=== PATIENT | female | born 1970 | race Caucasian/White ===

== ENCOUNTER → 2023-05-12 08:17 | Outpatient (POV) | payer MEDICAID, SELFPAY ==
[2023-05-12 08:50] VITALS: BP 154/96; PULSE 83; RESP 20; O2SAT 99; BMI 43.5
--- NOTE | 2023-05-12 08:51 | EXP.PAIN.OV ---
HPI Data of Consult Patient: known to practice within the last 3 years Consult date: 05/12/23 Requesting Physician: Gianna Briseno APRN Primary Care Provider: Carlota Warner APRN Consult Narrative Reason for consult: Low back pain, leg pain History of present illness: Ms. Mac is a 52 year old female who presents as a transfer from our [place] office location. We are currently treating the patient for degenerative disc disease of lumbar spine with lumbar radiculopathy symptoms, chronic pain, neuropathy. Today she rates her pain a 7 out of 10. Patient does state that she has had a fall since her last visit with our office in [place] however she denies any significant injury from it. Patient does state that she has recently gone to the ER due to increased pain that was unrelated to her fall. Patient does describe her pain as a constant severe, stabbing sensation with burning and tingling to her bilateral legs and feet. Patient states this has been going on for years and progressively worsened over time. She does state that the pain is debilitating and does interfere with activities of daily living such as cooking and cleaning or even simple ambulation. Patient does continue to use a wheelchair for help with ambulation. Patient was recently submitted for a psych eval for the possibility of a intrathecal pain pump. She does state that she completed this evaluation and is wanting to review the findings during today's visit as well. Patient denies have a significant health history with comorbidities of diabetes, kidney failure and end-stage COPD as well as heart issues. Patient is on Plavix daily that is prescribed by Carlota Warner office. Patient is currently managed with tramadol 50 mg 3 times a day, gabapentin 600 mg 3 times a day, diazepam 5 mg 3 times daily and ropinirole 3 mg at bedtime. Patient has tried heat and ice along with multiple topical solutions with no additional relief. Patient has had injections in the past and states they have been hit or miss on the amount of relief she does get. Patient cannot tolerate physical therapy due to her significant comorbidities and continuous O2 use. Her Maximo is [id number]. Its been reviewed and appropriate. CC: Gianna Briseno APRN [facility] Disclaimer: The information contained in this section may have been updated after the patient was seen, as this information can be updated by other users. Medical History (Updated 05/12/23 @ 10:03 by Gianna Briseno APRN) CAD (coronary artery disease) COPD (chronic obstructive pulmonary disease) Depression Diabetes GERD (gastroesophageal reflux disease) HLD (hyperlipidemia) HTN (hypertension) Surgical History (Updated 05/12/23 @ 08:54 by Fanny Kraus, [facility]) H/O breast surgery H/O section H/O colonoscopy H/O esophagogastroduodenoscopy Social History (Updated 05/12/23 @ 08:55 by Fanny Kraus, RN) Smoking Status: Current every day smoker alcohol intake: never current occupational status: unemployed Travel in the last 8 weeks: None Review of Systems Review of Systems Review of systems:: pertinent systems reviewed and negative unless documented below Review of systems (narrative): Review of Systems: General: No recent weight changes, no fever, no sleep disturbances Respiratory: No cough, no shortness of air, no recurring pulmonary infections Cardiovascular/peripheral vascular: No chest pain, no palpitations, no edema, no shortness of breath Gastrointestinal: No new onset incontinence, normal bowel movements reported Genitourinary: No new onset incontinence Musculoskeletal: Low back pain, bilateral leg pain Psychiatric: [Normal mood/affect] Neurological: [Denies weakness in extremities], [denies balance issues] Meds Home Medications and Allergies Home Medications Medication Instructions Recorded Confirmed Type aspirin 81 mg tablet,delayed 81 mg PO DAILY Blood thinner 05/12/23 05/12/23 History release
== END | disposition home or self-care (01) ==
PROVIDERS: PCP Nurse Practitioner Family; Visit Provider Nurse Practitioner Family
DX: M51.16 Intervertebral disc disorders with radiculopathy, lumbar region (principal); G89.4 Chronic pain syndrome
CPT/HCPCS: 99202; G0463

== ENCOUNTER → 2023-05-24 14:24 | Outpatient (POV) | payer MEDICAID, SELFPAY ==
[2023-05-24 14:49] VITALS: BP 179/76; PULSE 77; RESP 18; O2SAT 97; BMI 41.8
--- NOTE | 2023-05-24 15:02 | EXP.PAIN.SOA ---
[facility] Pain Management SOAP Note Subjective:: Patient is a pleasant 53-year-old female who presents today for follow-up. We are currently treating the patient for degenerative disc disease of lumbar spine with lumbar radiculopathy symptoms, chronic pain syndrome, neuropathy. Today she rates her pain a 8 out of 10. Patient states that she did fall last and has been having increased pain in her low back. Patient states that she did go to the ER and had imaging done with no acute findings. Patient does continue to have daily pain in her low back and legs and describes it as a constant severe, stabbing sensation with burning and tingling. Patient is still waiting for approval for her intrathecal pain pump trial. Patient is currently managed with Plavix daily, tramadol 50 mg 3 times a day, gabapentin 600 mg 3 times a day, diazepam 5 mg 3 times a day and ropinirole 3 mg at bedtime. Patient states that these medications do help however they do not provide significant relief. At her last visit she was prescribed methocarbamol 750 mg 3 times a day however she states she did not notice any improvement. She is currently on prednisone therapy patient states in the past she has had home health physical therapy and is interested in redoing this due to her increased weakness in her legs. Patient has tried compounding cream in the past however did not notice significant relief. She does currently use lidocaine patches. She does also state that she continues to have bladder incontinence and that she does see Dr. Farmer at [facility] for this. She states that she frequently holds her urine for lots due to increased pain and that by the time she gets to the restroom she does not have to go and then will have periods of incontinence. Her Maximo is [id number]. Its been reviewed and appropriate. Review of Systems: General: No recent weight changes, no fever, no sleep disturbances Respiratory: No cough, no shortness of air, no recurring pulmonary infections Cardiovascular/peripheral vascular: No chest pain, no palpitations, no edema, no shortness of breath Gastrointestinal: No new onset incontinence, normal bowel movements reported Genitourinary: Continued incontinence Musculoskeletal: Low back pain, leg pain Psychiatric: High anxiety and depression Neurological: [Denies weakness in extremities], [denies balance issues] Objective:: Physical Exam: General: Alert and oriented x3, no acute distress, pleasant and cooperative Lungs: Respirations even and unlabored, symmetrical chest expansion Eyes: PERRL Musculoskeletal: Flexion and extension of lumbar [spine] somewhat guarded secondary to pain, [antalgic gait noted] Neurological: Speech clear, no gross sensory deficit Assessment:: Degenerative disc disease of lumbar spine with lumbar radiculopathy symptoms, chronic pain syndrome, neuropathy Plan:: Patient continues to experience significant pain in her low back and legs with limited range of motion. We are currently waiting on insurance approval for her intrathecal pain pump trial. She did already have her psych eval and was deemed an appropriate candidate for the device. I will send her for referral to Yarelis Gallardo here at [facility] for her increased anxiety and depression related to her chronic pain symptoms. I will also order home health physical therapy. I have counseled the patient to discontinue the methocarbamol and I will send in a prescription of Skelaxin 800 mg at bedtime and provide a 1 month supply of this medication. I have recommended that she talk to her urologist regarding her continued incontinence and that she may benefit from bladder retraining exercises. We will contact the patient once we have insurance approval for her intrathecal pain pump trial. Patient has been instructed to contact the clinic with any concerns before the next appointment. Dr. Herrera has reviewed this note and agrees with this plan of care. This note was dictated using vo
== END | disposition home or self-care (01) ==
PROVIDERS: PCP Nurse Practitioner Family; Visit Provider Nurse Practitioner Family
DX: M51.16 Intervertebral disc disorders with radiculopathy, lumbar region (principal); G89.4 Chronic pain syndrome; G62.9 Polyneuropathy, unspecified
CPT/HCPCS: 99212; G0463

== ENCOUNTER → 2023-06-21 08:38 | Outpatient (POV) | payer MEDICAID, SELFPAY ==
--- NOTE | 2023-06-21 08:44 | EXP.PAIN.SOA ---
[facility] Pain Management SOAP Note Subjective:: Patient is a pleasant 53-year-old female who presents today for follow-up. We are currently treating the patient for degenerative disc disease of lumbar spine with lumbar radiculopathy symptoms, chronic pain syndrome, neuropathy. Today she she rates her pain a 7 out of 10. Patient denies any new trauma or injury. She denies any change location or type of pain she experiences. She states she continues to have significant, debilitating pain in her low back and legs. She describes it as a constant severe, stabbing sensation with burning and tingling. Patient is waiting for her intrathecal pain pump trial that has been scheduled for July 09. Patient is currently managed with tramadol 50 mg 3 times a day, gabapentin 600 mg 3 times a day, diazepam 5 mg 3 times a day and ropinirole 3 mg at bedtime. Patient states these medications help but they are not doing enough. At her last visit we did add Skelaxin 800 mg 3 times daily and discontinue her methocarbamol. Patient states that she has not noticed any additional improvements of this medication. She has tried cyclobenzaprine, baclofen, tizanidine in the past with no additional relief. Patient is on prednisone daily for her lungs. She was ordered compounding cream in the past however it was not covered by her insurance. SHe does currently use lidocaine patches however she states she has not gotten significant relief with this. Her Maximo is [id number]. Its been reviewed and appropriate. Review of Systems: General: No recent weight changes, no fever, no sleep disturbances Respiratory: No cough, no shortness of air, no recurring pulmonary infections Cardiovascular/peripheral vascular: No chest pain, no palpitations, no edema, no shortness of breath Gastrointestinal: No new onset incontinence, normal bowel movements reported Genitourinary: Continued incontinence Musculoskeletal: Low back pain, leg pain Psychiatric: High anxiety and depression Neurological: [Denies weakness in extremities], [denies balance issues] Objective:: Physical Exam: General: Alert and oriented x3, no acute distress, pleasant and cooperative Lungs: Respirations even and unlabored, symmetrical chest expansion Eyes: PERRL Musculoskeletal: Flexion and extension of lumbar [spine] somewhat guarded secondary to pain, [antalgic gait noted] Neurological: Speech clear, no gross sensory deficit Assessment:: Degenerative disc disease of lumbar spine with lumbar radiculopathy symptoms: Chronic pain syndrome, neuropathy Plan:: Patient continues to experience significant debilitating pain in her low back with radiating symptoms to her legs. I have discussed with the patient that she may benefit from injective therapy however she states she is unable to afford to travel back and forth from her home due to limited funds. I will order the patient's Flector patches and provide a 1 month supply of these medications and also send in a prescription of Orphengesic citrate bid and provide a 2-week supply of this medication. I did review over the patient's current medication and she has been discontinued on all other muscle relaxers as well as is not taking a potassium tablet any longer. I have counseled the patient that if we are able to move up her pain pump trial we will contact her. Patient has been instructed to contact the clinic with any concerns before the next appointment. Dr. Herrera has reviewed this note and agrees with this plan of care. This note was dictated using voice recognition software and make contain errors or omissions. [facility] Disclaimer: The information contained in this section may have been updated after the patient was seen, as this information can be updated by other users. Medical History (Updated 05/12/23 @ 10:03 by Gianna Briseno APRN) CAD (coronary artery disease) COPD (chronic obstructive pulmonary disease) Depression Diabetes GERD (gastroesophageal reflux disease) HLD (hyper
[2023-06-21 08:47] VITALS: BP 134/40; PULSE 76; RESP 18; O2SAT 90; BMI 37.5
== END | disposition home or self-care (01) ==
PROVIDERS: PCP Nurse Practitioner Family; Visit Provider Nurse Practitioner Family
DX: M51.16 Intervertebral disc disorders with radiculopathy, lumbar region (principal); G89.4 Chronic pain syndrome; G62.9 Polyneuropathy, unspecified
CPT/HCPCS: 99212; G0463

== ENCOUNTER 2023-07-09 09:01 | Day surgery (SDC) | payer MEDICAID, SELFPAY ==
[2023-07-09 09:45] VITALS: BP 141/81; PULSE 81; RESP 20; TEMP 36.8; O2SAT 97; BMI 40.7
[2023-07-09 09:58] VITALS: BP 139/94; PULSE 73; PULSE 76; RESP 18; O2SAT 95; O2SAT 97
--- NOTE | 2023-07-09 11:06 | EXP.OP.NOTE ---
Date of procedure: 07/09/23 Pre-op Diagnosis:: Degenerative disc disease of lumbar spine with lumbar radiculopathy symptoms Post-op Diagnosis:: Same Procedure performed:: Catheter placement for intrathecal pump trial Surgeon:: Dewayne Herrera MD
[2023-07-09 11:30] VITALS: BP 129/86; PULSE 74; RESP 20; O2SAT 95
--- NOTE | 2023-07-09 11:56 | PC.NURSE ---
1005-pt assisted back to chair. pt denies pain, lumbar dressing c/d/i. 144/80, 80, 97% on RA 1020-pt resting in chair. tolerating PO liquids. family at bedside. no c/o pain. lumbar dressing c/d/i. 140/80, 73, 96% on RA. pt reports itching, denies need for PRN medication 1035-pt resting in chair. no needs or concerns. 134/67, 79, 96% on RA. no c/o pain. dressing c/d/i. family at bedside 1048-MD at bedside 1050-pt resting in chair. 110/66, 73, 100%. no c/o pain, dressing c/d/i. family at bedside. no needs or concerns at this time 1100-pt ambulated to nurse's station accompanied by nursing staff. gait steady. rates pain 2 on scale of 0-10 while ambulating. 1120-pt resting in chair. no c/o pain. dressing c/d/i. 105/75, 72, 96% on RA. no needs or concerns at this time
--- NOTE | 2023-07-09 12:14 | P.PCN_ITS ---
Procedure Date: 07/09/23 Time: 12:14 Anesthesiologist:: Dewayne Herrera MD Complications:: None Pre-procedure Diagnosis:: Degenerative disc disease of lumbar spine with lumbar radiculopathy symptoms Post-procedure Diagnosis:: Same Indications for Procedure:: This patient is a pleasant 53-year-old white female who we are treating for low back pain with lumbar radicular symptoms. She has failed all previous conservative treatments including injections, oral medications, physical therapy and she is not a candidate for surgery. She has disabling low back pain with radiation into both legs. She has had a successful psychological evaluation. She presents for intrathecal pump trial today. Procedure Details:: Pain pump trial Informed consent was obtained and the risk and benefits of the procedure was explained to the patient. The patient was taken to the procedure room and placed prone on the procedure table. Patient was prepped and draped in sterile fashion. C-arm fluoroscopy was used to view the lumbar spine. The skin and mensah bcutaneous tissues were anesthetized using lidocaine. I placed a 18-gauge spinal needle into the L4-5 interspace and advanced until clear CSF was obtained. After this intrathecal catheter was inserted and advanced very easily to the L1 vertebral body. The needle was withdrawn. We were able to freely withdraw clear CSF through the catheter. We then injected intrathecal opioid single shot bolus of 25 mcg followed by saline and followed by the previous CSF that was withdrawn. The needle and catheter were then removed and a Band-Aid was placed. Patient tolerated the procedure well with no complications. We reevaluated the patient after 30 minutes to 1 hour. She was also reassessed by physical therapy. Patient had 90 to 100% relief in pain symptoms. She was much more functional. She was walking better and standing much longer. By all indications this did seem to be a successful intrathecal pump trial. Patient was discharged home neurologic intact with good relief of pain symptoms. Plan and Disposition:: We will follow-up with this patient in 1 week to assess efficacy of this trial. If successful we will plan on permanent placement with intrathecal morphine 1 mg/mL to start at 100 mcg/day. Catheter tip will be at the T8 vertebral body.
== END 2023-07-09 11:30 | disposition home or self-care (01) ==
PROVIDERS: PCP Nurse Practitioner Family; Visit Provider Anesthesiology
DX: M51.16 Intervertebral disc disorders with radiculopathy, lumbar region (principal)
CPT/HCPCS: 62323; 96365

== ENCOUNTER → 2023-08-27 07:43 | Outpatient (POV) | payer MEDICAID, SELFPAY ==
[2023-08-27 08:00] VITALS: BP 167/57; PULSE 77; RESP 20; BMI 40.4
--- NOTE | 2023-08-27 11:00 | A.OFFVIS_ITS ---
[facility] Pain Management SOAP Note Subjective:: This patient is a very pleasant 53-year-old female that returns our clinic today for follow-up visit after being intrathecal pain pump implantation. Patient had a very successful trial. She reports 4 to 6 hours of complete relief in terms of her overall low back pain as well as bilateral hip and leg radicular symptoms. Patient not understanding today why there was a denial. However, we are going to deal with the cards that have been handed to us. Today we will start the patient on hydrocodone 5 mg 1 p.o. twice daily. She will continue with tramadol 50 mg 1 p.o. 2-3 times daily for breakthrough pain. She also takes gabapentin 600 mg 1 p.o. 3 times daily. Both of these existing me dications come from her PCP. Patient presents to us today in a wheelchair. She has difficulty with ambulation secondary to intense low back pain she rates 8/10. Patient also having bilateral hip and leg radicular symptoms that she describes as constant, dull, aching, shooting pains at times. Patient unable to do light housework. Light yard work is out of the question secondary to increased pain. Patient has tried and failed conservative measures such as NSAIDs, physical therapy, home exercise program, injective therapy. I think it is very reasonable with the relief she received with the pump trial that we proceed with intrathecal pain pump implantation. Objective:: Patient is awake alert [place] x3. No acute distress. Flexion-extension lumbar spine very guarded secondary to pain. Deep tendon reflexes upper and lower extremities normal. Motor strength lower extremities attended secondary to pain. She presents to our clinic today in a wheelchair. Ambulating for any distance as not possible. Assessment:: Degenerative disc lumbar spine multilevels. Lumbar radiculopathy. Plan:: I discussed in detail with the patient regarding procedure from this point forward regarding obtaining authorization from insurance for intrathecal pain pump implantation. Patient discussed in detail with the office nurse as well. We will expedite this to the ability that we can. However, we are under the constraints of [facility] at this time. [facility] Disclaimer: The information contained in this section may have been updated after the scott davalos was seen, as this information can be updated by other users. Medical History CAD (coronary artery disease) COPD (chronic obstructive pulmonary disease) Depression Diabetes GERD (gastroesophageal reflux disease) HLD (hyperlipidemia) HTN (hypertension) Surgical History H/O breast surgery H/O section H/O colonoscopy H/O esophagogastroduodenoscopy Family History (Updated 07/09/23 @ 11:50 by Soco Morris RN) Other No significant family history Social History (Updated 07/09/23 @ 11:51 by Soco Morris RN) Smoking Status: Current every day smoker alcohol intake: never substance use type: denies use current occupational status: other Travel in the last 8 weeks: None
== END | disposition home or self-care (01) ==
PROVIDERS: PCP Nurse Practitioner Family; Visit Provider Nurse Anesthetist, Certified Registered
DX: M51.16 Intervertebral disc disorders with radiculopathy, lumbar region (principal)
CPT/HCPCS: 99212; G0463

== ENCOUNTER → 2023-08-27 08:46 | Outpatient (CLI) | payer MEDICAID, SELFPAY ==
[2023-08-27 09:51] LABS: Barbiturates Screen,Urine Negative ng/ml (<200)
[2023-08-27 09:52] LABS: Amphetamine/Metha Screen,Urine Negative ng/ml (<1000)
[2023-08-27 09:53] LABS: Benzodiazepines Screen,Urine Negative ng/ml (<200); Cannabinoid Screen,Urine Negative ng/ml (<50)
[2023-08-27 09:58] LABS: Methadone Screen,Urine Negative ng/ml (<300)
[2023-08-27 09:59] LABS: Cocaine Screen,Urine Negative ng/ml (<300)
[2023-08-27 10:00] LABS: Opiate Screen,Urine Negative ng/ml (<300); Phencyclidine Screen,Urine Negative ng/ml (<25)
[2023-09-01 15:33] LABS: Opiates Negative (Cutoff=100)
== END ==
PROVIDERS: PCP Nurse Practitioner Family; Visit Provider Nurse Practitioner Family
DX: Z79.891 Long term (current) use of opiate analgesic (principal)
CPT/HCPCS: 80305; 80361; 80365; G0480

== ENCOUNTER → 2023-09-24 08:21 | Outpatient (POV) | payer MEDICAID, SELFPAY ==
[2023-09-24 09:02] VITALS: BP 156/86; PULSE 71; RESP 18; O2SAT 94; BMI 40.8
--- NOTE | 2023-09-24 10:21 | EXP.PAIN.SOA ---
[facility] Pain Management SOAP Note Subjective:: Patient is a very pleasant 53-year-old female that comes our clinic today for follow-up visit for medication refill. Patient is waiting a 60-day. Prior to resubmitting for intrathecal pain pump implant. Patient had a very successful 4 to 6-hour trial. However, patient was denied implantation. We are currently managing her with oral medications prior to intrathecal pain pump implantation. Patient is taking hydrocodone 5 mg 1 p.o. twice daily. Also, tramadol 50 mg 1 p.o. 2-3 times daily. Also, from her PCP patient is taking gabapentin 600 mg 1 p.o. 3 times daily. Patient presents in a wheelchair today. Patient complains of low back pain she describes as constant, dull, aching. Patient also complains of bilateral hip and leg radicular symptoms. She rates her pain 8/10. Patient has difficulty ambulating long distance. She has difficulty performing light house duty. Patient's Maximo #[id number] has been reviewed and appropriate. Patient has tried and failed conservative measures such as NSAIDs, physical therapy, home exercise program, injective therapy. Objective:: Patient is awake alert [place] x3. In no acute distress. Flexion-extension cervical lumbar spine guarded secondary to pain. Deep tendon reflexes upper and lower extremities normal. Motor strength upper lower extremities normal. There is no gross sensory deficit. Gait is antalgic. Assessment:: Degenerative disc disease lumbar spine multilevels. Lumbar radiculopathy. Plan:: I had a strong discussion with the patient and her regarding her medications. Patient has multiple family members and/or friends living in their home. I discussed with them in detail the necessity of keeping her medications locked. Also, I strongly encouraged the patient and her to count her pills every 3 to 4 days for accuracy. Both verbalized understanding. I will increase the patient's hydrocodone to 5 mg 1 p.o. 3 times daily. Patient will return to see us in 30 days. [facility] Disclaimer: The information contained in this section may have been updated after the patient was seen, as this information can be updated by other users. Medical History CAD (coronary artery disease) COPD (chronic obstructive pulmonary disease) Depression Diabetes GERD (gastroesophageal reflux disease) HLD (hyperlipidemia) HTN (hypertension) Surgical History H/O breast surgery H/O section H/O colonoscopy H/O esophagogastroduodenoscopy Family History (Updated 07/09/23 @ 11:50 by Soco Morris RN) Other No significant family history Social History (Updated 08/27/23 @ 11:04 by Carlos Fulton CRNA) Smoking Status: Current every day smoker alcohol intake: never substance use type: denies use current occupational status: disabled Travel in the last 8 weeks: None
== END | disposition home or self-care (01) ==
PROVIDERS: PCP Nurse Practitioner Family; Visit Provider Nurse Anesthetist, Certified Registered
DX: M51.16 Intervertebral disc disorders with radiculopathy, lumbar region (principal)
CPT/HCPCS: 99212; G0463

== ENCOUNTER → 2023-10-20 07:59 | Outpatient (POV) | payer MEDICAID, SELFPAY ==
[2023-10-20 08:33] VITALS: BP 120/42; PULSE 72; RESP 19; O2SAT 93; BMI 37.5
--- NOTE | 2023-10-20 09:18 | EXP.PAIN.SOA ---
[facility] Pain Management SOAP Note Subjective:: Patient is a pleasant 53-year-old female who presents today for follow-up and medication refill. We are currently treating the patient for degenerative disc disease of lumbar spine with lumbar radiculopathy symptoms, chronic pain syndrome, neuropathy. Today she she rates her pain a 7 out of 10. Patient denies any new trauma or injury. She denies any change location or type of pain she experiences. She continues to have chronic low back pain that she states is constant and debilitating. She states that she has no quality of life due to the nonstop pain. It is a constant severe, stabbing sensation with burning and tingling into her legs. Patient did have a very successful intrathecal pump trial with 90 to 100% relief lasting 6 hours. Patient was submitted for the intrathecal pump placement however was denied and had to wait a 60-day period. Patient has officially passed this ange. She does state that she would like to try and resubmit for this procedure. Patient states this was the only thing that seemed to make significant improvement of her overall low back pain. Patient has been tried on multiple medications including tramadol, cyclobenzaprine and baclofen, Skelaxin, orphenadrine, robaxin with no additional relief. She is currently managed with tramadol 50 mg 3 times a day, gabapentin 600 mg 3 times a day, diazepam 5 mg 3 times a day, Delano 5 mg 3 times a day and ropinirole 3 mg at bedtime. patient states that this medication combination only takes the edge off and still she is not able to do any activity due to the worsening pain. Patient has tried and failed conservative therapy such as oral medications, heat and ice, multiple topicals including [id number] Biofreeze and lidocaine patches with no additional relief. Patient has been through physical therapy home exercise therapy and injection therapy with no change. Her Maximo has been reviewed and appropriate. Review of Systems: General: No recent weight changes, no fever, no sleep disturbances Respiratory: No cough, no shortness of air, no recurring pulmonary infections Cardiovascular/peripheral vascular: No chest pain, no palpitations, no edema, no shortness of breath Gastrointestinal: No new onset incontinence, normal bowel movements reported Genitourinary: Continued incontinence Musculoskeletal: Low back pain, leg pain Psychiatric: High anxiety and depression Neurological: [Denies weakness in extremities], [denies balance issues] Objective:: Physical Exam: General: Alert and oriented x3, no acute distress, pleasant and cooperative Lungs: Respirations even and unlabored, symmetrical chest expansion Eyes: PERRL Musculoskeletal: Flexion and extension of lumbar [spine] somewhat guarded secondary to pain, [antalgic gait noted] Neurological: Speech clear, no gross sensory deficit Assessment:: Degenerative disc disease of lumbar spine with lumbar radiculopathy symptoms, chronic pain syndrome, neuropathy Plan:: Patient continues to experience significant debilitating pain throughout her low back with limited range of motion. I have discussed with the patient that I do believe she still would benefit from the pain pump implant. Risk and benefits were reviewed over again and patient would like to proceed forward with this plan of care. We will send in refills of her Delano 5 mg 3 times a day, gabapentin 600 mg 3 times a day and add tizanidine 4 mg 3 times a day and provide a 1 month supply of these medications. We will resubmit to insurance for the intrathecal pain pump trial and contact the patient once we have approval. Patient did have 90 to 100% improvement lasting 6 hours or more. Patient has tried and failed conservative therapy such as oral medication, heat and ice, topicals, physical therapy, at home exercising and stretching for longer than 12 weeks and injection therapy. Patient will be submitted for intrathecal pump implant. Patient's primary ca
== END | disposition home or self-care (01) ==
PROVIDERS: PCP Nurse Practitioner Family; Visit Provider Nurse Practitioner Family
DX: M51.16 Intervertebral disc disorders with radiculopathy, lumbar region (principal); G89.4 Chronic pain syndrome; G62.9 Polyneuropathy, unspecified
CPT/HCPCS: 99212; G0463

== ENCOUNTER → 2023-11-18 08:27 | Outpatient (POV) | payer MEDICAID, SELFPAY ==
[2023-11-18 09:03] VITALS: BP 84/63; PULSE 92; RESP 22; O2SAT 100; BMI 40.4
--- NOTE | 2023-11-18 09:41 | A.OFFVIS_ITS ---
[facility] Pain Management SOAP Note Subjective:: Patient is a pleasant 53-year-old female who presents today for medication refill and follow-up. We are currently treating the patient for degenerative disc disease of lumbar spine with lumbar radiculopathy symptoms, chronic pain syndrome, neuropathy. Today she rates her pain a 9 out of 10. Patient denies any new falls however does state that she has been recently hospitalized for a COPD exacerbation. Patient states that the physicians she saw there did diagnose her with end-stage COPD and states that she he was put on high flow O2 continuously. Patient does state that the provider did also state he was not sure how much time she had left. Patient does state that she is scheduled to follow-up with her primary care today at 3 PM. Patient's vitals this morning were blood pressure 84/63. Patient has tried and failed conservative therapy such as oral medications, heat and ice, topicals, physical therapy, at home stretching exercise for longer than 6 weeks. Patient is currently managed with [place] 5 mg 3 times a day, gabapentin 600 mg 3 times a day, ropinirole 3 mg at bedtime and diazepam 5 mg 3 times a day. Patient denies any side effects from these medications. She states these medications only merely take the edge off. She does state that she was given in the ER Percocet as well as Ativan. Patient is asking whether or not we will change her current prescription to the Percocet or if we will continue the Ativan. Patient is currently scheduled for a pain pump implant next week and did have a psychological evaluation that deemed her an appropriate candidate. Patient would like to proceed forward with this plan of care. Her Maximo has been reviewed and is appropriate. Review of Systems: General: No recent weight changes, no fever, no sleep disturbances Respiratory: No cough, no shortness of air, no recurring pulmonary infections Cardiovascular/peripheral vascular: No chest pain, no palpitations, no edema, no shortness of breath Gastrointestinal: No new onset incontinence, normal bowel movements reported Genitourinary: No new onset incontinence Musculoskeletal: Low back pain Psychiatric: [Normal mood/affect] Neurological: [Denies weakness in extremities], [denies balance issues] Objective:: Physical Exam: General: Alert and oriented x3, no acute distress, pleasant and cooperative Lungs: Respirations even and unlabored, symmetrical chest expansion Eyes: PERRL Musculoskeletal: Flexion and extension of lumbar [spine] somewhat guarded secondary to pain, [antalgic gait noted] Neurological: Speech clear, no gross sensory deficit Assessment:: Degenerative disc disease of lumbar spine with lumbar radiculopathy symptoms, chronic pain syndrome, neuropathy, end-stage COPD Plan:: I have discussed with the patient due to the recent hospitalization and being diagnosed with end-stage COPD we will have to contact her primary care provider as well as 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 I have explained that if we are unable to get these that we will have to postpone her surgery. Patient acknowledges understanding. We will change her Fredonia to Percocet 5 mg 3 times a day and provide a 1 month supply of this medication. I have counseled the patient that we will not be taking over or prescribing the Ativan. Patient is tentatively still scheduled for her intrathecal pain pump implant for next Wednesday. I have counseled the patient that we will keep her posted if this does need to be postponed. Patient has been advised of risks of oversedation with the prescribed medication. Narcan has been offered to the patient in the event of oversedation. Patient has been advised that a family member should also be educated regarding administration of Narcan. Patient has been instructed to contact the clinic with any concerns before the next appointment. Dr. Herrera has reviewed this note and agrees with this plan of care. This note was dictated using voice recognition software and make contain errors or omissions. [facility] Disclaimer: The information contained in this section may have been updated after the patient was seen, as this information can be updated by other users. Medical History CAD (coronary artery disease) COPD (chronic obstructive pulmonary disease) Depression Diabetes GERD (gastroesophageal reflux disease) HLD (hyperlipidemia) HTN (hypertension) Surgical History H/O breast surgery H/O section H/O colonoscopy H/O esophagogastroduodenoscopy Family History (Updated 07/09/23 @ 11:50 by Soco Morris RN) Other No significant family history Social History (Updated 08/27/23 @ 11:04 by Carlos Fulton CRNA) Smoking Status: Current every day smoker alcohol intake: never substance use type: denies use current occupational status: disabled Travel in the last 8 weeks: None
== END | disposition home or self-care (01) ==
PROVIDERS: Visit Provider Nurse Practitioner Family
DX: M51.16 Intervertebral disc disorders with radiculopathy, lumbar region (principal); G89.4 Chronic pain syndrome; G62.9 Polyneuropathy, unspecified; J44.9 Chronic obstructive pulmonary disease, unspecified
CPT/HCPCS: 99212; G0463

== ENCOUNTER 2023-11-23 14:37 | Outpatient (CLI) | payer MEDICAID, SELFPAY ==
--- NOTE | 2023-11-23 14:45 | CT_ITS ---
FINAL REPORT TECHNIQUE: Axial images were obtained from the lung apex to the mid abdomen by computed tomography. Coronal and sagittal reformatted images were obtained. This study was performed with techniques to keep radiation doses as low as reasonably achievable, (ALARA). Individualized dose reduction techniques using automated exposure control or adjustment of mA and/or kV according to the patient's size were employed. CLINICAL HISTORY: Lung nodule, severe copd COMPARISON: None FINDINGS: There is no axillary adenopathy. A calcified left perihilar lymph node is noted. There is a lingular nodule, calcified, as well as atelectasis and scar in the lingula. There is a focal right upper lobe opacity which measures 13 mm, the overall appearance is most consistent with scar. Heart size is normal. There is no pericardial or pleural effusion. Limited images of the upper abdomen are unremarkable. There are multifocal patchy ground glass opacities, that are worrisome for an atypical or viral pneumonia. IMPRESSION: Focal right upper lobe opacity which measures 13 mm, the overall appearance most consistent with scar. Multifocal patchy ground glass opacities, worrisome for an atypical or viral pneumonia. Reviewed, Interpreted and Dictated by Harley Ambrocio III, MD Transcribed by Irais Ford Authenticated and [facility]
--- NOTE | 2023-11-23 14:45 | XR_ITS ---
FINAL REPORT CLINICAL HISTORY: SOB, lung nodule COMPARISON: None FINDINGS: Two views of the chest were obtained. The heart size and pulmonary vascularity are within normal limits. There is calcification in some left hilar lymph nodes. There is a linear opacity in the left lung base, that may represent atelectasis or scar. There is no pneumothorax. The bony thorax is intact. IMPRESSION: Linear opacity in the left lung base, likely atelectasis or scar. Reviewed, Interpreted and Dictated by Harley Ambrocio III, MD Transcribed by Irais Ford Authenticated and [facility]
[2023-11-23 15:35] LABS: ABG Base Excess 1.4 mmol/L (-2.4-2.3); ABG HCO3 25.7 mmhg (22.0-26.0); ABG Oxygen Saturation 94 % (90-100); ABG PH 7.44 mmol/L (7.35-7.45); ABG PO2 68.6 mmhg (80-100); ABG TCO2 26.9 mmhg (23-27)
[2023-11-23 15:36] LABS: Oxygen 2 LPM %; Source Left Brachial
== END 2023-11-23 23:59 ==
PROVIDERS: PCP Nurse Practitioner Family; Visit Provider Internal Medicine Pulmonary Disease
DX: R06.02 Shortness of breath (principal); R91.8 Other nonspecific abnormal finding of lung field; Z87.09 Personal history of other diseases of the respiratory system
CPT/HCPCS: 71046; 71250; 82803

== ENCOUNTER 2023-11-24 12:31 | Observation (INO) | payer MEDICAID, SELFPAY ==
[2023-11-24] VITALS (12 sets, daily range): BP systolic 92–148; BP diastolic 50–100; PULSE 69–94; RESP 15–24; TEMP 36.6–36.8; O2SAT 91–97; BMI 35.6
--- NOTE | 2023-11-24 13:50 | PC.NURSE ---
respiratory called for ABG order placed by
--- NOTE | 2023-11-24 14:17 | PC.NURSE ---
called lab regarding blood cultures
[2023-11-24 14:19] LABS: Basophils # 0.1 K/mm3 (0-0.2); Basophils % 0.6 % (0.1-2.0); Eosinophils # 0.2 K/mm3 (0.0-0.4); Eosinophils % 1.8 % (0.1-12.0); Hematocrit 38.4 % (37.0-47.0); Lymphocytes # 2.5 K/mm3 (0.7-4.5); Lymphocytes % 24.5 % (10-50); Mean Corpuscular Hemoglobin 30.7 pg (27.0-31.2); Mean Corpuscular Volume 90.5 fl (81-99); Mean Platelet Volume 8.3 fl (7.4-10.4); Monocytes # 0.7 K/mm3 (0.1-1.0); Monocytes % 6.9 % (1.7-9.3); Neutrophils # 6.7 K/mm3 (1.8-7.8); Neutrophils % 66.2 % (37.0-80.0); Platelet Count 235 K/mm3 (142-424); Red Blood Count 4.25 M/mm3 (4.20-5.40); Red Cell Distribution Width 13.4 % (11.5-17.5); White Blood Count 10.1 K/mm3 (4.8-10.8)
[2023-11-24 14:22] LABS: Chloride 101 mmol/L (98-107); Sodium 136 mmol/L (136-145)
--- NOTE | 2023-11-24 14:22 | HMH.EDGENADL ---
Discharge Plan Disposition Patient Disposition: Admitted Chief Complaint: Recheck/Abnormal Lab/Rx Prescriptions Prescriptions: No Action metoprolol succinate 25 mg tablet extended release 24 hr 25 mg PO DAILY Qty: 30 11RF cyclobenzaprine 10 mg tablet 10 mg PO Q8HP PRN (Reason: MOOD) Patient Comments: TAKE ONE (1) TABLET BY ORAL ROUTE EVERY 8 HOURS NEEDED furosemide 40 mg tablet 40 mg PO BID Patient Comments: TAKE ONE (1) TABLET (40 MG) BY ORAL ROUTE TWO (2) TIMES PER DAY clonidine HCl 0.1 mg tablet 0.1 mg PO TID Patient Comments: TAKE ONE (1) TABLET THREE (3) TIMES A DAY BY ORAL ROUTE. ipratropium-albuterol 0.5 mg-3 mg(2.5 mg base)/3 mL solution for nebulization 3 ml INHALATION QID Patient Comments: USE 1 VIAL IN NEBULIZER FOUR TIMES DAILY atorvastatin 10 mg tablet 10 mg PO DAILY Patient Comments: TAKE ONE (1) TABLET EVERY DAY BY ORAL ROUTE. lisinopril 20 mg tablet 20 mg PO DAILY Patient Comments: TAKE ONE (1) TABLET EVERY DAY BY ORAL ROUTE. clopidogrel 75 mg tablet 75 mg PO DAILY Patient Comments: TAKE ONE (1) TABLET EVERY DAY BY ORAL ROUTE DIRECTED. (DME) FreeStyle Lite Strips Strip MISCELLANEOUS Patient Comments: USE DIRECTED aspirin 81 mg tablet,delayed release (DR/EC) 81 mg PO DAILY Patient Comments: TAKE ONE (1) TABLET EVERY DAY BY ORAL ROUTE. tramadol 50 mg tablet 50 mg PO Q8HP PRN (Reason: Pain) Patient Comments: TAKE 1 TABLET BY MOUTH EVERY EIGHT (8) HOURS NEEDED potassium chloride [Klor-Con M20] 20 mEq tablet,ER particles/crystals 20 meq PO TID Patient Comments: TAKE ONE (1) TABLET THREE (3) TIMES A DAY BY ORAL ROUTE. trazodone 100 mg tablet 200 mg PO HS Patient Comments: TAKE TWO (2) TABLETS EVERY DAY BY ORAL ROUTE AT BEDTIME. insulin aspart U-100 [Novolog U-100 Insulin aspart] 100 unit/mL solution 20 unit SQ DIRECTED Patient Comments: INJECT 20 UNITS BY SUBCUTANEOUS ROUTE BEFORE MEALS. pantoprazole 40 mg tablet,delayed release (DR/EC) 40 mg PO DAILY Patient Comments: TAKE 1 TABLET BY MOUTH EVERY DAY sertraline 25 mg tablet 25 mg PO DAILY Patient Comments: TAKE ONE (1) TABLET EVERY DAY BY ORAL ROUTE. bisacodyl 5 mg tablet,delayed release (DR/EC) 5 mg PO DAILY Patient Comments: TAKE ONE (1) TABLET EVERY DAY BY ORAL ROUTE. polyethylene glycol 3350 17 gram/dose powder 17 g PO DAILY Patient Comments: TAKE 17 GRAMS BY ORAL ROUTE ONCE DAILY ketoconazole 2 % cream 1 applic TOPICAL DAILY Patient Comments: APPLY TO AFFECTED AREA TOPICALLY FOR 14 DAYS bupropion HCl 300 mg tablet extended release 24 hr 300 mg PO DAILY Patient Comments: TAKE ONE (1) TABLET EVERY DAY BY ORAL ROUTE. naloxone 4 mg/actuation spray,non-aerosol 2 spray INTRANASAL DIRECTED Patient Comments: USE ONE SPRAY IN NOSTRIL IF NEEDED. MAY REPEAT EVERY 2-3MIN UNTIL PATIENT RESPONSIVE. metaxalone 800 mg tablet 800 mg PO HS diclofenac epolamine [Flector] 1.3 % patch 12 hour 1 patch topical BID Qty: 30 0RF orphenadrine citrate 100 mg tablet extended release 100 mg PO BID Qty: 28 0RF tizanidine [Zanaflex] 4 mg tablet 4 mg PO TID Qty: 90 0RF gabapentin 600 mg tablet 600 mg PO TID Qty: 90 0RF hydrocodone-acetaminophen 5-325 mg tablet 1 tab PO TID Qty: 90 0RF oxycodone-acetaminophen [Percocet] 5-325 mg tablet 1 tab PO TID Qty: 90 0RF methocarbamol 750 mg tablet 750 mg PO TID Referrals Follow up/Referrals: Carlota Warner APRN [Primary Care Provider] - See instructions Clinical Impressions Clinical Impression: Pneumonia Discharge ED Provider: Jermaine White General Adult HPI General Chief complaint: Recheck/Abnormal Lab/Rx Stated complaint: Abnormal MRI Time Seen by Provider: 11/24/23 13:04 Mode of Arrival: Wheelchair Source of Information: Patient and Significant Other Limitations: No Limitations Description of Symptoms (Recalled from ER Triage Doc. by RN): pt was sent to ER by due to abnormal imagining done yesterday from his office. according to patient she is to be admitted. 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 Patient states that she had CT done yesterday and she was told to come to the emergency by assistant professor of psychology to be admitted. Does not know what the CT showed. Patient has not been more short of breath, but has been coughing up yellow sputum. No fevers or chills, nausea or vomiting, or any other concerns. Has not needed increased oxygen. Related Data Home Medications Medication Instructions Recorded Confirmed aspirin 81 mg tablet,delayed 81 mg PO DAILY Blood thinner 05/12/23 11/23/23 release atorvastatin 10 mg tablet 10 mg PO DAILY Cholesterol 05/12/23 11/23/23 bisacodyl 5 mg tablet,delayed 5 mg PO DAILY BOWELS 05/12/23 11/23/23 release blood sugar diagnostic (FreeStyle 05/12/23 11/23/23 Lite Strips) bupropion HCl 300 mg 24 hr tablet, 300 mg PO DAILY MOOD 05/12/23 11/23/23 extended release clonidine HCl 0.1 mg tablet 0.1 mg PO TID BLOOD PRESSURE 05/12/23 11/23/23 clopidogrel 75 mg tablet 75 mg PO DAILY Blood thinner 05/12/23 11/23/23 cyclobenzaprine 10 mg tablet 10 mg PO Q8HP PRN MOOD 05/12/23 11/23/23 furosemide 40 mg tablet 40 mg PO BID Fluid 05/12/23 11/23/23 insulin aspart U-100 100 unit/mL 20 unit SQ DIRECTED Diabetes 05/12/23 11/23/23 subcutaneous solution (Novolog U-100 Insulin aspart) ipratropium 0.5 mg-albuterol 3 mg 3 ml inhalation QID Breathing 05/12/23 11/23/23 (2.5 mg base)/3 mL nebulization problems soln ketoconazole 2 % topical cream 1 applic topical DAILY Skin 05/12/23 11/23/23 condition lisinopril 20 mg tablet 20 mg PO DAILY BLOOD PRESSURE 05/12/23 11/23/23 naloxone 4 mg/actuation nasal spray 2 spray intranasal DIRECTED 05/12/23 11/23/23 REQUIRED FOR CONTROL SUBSTANCE PRESCRIPTION pantoprazole 40 mg tablet,delayed 40 mg PO DAILY GERD 05/12/23 11/23/23 release polyethylene glycol 3350 17 17 g PO DAILY BOWELS 05/12/23 11/23/23 gram/dose oral powder potassium chloride 20 mEq 20 meq PO TID SUPPLIMENT 05/12/23 11/23/23 tablet,extended release(part/cryst) (Klor-Con M) sertraline 25 mg tablet 25 mg PO DAILY MOOD 05/12/23 11/23/23 tramadol 50 mg tablet 50 mg PO Q8HP PRN Pain 05/12/23 11/23/23 trazodone 100 mg tablet 200 mg PO HS SLEEP 05/12/23 11/23/23 methocarbamol 750 mg tablet 750 mg PO TID Pain 05/24/23 11/23/23 metaxalone 800 mg tablet 800 mg PO HS . 06/21/23 11/23/23 Previous Rx's Medication Instructions Recorded diclofenac epolamine 1.3 % 1 patch topical BID #30 ea 06/21/23 transdermal 12 hour patch (Flector) orphenadrine citrate 100 mg 100 mg PO BID #28 tabs 06/23/23 tablet,extended release gabapentin 600 mg tablet 600 mg PO TID Pain #90 tabs 10/20/23 hydrocodone 5 mg-acetaminophen 325 1 tab PO TID #90 tabs 10/20/23 mg tablet tizanidine 4 mg tablet (Zanaflex) 4 mg PO TID #90 tabs 10/20/23 oxycodone-acetaminophen 5 mg-325 1 tab PO TID #90 tabs 11/18/23 mg tablet (Percocet) metoprolol succinate 25 mg 25 mg PO DAILY #30 tabs 11/23/23 tablet,extended release 24 hr Allergies Allergy/AdvReac Type Severity Reaction Status Date / Time ketorolac [From Toradol] Allergy Verified 11/23/23 14:00 prochlorperazine Allergy Verified 11/23/23 14:00 [From Compazine] [facility] Disclaimer: The information contained in this section may have been updated after the patient was seen, as this information can be updated by other users. Medical History CAD (coronary artery disease) CHF (congestive heart failure) COPD (chronic obstructive pulmonary disease) Depression Diabetes Dyspnea on exertion GERD (gastroesophageal reflux disease) History of COPD HLD (hyperlipidemia) HTN (hypertension) Pre-op testing Stopped smoking with greater than 30 pack year history Surgical History H/O breast surgery H/O section H/O colonoscopy H/O esophagogastroduodenoscopy Family History Other No significant family history Social History Smoking Status: Never smoker smoking status stop date: 07/16/2023 alcohol intake: never substance use type: denies use current occupational status: disabled Travel in the last 8 weeks: None ROS Obtained: Yes All systems reviewed & no additional complaints except as documented Physical Exam General General appearance: alert and anxious Neck Neck exam: Present trachea midline Chest Chest inspection: Present normal inspection and symmetric chest wall rise Respiratory Respiratory exam: Present wheezes (Diffuse, bilateral), prolonged expiratory phase and other (Nasal cannula in place); Absent respiratory distress, stridor or accessory muscle use Cardiovascular Cardiovascular exam: Present regular rate and normal rhythm Extremities Exam Extremities exam: Absent edema Neurological Exam Neurological exam: Present alert, oriented X3 and CN II-XII intact Skin Skin exam: Present warm and dry; Absent cyanosis, diaphoresis or pallor Medical Decision Making Medical Records Medical records reviewed: Yes I reviewed the patient's medical records. Maximo Inquiry Pt receiving controlled substance: No Maximo was queried for this patient: No Vital Signs: 11/24/23 12:33 11/24/23 13:21 11/24/23 13:31 Temperature 98.3 F Temperature Source Oral Pulse Rate 87 87 Pulse Rate [Right Radial] 85 Respiratory Rate 20 Blood Pressure 101/71 L 148/100 H Blood Pressure [Right Arm] 101/71 L Blood Pressure Mean 78 112 Blood Pressure Mean [Right Arm] 81 02 Sat by Pulse Oximetry 96 96 96 Oxygen Delivery Method Nasal Cannula Room Air Room Air Oxygen Flow Rate (LPM) 4 11/24/23 14:01 11/24/23 14:26 11/24/23 14:45 Temperature Temperature Source Pulse Rate 82 78 73 Pulse Rate [Right Radial] Respiratory Rate 15 24 Blood Pressure 92/74 L 109/58 L 109/58 L Blood Pressure [Right Arm] Blood Pressure Mean 77 64 Blood Pressure Mean [Right Arm] 02 Sat by Pulse Oximetry 94 L 95 96 Oxygen Delivery Method Oxygen Flow Rate (LPM) 11/24/23 15:31 Temperature Temperature Source Pulse Rate 78 Pulse Rate [Right Radial] Respiratory Rate 22 Blood Pressure 117/62 Blood Pressure [Right Arm] Blood Pressure Mean 80 Blood Pressure Mean [Right Arm] 02 Sat by Pulse Oximetry 91 L Oxygen Delivery Method Oxygen Flow Rate (LPM) Lab Data Lab Results 11/24/23 14:05: WBC 10.1, RBC 4.25, Hgb 13.0, Hct 38.4, MCV 90.5, MCH 30.7, MCHC 34.0, RDW 13.4, Plt Count 235, MPV 8.3, Neut % (Auto) 66.2, Lymph % (Auto) 24.5, Edmunds % (Auto) 6.9, Eos % (Auto) 1.8, Baso % (Auto) 0.6, Neut # (Auto) 6.7, Lymph # (Auto) 2.5, Edmunds # (Auto) 0.7, Eos # (Auto) 0.2, Baso # (Auto) 0.1, Sodium 136, Potassium 4.2, Chloride 101, Carbon Dioxide 30, Anion Gap 9.2, BUN 13, Creatinine 0.70, Estimated Creat Clear 152, Estimated GFR 88, Est GFR ( Amer) 106, Glucose 115 H, Lactate 0.8, Calcium 8.5, Total Bilirubin 0.4, AST 21, ALT 17, Alkaline Phosphatase 118, Troponin I < 0.01, Total Protein 6.1 L, Albumin 3.5, Globulin 2.6, Albumin/Globulin Ratio 1.3 11/24/23 14:05 11/24/23 14:05 Orders (Tests/Meds): ED MEDICATIONS Discontinued Medications Generic Name Dose Route Start Last Admin Trade Name Freq PRN Reason Stop Dose Admin Albuterol/Ipratropium 6 ml 11/24/23 13:44 11/24/23 15:26 Ipratropium/Albuterol 3 Ml Neb IH 11/24/23 13:45 6 ml ONCE ONE Administration Ceftriaxone Sodium 2 gm/ 100 mls @ 200 mls/hr 11/24/23 13:44 11/24/23 15:02 Sodium Chloride IV 11/24/23 14:13 200 mls/hr ONCE ONE Administration Methylprednisolone Sodium Succinate 125 mg 11/24/23 13:44 11/24/23 15:02 Methylprednisolone Sod Succ 125mg Vial IV 11/24/23 13:45 125 mg ONCE ONE Administration Oxycodone/Acetaminophen 1 each 11/24/23 14:48 11/24/23 15:02 Oxycodone 5mg W/Apap 325mg Tablet PO 11/24/23 14:49 1 each ONCE ONE Administration ORDERS Category Date Time Status Pulmonology Consult [Consult to Pulmonology] [CONS] Cons 11/24/23 15:47 Active Routine Complete Blood Count Auto Diff AMLAB Lab 11/25/23 06:00 Ordered Complete Blood Count Auto Diff Stat Lab 11/24/23 14:05 Completed Comprehensive Metabolic Panel AMLAB Lab 11/25/23 06:00 Ordered Comprehensive Metabolic Panel Stat Lab 11/24/23 14:05 Completed Lactic Acid Stat Lab 11/24/23 14:05 Completed Magnesium AMLAB Lab 11/25/23 06:00 Ordered Rapid PCR Covid and Flu A/B Stat Lab 11/24/23 15:38 Ordered Troponin I Q3H Lab 11/24/23 17:00 Ordered Troponin I Q3H Lab 11/24/23 20:00 Ordered Troponin I Stat Lab 11/24/23 14:05 Completed Blood Culture Stat Micro 11/24/23 14:35 Received Medical Decision Narrative: 53-year-old female with 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 Patient states that she had CT done yesterday and she was told to come to the emergency by assistant professor of psychology to be admitted. Does not know what the CT showed. Patient has not been more short of breath, but has been coughing up yellow sputum. No fevers or chills, nausea or vomiting, or any other concerns. Has not needed increased oxygen. History was obtained via conversation with patient and , chart review. On arrival, patient hemodynamically stable, alert, oriented x4, appropriate, GCS 15, moving all extremities spontaneously, pupils equal and reactive to light. Full physical exam performed and significant for anxious woman in no acute distress. Wearing 5 L nasal cannula. Saturating appropriately. Prolonged expiratory phase with diffuse bilateral wheezes, no evidence of rales. Nontachycardic, normotensive.. Differential includes pneumonia, pneumothorax, bronchitis, PE, cancer, among others. Patient was given DuoNeb, Solu-Medrol for symptomatic management and correction of underlying abnormalities. ceftriaxone given after CT results reviewed Workup independently interpreted and significant for actionable CBC or chemistry. Labs unremarkable. See radiology read for full review of final results. Independent interpretation of EKG shows sinus rhythm [address] or T wave changes concerning for acute ischemia. IN, QRS, QT intervals within normal limits. On reevaluation, patient resting comfortably and on home oxygen. Pulmonology contacted regarding patient's case and interactive discussion was had. Pulmonology recommending admission, I agree with this assessment and appreciated conversation. Hospital medicine contacted and case was discussed at length, patient to be admitted. Because patient high risk for clinical decompensation, deemed appropriate for inpatient admission. Results were relayed to patient who voiced understanding and patient was agreeable to inpatient admission and management. Patient was admitted to the hospital for further definitive management. Critical Care Critical Care Time Critical Care Time: No
[2023-11-24 14:23] LABS: Potassium 4.2 mmoL/L (3.5-5.1)
[2023-11-24 14:25] LABS: Alanine Aminotransferase 17 U/L (12-78); Anion Gap 9.2 mEq/L (5-15); Aspartate Amino Transferase 21 U/L (14-36); Blood Urea Nitrogen 13 mg/dl (7-17); Carbon Dioxide 30 mmol/L (22.0-30.0); Creatinine Clearance Estimated 152 mL/min (50-200); Estimated Glomerular Filt Rate 88 ml/min (>60); GFR (African American) 106 ML/MIN (>60); Lactic Acid 0.8 mmol/L (0.7-2.1)
[2023-11-24 14:26] LABS: Albumin Level 3.5 g/dl (3.5-5.0); Albumin/Globulin Ratio 1.3 (1.1-1.8); Alkaline Phosphatase 118 U/L (38-126); Bilirubin,Total 0.4 mg/dl (0.2-1.3); Calcium 8.5 mg/dl (8.4-10.2); Globulin 2.6 g/dL (1.3-3.2); Glucose 115 mg/dl (74-100); Total Protein,Serum 6.1 g/dl (6.3-8.2)
[2023-11-24 14:41] LABS: Troponin I < 0.01 ng/ml (0.00-0.034)
[2023-11-24] MEDS: CEFTRIAXONE SODIUM 2 GM in 0.9 % SODIUM CHLORIDE 100 ML IV (15:02)
[2023-11-24] MEDS: METHYLPREDNISOLONE SOD SUCC 125MG VIAL 125 MG IV (15:02)
[2023-11-24] MEDS: OXYCODONE 5MG W/APAP 325MG TABLET 1 EACH PO ×2 (15:02→20:44)
[2023-11-24] MEDS: IPRATROPIUM/ALBUTEROL 3 ML NEB 6 ML IH (15:26)
--- NOTE | 2023-11-24 15:36 | PC.NURSE ---
Dr. White speaking with Dr. Vega
--- NOTE | 2023-11-24 16:08 | PC.NURSE ---
SIGN WRITER HAND NOTIFIED OF ADMISSION
[2023-11-24 16:11] LABS: Adenovirus,PCR Not Detected (NotDetected); Coronavirus 19, PCR Not Detected (NotDetected); Coronavirus 229E Not Detected (NotDetected); Coronavirus NL63 Not Detected (NotDetected); Coronavirus OC43 Not Detected (NotDetected); Coronovirus HKU1,PCR Not Detected (NotDetected); Human Metapneumovirus Not Detected (NotDetected); Influenza A, PCR Not Detected (NotDetected); Influenza AH1, 2009 Not Detected (NotDetected); Influenza AH1, PCR Not Detected (NotDetected); Influenza AH3,PCR Not Detected (NotDetected); Influenza B, PCR Not Detected (NotDetected); Parainfluenza 1, PCR Not Detected (NotDetected); Parainfluenza 2, PCR Not Detected (NotDetected); Parainfluenza 3, PCR Not Detected (NotDetected); Parainfluenza 4, PCR Not Detected (NotDetected); Respiratory Syncytial Virus Not Detected (NotDetected); Rhinovirus/Enterovirus Not Detected (NotDetected)
--- NOTE | 2023-11-24 16:35 | PC.NURSE ---
called report to jr moreira on 2nd floor and answered all questions
--- NOTE | 2023-11-24 17:00 | PC.NURSE ---
arrived by w/c from ED
[2023-11-24 17:54] LABS: Troponin I < 0.01 ng/ml (0.00-0.034)
--- NOTE | 2023-11-24 18:18 | P.HP_ITS ---
History of Present Illness *Admission Date: 11/24/23 *Reason for visit:: Dyspnea *History of present illness: 53-year-old female who presented to pulmonology clinic yesterday for preprocedural clearance. Had CT obtained that showed multifocal airspace disease. Previous diagnosis of COPD, reports having been on hospice for end- stage COPD. Wears 4 L oxygen daily. Uses CPAP at night. Was informed to present to the ER for further workup and management and possible admission. In the ER, patient is on 4 to 5 L nasal cannula. Sats are in the low 90s. Is afebrile. Labs obtained showing normal white cell count, normal kidney function. Case discussed with pulmonology, request admission for further evaluation and inpatient management. Medicine consulted for admission. On evaluation, patient has been more short of breath. Has an intermittently productive cough for yellow sputum. No fever or chills. No nausea or vomiting. Has thoracic pain due to her coughing. Is not getting the same benefit from her inhalers at home that she has had previously. [facility] Disclaimer: The information contained in this section may have been updated after the patient was seen, as this information can be updated by other users. Medical History CAD (coronary artery disease) CHF (congestive heart failure) COPD (chronic obstructive pulmonary disease) Depression Diabetes Dyspnea on exertion GERD (gastroesophageal reflux disease) History of COPD HLD (hyperlipidemia) HTN (hypertension) Pre-op testing Stopped smoking with greater than 30 pack year history Surgical History H/O breast surgery H/O section H/O colonoscopy H/O esophagogastroduodenoscopy Family History No significant family history Social History Smoking Status: Never smoker smoking status stop date: 07/16/2023 alcohol intake: never substance use type: denies use current occupational status: disabled Travel in the last 8 weeks: None Review of Systems Review of Systems Review of systems (narrative): 14 point review of systems performed, pertinent positives and negatives as per HPI Meds Home Medications and Allergies Home Medications Medication Instructions Recorded Confirmed Type aspirin 81 mg tablet,delayed 81 mg PO DAILY Blood thinner 05/12/23 11/23/23 History release atorvastatin 10 mg tablet 10 mg PO DAILY Cholesterol 05/12/23 11/23/23 History bisacodyl 5 mg tablet,delayed 5 mg PO DAILY BOWELS 05/12/23 11/23/23 History release blood sugar diagnostic (FreeStyle 05/12/23 11/23/23 History Lite Strips) bupropion HCl 300 mg 24 hr tablet, 300 mg PO DAILY MOOD 05/12/23 11/23/23 History extended release clonidine HCl 0.1 mg tablet 0.1 mg PO TID BLOOD PRESSURE 05/12/23 11/23/23 History clopidogrel 75 mg tablet 75 mg PO DAILY Blood thinner 05/12/23 11/23/23 History cyclobenzaprine 10 mg tablet 10 mg PO Q8HP PRN MOOD 05/12/23 11/23/23 History furosemide 40 mg tablet 40 mg PO BID Fluid 05/12/23 11/23/23 History insulin aspart U-100 100 unit/mL 20 unit SQ DIRECTED Diabetes 05/12/23 11/23/23 History subcutaneous solution (Novolog U-100 Insulin aspart) ipratropium 0.5 mg-albuterol 3 mg 3 ml inhalation QID Breathing 05/12/23 11/23/23 History (2.5 mg base)/3 mL nebulization problems soln ketoconazole 2 % topical cream 1 applic topical DAILY Skin 05/12/23 11/23/23 History condition lisinopril 20 mg tablet 20 mg PO DAILY BLOOD PRESSURE 05/12/23 11/23/23 History naloxone 4 mg/actuation nasal spray 2 spray intranasal DIRECTED 05/12/23 11/23/23 History REQUIRED FOR CONTROL SUBSTANCE PRESCRIPTION pantoprazole 40 mg tablet,delayed 40 mg PO DAILY GERD 05/12/23 11/23/23 History release polyethylene glycol 3350 17 17 g PO DAILY BOWELS 05/12/23 11/23/23 History gram/dose oral powder potassium chloride 20 mEq 20 meq PO TID SUPPLIMENT 05/12/23 11/23/23 History tablet,extended release(part/cryst) (Klor-Con M) sertraline 25 mg tablet 25 mg PO DAILY MOOD 05/12/23 11/23/23 History tramadol 50 mg tablet 50 mg PO Q8HP PRN Pain 05/12/23 11/23/23 History trazodone 100 mg tablet 200 mg PO HS SLEEP 05/12/23 11/23/23 History methocarbamol 750 mg tablet 750 mg PO TID Pain 05/24/23 11/23/23 History diclofenac epolamine 1.3 % 1 patch topical BID #30 ea 06/21/23 11/23/23 Rx transdermal 12 hour patch (Flector) metaxalone 800 mg tablet 800 mg PO HS . 06/21/23 11/23/23 History orphenadrine citrate 100 mg 100 mg PO BID #28 tabs 06/23/23 11/23/23 Rx tablet,extended release gabapentin 600 mg tablet 600 mg PO TID Pain #90 tabs 10/20/23 11/23/23 Rx hydrocodone 5 mg-acetaminophen 325 1 tab PO TID #90 tabs 10/20/23 11/23/23 Rx mg tablet tizanidine 4 mg tablet (Zanaflex) 4 mg PO TID #90 tabs 10/20/23 11/23/23 Rx oxycodone-acetaminophen 5 mg-325 1 tab PO TID #90 tabs 11/18/23 11/23/23 Rx mg tablet (Percocet) metoprolol succinate 25 mg 25 mg PO DAILY #30 tabs 11/23/23 11/23/23 Rx tablet,extended release 24 hr New Prescriptions to Start Prescriptions: Allergies Allergy/AdvReac Type Severity Reaction Status Date / Time ketorolac [From Toradol] Allergy Verified 11/23/23 14:00 prochlorperazine Allergy Verified 11/23/23 14:00 [From Compazine] Exam Data for Last 24 hours Vital signs and Labs for Last 24 Hours: Temp Pulse Resp BP Pulse Ox O2 Del Method O2 Flow Rate 98.3 F 82 18 132/50 L 97 Nasal Cannula 4 11/24/23 17:11 11/24/23 17:11 11/24/23 17:11 11/24/23 17:11 11/24/23 17:11 11/24/23 18:04 11/24/23 18:04 Laboratory Results - last 24 hr 11/24/23 14:05: WBC 10.1, RBC 4.25, Hgb 13.0, Hct 38.4, MCV 90.5, MCH 30.7, MCHC 34.0, RDW 13.4, Plt Count 235, MPV 8.3, Neut % (Auto) 66.2, Lymph % (Auto) 24.5, [place] % (Auto) 6.9, Eos % (Auto) 1.8, Baso % (Auto) 0.6, Neut # (Auto) 6.7, Lymph # (Auto) 2.5, [place] # (Auto) 0.7, Eos # (Auto) 0.2, Baso # (Auto) 0.1, Sodium 136 , Potassium 4.2, Chloride 101, Carbon Dioxide 30, Anion Gap 9.2, BUN 13, Creatinine 0.70, Estimated Creat Clear 152, Estimated GFR 88, Est GFR ( Amer) 106, Glucose 115 H, Lactate 0.8, Calcium 8.5, Total Bilirubin 0.4, AST 21, ALT 17, Alkaline Phosphatase 118, Troponin I < 0.01, Total Protein 6.1 L, Albumin 3.5, Globulin 2.6, Albumin/Globulin Ratio 1.3 11/24/23 16:00: Chlamy pneumoniae PCR TNP, Adenovirus (PCR) Not detected, B. pertussis DNA (PCR) TNP, Coronavirus OC43 (PCR) Not detected, Coronavirus HKU1 (PCR) Not detected, Coronavirus 229E (PCR) Not detected, SARS-CoV-2 (PCR) Not detected, Coronavirus NL63 (PCR) Not detected, Human Metapneumovir PCR Not detected, Influenza A (H1) PCR Not detected, Influ A (H1N1/09) PCR Not detected, Influenza A (H3) PCR Not detected, Influenza Type A (PCR) Not detected, Influenza Type B (PCR) Not detected, M. pneumoniae (PCR) TNP, Parainfluenza 1 (PCR) Not detected, Parainfluenza 2 (PCR) Not detected, Parainfluenza 3 (PCR) Not detected, Parainfluenza 4 (PCR) Not detected, RSV (PCR) Not detected, Entero/Rhino (PCR) Not detected 11/24/23 17:12: Troponin I < 0.01 I & O for Last 24 hours: Intake & Output 11/21/23 11/22/23 11/23/23 11/24/23 23:59 23:59 23:59 23:59 Intake Total 240 / 240 Balance 240 / 240 Weight 103.4 kg Constitutional Constitutional: mild distress, obese and chronically ill appearing *Routine HEENT Exam Head: Present normocephalic Eye: Present EOMI and PERRL ENT: Present mucous membranes moist *Routine Neck Exam Neck: Present supple; Absent lymphadenopathy *Routine Respiratory Exam Respiratory: Present accessory muscle use, prolonged expiratory phase, rhonchi, wheezes, crackles and distant breath sounds *Routine Cardiovascular Exam Cardiovascular: Present RRR *Routine Abdominal Exam Abdominal: Present soft and normoactive bowel sounds; Absent tenderness *Routine Rectal Exam Rectal:: deferred *Routine Genitalia Exam Genitalia:: deferred *Routine Extremities Exam Extremities: Absent cyanosis, clubbing or edema *Routine Skin Exam Skin: Present warm; Absent rash *Routine Neurological Exam Neurological: Present alert, oriented X3 and moving all extremities; Absent altered mental status Assessment and Plan *Assessment and plan (1) Pneumonia: Status: Acute Category: Medical Code(s): J18.9 - Pneumonia, unspecified organism (2) COPD (chronic obstructive pulmonary disease): Status: Acute Category: Medical Code(s): J44.9 - Chronic obstructive pulmonary disease, unspecified (3) CHF (congestive heart failure): Status: Acute Qualifiers: Heart failure type: unspecified Heart failure chronicity: chronic Qualified Code(s): I50.9 - Heart failure, unspecified Category: Medical Code(s): I50.9 - Heart failure, unspecified (4) Diabetes: Status: Acute Category: Medical Code(s): E11.9 - Type 2 diabetes mellitus without complications (5) HTN (hypertension): Status: Acute Category: Medical Code(s): I10 - Essential (primary) hypertension (6) HLD (hyperlipidemia): Status: Acute Category: Medical Code(s): E78.5 - Hyperlipidemia, unspecified Plan 53-year-old female sent to the ER by pulmonology for further workup of her respiratory distress. CAT scan obtained yesterday showing multifocal airspace disease concerning for multifocal pneumonia. Does not appear to have significant emphysematous changes to her lungs. Presentation to the ER, on 4 L nasal cannula oxygen. Discussed case with ER physician, request admission for further management and workup with pulmonology as well as initiation of IV antibiotics. Medicine agreed to admit for further management. Problems addressed as follows COPD versus multifocal pneumonia versus atypical lung disease Chronic hypoxemic respiratory failure -Unclear etiology of hypoxia. Patient reports previous diagnosis of COPD however her imaging is concerning for multifocal airspace disease with minimal emphysematous changes -Continue DuoNebs every 4 hours scheduled -Pulmonology consulted, appreciate their recommendations. Discussed case with pulmonology, recommend MRSA swab, sputum sample, n.p.o., holding anticoagulation. -Added studies for fungal etiology including histoplasmosis, concern for rheumatologic component, KAY, anti-CCP, ESR, CRP pending -Sputum sample pending -Full comprehensive respiratory panel negative - Received methylprednisolone 125 mg IV once in the ER. Holding on further steroids pending workup by pulmonology. - Continue ceftriaxone 1 g IV daily and azithromycin 500 mg IV daily. Suspected CHF Hypertension Hyperlipidemia -Seen by cardiology yesterday at [facility]. Reviewed notes, was seen for preprocedural clearance for pain management. -Patient's records from [facility] showed that she had a heart cath in 2018 with near normal coronary arteries, severe vasospasm in the proximal RCA and possible diffuse spasm in the LAD. She also had severe vasospasm in the right radial and right common femoral arteries. Initiated on Imdur and calcium channel blockers. Had an echocardiogram obtained 04/14/2022 was technically difficult but showed no obvious regional wall motion abnormalities. Ejection fraction preserved greater than 60%. Normal diastolic function. Had some mild MR and TR. No evidence of pulmonary hypertension at that time. -Repeat echocardiogram pending. -Holding aspirin and Plavix and proceed Yanes. -Continue Lipitor 10 mg daily, continue lisinopril 20 mg daily, continue metoprolol 25 mg daily. Sleep disorder: Continue trazodone 200 mg hs Mood disorder: Continue Zoloft 25mg daily, continue bupropion 300 mg daily Chronic pain: Continue oxycodone/acetaminophen 5/325 3 times a day as needed for pain, continue metaxalone 800 mg nightly; continue gabapentin 600 mg 3 times daily for pain GERD: Continue pantoprazole 40 mg daily Diabetes: Sliding scale insulin and fingersticks ACHS. Okay to use CGM if in place and has monitor DNR Diet diet, n.p.o. at midnight Holding anticoagulation in anticipation of procedure/bronch
[2023-11-24] MEDS: IPRATROPIUM/ALBUTEROL 3 ML NEB IH ×2 (20:07→22:47)
[2023-11-24] MEDS: AZITHROMYCIN 500 MG in 0.9 % SODIUM CHLORIDE 250 ML 250 MG IV (20:43)
[2023-11-24 20:44] LABS: Troponin I < 0.01 ng/ml (0.00-0.034)
[2023-11-24] MEDS: METAXALONE 800 MG PO (20:45)
[2023-11-24] MEDS: GABAPENTIN 600MG TABLET 600 MG PO (20:45)
[2023-11-24] MEDS: humaLOG 100 UNITS/ML 3ML VIAL (SSI) SQ (21:30)
[2023-11-25] VITALS (19 sets, daily range): BP systolic 104–195; BP diastolic 52–92; PULSE 50–86; RESP 16–24; TEMP 36.3–37.1; O2SAT 88–99; BMI 35.7
--- NOTE | 2023-11-25 | XR_ITS ---
FINAL REPORT CLINICAL HISTORY: CHEST IN OR FT 104.4 SECONDS 32.65 MGY FINDINGS: FLUOROSCOPY LESS THAN 1 HOUR HISTORY: Fluoroscopy guidance. FINDINGS: Fluoroscopic guidance was provided for bronchoscopy. Three spot films were obtained. A total of 104.4 seconds of fluoroscopy time were used. DAP: 32.65 mGy IMPRESSION: As above. Reviewed, Interpreted and Dictated by Harley Ambrocio III, MD Transcribed by Glenda Paige Authenticated and [facility]
[2023-11-25] MEDS: ACETAMINOPHEN 325MG TAB 650 MG PO ×3 (00:44→16:45)
[2023-11-25] MEDS: IPRATROPIUM/ALBUTEROL 3 ML NEB IH ×4 (02:01→14:31)
[2023-11-25 08:02] LABS: Alanine Aminotransferase 21 U/L (12-78); Albumin Level 3.4 g/dl (3.5-5.0); Albumin/Globulin Ratio 1.3 (1.1-1.8); Alkaline Phosphatase 107 U/L (38-126); Anion Gap 7.6 mEq/L (5-15); Aspartate Amino Transferase 25 U/L (14-36); Bilirubin,Total 0.3 mg/dl (0.2-1.3); Blood Urea Nitrogen 9 mg/dl (7-17); Calcium 8.7 mg/dl (8.4-10.2); Carbon Dioxide 28 mmol/L (22.0-30.0); Chloride 101 mmol/L (98-107); Creatinine Clearance Estimated 212 mL/min (50-200); Estimated Glomerular Filt Rate 129 ml/min (>60); GFR (African American) 156 ML/MIN (>60); Globulin 2.7 g/dL (1.3-3.2); Glucose 148 mg/dl (74-100); Potassium 4.6 mmoL/L (3.5-5.1); Sodium 132 mmol/L (136-145); Total Protein,Serum 6.1 g/dl (6.3-8.2)
[2023-11-25 08:04] LABS: Basophils % 0.2 % (0.1-2.0); Eosinophils % 0.2 % (0.1-12.0); Hematocrit 38.8 % (37.0-47.0); Hemoglobin 12.7 g/dL (12.2-16.2); Lymphocytes # 1.7 K/mm3 (0.7-4.5); Lymphocytes % 13.6 % (10-50); Mean Corpuscular HGB Conc 32.9 g/dL (31.8-35.4); Mean Corpuscular Hemoglobin 29.8 pg (27.0-31.2); Mean Corpuscular Volume 90.5 fl (81-99); Mean Platelet Volume 8.6 fl (7.4-10.4); Monocytes # 0.7 K/mm3 (0.1-1.0); Monocytes % 5.8 % (1.7-9.3); Neutrophils % 80.2 % (37.0-80.0); Platelet Count 258 K/mm3 (142-424); Red Blood Count 4.28 M/mm3 (4.20-5.40); Red Cell Distribution Width 13.4 % (11.5-17.5); White Blood Count 12.5 K/mm3 (4.8-10.8)
[2023-11-25 08:07] LABS: C-Reactive Protein 25.6 mg/L (0-4)
[2023-11-25 08:57] LABS: Erythrocyte Sedimentation Rate 22 mm/hr (0-30)
[2023-11-25] MEDS: FUROSEMIDE 40 MG TABLET PO (09:07)
[2023-11-25] MEDS: LISINOPRIL 20MG TABLET 20 MG PO (09:07)
[2023-11-25] MEDS: METOPROLOL SUCCINATE XL 25MG TABLET 25 MG PO (09:07)
[2023-11-25] MEDS: GABAPENTIN 600MG TABLET 600 MG PO ×2 (09:07→14:24)
[2023-11-25] MEDS: OXYCODONE 5MG W/APAP 325MG TABLET 1 EACH PO ×2 (09:07→14:24)
[2023-11-25] MEDS: SERTRALINE 50MG TABLET 25 MG PO (09:07)
[2023-11-25] MEDS: BISACODYL 5MG TABLET 5 MG PO (09:07)
[2023-11-25] MEDS: buPROPion HCl SR 150MG TAB 300 MG PO (09:07)
[2023-11-25] MEDS: POLYETHYLENE GLYCOL 3350 238GM POWDER 17 GM PO (09:08)
--- NOTE | 2023-11-25 09:30 | HMH.PHAINT1 ---
Pharmacy Intervention Comments: Home med list verified with patient at bedside and with external pharmacy list.
--- NOTE | 2023-11-25 09:31 | EXP.PULM.CON ---
History of Present Illness History of present illness: Mr. Mac is a 53-year-old female with reported history of end-stage COPD, multiple pulmonary nodules, sleep apnea uses ventilator therapy was admitted to the hospital complaint patient noted to have worsening respiratory distress along with abnormal CT that showed bilateral diffuse groundglass opacities. [facility] Disclaimer: The information contained in this section may have been updated after the patient was seen, as this information can be updated by other users. Medical History CAD (coronary artery disease) CHF (congestive heart failure) COPD (chronic obstructive pulmonary disease) COPD exacerbation Depression Diabetes Dyspnea on exertion GERD (gastroesophageal reflux disease) History of COPD HLD (hyperlipidemia) HTN (hypertension) Pre-op testing Stopped smoking with greater than 30 pack year history Surgical History H/O breast surgery H/O section H/O colonoscopy H/O esophagogastroduodenoscopy Family History No significant family history Social History Smoking Status: Never smoker smoking status stop date: 07/16/2023 alcohol intake: never substance use type: denies use current occupational status: disabled Travel in the last 8 weeks: None Review of Systems Constitutional Constitutional: Reports anorexia, Reports body ache(s) and Reports fatigue Eyes Eyes: Denies eye discharge, Denies dry eyes, Denies irritation and Denies itchy eyes ENT Ears, Nose, Mouth, and Throat: Denies epistaxis, Denies facial pain, Denies lip swelling and Denies throat swelling *Cardiovascular Cardiovascular: Reports dyspnea, Reports dyspnea on exertion and Reports orthopnea *Respiratory Respiratory: Denies change in phlegm color, Reports chest congestion, Reports cough, Reports dyspnea, Reports dyspnea on exertion, Denies excessive phlegm production and Reports wheezing *Gastrointestinal Gastrointestinal: Denies abdominal pain, Denies belching and Denies cramping *Musculoskeletal Musculoskeletal: Reports back pain, Reports myalgias and Reports other (No small joint swelling or Pain) Psychiatric Psychiatric: Denies homicidal ideation and Denies suicidal ideation Endocrine Endocrine: Reports fatigue and Denies heat intolerance Hematologic/Lymphatic Hematologic/Lymphatic: Denies easy bleeding and Denies lymphadenopathy Allergic/Immunologic Allergic/Immunologic: Denies itchy eyes, Denies lip swelling, Denies throat swelling and Reports wheezing Pulmonology Exam Inpatient Vital signs and Labs for Last 24 Hours: Temp Pulse Resp BP Pulse Ox O2 Del Method O2 Flow Rate 98.2 F 54 L 18 112/53 L 96 CPAP 4 11/25/23 08:00 11/25/23 08:00 11/25/23 08:00 11/25/23 08:00 11/25/23 08:00 11/25/23 08:00 11/25/23 06:25 Laboratory Results - last 24 hr 11/24/23 14:05: WBC 10.1, RBC 4.25, Hgb 13.0, Hct 38.4, MCV 90.5, MCH 30.7, MCHC 34.0, RDW 13.4, Plt Count 235, MPV 8.3, Neut % (Auto) 66.2, Lymph % (Auto) 24.5, [place] % (Auto) 6.9, Eos % (Auto) 1.8, Baso % (Auto) 0.6, Neut # (Auto) 6.7, Lymph # (Auto) 2.5, [place] # (Auto) 0.7, Eos # (Auto) 0.2, Baso # (Auto) 0.1, Sodium 136, Potassium 4.2, Chloride 101, Carbon Dioxide 30, Anion Gap 9.2, BUN 13, Creatinine 0.70, Estimated Creat Clear 152, Estimated GFR 88, Est GFR ( Amer) 106, Glucose 115 H, Lactate 0.8, Calcium 8.5, Total Bilirubin 0.4, AST 21, ALT 17, Alkaline Phosphatase 118, Troponin I < 0.01, Total Protein 6.1 L, Albumin 3.5, Globulin 2.6, Albumin/Globulin Ratio 1.3 11/24/23 16:00: Chlamy pneumoniae PCR TNP, Adenovirus (PCR) Not detected, B. pertussis DNA (PCR) TNP, Coronavirus OC43 (PCR) Not detected, Coronavirus HKU1 (PCR) Not detected, Coronavirus 229E (PCR) Not detected, SARS-CoV-2 (PCR) Not detected, Coronavirus NL63 (PCR) Not detected, Human Metapneumovir PCR Not detected, Influenza A (H1) PCR Not detected, Influ A (H1N1/09) PCR Not detected, Influenza A (H3) PCR Not detected, Influenza Type A (PCR) Not detected, Influenza Type B (PCR) Not detected, M. pneumoniae (PCR) TNP, Parainfluenza 1 (PCR) Not detected, Parainfluenza 2 (PCR) Not detected, Parainfluenza 3 (PCR) Not detected, Parainfluenza 4 (PCR) Not detected, RSV (PCR) Not detected, Entero/Rhino (PCR) Not detected 11/24/23 17:12: Troponin I < 0.01 11/24/23 20:10: Troponin I < 0.01 11/25/23 07:31: WBC 12.5 H, RBC 4.28, Hgb 12.7, Hct 38.8, MCV 90.5, MCH 29.8, MCHC 32.9, RDW 13.4, Plt Count 258, MPV 8.6, Neut % (Auto) 80.2 H, Lymph % (Auto) 13.6, [place] % (Auto) 5.8, Eos % (Auto) 0.2, Baso % (Auto) 0.2, Neut # (Auto) 10.0 H, Lymph # (Auto) 1.7, [place] # (Auto) 0.7, Eos # (Auto) 0.0, Baso # (Auto) 0.0, ESR 22, Sodium 132 L, Potassium 4.6, Chloride 101, Carbon Dioxide 28, Anion Gap 7.6, BUN 9 D, Creatinine 0.50 L D, Estimated Creat Clear 212, Estimated GFR 129, Est GFR ( Amer) 156 D, Glucose 148 H D, Calcium 8.7, Magnesium 2.0, Total Bilirubin 0.3, AST 25, ALT 21, Alkaline Phosphatase 107, C-Reactive Protein 25.6 H, Total Protein 6.1 L, Albumin 3.4 L, Globulin 2.7, Albumin/Globulin Ratio 1.3 I & O for Labs for Last 24 Hours: Intake & Output 11/22/23 11/23/23 11/24/23 11/25/23 23:59 23:59 23:59 23:59 Intake Total 240 / 850 610 / 610 Output Total 800 / 800 Balance 240 / 350 -190 / -190 Weight 227 lb 15.327 oz 228 lb Constitutional: Present moderate distress Head: Present normocephalic and atraumatic ENT: Present normal exam, normal oropharynx and mucous membranes moist Neck: Present normal inspection and full ROM Respiratory: Present respiratory distress, diminished air movement and able to speak in complete sentences; Absent prolonged expiratory phase or wheezes Cardiac: Present S1/S2, Tachycardia and radial pulses present GI: Present soft and distention; Absent tenderness or guarding Rectal (female): Present deferred (female): Present deferred Skin: Present intact; Absent cyanosis or jaundice Neuro: Present alert, awake and oriented x 3 Extremities: Present normal inspection; Absent clubbing or cyanosis Psychiatric: Present normal affect and cooperative Meds Home Medications and Allergies Home Medications Medication Instructions Recorded Confirmed Type aspirin 81 mg tablet,delayed 81 mg PO DAILY 05/12/23 11/25/23 History release atorvastatin 10 mg tablet 10 mg PO DAILY 05/12/23 11/25/23 History bisacodyl 5 mg tablet,delayed 5 mg PO DAILY 05/12/23 11/25/23 History release blood sugar diagnostic (FreeStyle 05/12/23 11/25/23 History Lite Strips) bupropion HCl 300 mg 24 hr tablet, 300 mg PO DAILY 05/12/23 11/25/23 History extended release clonidine HCl 0.1 mg tablet 0.1 mg PO TID 05/12/23 11/25/23 History clopidogrel 75 mg tablet 75 mg PO DAILY 05/12/23 11/25/23 History furosemide 40 mg tablet 40 mg PO BID 05/12/23 11/25/23 History insulin aspart U-100 100 unit/mL 20 unit SQ TIDWMEAL 05/12/23 11/25/23 History subcutaneous solution (Novolog U-100 Insulin aspart) ipratropium 0.5 mg-albuterol 3 mg 3 ml inhalation Q6H 05/12/23 11/25/23 History (2.5 mg base)/3 mL nebulization soln lisinopril 20 mg tablet 20 mg PO DAILY 05/12/23 11/25/23 History naloxone 4 mg/actuation nasal spray 1 spray intranasal DIRECTED 05/12/23 11/25/23 History Required for controlled substance pantoprazole 40 mg tablet,delayed 40 mg PO DAILY 05/12/23 11/25/23 History release polyethylene glycol 3350 17 17 g PO DAILY 05/12/23 11/25/23 History gram/dose oral powder potassium chloride 20 mEq 20 meq PO TID 05/12/23 11/25/23 History tablet,extended release(part/cryst) (Klor-Con M) tramadol 50 mg tablet 50 mg PO Q8H PRN Pain 05/12/23 11/25/23 History trazodone 100 mg tablet 200 mg PO HS 05/12/23 11/25/23 History methocarbamol 750 mg tablet 750 mg PO TID 05/24/23 11/25/23 History diclofenac epolamine 1.3 % 1 patch topical BID #30 ea 06/21/23 11/25/23 Rx transdermal 12 hour patch (Flector) metaxalone 800 mg tablet 800 mg PO HS 06/21/23 11/25/23 History gabapentin 600 mg tablet 600 mg PO TID Pain #90 tabs 10/20/23 11/25/23 Rx hydrocodone 5 mg-acetaminophen 325 1 tab PO TID #90 tabs 10/20/23 11/25/23 Rx mg tablet tizanidine 4 mg tablet (Zanaflex) 4 mg PO TID #90 tabs 10/20/23 11/25/23 Rx oxycodone-acetaminophen 5 mg-325 1 tab PO TID #90 tabs 11/18/23 11/25/23 Rx mg tablet (Percocet) metoprolol succinate 25 mg 25 mg PO DAILY #30 tabs 11/23/23 11/25/23 Rx tablet,extended release 24 hr guaifenesin 600 mg tablet, 600 mg PO Q12H 11/25/23 11/25/23 History extended release 12 hr linaclotide 72 mcg capsule 72 mcg PO DAILY 11/25/23 11/25/23 History (Linzess) lorazepam 0.5 mg tablet 1 mg PO BID 11/25/23 11/25/23 History prednisone 10 mg tablet 5 mg PO DAILY 11/25/23 11/25/23 History ropinirole 0.5 mg tablet 0.5 mg PO HS 11/25/23 11/25/23 History sertraline 100 mg tablet 100 mg PO DAILY 11/25/23 11/25/23 History sertraline 50 mg tablet 50 mg PO DAILY 11/25/23 11/25/23 History New Prescriptions to Start Prescriptions: Allergies Allergy/AdvReac Type Severity Reaction Status Date / Time ketorolac [From Toradol] Allergy Verified 11/23/23 14:00 prochlorperazine Allergy Verified 11/23/23 14:00 [From Compazine] Results Laboratory Findings 11/25/23 07:31 11/25/23 07:31 Abnormal lab findings: Abnormal Labs 11/24/23 11/25/23 14:05 07:31 WBC 12.5 H Neut % (Auto) 80.2 H Neut # (Auto) 10.0 H Sodium 132 L Creatinine 0.50 L D Glucose 115 H 148 H D C-Reactive Protein 25.6 H Total Protein 6.1 L 6.1 L Albumin 3.4 L Assessment and Plan *Assessment and plan (1) COPD exacerbation: Status: Acute Category: Medical Code(s): J44.1 - Chronic obstructive pulmonary disease with (acute) exacerbation (2) Pneumonia: Status: Acute Category: Medical Code(s): J18.9 - Pneumonia, unspecified organism Plan Mr. Mac is a 53-year-old female with reported history of end-stage COPD, multiple pulmonary nodules, sleep apnea uses ventilator therapy was admitted to the hospital complaint patient noted to have worsening respiratory distress along with abnormal CT that showed bilateral diffuse groundglass opacities. Most recent echo and left heart cath from 2021 did not show any obvious abnormalities with no evidence of pulmonary hypertension, normal coronaries with coronary spasm. Mild leukocytosis upon admission. Complaints of respiratory viral PCR panel negative. Sputum cultures and nasal MRSA PCR pending. Patient was initiated on ceftriaxone and azithromycin upon admission. Will follow with results. On initial examination no significant wheezing noted. Patient does not appear to be in any respiratory distress. On 2 L nasal oxygen supplementation. Continue to use BiPAP at night. Plan: -Continue DuoNebs every 6 hours on a scheduled basis -Proceed with bronchoscopy transbronchial biopsy - Right upper lobe anterior segment. -Abx - levofloxacin to complete a total of 5-day course -Continue oxygen supplementation to maintain O2 saturation goal of 90% unable -Continue NIV for her sleep apnea at night. # Thank you for involving pulmonary in this patient care. Will continue to follow.
--- NOTE | 2023-11-25 11:45 | PC.NURSE ---
pt taken downstairs for bronch
--- NOTE | 2023-11-25 12:35 | EXP.ANES.CKL ---
[facility] Disclaimer: The information contained in this section may have been updated after the patient was seen, as this information can be updated by other users. Medical History CAD (coronary artery disease) CHF (congestive heart failure) COPD (chronic obstructive pulmonary disease) COPD exacerbation Depression Diabetes Dyspnea on exertion GERD (gastroesophageal reflux disease) History of COPD HLD (hyperlipidemia) HTN (hypertension) Pre-op testing Stopped smoking with greater than 30 pack year history Surgical History H/O breast surgery H/O section H/O colonoscopy H/O esophagogastroduodenoscopy Family History No significant family history Social History Smoking Status: Never smoker smoking status stop date: 07/16/2023 alcohol intake: never substance use type: denies use current occupational status: disabled Travel in the last 8 weeks: None [facility] Anesthesia Checklist Patient Identification Patient Identification: Verbal (Name & ) Structural Data Admitted From: Inpatient Planned Operative Procedure/s: bronchoscopy Consent for Planned Operative Procedure(s) Verified: Yes NPO Status Verified Time NPO: 00:00 Airway Assessment Mallampati Score:: Class II C-Spine Mobility Assessed: Yes TMJ Mobility Assessed: Yes Dentition: Good Dentition Neurological Assessment Level of Consciousness: Awake, Alert and Appropriate Anesthesia Plan Anesthesia Risk discussed: Yes Anesthesia Plan: Verified ASA Class: III Anesthesia Type: General
--- NOTE | 2023-11-25 13:09 | EXP.ANES.I ---
[facility] Anesthesia Record Part I Anesthesia Record I Intake, IV Amount: 1,000 Hydration: Adequate Estimated blood loss (mL): 0 Urine output (mL): 0 Blood Pressure: 139/87 SaO2: 92 Pulse Rate: 60 Airway Patency: Patent Respiratory Rate: 16 Temperature: 97.7 F Patient is:: Awake and Stable Stable to PACU at:: 13:06
--- NOTE | 2023-11-25 13:13 | EXP.BRONCH.N ---
Procedure: Date: 11/25/23 Patient Date of :: 1970 Procedure Performed:: Bronchoscopy with airway examination, bronchoalveolar lavage and transbronchial lung biopsy Indications:: Atypical pneumonia, nonresolving pneumonia Performing Provider:: Hemant Massey MD Referring Provider:: Dr. Gallagher Sedation:: General anesthesia Procedure:: Bronchoscopy airway examination, bronchoalveolar lavage and transbronchial lung biopsy: A clean DIAGNOSTIC bronchoscopy was advanced through the ET tube and airways were examined up to subsegmental bronchi. Airways appeared grossly normal, no evidence of mucoid secretions, mucous plugging active bleeding/old blood clots noted. Bronchoalveolar lavage was performed in the RIGHT UPPER LOBE with instillation of 60 cc normal saline with return of 30 cc clear fluid back. BAL fluid was sent for cell count and differential along with bacterial fungal and AFB stain and cultures. Transbronchial biopsy was performed in the RIGHT UPPER LOBE with a total of 7 biopsies performed, 5 biopsy specimens were sent in formalin for cytopathologic examination. The other 2 biopsy samples, were sent one each in two separate normal saline specimen cups for bacterial fungal and AFB stain cultures. Special request was also made for the pathologist to evaluate for AFB and fungal organisms on the cytopathologic examination. Patient tolerated the procedure with no immediate acute complications. We will follow the patient in pulmonary clinic in 7 to 10 days. Findings:: Please see the procedure note Recommendations:: Postoperative bronchoscopy instructions. Follow in pulmonary clinic in 7 days postprocedure Follow consult note from today Complications:: No acute immediate complication Estimated blood obtained (mL): 2
--- NOTE | 2023-11-25 13:25 | XR_ITS ---
FINAL REPORT CLINICAL HISTORY: post-bronch COMPARISON: 11/23/2023 FINDINGS: A single portable view of the chest was obtained. The heart size and pulmonary vascularity are within normal limits. The mediastinum is within normal limits. Worsening basilar opacities may represent worsening bilateral pneumonia. There is no evidence of pneumothorax. The bony thorax is intact. IMPRESSION: No pneumothorax post bronchoscopy. Worsening bilateral pneumonia. Reviewed, Interpreted and Dictated by Harley Ambrocio III, MD Transcribed by Glenda Paige Authenticated and . [facility]
--- NOTE | 2023-11-25 13:51 | SW/DCPLANNER ---
This patient is currently established [facility]. I will continue to follow up w/ [facility] until patient is medically stable for discharge. Discharge date is unknown at this time.
--- NOTE | 2023-11-25 15:19 | EXP.ACUTE.PN ---
Subjective *Date: 11/25/23 *Time: 15:19 Interval history: On 4 L oxygen. Still having cough. No significant production. Wore CPAP overnight with good tolerance. No nausea or vomiting or chest pain. Does have muscle soreness from coughing. Medical Exam Vital signs and Labs for Last 24 Hours: Vital Signs Temp Pulse Pulse Resp BP BP Pulse Ox 11/25/23 15:00 11/25/23 14:35 98.7 F 70 16 117/58 L 94 L 11/25/23 14:05 98.8 F 74 16 121/72 94 L 11/25/23 13:50 98.8 F 85 16 120/92 H 94 L 11/25/23 14:31 80 11/25/23 14:31 79 11/25/23 13:36 70 21 195/86 H 95 11/25/23 13:26 70 20 181/58 H 99 11/25/23 13:16 74 24 166/84 H 94 L 11/25/23 13:06 97.3 F L 70 24 139/67 88 L 11/25/23 11:32 82 11/25/23 11:32 80 11/25/23 11:07 98.1 F 67 18 121/61 95 11/25/23 11:00 11/25/23 09:00 11/25/23 08:00 11/25/23 08:00 50 L 11/25/23 08:00 98.2 F 54 L 18 112/53 L 96 11/25/23 06:25 93 L 11/25/23 06:17 11/25/23 05:00 11/25/23 04:00 98.1 F 62 16 104/52 L 92 L 11/25/23 03:00 11/25/23 04:00 53 L 11/25/23 00:00 86 11/25/23 02:01 61 11/25/23 02:01 61 11/25/23 01:00 11/24/23 23:00 11/25/23 00:00 98 F 85 18 124/82 93 L 11/24/23 22:47 94 H 11/24/23 22:47 94 H 11/24/23 21:00 11/24/23 20:00 93 L 11/24/23 20:00 78 11/24/23 20:00 98 F 69 16 122/70 93 L 11/24/23 20:08 78 11/24/23 20:08 78 11/24/23 20:08 91 L 11/24/23 18:04 11/24/23 18:03 11/24/23 17:00 11/24/23 17:11 98.3 F 82 18 132/50 L 97 11/24/23 16:36 98.0 F 80 20 132/50 L 11/24/23 15:31 78 22 117/62 91 L 11/25/23 13:10 97.7 F 60 16 139/87 O2 Del Method O2 Flow Rate 11/25/23 15:00 Nasal Cannula 4 11/25/23 14:35 Nasal Cannula 4 11/25/23 14:05 Nasal Cannula 4 11/25/23 13:50 Nasal Cannula 4 11/25/23 14:31 11/25/23 14:31 11/25/23 13:36 Nasal Cannula 2 11/25/23 13:26 Nasal Cannula 2 11/25/23 13:16 Nasal Cannula 2 11/25/23 13:06 Simple Mask 8 11/25/23 11:32 11/25/23 11:32 11/25/23 11:07 Nasal Cannula 2 11/25/23 11:00 Nasal Cannula 4 11/25/23 09:00 Nasal Cannula 4 11/25/23 08:00 Nasal Cannula 4 11/25/23 08:00 11/25/23 08:00 CPAP 11/25/23 06:25 Nasal Cannula 4 11/25/23 06:17 CPAP 11/25/23 05:00 CPAP 11/25/23 04:00 Room Air 11/25/23 03:00 CPAP 11/25/23 04:00 11/25/23 00:00 11/25/23 02:01 11/25/23 02:01 11/25/23 01:00 Nasal Cannula 4 11/24/23 23:00 Nasal Cannula 4 11/25/23 00:00 Room Air 11/24/23 22:47 11/24/23 22:47 11/24/23 21:00 Nasal Cannula 4 11/24/23 20:00 Nasal Cannula 4 11/24/23 20:00 11/24/23 20:00 11/24/23 20:08 11/24/23 20:08 11/24/23 20:08 Nasal Cannula 4 11/24/23 18:04 Nasal Cannula 4 11/24/23 18:03 Nasal Cannula 4 11/24/23 17:00 Nasal Cannula 4 11/24/23 17:11 Nasal Cannula 4 11/24/23 16:36 Nasal Cannula 4 11/24/23 15:31 11/25/23 13:10 Intake and Output 11/24/23 11/25/23 11/25/23 23:59 07:59 15:59 Intake Total 240 / 850 610 / 1610 1000 / 1610 Output Total 800 / 800 0 / 800 Balance 240 / 350 -190 / 810 1000 / 810 Intake: Intake, Oral Amount 240 / 600 360 / 360 0 / 360 Intake, Total IV Amount 250 / 1250 1000 / 1250 Azithromycin 500 mg In 0.9 % 250 / 250 Sodium Chloride 250 ml @ 250 mls/hr IV Q24H [facility] Rx#:[id number] Output: Output, Urine Amount 800 / 800 0 / 800 Other: Number of Unmeasured Voids 1 1 Weight 103.4 kg 103.419 kg 103.4 kg Patient Weight 11/25/23 23:59 Weight 103.4 kg Laboratory Results - last 24 hr 11/24/23 16:00: Chlamy pneumoniae PCR TNP, Adenovirus (PCR) Not detected, B. pertussis DNA (PCR) TNP, Coronavirus OC43 (PCR) Not detected, Coronavirus HKU1 (PCR) Not detected, Coronavirus 229E (PCR) Not detected, SARS-CoV-2 (PCR) Not detected, Coronavirus NL63 (PCR) Not detected, Human Metapneumovir PCR Not detected, Influenza A (H1) PCR Not detected, Influ A (H1N1/09) PCR Not detected, Influenza A (H3) PCR Not detected, Influenza Type A (PCR) Not detected, Influenza Type B (PCR) Not detected, M. pneumoniae (PCR) TNP, Parainfluenza 1 (PCR) Not detected, Parainfluenza 2 (PCR) Not detected, Parainfluenza 3 (PCR) Not detected, Parainfluenza 4 (PCR) Not detected, RSV (PCR) Not detected, Entero/Rhino (PCR) Not detected 11/24/23 17:12: Troponin I < 0.01 11/24/23 20:10: Troponin I < 0.01 11/25/23 07:31: WBC 12.5 H, RBC 4.28, Hgb 12.7, Hct 38.8, MCV 90.5, MCH 29.8, MCHC 32.9, RDW 13.4, Plt Count 258, MPV 8.6, Neut % (Auto) 80.2 H, Lymph % (Auto) 13.6, Beckham % (Auto) 5.8, Eos % (Auto) 0.2, Baso % (Auto) 0.2, Neut # (Auto) 10.0 H, Lymph # (Auto) 1.7, Beckham # (Auto) 0.7, Eos # (Auto) 0.0, Baso # (Auto) 0.0, ESR 22, Sodium 132 L, Potassium 4.6, Chloride 101, Carbon Dioxide 28, Anion Gap 7.6, BUN 9 D, Creatinine 0.50 L D, Estimated Creat Clear 212, Estimated GFR 129, Est GFR ( Amer) 156 D, Glucose 148 H D, Calcium 8.7, Magnesium 2.0, Total Bilirubin 0.3, AST 25, ALT 21, Alkaline Phosphatase 107, C-Reactive Protein 25.6 H, Total Protein 6.1 L, Albumin 3.4 L, Globulin 2.7, Albumin/Globulin Ratio 1.3 I & O for Labs for Last 24 Hours: Intake & Output 11/22/23 11/23/23 11/24/23 11/25/23 23:59 23:59 23:59 23:59 Intake Total 240 / 850 1610 / 1610 Output Total 800 / 800 Balance 240 / 350 810 / 810 Weight 103.4 kg 103.4 kg Microbiology Reports for the Last 24 Hours: Microbiology 11/25/23 Unknown Bronchial Biopsy - Right Upper Lobe - Final Not Reportable 11/25/23 Unknown Bronchial Biopsy - Right Upper Lobe - Final Not Reportable 11/25/23 Unknown Bronchial Biopsy - Right Upper Lobe - Final Not Reportable 11/25/23 Unknown Bronchial Biopsy - Right Upper Lobe AFB Susceptibility Moxifloxacin - Final Not Reportable 11/25/23 Unknown Bronchial Biopsy - Right Upper Lobe - Final Not Reportable 11/25/23 Unknown Bronchial Biopsy - Right Upper Lobe - Final Not Reportable 11/25/23 Unknown Bronchial Biopsy - Right Upper Lobe - Final Not Reportable 11/25/23 Unknown Bronchial Biopsy - Right Upper Lobe Microbiology Comment - Final Not Reportable Constitutional: Present no acute distress, morbidly obese and chronically ill appearing Head: Present atraumatic and normocephalic Neck: Present normal inspection Respiratory: Present accessory muscle use, prolonged expiratory phase, rhonchi, wheezes and crackles Cardiac: Present Reg Rate and Rhythm GI: Present normal bowel sounds; Absent tenderness Extremities: Present normal inspection and full ROM Skin: Present intact; Absent erythema Neuro: Present Grossly Intact, alert, awake, oriented x 3 and moves all extremities Assessment and Plan *Assessment and plan (1) Pneumonia: Status: Acute Category: Medical Code(s): J18.9 - Pneumonia, unspecified organism (2) COPD (chronic obstructive pulmonary disease): Status: Acute Category: Medical Code(s): J44.9 - Chronic obstructive pulmonary disease, unspecified (3) CHF (congestive heart failure): Status: Acute Qualifiers: Heart failure type: unspecified Heart failure chronicity: chronic Qualified Code(s): I50.9 - Heart failure, unspecified Category: Medical Code(s): I50.9 - Heart failure, unspecified (4) Diabetes: Status: Acute Category: Medical Code(s): E11.9 - Type 2 diabetes mellitus without complications (5) HTN (hypertension): Status: Acute Category: Medical Code(s): I10 - Essential (primary) hypertension (6) HLD (hyperlipidemia): Status: Acute Category: Medical Code(s): E78.5 - Hyperlipidemia, unspecified Plan 53-year-old female sent to the ER by pulmonology for further workup of her respiratory distress. CAT scan obtained yesterday showing multifocal airspace disease concerning for multifocal pneumonia. Does not appear to have significant emphysematous changes to her lungs. Presentation to the ER, on 4 L nasal cannula oxygen. Discussed case with ER physician, request admission for further management and workup with pulmonology as well as initiation of IV antibiotics. Medicine agreed to admit for further management. History of patient management. Discussed case with pulmonology, planning for bronchoscopy today. Problems addressed as follows COPD versus multifocal pneumonia versus atypical lung disease Chronic hypoxemic respiratory failure -Unclear etiology of hypoxia. Patient reports previous diagnosis of COPD however her imaging is concerning for multifocal airspace disease with minimal emphysematous changes -Continue DuoNebs every 6 hours scheduled - Pulmonology consulted, proceed with bronchoscopy transbronchial biopsy - Right upper lobe anterior segment. -Will continue antibiotics with levofloxacin, discontinue ceftriaxone. Plan to complete 5 days total. -Continue oxygen supplementation to maintain O2 saturation goal of 90% unable to wean beyond 4 L. -Continue NIV for her sleep apnea at night. -Added studies for fungal etiology including histoplasmosis, concern for rheumatologic component, KAY, anti-CCP pending. CRP elevated at 25. ESR normal at 22. -Sputum sample pending -White cell count 12.5, kidney function normal BUN 9, creatinine 0.5. Electrolytes within normal range. Repeat CBC, CMP, magnesium ordered for the morning. Suspected CHF Hypertension Hyperlipidemia -Seen by cardiology 11/23 at [facility]. Reviewed notes, was seen for preprocedural clearance for pain management. -Patient's records from [facility] showed that she had a heart cath in 2018 with near normal coronary arteries, severe vasospasm in the proximal RCA and possible diffuse spasm in the LAD. She also had severe vasospasm in the right radial and right common femoral arteries. Initiated on Imdur and calcium channel blockers. Had an echocardiogram obtained 04/14/2022 was technically difficult but showed no obvious regional wall motion abnormalities. Ejection fraction preserved greater than 60%. Normal diastolic function. Had some mild MR and TR. No evidence of pulmonary hypertension at that time. -Repeat echocardiogram obtained, EF appears normal on preliminary. -Holding aspirin and Plavix -Continue Lipitor 10 mg daily, continue lisinopril 20 mg daily, continue metoprolol 25 mg daily. Sleep disorder: Continue trazodone 200 mg hs Mood disorder: Continue Zoloft 25mg daily, continue bupropion 300 mg daily Chronic pain: Continue oxycodone/acetaminophen 5/325 3 times a day as needed for pain, continue metaxalone 800 mg nightly; continue gabapentin 600 mg 3 times daily for pain GERD: Continue pantoprazole 40 mg daily Diabetes: Sliding scale insulin and fingersticks ACHS. Okay to use CGM if in place and has monitor DNR Diabetic diet Holding anticoagulation due to procedure/bronch
--- NOTE | 2023-11-25 15:56 | EXP.DC.SUM ---
General Admission date:: 11/24/23 Discharge date: 11/25/23 HPI HPI HPI: 53-year-old female who presented to pulmonology clinic yesterday for preprocedural clearance. Had CT obtained that showed multifocal airspace disease. Previous diagnosis of COPD, reports having been on hospice for end-stage COPD. Wears 4 L oxygen daily. Uses CPAP at night. Was informed to present to the ER for further workup and management and possible admission. In the ER, patient is on 4 to 5 L nasal cannula. Sats are in the low 90s. Is afebrile. Labs obtained showing normal white cell count, normal kidney function. Case discussed with pulmonology, request admission for further evaluation and inpatient management. Medicine consulted for admission. On evaluation, patient has been more short of breath. Has an intermittently productive cough for yellow sputum. No fever or chills. No nausea or vomiting. Has thoracic pain due to her coughing. Is not getting the same benefit from her inhalers at home that she has had previously. Hospital Course Hospital Course Hospital Course: 53-year-old female sent to the ER by pulmonology for further workup of her respiratory distress. CAT scan obtained yesterday showing multifocal airspace disease concerning for multifocal pneumonia. Does not appear to have significant emphysematous changes to her lungs. Presentation to the ER, on 4 L nasal cannula oxygen. Discussed case with ER physician, request admission for further management and workup with pulmonology as well as initiation of IV antibiotics. Medicine agreed to admit for further management. Pulmonology consulted, taken for bronchoscopy on 11/25. Relatively normal findings. Stable for discharge home to complete antibiotics. Follow-up with pulmonology as an outpatient. Problems addressed as follows COPD versus multifocal pneumonia versus atypical lung disease Chronic hypoxemic respiratory failure -Unclear etiology of hypoxia. Patient reports previous diagnosis of COPD however her imaging is concerning for multifocal airspace disease with minimal emphysematous changes. Initiated on DuoNebs every 6 hours. Maintain stable saturations on 4 L nasal cannula oxygen. Pulmonology was consulted, transbronchial biopsy performed during bronchoscopy on 11/25. Initiated on antibiotics during admission. Continue levofloxacin, complete 5 days total. Plan to continue noninvasive ventilation at night for sleep apnea. Added studies for fungal etiology including histoplasmosis, concern for rheumatologic component, KAY, anti-CCP pending. CRP elevated at 25. ESR normal at 22. Sputum sample pending Suspected CHF Hypertension Hyperlipidemia -Seen by cardiology 11/23 at [facility]. Reviewed notes, was seen for preprocedural clearance for pain management. -Patient's records from [facility] showed that she had a heart cath in 2018 with near normal coronary arteries, severe vasospasm in the proximal RCA and possible diffuse spasm in the LAD. She also had severe vasospasm in the right radial and right common femoral arteries. Initiated on Imdur and calcium channel blockers. Had an echocardiogram obtained 04/14/2022 was technically difficult but showed no obvious regional wall motion abnormalities. Ejection fraction preserved greater than 60%. Normal diastolic function. Had some mild MR and TR. No evidence of pulmonary hypertension at that time. -Repeat echocardiogram obtained, EF appears normal on preliminary. Resume home regimen at discharge. Continue Lipitor 10 mg daily, continue lisinopril 20 mg daily, continue metoprolol 25 mg daily. Sleep disorder: Continue trazodone 200 mg hs Mood disorder: Continue Zoloft 25mg daily, continue bupropion 300 mg daily Chronic pain: Continue oxycodone/acetaminophen 5/325 3 times a day as needed for pain, continue metaxalone 800 mg nightly; continue gabapentin 600 mg 3 times daily for pain GERD: Continue pantoprazole 40 mg daily Stable for discharge home. Follow-up with cardiology as an outpatient. Spent 30 minutes in discharge counseling, documentation, chart review, and direct care with patient. Exam Data for Last 24 hours Vital signs and Labs for Last 24 Hours: Temp Pulse Resp BP Pulse Ox O2 Del Method O2 Flow Rate 98.7 F 82 16 114/75 95 Room Air 4 11/25/23 15:05 11/25/23 15:05 11/25/23 15:05 11/25/23 15:05 11/25/23 15:05 11/25/23 15:05 11/25/23 15:00 Laboratory Results - last 24 hr 11/24/23 16:00: Chlamy pneumoniae PCR TNP, Adenovirus (PCR) Not detected, B. pertussis DNA (PCR) TNP, Coronavirus OC43 (PCR) Not detected, Coronavirus HKU1 (PCR) Not detected, Coronavirus 229E (PCR) Not detected, SARS-CoV-2 (PCR) Not detected, Coronavirus NL63 (PCR) Not detected, Human Metapneumovir PCR Not detected, Influenza A (H1) PCR Not detected, Influ A (H1N1/09) PCR Not detected, Influenza A (H3) PCR Not detected, Influenza Type A (PCR) Not detected, Influenza Type B (PCR) Not detected, M. pneumoniae (PCR) TNP, Parainfluenza 1 (PCR) Not detected, Parainfluenza 2 (PCR) Not detected, Parainfluenza 3 (PCR) Not detected, Parainfluenza 4 (PCR) Not detected, RSV (PCR) Not detected, Entero/Rhino (PCR) Not detected 11/24/23 17:12: Troponin I < 0.01 11/24/23 20:10: Troponin I < 0.01 11/25/23 07:31: WBC 12.5 H, RBC 4.28, Hgb 12.7, Hct 38.8, MCV 90.5, MCH 29.8, MCHC 32.9, RDW 13.4, Plt Count 258, MPV 8.6, Neut % (Auto) 80.2 H, Lymph % (Auto) 13.6, Archer % (Auto) 5.8, Eos % (Auto) 0.2, Baso % (Auto) 0.2, Neut # (Auto) 10.0 H, Lymph # (Auto) 1.7, Archer # (Auto) 0.7, Eos # (Auto) 0.0, Baso # (Auto) 0.0, ESR 22, Sodium 132 L, Potassium 4.6, Chloride 101, Carbon Dioxide 28, Anion Gap 7.6, BUN 9 D, Creatinine 0.50 L D, Estimated Creat Clear 212, Estimated GFR 129, Est GFR ( Amer) 156 D, Glucose 148 H D, Calcium 8.7, Magnesium 2.0, Total Bilirubin 0.3, AST 25, ALT 21, Alkaline Phosphatase 107, C-Reactive Protein 25.6 H, Total Protein 6.1 L, Albumin 3.4 L, Globulin 2.7, Albumin/Globulin Ratio 1.3 I & O for Last 24 hours: Intake & Output 11/22/23 11/23/23 11/24/23 11/25/23 23:59 23:59 23:59 23:59 Intake Total 240 / 850 1610 / 1610 Output Total 800 / 800 Balance 240 / 350 810 / 810 Weight 103.4 kg 103.4 kg Microbiology Reports for the Last 24 Hours: Microbiology 11/25/23 Unknown Bronchial Biopsy - Right Upper Lobe - Final Not Reportable 11/25/23 Unknown Bronchial Biopsy - Right Upper Lobe - Final Not Reportable 11/25/23 Unknown Bronchial Biopsy - Right Upper Lobe - Final Not Reportable 11/25/23 Unknown Bronchial Biopsy - Right Upper Lobe AFB Susceptibility Moxifloxacin - Final Not Reportable 11/25/23 Unknown Bronchial Biopsy - Right Upper Lobe - Final Not Reportable 11/25/23 Unknown Bronchial Biopsy - Right Upper Lobe - Final Not Reportable 11/25/23 Unknown Bronchial Biopsy - Right Upper Lobe - Final Not Reportable 11/25/23 Unknown Bronchial Biopsy - Right Upper Lobe Microbiology Comment - Final Not Reportable Constitutional Constitutional: no acute distress, obese and chronically ill appearing *Routine HEENT Exam Head: Present normocephalic Eye: Present EOMI and PERRL ENT: Present mucous membranes moist *Routine Neck Exam Neck: Present supple; Absent lymphadenopathy *Routine Respiratory Exam Respiratory: Present rhonchi, wheezes, crackles and normal respiratory effort *Routine Cardiovascular Exam Cardiovascular: Present RRR *Routine Abdominal Exam Abdominal: Present soft and normoactive bowel sounds; Absent tenderness *Routine Extremities Exam Extremities: Absent cyanosis, clubbing or edema *Routine Skin Exam Skin: Present warm; Absent rash *Routine Neurological Exam Neurological: Present alert, oriented X3 and moving all extremities; Absent altered mental status Results Data Completed and Pending Labs on day of discharge: Labs from last 24 hours 11/25/23 11/24/23 11/24/23 07:31 20:10 17:12 WBC 12.5 H RBC 4.28 Hgb 12.7 Hct 38.8 MCV 90.5 MCH 29.8 MCHC 32.9 RDW 13.4 Plt Count 258 MPV 8.6 Neut % (Auto) 80.2 H Lymph % (Auto) 13.6 Archer % (Auto) 5.8 Eos % (Auto) 0.2 Baso % (Auto) 0.2 Neut # (Auto) 10.0 H Lymph # (Auto) 1.7 Archer # (Auto) 0.7 Eos # (Auto) 0.0 Baso # (Auto) 0.0 ESR 22 Sodium 132 L Potassium 4.6 Chloride 101 Carbon Dioxide 28 Anion Gap 7.6 BUN 9 D Creatinine 0.50 L D Estimated Creat Clear 212 Estimated GFR 129 Est GFR ( Amer) 156 D Glucose 148 H D Calcium 8.7 Magnesium 2.0 Total Bilirubin 0.3 AST 25 ALT 21 Alkaline Phosphatase 107 Troponin I < 0.01 < 0.01 C-Reactive Protein 25.6 H Total Protein 6.1 L Albumin 3.4 L Globulin 2.7 Albumin/Globulin Ratio 1.3 Chlamy pneumoniae PCR Adenovirus (PCR) B. pertussis DNA (PCR) Coronavirus OC43 (PCR) Coronavirus HKU1 (PCR) Coronavirus 229E (PCR) SARS-CoV-2 (PCR) Coronavirus NL63 (PCR) Human Metapneumovir PCR Influenza A (H1) PCR Influ A (H1N1) PCR Influenza A (H3) PCR Influenza Type A (PCR) Influenza Type B (PCR) M. pneumoniae (PCR) Parainfluenza 1 (PCR) Parainfluenza 2 (PCR) Parainfluenza 3 (PCR) Parainfluenza 4 (PCR) RSV (PCR) Entero/Rhino (PCR) 11/24/23 16:00 WBC RBC Hgb Hct MCV MCH MCHC RDW Plt Count MPV Neut % (Auto) Lymph % (Auto) Archer % (Auto) Eos % (Auto) Baso % (Auto) Neut # (Auto) Lymph # (Auto) Archer # (Auto) Eos # (Auto) Baso # (Auto) ESR Sodium Potassium Chloride Carbon Dioxide Anion Gap BUN Creatinine Estimated Creat Clear Estimated GFR Est GFR ( Amer) Glucose Calcium Magnesium Total Bilirubin AST ALT Alkaline Phosphatase Troponin I C-Reactive Protein Total Protein Albumin Globulin Albumin/Globulin Ratio Chlamy pneumoniae PCR TNP Adenovirus (PCR) Not detected B. pertussis DNA (PCR) TNP Coronavirus OC43 (PCR) Not detected Coronavirus HKU1 (PCR) Not detected Coronavirus 229E (PCR) Not detected SARS-CoV-2 (PCR) Not detected Coronavirus NL63 (PCR) Not detected Human Metapneumovir PCR Not detected Influenza A (H1) PCR Not detected Influ A (H1N1) PCR Not detected Influenza A (H3) PCR Not detected Influenza Type A (PCR) Not detected Influenza Type B (PCR) Not detected M. pneumoniae (PCR) TNP Parainfluenza 1 (PCR) Not detected Parainfluenza 2 (PCR) Not detected Parainfluenza 3 (PCR) Not detected Parainfluenza 4 (PCR) Not detected RSV (PCR) Not detected Entero/Rhino (PCR) Not detected DS: Diagnosis Discharge Diagnosis (1) Pneumonia: Status: Acute Code(s): J18.9 - Pneumonia, unspecified organism (2) COPD (chronic obstructive pulmonary disease): Status: Acute Code(s): J44.9 - Chronic obstructive pulmonary disease, unspecified (3) CHF (congestive heart failure): Status: Acute Code(s): I50.9 - Heart failure, unspecified Qualifiers: Heart failure chronicity: chronic Heart failure type: unspecified Qualified Code(s): I50.9 - Heart failure, unspecified (4) Diabetes: Status: Acute Code(s): E11.9 - Type 2 diabetes mellitus without complications (5) HTN (hypertension): Status: Acute Code(s): I10 - Essential (primary) hypertension (6) HLD (hyperlipidemia): Status: Acute Code(s): E78.5 - Hyperlipidemia, unspecified Meds Home Medications and Allergies Home Medications Medication Instructions Recorded Confirmed Type aspirin 81 mg tablet,delayed 81 mg PO DAILY 05/12/23 11/25/23 History release atorvastatin 10 mg tablet 10 mg PO DAILY 05/12/23 11/25/23 History bisacodyl 5 mg tablet,delayed 5 mg PO DAILY 05/12/23 11/25/23 History release blood sugar diagnostic (FreeStyle 05/12/23 11/25/23 History Lite Strips) bupropion HCl 300 mg 24 hr tablet, 300 mg PO DAILY 05/12/23 11/25/23 History extended release clonidine HCl 0.1 mg tablet 0.1 mg PO TID 05/12/23 11/25/23 History clopidogrel 75 mg tablet 75 mg PO DAILY 05/12/23 11/25/23 History furosemide 40 mg tablet 40 mg PO BID 05/12/23 11/25/23 History insulin aspart U-100 100 unit/mL 20 unit SQ TIDWMEAL 05/12/23 11/25/23 History subcutaneous solution (Novolog U-100 Insulin aspart) ipratropium 0.5 mg-albuterol 3 mg 3 ml inhalation Q6H 05/12/23 11/25/23 History (2.5 mg base)/3 mL nebulization soln lisinopril 20 mg tablet 20 mg PO DAILY 05/12/23 11/25/23 History naloxone 4 mg/actuation nasal spray 1 spray intranasal DIRECTED 05/12/23 11/25/23 History Required for controlled substance pantoprazole 40 mg tablet,delayed 40 mg PO DAILY 05/12/23 11/25/23 History release polyethylene glycol 3350 17 17 g PO DAILY 05/12/23 11/25/23 History gram/dose oral powder potassium chloride 20 mEq 20 meq PO TID 05/12/23 11/25/23 History tablet,extended release(part/cryst) (Klor-Con M) tramadol 50 mg tablet 50 mg PO Q8H PRN Pain 05/12/23 11/25/23 History trazodone 100 mg tablet 200 mg PO HS 05/12/23 11/25/23 History methocarbamol 750 mg tablet 750 mg PO TID 05/24/23 11/25/23 History diclofenac epolamine 1.3 % 1 patch topical BID #30 ea 06/21/23 11/25/23 Rx transdermal 12 hour patch (Flector) metaxalone 800 mg tablet 800 mg PO HS 06/21/23 11/25/23 History gabapentin 600 mg tablet 600 mg PO TID Pain #90 tabs 10/20/23 11/25/23 Rx hydrocodone 5 mg-acetaminophen 325 1 tab PO TID #90 tabs 10/20/23 11/25/23 Rx mg tablet tizanidine 4 mg tablet (Zanaflex) 4 mg PO TID #90 tabs 10/20/23 11/25/23 Rx oxycodone-acetaminophen 5 mg-325 1 tab PO TID #90 tabs 11/18/23 11/25/23 Rx mg tablet (Percocet) metoprolol succinate 25 mg 25 mg PO DAILY #30 tabs 11/23/23 11/25/23 Rx tablet,extended release 24 hr guaifenesin 600 mg tablet, 600 mg PO Q12H 11/25/23 11/25/23 History extended release 12 hr levofloxacin 750 mg tablet 750 mg PO 1100 6 days #6 tabs 11/25/23 Rx linaclotide 72 mcg capsule 72 mcg PO DAILY 11/25/23 11/25/23 History (Linzess) lorazepam 0.5 mg tablet 1 mg PO BID 11/25/23 11/25/23 History prednisone 10 mg tablet 5 mg PO DAILY 11/25/23 11/25/23 History ropinirole 0.5 mg tablet 0.5 mg PO HS 11/25/23 11/25/23 History sertraline 100 mg tablet 100 mg PO DAILY 11/25/23 11/25/23 History sertraline 50 mg tablet 50 mg PO DAILY 11/25/23 11/25/23 History New Prescriptions to Start Prescriptions: levofloxacin Janes Gallagher Allergies Allergy/AdvReac Type Severity Reaction Status Date / Time ketorolac [From Toradol] Allergy Verified 11/23/23 14:00 prochlorperazine Allergy Verified 11/23/23 14:00 [From Compazine] Discharge Plan Disposition Patient Disposition: Home, Self-Care Condition: Fair Follow up Plan Follow up with: Carlota Warner APRN [Primary Care Provider] - 12/03/23 10:00 am Hemant Massey MD [Physician] - 12/07/23 10:00 am Prescriptions/Medication Reconciliation: New levofloxacin 750 mg Tablet 750 mg PO 1100 6 Days Qty: 6 0RF Continued metoprolol succinate 25 mg tablet extended release 24 hr 25 mg PO DAILY Qty: 30 11RF furosemide 40 mg tablet 40 mg PO BID clonidine HCl 0.1 mg tablet 0.1 mg PO TID ipratropium-albuterol 0.5 mg-3 mg(2.5 mg base)/3 mL solution for nebulization 3 ml INHALATION Q6H atorvastatin 10 mg tablet 10 mg PO DAILY lisinopril 20 mg tablet 20 mg PO DAILY clopidogrel 75 mg tablet 75 mg PO DAILY (DME) FreeStyle Lite Strips Strip MISCELLANEOUS Patient Comments: USE DIRECTED aspirin 81 mg tablet,delayed release (DR/EC) 81 mg PO DAILY tramadol 50 mg tablet 50 mg PO Q8H PRN (Reason: Pain) potassium chloride [Klor-Con M20] 20 mEq tablet,ER particles/crystals 20 meq PO TID trazodone 100 mg tablet 200 mg PO HS insulin aspart U-100 [Novolog U-100 Insulin aspart] 100 unit/mL solution 20 unit SQ TIDWMEAL pantoprazole 40 mg tablet,delayed release (DR/EC) 40 mg PO DAILY bisacodyl 5 mg tablet,delayed release (DR/EC) 5 mg PO DAILY polyethylene glycol 3350 17 gram/dose powder 17 g PO DAILY bupropion HCl 300 mg tablet extended release 24 hr 300 mg PO DAILY naloxone 4 mg/actuation spray,non-aerosol 1 spray INTRANASAL DIRECTED Rx Instructions: Use one spray in nostril if needed. May repeat every 2-3 minutes until patient is responsive. metaxalone 800 mg tablet 800 mg PO HS diclofenac epolamine [Flector] 1.3 % patch 12 hour 1 patch topical BID Qty: 30 0RF tizanidine [Zanaflex] 4 mg tablet 4 mg PO TID Qty: 90 0RF gabapentin 600 mg tablet 600 mg PO TID Qty: 90 0RF hydrocodone-acetaminophen 5-325 mg tablet 1 tab PO TID Qty: 90 0RF oxycodone-acetaminophen [Percocet] 5-325 mg tablet 1 tab PO TID Qty: 90 0RF lorazepam 0.5 mg tablet 1 mg PO BID prednisone 10 mg tablet 5 mg PO DAILY sertraline 100 mg tablet 100 mg PO DAILY Patient Comments: TAKE 1 TABLET BY MOUTH EVERY DAY sertraline 50 mg tablet 50 mg PO DAILY Patient Comments: TAKE 1 TABLET BY MOUTH EVERY DAY guaifenesin 600 mg tablet extended release 12hr 600 mg PO Q12H ropinirole 0.5 mg tablet 0.5 mg PO HS Rx Instructions: Take 1-3 hours before bedtime. Linzess 72 mcg capsule 72 mcg PO DAILY methocarbamol 750 mg tablet 750 mg PO TID Problem Reconciliation Problems Reviewed?: Yes Patient Discharge Instructions ACTIVITY: Continue current activity DIET: continue same diet Patient Instructions: Respiratory Failure Providers Primary Care Provider: Carlota Warner Admit Provider: Janes Gallagher Attending Provider: Janes Gallagher
--- NOTE | 2023-11-25 16:25 | PC.NURSE ---
notified clinic pharm of pts dc
[2023-11-25] MEDS: levoFLOXacin 750 MG TABLET PO (16:37)
--- NOTE | 2023-11-25 18:30 | CA_ITS ---
APPROVED REPORT EXAM: Comprehensive 2D, Doppler, and color-flow Echocardiogram Certified Pharmacy Technician: YESENIA Valadez, RVS Ht: 5 ft 2 in Wt: 228lbs BSA: 2.02 BP: 117/62 mmHg Indications: End stage COPD, CAD, CHF, Pneumonia, HTN, DM, Ex-smoker, Edema, Wheel chair dependent 2D Dimensions IVSd 0.93 cm F: 0.6-1.0 LVEF (Visual) 66.60 % PWd 0.96 cm F: 0.6 - 1.0 LA Volume 67.90 mL LVDd 5.41 cm F: 3.9 - 5.3 LA Volume Index 33.61 mL/m2 (M/F) 16-34 LVDs 3.40 cm F: 2.2 - 3.5 Left Atrium 3.37 cm F: 2.7 - 3.8 M-Mode Dimensions RVDd 1.83 cm (0.9-2.6) LA Diam 5.11 cm (1.9-4.0) LVDd 5.60 cm (3.5-5.7) LVDs 3.70 cm (3.5-5.7) IVSd 1.18 cm (0.6-1.1) PWd 1.14 cm (0.6-1.1) EF (Teich) 66.60% EPSs 0.91 cm FS 37.40% EDV (Teich) 173.90 mL TAPSE 1.75 (<1.7) ESV (Teich) 58.10 mL LV Diastology E Decel Time 257 (160-240 msec) E/A Ratio 1.30 MED A' 6.20 cm/s LAT A' 8.10 cm/s Aortic Valve NESTOR Index 1.41 cm2/m2 AoV Peak Rasheed. 138.0 (50-130 cm/s) AO Peak GR. 7.60 mmHg AO Mean GR. 3.80 (<5 mmHg) AO VTI 29.3 (18-25 cm) NESTOR (VTI) 3.05 (2.5-4.5 cm2) Mitral Valve MV A Velocity 58.0 (40-130 cm/s) E/A Ratio 1.30 Tricuspid Valve TR P. Velocity 236.00 cm/s RAP Estimate 10.00 mmHg RVSP 32.20 mmHg Left Ventricle The left ventricle is normal size. The left ventricular systolic function is normal. The left ventricular ejection fraction is within the normal range. There is normal left ventricular wall thickness. There is normal LV segmental wall motion. The left ventricular diastolic function is normal. LVEF is 55%. Right Ventricle Right ventricle is mildly dilated. The right ventricular systolic function is normal. Atria The left atrium size is normal. The right atrium size is normal. There is no Doppler evidence of interatrial shunt. Aortic Valve The aortic valve is normal in structure. There is no aortic valvular stenosis. No aortic regurgitation is present. Mitral Valve The mitral valve is normal in structure. No evidence of mitral valve stenosis. There is no mitral valve regurgitation noted. Tricuspid Valve The tricuspid valve leaflets are thin and pliable. Trace tricuspid regurgitation. There is insufficient TR jet to estimate RVSP. Pulmonic Valve The pulmonary valve is normal in structure. Trace pulmonic regurgitation. Great Vessels The aortic root is normal in size. The ascending aorta is normal in size. IVC is normal in size and collapses >50% with inspiration. Pericardium There is no pericardial effusion. Other Information Study Quality: Fair Conclusion Normal biventricular systolic function. Mild RV dilation. No significant valvular stenosis or regurgitation. Electronically signed by : Christie Blanca MD 11/27/2023 15:57:32
[2023-11-26 11:14] LABS: Anti-Centromere B Antibodies <0.2 AI (0.0-0.9); Anti-DNA (DS) Ab Qn <1 IU/mL (0-9); Anti-Jo-1 <0.2 AI (0.0-0.9); Anti-Smith Antibody <0.2 AI (0.0-0.9); Antichromatin Antibodies <0.2 AI (0.0-0.9); Antiscleroderma-70 Antibodies <0.2 AI (0.0-0.9); RNP Antibodies <0.2 AI (0.0-0.9); Sjogren's Anti-SS-A <0.2 AI (0.0-0.9); Sjogren's Anti-SS-B <0.2 AI (0.0-0.9)
--- NOTE | 2023-11-27 11:44 | P.PNANES_ITS ---
[facility] Anesthesia Record Part II Anesthesia Record Part II Discharge Time: 13:36 Destination: Surgical Day Care (OP Surgery) PACU nurse assessment reviewed?: Yes Patient Condition:: Good Anesthesia Complications:: None Swallowing reflex intact?: Yes Airway Patency: Patent Cyanosis?: No Blood Pressure: 195/86 SaO2: 95 Respiratory Rate: 21 Pulse Rate: 70 Temperature: 97.3 F Mental Status: Alert & Oriented Pain level:: 0 Nausea and/or vomitting:: None Intake, IV Amount: 0 Hydration: Adequate
[2023-11-27 11:45] VITALS: BP 195/86; PULSE 70; RESP 21; TEMP 36.3; O2SAT 95
[2023-11-28 14:16] LABS: Histoplasma Antibody Quant Negative (Neg:<1:1)
--- NOTE | 2023-11-29 10:59 | CARE MANAGER ---
Spoke with patient this morning regarding recent discharge. Patient stated that she is feeling better, was able to get her antibiotics and is currently taking them. She was aware of scheduled f/u appts. No concerns voiced at time of call.
--- NOTE | 2023-12-01 04:31 | PC.NURSE ---
final blood cx result negative for growth. patient discharged with levaquin 750mg x 6 days. will advise dayshift charge nurse to call and check on patient.
[2023-12-05 16:28] LABS: Histoplasma Gal'mannan Ag Ur Negative (<0.5 ng/mL)
== END 2023-11-25 16:55 | disposition home or self-care (01) ==
LOC: ER 16:00 → 2ND 16:58
PROVIDERS: Internal Medicine Pulmonary Disease; Admitting Provider Internal Medicine Adolescent Medicine; Emergency Provider Emergency Medicine; PCP Nurse Practitioner Family; Visit Provider Internal Medicine Adolescent Medicine
PROC: (CPT 31624; principal; 2023-11-25 12:00)
DX: J18.9 Pneumonia, unspecified organism (principal); J44.9 Chronic obstructive pulmonary disease, unspecified; Z99.81 Dependence on supplemental oxygen; J96.11 Chronic respiratory failure with hypoxia; I11.0 Hypertensive heart disease with heart failure; I50.9 Heart failure, unspecified; Z79.4 Long term (current) use of insulin; E11.9 Type 2 diabetes mellitus without complications; Z79.899 Other long term (current) drug therapy
CPT/HCPCS: 31624; 31628; 36415; 71045; 76000; 80053; 83605; 83735; 84484; 85025; 85651; 86140; 86225; 86235; 86698; 87040; 87070; 87081; 87102; 87116; 87186; 87205; 87206; 87385; 87632; 87635; 88112; 88305; 88312; 89051; 93306; 94640; 94760; 99285; G0378; J0456; J0696; J2710

== ENCOUNTER → 2023-12-09 09:43 | Outpatient (POV) | payer MEDICAID, SELFPAY ==
--- NOTE | 2023-12-09 10:18 | EXP.PAIN.SOA ---
[facility] Pain Management SOAP Note Subjective:: Patient is a pleasant 53-year-old female who presents today for medication refill and follow-up. We are currently treating the patient for degenerative disc disease of lumbar spine with lumbar radiculopathy symptoms, chronic pain syndrome, neuropathy. Today she rates her pain a 7 out of 10. Patient does state that she is feeling much better from our last visit where she was experiencing a COPD exacerbation. Patient states that she has had pain improvement however she still deals with her chronic pain symptoms on a daily basis. Patient is still on oxygen continuously and does state that she has been back to cardiac and pulmonology and did get cleared for her intrathecal pain pump implant. Patient states today she still would like to proceed forward with this option that she did have significant relief with the trial. Patient is currently managed with Percocet 5 mg 3 times a day, gabapentin 600 mg 3 times a day and ropinirole 3 mg at bedtime. Patient denies any side effects from these medications. Patient is requesting if we can increase her Percocet medication any until we get her scheduled for her surgical procedure. Patient is prescribed lorazepam from an outside provider. Her Maximo has been reviewed and is appropriate. Review of Systems: General: No recent weight changes, no fever, no sleep disturbances Respiratory: No cough, no shortness of air, no recurring pulmonary infections Cardiovascular/peripheral vascular: No chest pain, no palpitations, no edema, no shortness of breath Gastrointestinal: No new onset incontinence, normal bowel movements reported Genitourinary: No new onset incontinence Musculoskeletal: Low back pain Psychiatric: [Normal mood/affect] Neurological: [Denies weakness in extremities], [denies balance issues] Objective:: Physical Exam: General: Alert and oriented x3, no acute distress, pleasant and cooperative Lungs: Respirations even and unlabored, symmetrical chest expansion Eyes: PERRL Musculoskeletal: Flexion and extension of lumbar [spine] somewhat guarded secondary to pain, [antalgic gait noted] Neurological: Speech clear, no gross sensory deficit Assessment:: Degenerative disc disease of lumbar spine with lumbar radiculopathy symptoms, chronic pain syndrome, neuropathy Plan:: Will refill the patient's gabapentin 600 mg 3 times a day, ropinirole 3 mg daily and Percocet 5 mg 3 times a day. At this time we will keep her at the current dosage. Patient is on the schedule for surgery next Wednesday for her intrathecal pain pump implant. Risk and benefits were discussed again with the patient and she would like to proceed forward with the surgical intervention. We will follow-up with the patient in clinic following this surgery. Risks and benefits of the medication have been explained in detail to the patient. The patient does understand the risk of dependence on the medication when given over a prolonged period. Patient has been advised of risks of oversedation with the prescribed medication. Narcan has been offered to the paitent in the event of oversedation. Patient has been advised that a family member should also be educated regarding administration of Narcan. The patient has been advised to consult with his/her primary care provider and pharmacist regarding drug-drug interaction of medications currently prescribed. Patient has been prescribed a controlled substance after being counseled on the medication, medication safety, and possible side effects. Opioid contract was reviewed and signed by the patient, and that they have agreed to all of the terms set forth by our compliance program. Patient has been instructed to contact the clinic with any concerns before the next appointment. Dr. Herrera has reviewed this note and agrees with this plan of care. This note was dictated using voice recognition software and make contain errors or omissions. [facility] Disclaimer: The information contained in this section may have been updated after the patient was seen, as this information can be updated by other users. Medical History CAD (coronary artery disease) CHF (congestive heart failure) COPD (chronic obstructive pulmonary disease) COPD exacerbation Depression Diabetes Dyspnea on exertion GERD (gastroesophageal reflux disease) History of COPD HLD (hyperlipidemia) HTN (hypertension) Pre-op testing Stopped smoking with greater than 30 pack year history Surgical History H/O breast surgery TO REMOVE BENIGN TUMORS H/O section H/O colonoscopy H/O esophagogastroduodenoscopy Family History (Updated 12/07/23 @ 10:08 by Katelyn Gomez) Other COPD (chronic obstructive pulmonary disease) Cancer Diabetes Heart attack Hypertension Lung cancer Stroke Social History Smoking Status: Never smoker smoking status stop date: 07/16/2023 alcohol intake: never substance use type: denies use current occupational status: disabled Travel in the last 8 weeks: None
[2023-12-09 12:13] VITALS: BP 120/96; PULSE 72; RESP 18; O2SAT 96; BMI 40.8
== END | disposition home or self-care (01) ==
PROVIDERS: PCP Nurse Practitioner Family; Visit Provider Nurse Practitioner Family
DX: M51.16 Intervertebral disc disorders with radiculopathy, lumbar region (principal); G89.4 Chronic pain syndrome; G62.9 Polyneuropathy, unspecified
CPT/HCPCS: 99212; G0463

== ENCOUNTER 2023-12-21 11:44 | Outpatient (CLI) | payer MEDICAID, SELFPAY ==
[2023-12-21 12:18] LABS: Basophils # 0.1 K/mm3 (0-0.2); Basophils % 0.9 % (0.1-2.0); Eosinophils # 0.1 K/mm3 (0.0-0.4); Eosinophils % 1.8 % (0.1-12.0); Hematocrit 40.8 % (37.0-47.0); Hemoglobin 13.4 g/dL (12.2-16.2); Lymphocytes # 2.2 K/mm3 (0.7-4.5); Lymphocytes % 36.9 % (10-50); Mean Corpuscular Hemoglobin 29.9 pg (27.0-31.2); Mean Corpuscular Volume 90.6 fl (81-99); Mean Platelet Volume 8.7 fl (7.4-10.4); Monocytes # 0.3 K/mm3 (0.1-1.0); Monocytes % 5.7 % (1.7-9.3); Neutrophils # 3.3 K/mm3 (1.8-7.8); Neutrophils % 54.7 % (37.0-80.0); Platelet Count 225 K/mm3 (142-424); Red Cell Distribution Width 13.7 % (11.5-17.5)
[2023-12-21 13:01] LABS: Chloride 109 mmol/L (98-107); Potassium 4.5 mmoL/L (3.5-5.1); Sodium 138 mmol/L (136-145)
[2023-12-21 13:04] LABS: Blood Urea Nitrogen 14 mg/dl (7-17); Estimated Glomerular Filt Rate 88 ml/min (>60); GFR (African American) 106 ML/MIN (>60)
[2023-12-21 13:05] LABS: Anion Gap 9.5 mEq/L (5-15); Calcium 8.7 mg/dl (8.4-10.2); Carbon Dioxide 24 mmol/L (22.0-30.0); Glucose 134 mg/dl (74-100)
[2023-12-21 13:25] VITALS: PULSE 52; PULSE 53
[2023-12-21] MEDS: ALBUTEROL 0.083% 2.5 MG/3 ML NEB IH (13:25)
--- NOTE | 2023-12-21 13:25 | PC.NURSE ---
PT UNABLE TO DO DLCO, ATTEMPTED MULTIPLE TIMES.
--- NOTE | 2023-12-21 14:20 | CT_ITS ---
FINAL REPORT TECHNIQUE: Axial CT images were performed from the lung apices through the upper abdomen. Coronal and sagittal reformats were submitted. This study was performed with techniques to keep radiation doses as low as reasonably achievable (ALARA). Individualized dose reduction techniques using automated exposure control or adjustment of mA and/or kV according to the patient's size were employed. CLINICAL HISTORY: lung nodule COMPARISON: 12/03/2023 FINDINGS: There is no axillary adenopathy. There is no hilar or mediastinal mass or adenopathy. Heart size is normal. There is no pericardial or pleural effusion. Limited images of the upper abdomen are unremarkable. The patient has undergone a prior cholecystectomy. There is been partial improvement in the bilateral ground glass appearing opacities since the prior CT of December 03, consistent with improving atypical or viral pneumonia. The focal right upper lobe opacity seen on the prior CT has resolved. There is mild but worsening atelectasis in the lung bases. IMPRESSION: Improving atypical or viral pneumonia since the prior CT. Focal right upper lobe opacity seen on prior CT has resolved. Mild but worsening atelectasis in the lung bases. Reviewed, Interpreted and Dictated by Harley Ambrocio III, MD Transcribed by Irais Ford Authenticated and [facility]
[2023-12-21 16:04] LABS: Amphetamine/Metha Screen,Urine Negative ng/ml (<1000); Benzodiazepines Screen,Urine Negative ng/ml (<200)
[2023-12-21 16:05] LABS: Barbiturates Screen,Urine Negative ng/ml (<200)
[2023-12-21 16:06] LABS: Cannabinoid Screen,Urine Negative ng/ml (<50); Cocaine Screen,Urine Negative ng/ml (<300)
[2023-12-21 16:07] LABS: Methadone Screen,Urine Negative ng/ml (<300)
[2023-12-21 16:08] LABS: Opiate Screen,Urine Negative ng/ml (<300); Phencyclidine Screen,Urine Negative ng/ml (<25)
== END 2023-12-21 23:59 ==
LOC: RT 11:44
PROVIDERS: Anesthesiology; PCP Nurse Practitioner Family; Visit Provider Internal Medicine Pulmonary Disease
DX: R06.09 Other forms of dyspnea (principal); R91.8 Other nonspecific abnormal finding of lung field
CPT/HCPCS: 36415; 71250; 80048; 80307; 85025; 94060; 94618; 94640; 94726; 94729

== ENCOUNTER 2023-12-24 06:40 | Day surgery (SDC) | payer MEDICAID, SELFPAY ==
[2023-12-22 08:43] VITALS: BMI 37.9
[2023-12-24] VITALS (7 sets, daily range): BP systolic 103–125; BP diastolic 40–71; PULSE 55–74; RESP 16–28; TEMP 35.9–37.1; O2SAT 92–99
[2023-12-24 07:30] LABS: POC Glucose,Bedside 119 (70-110)
[2023-12-24] MEDS: LACTATED RINGERS 1000ML 1,000 ML 25 ML IV (07:38)
[2023-12-24] MEDS: VANCOMYCIN HCL 2,000 MG in 0.9 % SODIUM CHLORIDE 250 ML 125 MG IV (08:13)
[2023-12-24] MEDS: SODIUM CHLORIDE 0.9% 20ML VIAL 60 ML IV (10:07)
[2023-12-24] MEDS: GENTAMICIN 80 MG/2 ML VIAL (10:07)
[2023-12-24] MEDS: LIDOCAINE 1% W/EPI 1:100,000 20ML VIAL 40 ML (10:07)
--- NOTE | 2023-12-24 11:20 | EXP.ANES.I ---
[facility] Anesthesia Record Part I Anesthesia Record I Intake, IV Amount: 500 Hydration: Adequate Estimated blood loss (mL): 50 Urine output (mL): 0 Blood Products used (#): none Blood Pressure: 110/50 SaO2: 98 Pulse Rate: 70 Airway Patency: Patent Respiratory Rate: 28 Temperature: 96.6 F Patient is:: Awake (Talking), Mask O2 (10L/min) and Stable Stable to PACU at:: 11:06
[2023-12-24] MEDS: IPRATROPIUM/ALBUTEROL 3 ML NEB IH (11:24)
--- NOTE | 2023-12-24 12:59 | EXP.OP.NOTE ---
Date of procedure: 12/24/23 Pre-op Diagnosis:: Degenerative disc disease of lumbar spine with lumbar radiculopathy symptoms Post-op Diagnosis:: Same Procedure performed:: Permanent placement intrathecal pain pump with tunneled intrathecal catheter and primary generator placement Surgeon:: Dewayne Herrera MD MED AIDE:: Other Anesthesia: MAC Estimated blood loss (mL): 5 Clinical Note:: This patient is a pleasant 53-year-old white female who we are been treating for low back pain with lumbar radicular symptoms. She did have a intrathecal pump trial that was successful several months ago. Since then she has had several health issues. She has failed all previous conservative treatments including injections, physical therapy, oral medications and she is not a surgical candidate. She is on oxygen. She has significant cardiac and pulmonary issues. 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 She presents for permanent placement of her intrathecal pain pump today. Will use intrathecal bupivacaine 25 mg per ml and started at 2.5 mg/day. Operative findings:: None Operative note:: Informed consent was obtained risk and benefits of the procedure were explained to the patient. The patient was taken the operating room placed prone on the procedure table. She was prepped and draped in sterile fashion. C-arm fluoroscopy was used to view the left flank. Fci between the 12th rib and iliac crest we anesthetize the skin and subcutaneous tissues. We made an incision and dissected out the pump pocket. C-arm fluoroscopy was then used to be lumbar spine. The skin and subcutaneous tissues adjacent to the L4-5 interspace were anesthetized using lidocaine. A 17-gauge spinal needle was inserted and advanced into the L4-5 interspace. After obtaining clear CSF intrathecal catheter was inserted and advanced very easily to the T8 vertebral body. Catheter was in good position it was midline and posterior. The stylette of the catheter and the needle withdrawn. The catheter was secured to the fascia with anchoring device and 2-0 Prolene. I tunneled the catheter from the back to the pump pocket and attached catheter to the pump. We filled the pump with 20 mL of intrathecal bupivacaine 25 mg/mL. I attached catheter to the pump. We are able to freely withdraw clear CSF through the sideport. Both incisions were irrigated with antibiotic solution. The pump was then placed in the pocket with an antibiotic pouch and both incisions were closed with 2-0 Vicryl followed by 4-0 nylon and subcutaneous aria. The pump was interrogated and started 2.5 mg/day of intrathecal bupivacaine. Patient tolerated the procedure well with no complications. Patient was discharged home neurologic intact with good relief of pain symptoms. Plan and disposition: Will follow-up with this patient in 1 week for wound check and reprogramming. Will follow-up in 2 weeks for suture removal. Condition: stable Disposition: PACU Complications:: none
== END 2023-12-24 11:50 | disposition home or self-care (01) ==
PROVIDERS: PCP Nurse Practitioner Family; Visit Provider Anesthesiology
PROC: (CPT 62350; principal; 2023-12-24 08:30)
DX: M51.16 Intervertebral disc disorders with radiculopathy, lumbar region (principal); Z45.1 Encounter for adjustment and management of infusion pump; E11.9 Type 2 diabetes mellitus without complications
CPT/HCPCS: 62350; 62362; 82962; 83036; 94640; 96374; C1755; C1772; J2704; J3370

== ENCOUNTER → 2023-12-31 08:50 | Outpatient (POV) | payer MEDICAID, SELFPAY ==
[2023-12-31 11:48] VITALS: BP 153/86; PULSE 57; RESP 20; O2SAT 93; BMI 44.4
--- NOTE | 2023-12-31 12:21 | EXP.PAIN.PRO ---
Procedure Date: 12/31/23 Time: 11:22 Anesthesiologist:: Gianna Briseno APRN Complications:: None Pre-procedure Diagnosis:: Degenerative disc disease of lumbar spine with lumbar radiculopathy symptoms, chronic pain syndrome Post-procedure Diagnosis:: Same Indications for Procedure:: Patient is a pleasant 53-year-old female who presents today for follow-up of her intrathecal pain pump placement on 12/24/2023. We are currently treating the patient for degenerative disc disease of lumbar spine with lumbar radiculopathy symptoms, chronic pain syndrome, neuropathy. Today she rates her pain a 10 out of 10. Patient denies any new injury or trauma since having this procedure done. She just states that she is experiencing worsening pain in and around her low back and she has not noticed significant relief with her current pump medications. Patient is currently managed with bupivacaine 25 mg/mL with a daily dose of 2.499 mg/day. Patient denies any side effects from this medication. Patient is also managed with gabapentin 600 mg 3 times a day and ropinirole 3 mg at bedtime. Patient was previously prescribed Percocet 5 mg 3 times a day she would like if we could do something additionally for pain however she is requesting something more along the lines of tramadol. Patient is also requesting something for nausea. Her Maximo has been reviewed and is appropriate. Physical Exam: General: Alert and oriented x3, no acute distress, pleasant and cooperative Lungs: Respirations even and unlabored, symmetrical chest expansion Eyes: PERRL Musculoskeletal: Flexion and extension of lumbar [spine] somewhat guarded secondary to pain, [antalgic gait noted] Neurological: Speech clear, no gross sensory deficit Skin: Incision site clean, dry, well-approximated with mild erythema and moderate seroma around the left lateral incision site, sutures intact Procedure Details:: Informed consent was obtained and the risk and benefits of the procedure were explained to the patient. Patient was taken to the procedure room where noninvasive monitoring was placed including noninvasive blood pressure cuff and pulse oximeter. Patient's pump was interrogated and was reprogrammed to bupivacaine 2.746 mg/day. The patient tolerated the procedure well with no complications. Plan and Disposition:: Patient tolerated her intrathecal increase with no complications and was discharged neurologically intact. I have discussed with the patient to continue her postop restrictions including no submerging in water until her incisions are fully healed, minimal bending, twisting or lifting and to continue to use her abdominal binder to help minimize additional seroma increase. I have counseled the patient that in future if this becomes bothersome we may need to drain it. Patient will return to clinic in 2 weeks for reevaluation of symptoms and plan of care. I have discussed at this visit we will plan on taking out the sutures if indicated and applying Steri-Strips. I will refill the patient's gabapentin 600 mg 3 times daily, ropinirole 3 mg at bedtime and send in prescriptions of Zofran 4 mg every 8 hours as needed with 30 tablets and send in tramadol 50 mg twice daily for 1 month. Patient did state that she disposed of all of her Percocet medication after her surgery and is no longer taking this medication. I have counseled the patient to discontinue all other pain medications while taking the tramadol. Patient has been instructed to contact the clinic with any concerns before the next appointment. Dr. Herrera has reviewed this note and agrees with this plan of care. This note was dictated using voice recognition software and make contain errors or omissions. -- It Is medically necessary for this patient to continue to have their intrathecal pump refilled at regular intervals. This patient had an intrathecal pain pump implanted after meeting criteria of chronic intractable pain for greater than 3 months and failing conservative treatments. Patient has committed and been compliant to the treatment plan and all planned follow up care. Since implantation of the intrathecal pain pump, the patient has had decreased pain and been more functional. Oral medications have been reduced including intake of oral opioids. Patient continues to do well with intrathecal therapy with decrease in pain symptoms and increase in functional status. Stopping intrathecal medications can lead to life threatening withdrawal, seizures, cardiac arrest, severe pain, and possible . Pumps that are not refilled at regular intervals can be damages and cause and need for replacement. We continually titrate dose and concentration to optimize pain relief and function. We are limited in concentration for certain drugs to safely deliver medications through the pump and stay within the recommendations from the Polyanalges[employer] Consensus Committee Guidelines. Depending on dose and concentration these pumps may need to be refilled sooner than 3 months as we titrate.
== END | disposition home or self-care (01) ==
PROVIDERS: PCP Nurse Practitioner Family; Visit Provider Nurse Practitioner Family
DX: M51.16 Intervertebral disc disorders with radiculopathy, lumbar region (principal); G89.4 Chronic pain syndrome; Z97.8 Presence of other specified devices; Z45.1 Encounter for adjustment and management of infusion pump
CPT/HCPCS: 62368

== ENCOUNTER → 2024-01-05 09:43 | Outpatient (POV) | payer MEDICAID, SELFPAY ==
--- NOTE | 2024-01-05 10:37 | EXP.PAIN.PRO ---
Procedure Date: 01/05/24 Time: 10:37 Anesthesiologist:: Gianna Briseno APRN Complications:: None Pre-procedure Diagnosis:: Degenerative disc disease of lumbar spine with lumbar radiculopathy symptoms, chronic pain syndrome Post-procedure Diagnosis:: Same Indications for Procedure:: Patient is a pleasant 53-year-old female who presents today for intrathecal adjustment and reprogram. We are currently treating the patient for degenerative disc disease of lumbar spine with radiculopathy symptoms, chronic pain syndrome, neuropathy. Today she rates her pain an 8 out of 10. Patient denies any new trauma or injury. We did just see her last week and she did have a seroma that she states that she did end up going to [facility] and has had approximately 240 mL of fluid drained off of it. Patient states that they did send it lab test. Patient does state that she still feels like she is not getting as significant relief as she did with her trial. Patient is currently managed with gabapentin 600 mg 3 times a day, ropinirole 3 mg at bedtime and tramadol 50 mg twice a day. Patient states that this is helping however she is requesting medicine for breakthrough pain. Her Maximo has been reviewed and is appropriate. Physical Exam: General: Alert and oriented x3, no acute distress, pleasant and cooperative Lungs: Respirations even and unlabored, symmetrical chest expansion Eyes: PERRL Musculoskeletal: Flexion and extension of lumbar [spine] somewhat guarded secondary to pain, [antalgic gait noted] Neurological: Speech clear, no gross sensory deficit Skin: Incision sites are clean, dry with mild erythema noted at the left lateral incision medially seroma is still present Procedure Details:: Informed consent was obtained and the risk and benefits of the procedure were explained to the patient. Patient was taken to the procedure room where noninvasive monitoring was placed including noninvasive blood pressure cuff and pulse oximeter. Patient's pump was interrogated and was reprogrammed to bupivacaine 3.0 to 1 mg/day. The patient tolerated the procedure well with no complications. Plan and Disposition:: I have counseled the patient that I will plan on seeing her back next week and we will most likely drain off some of her seroma at this visit. I have counseled the patient that I will speak with Dr. Herrera regarding any additional medications for her breakthrough pain. Patient tolerated her intrathecal increase with no complications and was discharged neurologically intact. Patient will return to clinic in 1 week for reevaluation of symptoms and plan of care. Patient has been instructed to contact the clinic with any concerns before the next appointment. Dr. Herrera has reviewed this note and agrees with this plan of care. This note was dictated using voice recognition software and make contain errors or omissions. -- It Is medically necessary for this patient to continue to have their intrathecal pump refilled at regular intervals. This patient had an intrathecal pain pump implanted after meeting criteria of chronic intractable pain for greater than 3 months and failing conservative treatments. Patient has committed and been compliant to the treatment plan and all planned follow up care. Since implantation of the intrathecal pain pump, the patient has had decreased pain and been more functional. Oral medications have been reduced including intake of oral opioids. Patient continues to do well with intrathecal therapy with decrease in pain symptoms and increase in functional status. Stopping intrathecal medications can lead to life threatening withdrawal, seizures, cardiac arrest, severe pain, and possible . Pumps that are not refilled at regular intervals can be damages and cause and need for replacement. We continually titrate dose and concentration to optimize pain relief and function. We are limited in concentration for certain drugs to safely deliver medications through the pump and stay within the recommendations from the Polyanalgesic Consensus Committee Guidelines. Depending on dose and concentration these pumps may need to be refilled sooner than 3 months as we titrate.
[2024-01-05 10:53] VITALS: BP 126/45; PULSE 69; RESP 18; O2SAT 96; BMI 44.9
== END ==
LOC: SC.PAIN 09:43
PROVIDERS: PCP Nurse Practitioner Family; Visit Provider Nurse Practitioner Family
DX: M51.16 Intervertebral disc disorders with radiculopathy, lumbar region (principal); G89.29 Other chronic pain; Z97.8 Presence of other specified devices; Z45.1 Encounter for adjustment and management of infusion pump
CPT/HCPCS: 62368; 99212; G0463

== ENCOUNTER → 2024-01-07 13:21 | Outpatient (POV) | payer MEDICAID, SELFPAY ==
[2024-01-07 14:08] VITALS: BP 144/64; PULSE 69; RESP 20; O2SAT 94; BMI 44.9
--- NOTE | 2024-01-07 16:11 | EXP.PAIN.PRO ---
Procedure Date: 01/07/24 Time: 14:30 Anesthesiologist:: Gianna Briseno APRN Complications:: None Pre-procedure Diagnosis:: Degenerative disc disease of lumbar spine with lumbar radiculopathy symptoms, chronic pain syndrome Post-procedure Diagnosis:: Same Indications for Procedure:: Patient is a pleasant 53-year-old female who presents today for intrathecal adjustment and reprogram. We are currently treating the patient for degenerative disc disease of lumbar spine with lumbar radiculopathy symptoms, chronic pain syndrome. Today she rates her pain a 10 out of 10. Patient denies any new trauma or injury. She states she continues to have her seroma still present on her incision in and around her intrathecal pump. Patient is currently managed with gabapentin 600 mg 3 times a day, ropinirole 3 mg at bedtime and was given recently tramadol 50 mg twice a day however it was not helping so we changed it to Percocet 5 mg twice a day however she states she was unable to knot picker cloth this prescription due to having a recent previous prescription and being still within less than 30 days. Patient does have significant health history including COPD and is on oxygen. Her Maximo has been reviewed and is appropriate. Physical Exam: General: Alert and oriented x3, no acute distress, pleasant and cooperative Lungs: Respirations even and unlabored, symmetrical chest expansion Eyes: PERRL Musculoskeletal: Flexion and extension of lumbar [spine] somewhat guarded secondary to pain, [antalgic gait noted] Neurological: Speech clear, no gross sensory deficit Skin: Incisions are clean, dry, well-approximated with mild erythema noted at lateral incision and still moderate seroma still present Procedure Details:: Informed consent was obtained and the risk and benefits of the procedure were explained to the patient. Patient was taken to the procedure room where noninvasive monitoring was placed including noninvasive blood pressure cuff and pulse oximeter. Patient's pump was interrogated and was reprogrammed to morphine 3.3 to 3 mg/day. The patient tolerated the procedure well with no complications. Plan and Disposition:: Patient tolerated her intrathecal increase with no complications. I have discussed with the patient due to her continuing to have worsening pain that I do believe she would benefit more by adding morphine to her intrathecal pump medication. Risk and benefits were discussed with the patient and she would like to proceed forward with this plan of care. Patient's respiratory issues do seem to be doing well with no worsening symptoms. We will change her pump medications to morphine as the primary with 1 mg/mL and a starting dose at 100 mcg/mL and continue to have the bupivacaine 5 mg/mL as well. Patient acknowledges understanding of this. I have also discussed with patient that we will not continue oral pain medications with this pump change. Patient agrees to this. Patient will return to clinic in 2 weeks for reevaluation of symptoms and plan of care. We will see the patient back in the clinic at the next intrathecal refill. Patient has been instructed to contact the clinic with any concerns before the next appointment. Dr. Herrera has reviewed this note and agrees with this plan of care. This note was dictated using voice recognition software and make contain errors or omissions. -- It Is medically necessary for this patient to continue to have their intrathecal pump refilled at regular intervals. This patient had an intrathecal pain pump implanted after meeting criteria of chronic intractable pain for greater than 3 months and failing conservative treatments. Patient has committed and been compliant to the treatment plan and all planned follow up care. Since implantation of the intrathecal pain pump, the patient has had decreased pain and been more functional. Oral medications have been reduced including intake of oral opioids. Patient continues to do well with intrathecal therapy with decrease in pain symptoms and increase in functional status. Stopping intrathecal medications can lead to life threatening withdrawal, seizures, cardiac arrest, severe pain, and possible . Pumps that are not refilled at regular intervals can be damages and cause and need for replacement. We continually titrate dose and concentration to optimize pain relief and function. We are limited in concentration for certain drugs to safely deliver medications through the pump and stay within the recommendations from the Polyanalgesic Consensus Committee Guidelines. Depending on dose and concentration these pumps may need to be refilled sooner than 3 months as we titrate.
== END | disposition home or self-care (01) ==
PROVIDERS: PCP Nurse Practitioner Family; Visit Provider Nurse Practitioner Family
DX: M51.16 Intervertebral disc disorders with radiculopathy, lumbar region (principal); G89.4 Chronic pain syndrome; Z97.8 Presence of other specified devices; Z45.1 Encounter for adjustment and management of infusion pump
CPT/HCPCS: 62368

== ENCOUNTER 2024-01-12 12:53 | Outpatient (POV) | payer MEDICAID, SELFPAY ==
--- NOTE | 2024-01-12 13:33 | EXP.PAIN.SOA ---
[facility] Pain Management SOAP Note Subjective:: Patient is a pleasant 53-year-old female who presents today for suture removal and follow-up. We are currently treating the patient for degenerative disc disease of lumbar spine with lumbar radiculopathy symptoms, chronic pain syndrome. Today she rates her pain a 9 out of 10. Patient denies any new trauma or injury. Patient is a pleasant. Comes right groin pain she does state that she has been experience a little bit more left hip pain that does go down into her right leg. Patient denies any falls that started this. She does describe it as an aching, throbbing sensation that does go down into her her lower extremity to her foot. Patient is currently managed with bupivacaine 25 mg/mL with a daily dose of 3.3 to 3 mg/day. Patient denies any side effects from this medication however she states that it does not seem to really be helping. Patient is scheduled for her intrathecal refill on the this coming Wednesday to where we are adding opioid pain medication in. Patient does state that she did recently get a phone call from [facility] regarding the fluid that was removed off her seroma and states that they were recommending antibiotic. Patient is currently managed with gabapentin 600 mg 3 times a day, ropinirole 3 mg at bedtime and was given a prescription for Percocet 5 mg twice a day earlier this month. Her Maximo has been reviewed and is appropriate. Review of Systems: General: No recent weight changes, no fever, no sleep disturbances Respiratory: No cough, no shortness of air, no recurring pulmonary infections Cardiovascular/peripheral vascular: No chest pain, no palpitations, no edema, no shortness of breath Gastrointestinal: No new onset incontinence, normal bowel movements reported Genitourinary: No new onset incontinence Musculoskeletal: Low back pain, left hip pain Psychiatric: [Normal mood/affect] Neurological: [Denies weakness in extremities], [denies balance issues] Objective:: Physical Exam: General: Alert and oriented x3, no acute distress, pleasant and cooperative Lungs: Respirations even and unlabored, symmetrical chest expansion Eyes: PERRL Musculoskeletal: Flexion and extension of lumbar [spine] somewhat guarded secondary to pain, [antalgic gait noted] Neurological: Speech clear, no gross sensory deficit Skin: Incision sites are clean, dry, well-approximated with sutures intact, mild erythema noted at medial border of the lateral incision moderate seroma still present Assessment:: Degenerative disc disease of lumbar spine with lumbar radiculopathy symptoms, chronic pain syndrome Plan:: Patient did have all of her sutures removed during today's visit and Steri-Strips applied. I have counseled the patient to continue her postop restrictions of continue to wear her abdominal binder, no submerging in water until her incisions are fully healed and minimal bending, twisting or lifting. I have discussed with patient regarding her intrathecal refill on Wednesday with the addition of the pain medication added. I will send in a prescription of the dicloxacillin 500 mg every 6 hours for 10 days. Patient had possible severe interactions with Bactrim due to her current medications. Patient will return to clinic next Wednesday for her intrathecal refill and reprogram. We will see the patient back in the clinic at the next intrathecal refill. Patient has been instructed to contact the clinic with any concerns before the next appointment. Dr. Herrera has reviewed this note and agrees with this plan of care. This note was dictated using voice recognition software and make contain errors or omissions. -- It Is medically necessary for this patient to continue to have their intrathecal pump refilled at regular intervals. This patient had an intrathecal pain pump implanted after meeting criteria of chronic intractable pain for greater than 3 months and failing conservative treatments. Patient has committed and been compliant to the treatment plan and all planned follow up care. Since implantation of the intrathecal pain pump, the patient has had decreased pain and been more functional. Oral medications have been reduced including intake of oral opioids. Patient continues to do well with intrathecal therapy with decrease in pain symptoms and increase in functional status. Stopping intrathecal medications can lead to life threatening withdrawal, seizures, cardiac arrest, severe pain, and possible . Pumps that are not refilled at regular intervals can be damages and cause and need for replacement. We continually titrate dose and concentration to optimize pain relief and function. We are limited in concentration for certain drugs to safely deliver medications through the pump and stay within the recommendations from the Polyanalgesic Consensus Committee Guidelines. Depending on dose and concentration these pumps may need to be refilled sooner than 3 months as we titrate. [facility] Disclaimer: The information contained in this section may have been updated after the patient was seen, as this information can be updated by other users. Medical History CAD (coronary artery disease) CHF (congestive heart failure) COPD (chronic obstructive pulmonary disease) COPD exacerbation COPD mixed type Depression Diabetes Dyspnea on exertion GERD (gastroesophageal reflux disease) History of asthma History of COPD HLD (hyperlipidemia) HTN (hypertension) Pre-op testing Stopped smoking with greater than 30 pack year history Surgical History H/O breast surgery TO REMOVE BENIGN TUMORS H/O section H/O colonoscopy H/O esophagogastroduodenoscopy History of lung biopsy Family History Other COPD (chronic obstructive pulmonary disease) Cancer Diabetes Heart attack Hypertension Lung cancer Stroke Social History Smoking Status: Former smoker smoking status stop date: 07/16/2023 alcohol intake: never substance use type: denies use current occupational status: other Travel in the last 8 weeks: None
[2024-01-12 15:59] VITALS: BP 107/45; PULSE 64; RESP 20; O2SAT 96; BMI 45.2
== END 2024-01-12 23:59 | disposition home or self-care (01) ==
PROVIDERS: PCP Nurse Practitioner Family; Visit Provider Nurse Practitioner Family
DX: M51.16 Intervertebral disc disorders with radiculopathy, lumbar region (principal); G89.4 Chronic pain syndrome; Z48.02 Encounter for removal of sutures; Z97.8 Presence of other specified devices
CPT/HCPCS: 62368; 99212; 99213; G0463

== ENCOUNTER 2024-01-18 08:37 | Day surgery (SDC) | payer MEDICAID, SELFPAY ==
[2024-01-18 10:21] VITALS: BP 139/63; PULSE 59; RESP 18; TEMP 36.6; O2SAT 99; BMI 44.3
[2024-01-18 10:45] VITALS: BP 131/78; PULSE 56; RESP 18; O2SAT 99
--- NOTE | 2024-01-18 11:31 | EXP.PAIN.PRO ---
Procedure Date: 01/18/24 Time: 10:40 Anesthesiologist:: Carlos Fulton CRNA Complications:: None Pre-procedure Diagnosis:: Degenerative disc lumbar spine multilevels. Lumbar radiculopathy. Lumbar postlaminectomy syndrome. Post-procedure Diagnosis:: Same. Indications for Procedure:: Patient is a very pleasant 53-year-old female comes our clinic today for intrathecal pain pump interrogation and refill. Also, exchanging medication. Patient currently being managed with bupivacaine 25 mg/mL at a rate of 3.3 to 3 mg/day. Patient having continued low back pain she describes as constant, dull, aching. She rates her pain 8/10. Essentially, receiving minimal to no relief from the intrathecal pain pump management since pump was implanted several months ago. Will change her medication to morphine sulfate 1 mg/mL combined with bupivacaine at 5 mg/mL. Her morphine rate will be 0.1 mg/day. Her bupivacaine rate will be 0.5 mg/day. Procedure Details:: Details of the procedure explained the patient. The patient taken procedure and placed in sitting position. The area with pumps cleansed using chlorhexidine's cleansing solution. The pump was interrogated. The pump was accessed with ease using a 22-gauge inch and half needle. 15.5 mL solution was withdrawn discarded appropriate. The pump was then filled with 20 cc of solution containing bupivacaine 5 mg/mL and morphine sulfate 1 mg/mL. Patient tolerated procedure without difficulty. General complications. Morphine sulfate rate will be 0.1 mg/day. The bupivacaine rate will be 0.5 mg/day. Plan and Disposition:: Patient was discharged on incident.
[2024-01-18 14:12] VITALS: BP 165/75; PULSE 55; RESP 20; O2SAT 93
[2024-01-18 14:13] VITALS: BP 165/75; PULSE 55; RESP 18
== END 2024-01-18 10:45 | disposition home or self-care (01) ==
PROVIDERS: PCP Nurse Practitioner Family; Visit Provider Nurse Anesthetist, Certified Registered
DX: M51.16 Intervertebral disc disorders with radiculopathy, lumbar region (principal); M96.1 Postlaminectomy syndrome, not elsewhere classified; Z97.8 Presence of other specified devices; Z45.1 Encounter for adjustment and management of infusion pump
CPT/HCPCS: 95991

== ENCOUNTER 2024-01-26 14:01 | Inpatient (IN) | payer MEDICAID, SELFPAY ==
[2024-01-26] VITALS (18 sets, daily range): BP systolic 87–130; BP diastolic 35–79; PULSE 67–109; RESP 14–34; TEMP 36.3–37.1; O2SAT 90–96; BMI 44.6; BMI 44.4
--- NOTE | 2024-01-26 14:04 | ECG_ITS ---
APPROVED REPORT Exam: Resting ECG HR:90 bpm ECG Measurements Heart Rate 90 AXES CA 146 P 38 QRSd 100 QRS -50 QT 358 T 43 QTc 405 Conclusion SINUS RHYTHM LEFT ANTERIOR FASCICULAR BLOCK Electronically signed by : MIMI QUINTANA, 01/26/2024 15:54:06
--- NOTE | 2024-01-26 14:09 | PC.NURSE ---
RESPIRATORY NOTIFIED OF BI-PAP ORDER
--- NOTE | 2024-01-26 14:11 | XR_ITS ---
FINAL REPORT CLINICAL HISTORY: SHORTNESS OF BREATH COMPARISON: 11/25/2023 FINDINGS: SINGLE-VIEW CHEST The heart size is normal. The mediastinum is normal. There are mild linear opacities at the lung bases, favor atelectasis. There is no pneumothorax. IMPRESSION: Favor atelectasis at the bases. Reviewed, Interpreted and Dictated by Harley Ambrocio III, MD Transcribed by Nicole Castillo Authenticated and [facility]
[2024-01-26] MEDS: METHYLPREDNISOLONE SOD SUCC 125MG VIAL 125 MG IV (14:18)
[2024-01-26 14:19] LABS: VBG Base Excess -4.8 mmol/L (-2.4-2.3); VBG Oxygen Saturation 90.6 % (50-70); VBG PCO2 39.6 mmol/L (35-51); VBG PH 7.34 mmol/L (7.31-7.41); VBG PO2 61.6 mmol/L (28-40); VBG Total CO2 22.2 mmol/L (23-27)
[2024-01-26 14:21] LABS: Lactate Venous 3.8 mmol/L (0.4-2.0)
[2024-01-26 14:22] LABS: Basophils # 0.1 K/mm3 (0-0.2); Basophils % 0.2 % (0.1-2.0); Eosinophils # 0.2 K/mm3 (0.0-0.4); Eosinophils % 0.8 % (0.1-12.0); Hematocrit 45.3 % (37.0-47.0); Lymphocytes # 1.3 K/mm3 (0.7-4.5); Lymphocytes % 6.4 % (10-50); Mean Corpuscular HGB Conc 33.2 g/dL (31.8-35.4); Mean Corpuscular Hemoglobin 30.2 pg (27.0-31.2); Mean Corpuscular Volume 91.2 fl (81-99); Monocytes # 1.1 K/mm3 (0.1-1.0); Monocytes % 5.4 % (1.7-9.3); Neutrophils # 17.6 K/mm3 (1.8-7.8); Neutrophils % 87.2 % (37.0-80.0); Platelet Count 278 K/mm3 (142-424); Red Blood Count 4.96 M/mm3 (4.20-5.40); Red Cell Distribution Width 13.7 % (11.5-17.5); White Blood Count 20.2 K/mm3 (4.8-10.8)
[2024-01-26] MEDS: IPRATROPIUM/ALBUTEROL 3 ML NEB 9 ML IH (14:23)
[2024-01-26 14:25] LABS: Chloride 103 mmol/L (98-107); Sodium 137 mmol/L (136-145)
[2024-01-26 14:26] LABS: Potassium 4.4 mmoL/L (3.5-5.1)
[2024-01-26 14:28] LABS: Alanine Aminotransferase 42 U/L (12-78); Alkaline Phosphatase 117 U/L (38-126); Anion Gap 14.4 mEq/L (5-15); Aspartate Amino Transferase 36 U/L (14-36); Bilirubin,Total 0.4 mg/dl (0.2-1.3); Blood Urea Nitrogen 22 mg/dl (7-17); Carbon Dioxide 24 mmol/L (22.0-30.0); Creatinine Clearance Estimated 79 mL/min (50-200); Estimated Glomerular Filt Rate 75 ml/min (>60); GFR (African American) 91 ML/MIN (>60)
[2024-01-26 14:29] LABS: Albumin Level 4.6 g/dl (3.5-5.0); Albumin/Globulin Ratio 1.5 (1.1-1.8); Calcium 9.9 mg/dl (8.4-10.2); Glucose 175 mg/dl (74-100); Total Protein,Serum 7.6 g/dl (6.3-8.2)
--- NOTE | 2024-01-26 14:36 | P.CONPHA_ITS ---
Pharmacy Consult Date: 01/26/24 Time: 14:36 Referring provider: DR. QUINTANA Reason for Consult:: VANCOMYCIN DOSING Allergies Allergy/AdvReac Type Severity Reaction Status Date / Time ketorolac [From Toradol] Allergy Verified 12/27/23 09:34 prochlorperazine Allergy Verified 12/27/23 09:34 [From Compazine] Home Medications Medication Instructions Recorded Confirmed Type aspirin 81 mg tablet,delayed 81 mg PO DAILY 05/12/23 01/18/24 History release atorvastatin 10 mg tablet 10 mg PO DAILY 05/12/23 01/18/24 History bisacodyl 5 mg tablet,delayed 5 mg PO DAILY 05/12/23 01/18/24 History release blood sugar diagnostic (FreeStyle 05/12/23 01/18/24 History Lite Strips) bupropion HCl 300 mg 24 hr tablet, 300 mg PO DAILY 05/12/23 01/18/24 History extended release clonidine HCl 0.1 mg tablet 0.1 mg PO TID 05/12/23 01/18/24 History clopidogrel 75 mg tablet 75 mg PO DAILY 05/12/23 01/18/24 History furosemide 40 mg tablet 40 mg PO BID 05/12/23 01/18/24 History insulin aspart U-100 100 unit/mL 20 unit SQ TIDWMEAL 05/12/23 01/18/24 History subcutaneous solution (Novolog U-100 Insulin aspart) ipratropium 0.5 mg-albuterol 3 mg 3 ml inhalation Q6H 05/12/23 01/18/24 History (2.5 mg base)/3 mL nebulization soln lisinopril 20 mg tablet 20 mg PO DAILY 05/12/23 01/18/24 History naloxone 4 mg/actuation nasal spray 1 spray intranasal DIRECTED 05/12/23 01/18/24 History Required for controlled substance pantoprazole 40 mg tablet,delayed 40 mg PO DAILY 05/12/23 01/18/24 History release polyethylene glycol 3350 17 17 g PO DAILY 05/12/23 01/18/24 History gram/dose oral powder potassium chloride 20 mEq 20 meq PO TID 05/12/23 01/18/24 History tablet,extended release(part/cryst) (Klor-Con M) trazodone 100 mg tablet 200 mg PO HS 05/12/23 01/18/24 History methocarbamol 750 mg tablet 750 mg PO TID 05/24/23 01/18/24 History diclofenac epolamine 1.3 % 1 patch topical BID #30 ea 06/21/23 01/18/24 Rx transdermal 12 hour patch (Flector) tizanidine 4 mg tablet (Zanaflex) 4 mg PO TID #90 tabs 10/20/23 01/18/24 Rx metoprolol succinate 25 mg 25 mg PO DAILY #30 tabs 11/23/23 01/18/24 Rx tablet,extended release 24 hr guaifenesin 600 mg tablet, 600 mg PO Q12H 11/25/23 01/18/24 History extended release 12 hr linaclotide 72 mcg capsule 72 mcg PO DAILY 11/25/23 01/18/24 History (Linzess) lorazepam 0.5 mg tablet 1 mg PO BID 11/25/23 01/18/24 History prednisone 10 mg tablet 5 mg PO DAILY 11/25/23 01/18/24 History sertraline 100 mg tablet 100 mg PO DAILY 11/25/23 01/18/24 History sertraline 50 mg tablet 50 mg PO DAILY 11/25/23 01/18/24 History albuterol sulfate 90 mcg/actuation 2 puff inhalation QID PRN 12/21/23 01/18/24 Rx aerosol inhaler (ProAir HFA) shortness of breath or wheezing 90 days #8.5 grams budesonide 160 mcg-glycopyr 9 2 inh inhalation BID 90 days #10.7 12/21/23 01/18/24 Rx mcg-formot 4.8 mcg/actuation HFA grams inhaler (Breztri Aerosphere) ipratropium 0.5 mg-albuterol 3 mg 3 ml inhalation QID PRN shortness 12/21/23 01/18/24 Rx (2.5 mg base)/3 mL nebulization of breath or wheezing 90 days #270 soln mL gabapentin 600 mg tablet 600 mg PO TID #90 tabs 12/31/23 01/18/24 Rx ondansetron 4 mg disintegrating 4 mg PO Q8H PRN nausea and 12/31/23 01/18/24 Rx tablet vomiting #30 tabs ropinirole 0.5 mg tablet 0.5 mg PO HS #30 tabs 12/31/23 01/18/24 Rx tramadol 50 mg tablet 50 mg PO BID PRN pain #60 tabs 12/31/23 01/18/24 Rx oxycodone-acetaminophen 5 mg-325 1 tab PO BID #60 tabs 01/05/24 01/18/24 Rx mg tablet (Percocet) dicloxacillin 500 mg capsule 500 mg PO Q6H #40 caps 01/12/24 01/18/24 Rx New Prescriptions to Start Prescriptions: Height: 1.7 m Weight: 128.82 kg Laboratory Results:: Laboratory Results - last 24 hr 01/26/24 14:11: VBG pH 7.34, VBG pCO2 39.6, VBG pO2 61.6 H, VBG HCO3 21.0 L, VBG Total CO2 22.2 L, VBG O2 Saturation 90.6 H, VBG Base Excess -4.8 L, VBG Lactic Acid 3.8 H 01/26/24 14:12: Sodium 137, Potassium 4.4, Chloride 103, Carbon Dioxide 24, An ion Gap 14.4, BUN 22 H, Creatinine 0.80, Estimated Creat Clear 79, Estimated GFR 75, Est GFR ( Amer) 91, Glucose 175 H, Calcium 9.9, Total Bilirubin 0.4, AST 36, ALT 42, Alkaline Phosphatase 117, Total Protein 7.6, Albumin 4.6, Globulin 3.0, Albumin/Globulin Ratio 1.5 Medical History: Medical History (Updated 12/27/23 @ 09:50 by Adwoa Juares RN) History of asthma COPD mixed type COPD exacerbation Pre-op testing CHF (congestive heart failure) History of COPD Stopped smoking with greater than 30 pack year history Dyspnea on exertion Diabetes GERD (gastroesophageal reflux disease) CAD (coronary artery disease) HLD (hyperlipidemia) HTN (hypertension) COPD (chronic obstructive pulmonary disease) Depression Assessment and Plan Assessment and plan all Dx Assessment and Plan for all problems:: Pharmacokinetic dosing service Objective: Patient: Floor: Age: 53 yo Serum creatinine: 0.80 mg/dL Height: 67.0 Inches Weight (kg): 128.8 Assessment: IBW (kg): 61.60 Dosing wt(kg): 128.8 Estimated Creatinine clearance (ml/min): 79.1 CRCL method: Cockcroft and Gault using ibw(default). Drug selected: Vancomycin Loading dose (mg): Vd (liters): 103.0 (factor used: 0.8 L/kg) Kian (hr-1): 0.070 Half life (hrs): 9.90 CLvanco=?? 7.210 L/hr Recommended dose: 2000 mg Interval: 12 hrs Infusion time (hrs): 2.0 Predicted peak (mcg/mL): 31.9 Predicted trough (mcg/mL): 15.84 Total body weight is being used for vancomycin dosing. Recommendations: Give Vancomycin 2000 mg q 12 hrs with an expected Cpeak of 31.9 mcg/ml and an expected Ctrough of 15.84 mcg/ml AUC 0-24 /ARACELI Data: ARACELI 0.5 mcg/mL:?? AUC/ARACELI:? 1109.6 ARACELI 1.0 mcg/mL:?? AUC/ARACELI:? 554.8 --------- ARACELI 1.5 mcg/mL:?? AUC/ARACELI:? 369.9 ARACELI 2.0 mcg/mL:?? AUC/ARACELI:? 277.4 Thank you for the consult, will continue to follow. -ELAYNE JENKINSD
[2024-01-26 14:43] LABS: Troponin I < 0.01 ng/ml (0.00-0.034)
[2024-01-26 14:49] LABS: MANUAL DIFFERENTIAL MANUAL DIFFERENTIAL (MANUAL DIFF)
--- NOTE | 2024-01-26 14:59 | PC.NURSE ---
spoke with [facility] regarding pt having an appt tomorrow.
[2024-01-26 15:00] LABS: NT Pro Brain Natriuretic Pep. 661 pg/mL (0-125)
[2024-01-26] MEDS: VANCOMYCIN CONSULT REQUEST 1 EACH NOTAPPLIC (15:08)
--- NOTE | 2024-01-26 15:10 | PC.NURSE ---
CALLED AND SPOKE WITH LAB THAT BLOOD CULTURES NEED COLLECTED
[2024-01-26 15:25] LABS: Lymphocytes % 8 % (10-50); Monocytes % 2 % (2-9); Neutrophils % 90 % (42-76); Platelet Estimate Normal; RBC Morphology Normal; Total Cells Counted 100
--- NOTE | 2024-01-26 15:30 | [facility].EDCP ---
Discharge Plan Disposition Patient Disposition: Admitted Chief Complaint: Shortness of Breath/Dyspnea Prescriptions Prescriptions: No Action metoprolol succinate 25 mg tablet extended release 24 hr 25 mg PO DAILY Qty: 30 11RF Sandritai Aerosphere 160-9-4.8 mcg/actuation HFA aerosol inhaler 2 inh inhalation BID 90 Days Qty: 10.7 3RF albuterol sulfate [ProAir HFA] 90 mcg/actuation HFA aerosol inhaler 2 puff inhalation QID PRN (Reason: shortness of breath or wheezing) 90 Days Qty: 8.5 3RF ipratropium-albuterol 0.5 mg-3 mg(2.5 mg base)/3 mL solution for nebulization 3 ml inhalation QID PRN (Reason: shortness of breath or wheezing) 90 Days Qty: 270 3RF furosemide 40 mg tablet 40 mg PO BID clonidine HCl 0.1 mg tablet 0.1 mg PO TID ipratropium-albuterol 0.5 mg-3 mg(2.5 mg base)/3 mL solution for nebulization 3 ml INHALATION Q6H atorvastatin 10 mg tablet 10 mg PO DAILY lisinopril 20 mg tablet 20 mg PO DAILY clopidogrel 75 mg tablet 75 mg PO DAILY (DME) FreeStyle Lite Strips Strip MISCELLANEOUS Patient Comments: USE DIRECTED aspirin 81 mg tablet,delayed release (DR/EC) 81 mg PO DAILY potassium chloride [Klor-Con M20] 20 mEq tablet,ER particles/crystals 20 meq PO TID trazodone 100 mg tablet 200 mg PO HS insulin aspart U-100 [Novolog U-100 Insulin aspart] 100 unit/mL solution 20 unit SQ TIDWMEAL pantoprazole 40 mg tablet,delayed release (DR/EC) 40 mg PO DAILY bisacodyl 5 mg tablet,delayed release (DR/EC) 5 mg PO DAILY polyethylene glycol 3350 17 gram/dose powder 17 g PO DAILY bupropion HCl 300 mg tablet extended release 24 hr 300 mg PO DAILY naloxone 4 mg/actuation spray,non-aerosol 1 spray INTRANASAL DIRECTED Rx Instructions: Use one spray in nostril if needed. May repeat every 2-3 minutes until patient is responsive. diclofenac epolamine [Flector] 1.3 % patch 12 hour 1 patch topical BID Qty: 30 0RF tizanidine [Zanaflex] 4 mg tablet 4 mg PO TID Qty: 90 0RF lorazepam 0.5 mg tablet 1 mg PO BID prednisone 10 mg tablet 5 mg PO DAILY sertraline 100 mg tablet 100 mg PO DAILY Patient Comments: TAKE 1 TABLET BY MOUTH EVERY DAY sertraline 50 mg tablet 50 mg PO DAILY Patient Comments: TAKE 1 TABLET BY MOUTH EVERY DAY guaifenesin 600 mg tablet extended release 12hr 600 mg PO Q12H Linzess 72 mcg capsule 72 mcg PO DAILY dicloxacillin 500 mg capsule 500 mg PO Q6H Qty: 40 0RF methocarbamol 750 mg tablet 750 mg PO TID ondansetron 4 mg tablet,disintegrating 4 mg PO Q8H PRN (Reason: nausea and vomiting) Qty: 30 0RF tramadol 50 mg tablet 50 mg PO BID PRN (Reason: pain) Qty: 60 0RF gabapentin 600 mg tablet 600 mg PO TID Qty: 90 0RF ropinirole 0.5 mg tablet 0.5 mg PO HS Qty: 30 0RF Rx Instructions: administer 1-3 hours before bedtime oxycodone-acetaminophen [Percocet] 5-325 mg tablet 1 tab PO BID Qty: 60 0RF Referrals Follow up/Referrals: Carlota Warner APRN [Primary Care Provider] - See instructions Clinical Impressions Clinical Impression: Acute exacerbation of chronic obstructive airways disease, Sepsis, Acute on chronic respiratory failure with hypoxemia Discharge ED Provider: Jermaine White HPI General Chief Complaint: Shortness of Breath/Dyspnea Stated Complaint: Chest Pain Time Seen by Provider: 01/26/24 14:06 Mode of Arrival: Family Vehicle Source of Information: Patient, Spouse and Medical Record Limitations: No Limitations Description of Symptoms (Recalled from ER Triage Doc. by RN): Pt c/o and SOA, dyspnea, wheezing, and chest pain to under left breast. She was recently admitted to [facility] for Sepsis , although she left AMA today from there d/t my heart and lung doctors are here and I wanted to be here . States she had a PICC in place to [facility] that was removed prior to her leaving. She states I don't know what I was spetic from, they never said . She also reports they scanned me and said I also need a stent in my heart . History of Present Illness HPI narrative: This is a 53-year-old female history of IPF, CHF, COPD, hypertension, hyperlipidemia, diabetes, chronic respiratory failure on BiPAP presenting with shortness of breath. Patient was admitted to [facility] yesterday and was being treated for sepsis. She left AGAINST MEDICAL ADVICE today in order to come to [facility]. Patient has been having fevers, productive cough, nausea and vomiting. She states that she is unsure what she was being treated for other than sepsis, they did not give her a source. Currently feeling short of breath without chest pain or diaphoresis. Related Data Home Medications Medication Instructions Recorded Confirmed aspirin 81 mg tablet,delayed 81 mg PO DAILY 05/12/23 01/18/24 release atorvastatin 10 mg tablet 10 mg PO DAILY 05/12/23 01/18/24 bisacodyl 5 mg tablet,delayed 5 mg PO DAILY 05/12/23 01/18/24 release blood sugar diagnostic (FreeStyle 05/12/23 01/18/24 Lite Strips) bupropion HCl 300 mg 24 hr tablet, 300 mg PO DAILY 05/12/23 01/18/24 extended release clonidine HCl 0.1 mg tablet 0.1 mg PO TID 05/12/23 01/18/24 clopidogrel 75 mg tablet 75 mg PO DAILY 05/12/23 01/18/24 furosemide 40 mg tablet 40 mg PO BID 05/12/23 01/18/24 insulin aspart U-100 100 unit/mL 20 unit SQ TIDWMEAL 05/12/23 01/18/24 subcutaneous solution (Novolog U-100 Insulin aspart) ipratropium 0.5 mg-albuterol 3 mg 3 ml inhalation Q6H 05/12/23 01/18/24 (2.5 mg base)/3 mL nebulization soln lisinopril 20 mg tablet 20 mg PO DAILY 05/12/23 01/18/24 naloxone 4 mg/actuation nasal spray 1 spray intranasal DIRECTED 05/12/23 01/18/24 Required for controlled substance pantoprazole 40 mg tablet,delayed 40 mg PO DAILY 05/12/23 01/18/24 release polyethylene glycol 3350 17 17 g PO DAILY 05/12/23 01/18/24 gram/dose oral powder potassium chloride 20 mEq 20 meq PO TID 05/12/23 01/18/24 tablet,extended release(part/cryst) (Klor-Con M) trazodone 100 mg tablet 200 mg PO HS 05/12/23 01/18/24 methocarbamol 750 mg tablet 750 mg PO TID 05/24/23 01/18/24 guaifenesin 600 mg tablet, 600 mg PO Q12H 11/25/23 01/18/24 extended release 12 hr linaclotide 72 mcg capsule 72 mcg PO DAILY 11/25/23 01/18/24 (Linzess) lorazepam 0.5 mg tablet 1 mg PO BID 11/25/23 01/18/24 prednisone 10 mg tablet 5 mg PO DAILY 11/25/23 01/18/24 sertraline 100 mg tablet 100 mg PO DAILY 11/25/23 01/18/24 sertraline 50 mg tablet 50 mg PO DAILY 11/25/23 01/18/24 Previous Rx's Medication Instructions Recorded diclofenac epolamine 1.3 % 1 patch topical BID #30 ea 06/21/23 transdermal 12 hour patch (Flector) tizanidine 4 mg tablet (Zanaflex) 4 mg PO TID #90 tabs 10/20/23 metoprolol succinate 25 mg 25 mg PO DAILY #30 tabs 11/23/23 tablet,extended release 24 hr albuterol sulfate 90 mcg/actuation 2 puff inhalation QID PRN 12/21/23 aerosol inhaler (ProAir HFA) shortness of breath or wheezing 90 days #8.5 grams budesonide 160 mcg-glycopyr 9 2 inh inhalation BID 90 days #10.7 12/21/23 mcg-formot 4.8 mcg/actuation HFA grams inhaler (Breztri Aerosphere) ipratropium 0.5 mg-albuterol 3 mg 3 ml inhalation QID PRN shortness 12/21/23 (2.5 mg base)/3 mL nebulization of breath or wheezing 90 days #270 soln mL gabapentin 600 mg tablet 600 mg PO TID #90 tabs 12/31/23 ondansetron 4 mg disintegrating 4 mg PO Q8H PRN nausea and 12/31/23 tablet vomiting #30 tabs ropinirole 0.5 mg tablet 0.5 mg PO HS #30 tabs 12/31/23 tramadol 50 mg tablet 50 mg PO BID PRN pain #60 tabs 12/31/23 oxycodone-acetaminophen 5 mg-325 1 tab PO BID #60 tabs 01/05/24 mg tablet (Percocet) dicloxacillin 500 mg capsule 500 mg PO Q6H #40 caps 01/12/24 Allergies Allergy/AdvReac Type Severity Reaction Status Date / Time ketorolac [From Toradol] Allergy Verified 12/27/23 09:34 prochlorperazine Allergy Verified 12/27/23 09:34 [From Compazine] [facility] Disclaimer: The information contained in this section may have been updated after the patient was seen, as this information can be updated by other users. Medical History CAD (coronary artery disease) CHF (congestive heart failure) COPD (chronic obstructive pulmonary disease) COPD exacerbation COPD mixed type Depression Diabetes Dyspnea on exertion GERD (gastroesophageal reflux disease) History of asthma History of COPD HLD (hyperlipidemia) HTN (hypertension) Pre-op testing Stopped smoking with greater than 30 pack year history Surgical History H/O breast surgery TO REMOVE BENIGN TUMORS H/O section H/O colonoscopy H/O esophagogastroduodenoscopy History of lung biopsy Family History Other COPD (chronic obstructive pulmonary disease) Cancer Diabetes Heart attack Hypertension Lung cancer Stroke Social History Smoking Status: Unknown if ever smoked smoking status stop date: 07/16/2023 alcohol intake: never substance use type: denies use current occupational status: other Travel in the last 8 weeks: None ROS Obtained: Yes All systems reviewed & no additional complaints except as documented Physical Exam General General appearance: alert, in distress, obese and other (Chronically ill) Neck Neck exam: Present trachea midline Chest Chest inspection: Present normal inspection and symmetric chest wall rise Respiratory Respiratory exam: Present normal lung sounds bilaterally and other (BiPAP in place); Absent respiratory distress, wheezes, stridor, accessory muscle use or prolonged expiratory phase Cardiovascular Cardiovascular exam: Present regular rate and normal rhythm Extremities Exam Extremities exam: Absent edema Neurological Exam Neurological exam: Present alert, oriented X3 and CN II-XII intact Skin Skin exam: Present warm and dry; Absent cyanosis, diaphoresis or pallor HEART Score HEART Score HEART Score assessment performed?: Yes HEART Score: 3 Critical Care Critical Care Time Critical Care Time: Yes (resp) Attestation: On 01/26/24, the high probability of a clinically significant, sudden or life threatening deterioration of the following system(s) required my full and direct attention, intervention and personal management. The time I documented below is in addition to time spent performing reported procedures but includes the following listed in this critical care notation. Total Time Total Critical Care Time: 50 Medical Decision Making Medical Records Medical records reviewed: Yes I reviewed the patient's medical records. Maximo Inquiry Pt receiving controlled substance: No Maximo was queried for this patient: No Vital Signs Vital Signs: 01/26/24 14:02 01/26/24 14:22 01/26/24 14:26 Temperature 98.8 F Temperature Source Axillary Pulse Rate 71 87 Pulse Rate [Right] 109 H Respiratory Rate 34 H 23 Blood Pressure 115/59 L Blood Pressure [Right Arm] 104/68 L Blood Pressure Mean 79 Blood Pressure Mean [Right Arm] 80 Blood Pressure Source [Right Arm] Automatic Cuff 02 Sat by Pulse Oximetry 93 L 94 L Oxygen Delivery Method [facility] Oxygen Flow Rate (LPM) 4 01/26/24 14:31 01/26/24 14:49 01/26/24 15:00 Temperature Temperature Source Pulse Rate 83 93 H 87 Pulse Rate [Right] Respiratory Rate 22 23 Blood Pressure 104/48 L 107/49 L Blood Pressure [Right Arm] Blood Pressure Mean 83 68 Blood Pressure Mean [Right Arm] Blood Pressure Source [Right Arm] 02 Sat by Pulse Oximetry 96 Oxygen Delivery Method Oxygen Flow Rate (LPM) 01/26/24 15:30 Temperature Temperature Source Pulse Rate 83 Pulse Rate [Right] Respiratory Rate 23 Blood Pressure 98/79 L Blood Pressure [Right Arm] Blood Pressure Mean 83 Blood Pressure Mean [Right Arm] Blood Pressure Source [Right Arm] 02 Sat by Pulse Oximetry 93 L Oxygen Delivery Method Oxygen Flow Rate (LPM) Lab Data Labs: Lab Results 01/26/24 14:11: VBG pH 7.34, VBG pCO2 39.6, VBG pO2 61.6 H, VBG HCO3 21.0 L, VBG Total CO2 22.2 L, VBG O2 Saturation 90.6 H, VBG Base Excess -4.8 L, VBG Lactic Acid 3.8 H 01/26/24 14:12: WBC 20.2 H*, RBC 4.96, Hgb 15.0, Hct 45.3, MCV 91.2, MCH 30.2, MCHC 33.2, RDW 13.7, Plt Count 278, MPV 9.0, Neut % (Auto) 87.2 H, Lymph % (Auto) 6.4 L, [place] % (Auto) 5.4, Eos % (Auto) 0.8, Baso % (Auto) 0.2, Neut # (Auto) 17.6 H, Lymph # (Auto) 1.3, [place] # (Auto) 1.1 H, Eos # (Auto) 0.2, Baso # (Auto) 0.1, Total Counted 100, Neutrophils % (Manual) 90 H, Lymphocytes % (Manual) 8 L, Monocytes % (Manual) 2, Platelet Estimate Normal, RBC Morphology Normal, Sodium 137, Potassium 4.4, Chloride 103, Carbon Dioxide 24, Anion Gap 14.4, BUN 22 H, Creatinine 0.80, Estimated Creat Clear 79, Estimated GFR 75, Est GFR ( Amer) 91, Glucose 175 H, Calcium 9.9, Total Bilirubin 0.4, AST 36, ALT 42, Alkaline Phosphatase 117, Troponin I < 0.01, NT-Pro-B Natriuret Pep 661 H, Total Protein 7.6, Albumin 4.6, Globulin 3.0, Albumin/Globulin Ratio 1.5 01/26/24 14:12 01/26/24 14:12 Response Orders (Tests/Meds): ED MEDICATIONS Generic Name Dose Route Start Last Admin Trade Name Freq PRN Reason Stop Dose Admin Vancomycin HCl 2,000 mg/ 250 mls @ 125 mls/hr 01/26/24 15:00 Sodium Chloride IV 02/05/24 14:59 Q12H CATHIE Sodium Chloride 10 ml 01/26/24 14:11 Sodium Chloride 0.9% 10ml Flush Syringe IV 02/25/24 14:10 NEEDED PRN Maintain IV Site Discontinued Medications Generic Name Dose Route Start Last Admin Trade Name Freq PRN Reason Stop Dose Admin Albuterol/Ipratropium 9 ml 01/26/24 14:08 01/26/24 14:23 Ipratropium/Albuterol 3 Ml Neb IH 01/26/24 14:09 9 ml ONCE ONE Administration Ampicillin Sodium/Sulbactam 100 mls @ 200 mls/hr 01/26/24 14:27 Sodium 3 gm/ Sodium Chloride IV 01/26/24 14:28 ONCE ONE Methylprednisolone Sodium Succinate 125 mg 01/26/24 14:08 01/26/24 14:18 Methylprednisolone Sod Succ 125mg Vial IV 01/26/24 14:09 125 mg ONCE ONE Administration Miscellaneous 1 each 01/26/24 14:30 01/26/24 15:08 Vancomycin Consult Request NOTAPPLIC 02/25/24 14:29 1 each CONSULT PHARMACY CATHIE Administration ORDERS Category Date Time Status XR chest portable Stat Exams 01/26/24 14:11 Taken Brain Natriuretic Peptide Stat Lab 01/26/24 14:12 Completed Complete Blood Count Auto Diff Stat Lab 01/26/24 14:12 Completed Comprehensive Metabolic Panel Stat Lab 01/26/24 14:12 Completed Lactate Venous Q4H Lab 01/26/24 18:30 Ordered Lactate Venous Q4H Lab 01/26/24 22:30 Ordered Troponin I Q3H Lab 01/26/24 17:15 Ordered Troponin I Q3H Lab 01/26/24 20:15 Ordered Troponin I Stat Lab 01/26/24 14:12 Completed Blood Culture Stat Micro 01/26/24 14:27 Ordered Venous Blood Gas Stat RT 01/26/24 14:11 Completed MDM Narrative Medical Decision Narrative: This is a 53-year-old female history of IPF, CHF, COPD, hypertension, hyperlipidemia, diabetes, chronic respiratory failure on BiPAP presenting with shortness of breath. Patient was admitted to [facility] yesterday and was being treated for sepsis. She left AGAINST MEDICAL ADVICE today in order to come to [facility]. Patient has been having fevers, productive cough, nausea and vomiting. She states that she is unsure what she was being treated for other than sepsis, they did not give her a source. Currently feeling short of breath without chest pain or diaphoresis. History was obtained via conversation with patient. On arrival, patient hemodynamically stable, alert, oriented x4, appropriate, GCS 15, moving all extremities spontaneously, pupils equal and reactive to light. Full physical exam performed and significant for patient appears to be in mild respiratory distress. Bilateral, diffuse end expiratory wheezing. BiPAP is in place. Patient saturating appropriately on BiPAP. Nontachycardic. Afebrile and mildly hypertensive Differential includes pneumonia, pneumothorax, progression of disease, PE, ACS, [place], CHF, COPD exacerbation, among others. Patient was given 3 DuoNebs, 125/Medrol, empiric vancomycin and Unasyn for symptomatic management and correction of underlying abnormalities. Workup independently interpreted and significant for leukocytosis 20. Patient has lactate of 3.5. Not acidotic VBG. Chest x-ray without acute cardiopulmonary airspace disease. See radiology read for full review of final results. Independent interpretation of EKG shows sinus rhythm 90 beats a minute no ST or T wave changes concerning for acute ischemia. ND, QRS, QT intervals within normal limits. Leftward axis. Patient placed on continuous cardiac monitoring and continuous pulse ox with initial blood pressure 100/80, heart rate 83, saturation 95 on BiPAP. On reevaluation, patient resting more comfortably after medication management. Hospital medicine was contacted and case was discussed at length, see their note for H&P and recommendations Given patient presentation, workup, history, this most likely represents acute hypoxemic respiratory failure in the setting of chronic hypoxemic respiratory failure, likely underlying infection./Sepsis. Because patient high risk for clinical decompensation, deemed appropriate for inpatient admission. Results were relayed to patient who voiced understanding and patient was agreeable to inpatient admission and management. Patient was admitted to the hospital for further definitive management.
--- NOTE | 2024-01-26 15:54 | PC.NURSE ---
Lab & staff have attempted to obtain 2x set of blood cultures and only 1 has been able to be obtained. billposting supervisor notified and MD that only 1 set was completed thus far. Will not delay ABX further and are ok with only 1 set of blood cultures.
[2024-01-26] MEDS: AMPICILLIN/SULBACTAM 3 GM in 0.9 % SODIUM CHLORIDE 100 ML IV (15:57)
[2024-01-26] MEDS: VANCOMYCIN HCL 2,000 MG in 0.9 % SODIUM CHLORIDE 250 ML 125 MG IV (16:22)
--- NOTE | 2024-01-26 16:39 | PC.NURSE ---
HEAVY EQUIPMENT OPERATOR APPRENTICE NOTIFIED OF ADMISSION
[2024-01-26 17:22] LABS: Troponin I < 0.01 ng/ml (0.00-0.034)
--- NOTE | 2024-01-26 17:28 | ECG_ITS ---
APPROVED REPORT Exam: Resting ECG HR:87 bpm ECG Measurements Heart Rate 87 AXES VA 147 P 57 QRSd 97 QRS -53 QT 357 T 61 QTc 402 Conclusion SINUS RHYTHM WITH OCCASIONAL SUPRAVENTRICULAR PREMATURE COMPLEXES LEFT ANTERIOR FASCICULAR BLOCK [QRS AXIS <= -45, QR IN I, RS IN II] Electronically signed by : SABINE SPENCER, 01/27/2024 05:43:13
--- NOTE | 2024-01-26 18:07 | PC.NURSE ---
REPORT CALLED TO RYLAND OSEI
--- NOTE | 2024-01-26 18:38 | PC.NURSE ---
arrived to floor by w/c from ED
[2024-01-26 19:12] LABS: Lactate Venous 4.5 mmol/L (0.4-2.0)
--- NOTE | 2024-01-26 19:14 | EXP.HP ---
History of Present Illness *Admission Date: 01/26/24 *Reason for visit:: Short of breath *History of present illness: 53-year-old female with COPD, CHF, IPF, hypertension, diabetes, morbid obesity and chronic respiratory failure on 4 L at home and BiPAP at night. She presented to the ER after leaving her previous hospital ([facility]) [place] where she was admitted for sepsis and COPD exacerbation. 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 On arrival to the ER, was found to be tachycardic, tachypneic, necessitating at least 4 L or more of oxygen. Complaining of some chest discomfort/pressure. Feeling short of breath and very wheezy on exam. Workup initiated showing leukocytosis, tachycardic time, tachypnea. Chest imaging obtained that showed improvement from last visit with no focal consolidation. Medicine was consulted for admission due to respiratory distress and sepsis criteria. On arrival to the floor, patient was evaluated and wearing her trilogy as she states she is very short of breath without it on. Still complaining of chest pain, troponin negative x 2. No nausea or vomiting. Alert and oriented x 4. Chronically ill-appearing. [facility] Disclaimer: The information contained in this section may have been updated after the patient was seen, as this information can be updated by other users. Medical History History of asthma COPD mixed type COPD exacerbation Pre-op testing CHF (congestive heart failure) History of COPD Stopped smoking with greater than 30 pack year history Dyspnea on exertion Diabetes GERD (gastroesophageal reflux disease) CAD (coronary artery disease) HLD (hyperlipidemia) HTN (hypertension) COPD (chronic obstructive pulmonary disease) Depression Surgical History History of lung biopsy H/O esophagogastroduodenoscopy H/O colonoscopy H/O breast surgery H/O section Family History Other COPD (chronic obstructive pulmonary disease) Cancer Diabetes Heart attack Hypertension Lung cancer Stroke Social History Smoking Status: Unknown if ever smoked smoking status stop date: 07/16/2023 alcohol intake: never substance use type: denies use current occupational status: disabled and other Travel in the last 8 weeks: None Meds Home Medications and Allergies Home Medications Medication Instructions Recorded Confirmed Type aspirin 81 mg tablet,delayed 81 mg PO DAILY 05/12/23 01/26/24 History release atorvastatin 10 mg tablet 10 mg PO DAILY 05/12/23 01/26/24 History bisacodyl 5 mg tablet,delayed 5 mg PO DAILY 05/12/23 01/26/24 History release blood sugar diagnostic (FreeStyle 05/12/23 01/26/24 History Lite Strips) bupropion HCl 300 mg 24 hr tablet, 300 mg PO DAILY 05/12/23 01/26/24 History extended release clonidine HCl 0.1 mg tablet 0.1 mg PO TID 05/12/23 01/26/24 History clopidogrel 75 mg tablet 75 mg PO DAILY 05/12/23 01/26/24 History furosemide 40 mg tablet 40 mg PO BID 05/12/23 01/26/24 History insulin aspart U-100 100 unit/mL 80 unit SQ DAILY 05/12/23 01/26/24 History subcutaneous solution (Novolog U-100 Insulin aspart) ipratropium 0.5 mg-albuterol 3 mg 3 ml inhalation Q6H 05/12/23 01/26/24 History (2.5 mg base)/3 mL nebulization soln lisinopril 20 mg tablet 20 mg PO DAILY 05/12/23 01/26/24 History naloxone 4 mg/actuation nasal spray 1 spray intranasal DIRECTED 05/12/23 01/26/24 History Required for controlled substance pantoprazole 40 mg tablet,delayed 40 mg PO DAILY 05/12/23 01/26/24 History release polyethylene glycol 3350 17 17 g PO DAILY 05/12/23 01/26/24 History gram/dose oral powder potassium chloride 20 mEq 20 meq PO TID 05/12/23 01/26/24 History tablet,extended release(part/cryst) (Klor-Con M) trazodone 100 mg tablet 200 mg PO HS 05/12/23 01/26/24 History diclofenac epolamine 1.3 % 1 patch topical BID #30 ea 06/21/23 01/26/24 Rx transdermal 12 hour patch (Flector) metoprolol succinate 25 mg 25 mg PO DAILY #30 tabs 11/23/23 01/26/24 Rx tablet,extended release 24 hr guaifenesin 600 mg tablet, 600 mg PO Q12H PRN Congestion 11/25/23 01/26/24 History extended release 12 hr linaclotide 72 mcg capsule 72 mcg PO DAILY 11/25/23 01/26/24 History (Linzess) lorazepam 0.5 mg tablet 1 mg PO BID 11/25/23 01/26/24 History prednisone 10 mg tablet 5 mg PO DAILY 11/25/23 01/26/24 History sertraline 100 mg tablet 100 mg PO DAILY 11/25/23 01/26/24 History albuterol sulfate 90 mcg/actuation 2 puff inhalation QID PRN 12/21/23 01/26/24 Rx aerosol inhaler (ProAir HFA) shortness of breath or wheezing 90 days #8.5 grams budesonide 160 mcg-glycopyr 9 2 inh inhalation BID 90 days #10.7 12/21/23 01/26/24 Rx mcg-formot 4.8 mcg/actuation HFA grams inhaler (Breztri Aerosphere) ipratropium 0.5 mg-albuterol 3 mg 3 ml inhalation QID PRN shortness 12/21/23 01/26/24 Rx (2.5 mg base)/3 mL nebulization of breath or wheezing 90 days #270 soln mL gabapentin 600 mg tablet 600 mg PO TID #90 tabs 12/31/23 01/26/24 Rx ondansetron 4 mg disintegrating 4 mg PO Q8H PRN nausea and 12/31/23 01/26/24 Rx tablet vomiting #30 tabs ropinirole 0.5 mg tablet 0.5 mg PO HS #30 tabs 12/31/23 01/26/24 Rx oxycodone-acetaminophen 5 mg-325 1 tab PO BID #60 tabs 01/05/24 01/26/24 Rx mg tablet (Percocet) insulin aspart U-100 100 unit/mL 45 unit SQ HS 01/26/24 01/26/24 History (3 mL) subcutaneous pen sertraline 50 mg tablet 50 mg PO HS 01/26/24 01/26/24 History New Prescriptions to Start Prescriptions: Allergies Allergy/AdvReac Type Severity Reaction Status Date / Time ketorolac [From Toradol] Allergy Verified 12/27/23 09:34 prochlorperazine Allergy Verified 12/27/23 09:34 [From Compazine] Exam Data for Last 24 hours Vital signs and Labs for Last 24 Hours: Temp Pulse Resp BP Pulse Ox O2 Del Method O2 Flow Rate 97.9 F 80 20 101/54 L 95 Trilogy 4 01/26/24 18:25 01/26/24 18:25 01/26/24 18:25 01/26/24 18:25 01/26/24 18:00 01/26/24 19:00 01/26/24 14:02 Laboratory Results - last 24 hr 01/26/24 14:11: VBG pH 7.34, VBG pCO2 39.6, VBG pO2 61.6 H, VBG HCO3 21.0 L, VBG Total CO2 22.2 L, VBG O2 Saturation 90.6 H, VBG Base Excess -4.8 L, VBG Lactic Acid 3.8 H 01/26/24 14:12: WBC 20.2 H*, RBC 4.96, Hgb 15.0, Hct 45.3, MCV 91.2, MCH 30.2, MCHC 33.2, RDW 13.7, Plt Count 278, MPV 9.0, Neut % (Auto) 87.2 H, Lymph % (Auto) 6.4 L, [place] % (Auto) 5.4, Eos % (Auto) 0.8, Baso % (Auto) 0.2, Neut # (Auto) 17.6 H, Lymph # (Auto) 1.3, [place] # (Auto) 1.1 H, Eos # (Auto) 0.2, Baso # (Auto) 0.1, Total Counted 100, Neutrophils % (Manual) 90 H, Lymphocytes % (Manual) 8 L, Monocytes % (Manual) 2, Platelet Estimate Normal, RBC Morphology Normal, Sodium 137, Potassium 4.4, Chloride 103, Carbon Dioxide 24, Anion Gap 14.4, BUN 22 H, Creatinine 0.80, Estimated Creat Clear 79, Estimated GFR 75, Est GFR ( Amer) 91, Glucose 175 H, Calcium 9.9, Total Bilirubin 0.4, AST 36, ALT 42, Alkaline Phosphatase 117, Troponin I < 0.01, NT-Pro-B Natriuret Pep 661 H, Total Protein 7.6, Albumin 4.6, Globulin 3.0, Albumin/Globulin Ratio 1.5 01/26/24 16:36: Troponin I < 0.01 01/26/24 18:30: VBG Lactic Acid 4.5 H I & O for Last 24 hours: Intake & Output 01/23/24 01/24/24 01/25/24 01/26/24 23:59 23:59 23:59 23:59 Weight 128.82 kg Constitutional Constitutional: mild distress, morbidly obese, chronically ill appearing and cooperative *Routine HEENT Exam Head: Present normocephalic Eye: Present EOMI and PERRL ENT: Present mucous membranes moist *Routine Neck Exam Neck: Present supple; Absent lymphadenopathy *Routine Respiratory Exam Respiratory: Present accessory muscle use, prolonged expiratory phase, rhonchi, wheezes and distant breath sounds; Absent crackles *Routine Cardiovascular Exam Cardiovascular: Present RRR *Routine Abdominal Exam Abdominal: Present soft and normoactive bowel sounds; Absent tenderness *Routine Rectal Exam Rectal:: deferred *Routine Genitalia Exam Genitalia:: deferred *Routine Extremities Exam Extremities: Absent cyanosis, clubbing or edema *Routine Skin Exam Skin: Present warm; Absent rash *Routine Neurological Exam Neurological: Present alert, oriented X3 and moving all extremities; Absent altered mental status Assessment and Plan *Assessment and plan (1) Acute on chronic respiratory failure with hypoxemia: Status: Acute Category: Medical Code(s): J96.21 - Acute and chronic respiratory failure with hypoxia (2) Acute exacerbation of chronic obstructive airways disease: Status: Acute Category: Medical Code(s): J44.1 - Chronic obstructive pulmonary disease with (acute) exacerbation (3) Sepsis: Status: Acute Category: Medical Code(s): A41.9 - Sepsis, unspecified organism (4) Chronic GERD: Status: Acute Category: Medical Code(s): K21.9 - Gastro-esophageal reflux disease without esophagitis (5) Atypical chest pain: Status: Acute Category: Medical Code(s): R07.89 - Other chest pain (6) Chronic pain disorder: Status: Acute Category: Medical Code(s): G89.4 - Chronic pain syndrome (7) COPD mixed type: Status: Acute Category: Medical Code(s): J44.9 - Chronic obstructive pulmonary disease, unspecified (8) CHF (congestive heart failure): Status: Acute Qualifiers: Heart failure type: unspecified Heart failure chronicity: chronic Qualified Code(s): I50.9 - Heart failure, unspecified Category: Medical Code(s): I50.9 - Heart failure, unspecified (9) HTN (hypertension): Status: Acute Qualifiers: Hypertension type: unspecified Qualified Code(s): I10 - Essential (primary) hypertension Category: Medical Code(s): I10 - Essential (primary) hypertension (10) HLD (hyperlipidemia): Status: Acute Qualifiers: Hyperlipidemia type: unspecified Qualified Code(s): E78.5 - Hyperlipidemia, unspecified Category: Medical Code(s): E78.5 - Hyperlipidemia, unspecified (11) Diabetes: Status: Acute Category: Medical Code(s): E11.9 - Type 2 diabetes mellitus without complications Plan 53-year-old female with multiple comorbidities who presented to the ER after leaving previous medical facility AMA with respiratory distress. Workup in the ER concerning for COPD versus CHF exacerbation. Meeting sepsis criteria with tachypnea, tachycardia, leukocytosis and possible respiratory infection. Discussed case with ER, request admission for antibiotics and further consultation with pulmonology and treatment for infection. Medicine agreed to admit for further management. Patient on 4 L oxygen with saturations in the low 90s. On her home Trelegy by the time of my evaluation. States she is very uncomfortable and continuing to have difficulty breathing. Having atypical chest pain as well, and troponins within normal range. Necessitating further inpatient management. Problems addressed as follows: Sepsis COPD exacerbation Chronic hypoxemic respiratory failure -Tachycardic, tachypneic, leukocytosis, presumed respiratory infection -Continue antibiotics, continue vancomycin but will transition to Levaquin for ease of dosing and given multiple healthcare exposures. -Continue DuoNebs every 4 hours scheduled, budesonide twice daily -Pulmonology consulted, appreciate their recommendations. - white cell count elevated at 20.2, comprehensive respiratory panel positive for rhino/enterovirus. This would explain patient's respiratory symptoms and decline over 2 to 3 days. -Chest imaging personally reviewed, no focal consolidation but does have increased pulmonary vascularity and cephalization. -Continue prednisone 40 mg daily - Received methylprednisolone 125 mg IV once in the ER. - Trelegy device while asleep. Supplemental O2 as needed for goal sats >90%, currently on 4L -Kidney function electrolytes normal. Glucose elevated 175 on admission. Repeat BMP, CBC ordered for the morning. Exacerbation of heart failure with preserved ejection fraction Hypertension Hyperlipidemia -Cardiology consulted, appreciate their recommendations. -Echo from November with elevated RVSP, EF preserved -BNP elevated in the 600s. Chest imaging concerning for vascularization. Will diurese with 40 mg IV Lasix x 1 on admission. Will continue 40 mg IV twice daily -Holding aspirin and Plavix -Continue Lipitor 10 mg daily, continue lisinopril 20 mg daily, continue metoprolol 25 mg daily. Sleep disorder: Continue trazodone 200 mg hs Mood disorder: Continue Zoloft 25mg daily, continue bupropion 300 mg daily Chronic pain: Continue oxycodone/acetaminophen 5/325 4 times a day as needed for pain, continue metaxalone 800 mg nightly; continue gabapentin 600 mg 3 times daily for pain; pain management consulted to evaluate pain pump GERD: Continue pantoprazole 40 mg daily Diabetes: Sliding scale insulin and fingersticks ACHS. Okay to use CGM if in place and has monitor DNR Diabetic diet Heparin 5000units TID subcu
[2024-01-26] MEDS: FUROSEMIDE 40MG/4ML VIAL 40 MG IV (20:27)
[2024-01-26] MEDS: HEPARIN SODIUM 5,000 UNIT/ML VIAL 5000 UNIT SQ (20:28)
[2024-01-26] MEDS: GABAPENTIN 600MG TABLET 600 MG PO (20:28)
[2024-01-26] MEDS: DOCUSATE SODIUM 100 MG CAPSULE PO (20:28)
[2024-01-26] MEDS: OXYCODONE 5MG W/APAP 325MG TABLET 1 EACH PO (20:33)
[2024-01-26] MEDS: humaLOG 100 UNITS/ML 3ML VIAL (SSI) SQ (20:42)
[2024-01-26 21:08] LABS: POC Glucose,Bedside 207 (70-110)
--- NOTE | 2024-01-26 22:10 | PC.NURSE ---
4g furosemide was scanned and pulled into syringe. pt iV infiltrated at that time. pt required multiple sticks to get iv access. During this time, Syring with furosemide was thrown in trash. Another 40mg dose was pulled from omni and given at 2157.
[2024-01-26 22:28] LABS: Adenovirus,PCR Not Detected (NotDetected); Coronavirus 19, PCR Not Detected (NotDetected); Coronavirus 229E Not Detected (NotDetected); Coronavirus NL63 Not Detected (NotDetected); Coronavirus OC43 Not Detected (NotDetected); Coronovirus HKU1,PCR Not Detected (NotDetected); Human Metapneumovirus Not Detected (NotDetected); Influenza A, PCR Not Detected (NotDetected); Influenza AH1, 2009 Not Detected (NotDetected); Influenza AH1, PCR Not Detected (NotDetected); Influenza AH3,PCR Not Detected (NotDetected); Influenza B, PCR Not Detected (NotDetected); Parainfluenza 1, PCR Not Detected (NotDetected); Parainfluenza 2, PCR Not Detected (NotDetected); Parainfluenza 3, PCR Not Detected (NotDetected); Parainfluenza 4, PCR Not Detected (NotDetected); Respiratory Syncytial Virus Not Detected (NotDetected)
[2024-01-26] MEDS: ACETAMINOPHEN 325MG TAB 650 MG PO (22:31)
[2024-01-26 22:54] LABS: Lactate Venous 4.5 mmol/L (0.4-2.0)
[2024-01-26] MEDS: IPRATROPIUM/ALBUTEROL 3 ML NEB IH (22:58)
[2024-01-26 23:11] LABS: Reflex Lactic Add Lactic Reflex
[2024-01-26 23:45] LABS: Rhinovirus/Enterovirus Detected (NotDetected)
[2024-01-27] VITALS (20 sets, daily range): BP systolic 90–155; BP diastolic 39–79; PULSE 65–118; RESP 15–24; TEMP 36.3–36.9; O2SAT 87–99; BMI 43.4
[2024-01-27] MEDS: LEVOFLOXACIN/D5W 750 MG/150 ML 750 MG/150 ML PIGGYBACK 100 MG IV ×2 (02:06→21:05)
[2024-01-27] MEDS: IPRATROPIUM/ALBUTEROL 3 ML NEB IH ×6 (03:26→22:40)
[2024-01-27] MEDS: HEPARIN SODIUM 5,000 UNIT/ML VIAL 5000 UNIT SQ ×3 (05:56→17:52)
[2024-01-27] MEDS: VANCOMYCIN HCL 2,000 MG in 0.9 % SODIUM CHLORIDE 250 ML 125 MG IV ×2 (06:04→17:25)
[2024-01-27] MEDS: BUDESONIDE 0.5MG/2ML NEB 0.5 MG IH ×2 (06:11→18:22)
[2024-01-27] MEDS: OXYCODONE 5MG W/APAP 325MG TABLET 1 EACH PO ×2 (06:18→12:25)
[2024-01-27 06:25] LABS: POC Glucose,Bedside 108 (70-110)
[2024-01-27 06:54] LABS: Basophils % 0.2 % (0.1-2.0); Hematocrit 37.4 % (37.0-47.0); Lymphocytes # 2.1 K/mm3 (0.7-4.5); Lymphocytes % 13.9 % (10-50); Mean Corpuscular Hemoglobin 30.4 pg (27.0-31.2); Mean Corpuscular Volume 92.1 fl (81-99); Mean Platelet Volume 9.3 fl (7.4-10.4); Monocytes # 1.1 K/mm3 (0.1-1.0); Monocytes % 7.1 % (1.7-9.3); Neutrophils % 78.7 % (37.0-80.0); Platelet Count 221 K/mm3 (142-424); Red Blood Count 4.07 M/mm3 (4.20-5.40); Red Cell Distribution Width 14.1 % (11.5-17.5); White Blood Count 15.3 K/mm3 (4.8-10.8)
[2024-01-27 07:10] LABS: MANUAL DIFFERENTIAL MANUAL DIFFERENTIAL (MANUAL DIFF)
[2024-01-27 07:13] LABS: Anion Gap 10.2 mEq/L (5-15); Blood Urea Nitrogen 35 mg/dl (7-17); Calcium 9.2 mg/dl (8.4-10.2); Carbon Dioxide 28 mmol/L (22.0-30.0); Chloride 105 mmol/L (98-107); Creatinine Clearance Estimated 68 mL/min (50-200); Estimated Glomerular Filt Rate 65 ml/min (>60); GFR (African American) 79 ML/MIN (>60); Glucose 101 mg/dl (74-100); Potassium 4.2 mmoL/L (3.5-5.1); Sodium 139 mmol/L (136-145)
[2024-01-27 07:15] LABS: Hemoglobin 12.3 g/dL (12.2-16.2)
[2024-01-27] MEDS: ACETAMINOPHEN 325MG TAB 650 MG PO ×3 (08:27→23:03)
[2024-01-27] MEDS: BISACODYL 5MG TABLET 5 MG PO (08:28)
[2024-01-27] MEDS: DOCUSATE SODIUM 100 MG CAPSULE PO (08:28)
[2024-01-27] MEDS: LORazepam 1MG TABLET 1 MG PO ×2 (08:28→21:02)
[2024-01-27] MEDS: LISINOPRIL 20MG TABLET 20 MG PO (08:28)
[2024-01-27] MEDS: POLYETHYLENE GLYCOL 3350 17 GM PACKET PO (08:28)
[2024-01-27] MEDS: GABAPENTIN 600MG TABLET 600 MG PO ×3 (08:28→21:02)
[2024-01-27] MEDS: PANTOPRAZOLE 40MG TABLET 40 MG PO (08:29)
[2024-01-27] MEDS: FUROSEMIDE 40MG/4ML VIAL 40 MG IV (08:29)
[2024-01-27] MEDS: METOPROLOL SUCCINATE XL 25MG TABLET 25 MG PO (08:29)
[2024-01-27] MEDS: buPROPion HCl SR 150MG TAB 150 MG PO ×2 (08:30→21:01)
[2024-01-27] MEDS: predniSONE 20MG TAB 40 MG PO (08:30)
[2024-01-27] MEDS: SERTRALINE 100MG TABLET 100 MG PO (08:30)
[2024-01-27] MEDS: ATORVASTATIN 10MG TABLET 10 MG PO (08:30)
--- NOTE | 2024-01-27 08:46 | CA_ITS ---
APPROVED REPORT EXAM: Comprehensive 2D, Doppler, and color-flow Echocardiogram Runner Worker: Guerline Julian, RT(R) Ht: 216 ft 7 in Wt: 284lbs BSA: 33.29 BP: 101/54 mmHg Indications: COPD, CP, ex smoker, obesity, SOB, HTN, hyperlipidemia, CHF, sepsis, GERD, echo 11/24/23 preserved EF, O2 dependent. 2D Dimensions Left Atrium 4.09 cm F: 2.7 - 3.8 LVOT 1.94 cm (M/F) 1.5-2.5 M-Mode Dimensions RVDd 2.85 cm (0.9-2.6) LVDd 5.74 cm (3.5-5.7) Ao Diam 2.73 cm (2.0-3.7) LVDs 4.21 cm (3.5-5.7) IVSd 1.15 cm (0.6-1.1) PWd 0.81 cm (0.6-1.1) EF (Teich) 51.40% FS 26.70% EDV (Teich) 162.60 mL ESV (Teich) 79.00 mL LV Diastology E Decel Time 197 (160-240 msec) E/A Ratio 1.3 MED E' 10.1 (>= 7 cm/sec) E'/MED E' Ratio 10.21 (<= 14) LAT E' 12.0 (>= 10 cm/sec) E/LAT E' Ratio 8.59 (<= 14) Mitral Valve MV E Max Rasheed. 103.0 (40-130 cm/s) MV A Velocity 79.0 (40-130 cm/s) E/A Ratio 1.31 MV Decel. Time 197 (160-240 ms) Left Ventricle The left ventricle is normal size. The left ventricular systolic function is normal. The left ventricular ejection fraction is within the normal range. There is normal left ventricular wall thickness. There is normal LV segmental wall motion. The left ventricular diastolic function is normal. LVEF is 55%. Right Ventricle The right ventricle is mildly dilated. The right ventricular systolic function is normal. Atria The left atrium size is normal. The right atrium size is normal. There is no Doppler evidence of interatrial shunt. Lipomatous hypertrophy of the interatrial septum is noted. Aortic Valve The aortic valve opens well. There is no aortic valvular stenosis. No aortic regurgitation is present. Mitral Valve The mitral valve is normal in structure. No evidence of mitral valve stenosis. Trace mitral valve regurgitation noted. Tricuspid Valve The tricuspid valve leaflets are very well-visualized, but grossly appear thin and pliable. Trace tricuspid regurgitation. There is insufficient TR jet to estimate RVSP. Pulmonic Valve Valve leaflets are not very well-visualized, but grossly appeared normal in structure. Trace pulmonic regurgitation. Great Vessels The aortic root is normal in size. The ascending aorta is not well-visualized. The IVC is not well-visualized. Pericardium There is no pericardial effusion. Other Information Study Quality: Technically Difficult Conclusion Technically difficult study due to poor acoustic windows. Normal biventricular systolic function. Mild RV dilation. Lipomatous hypertrophy of the interatrial septum. No significant valvular stenosis or regurgitation. Electronically signed by : Christie Blanca MD 01/29/2024 22:31:02
--- NOTE | 2024-01-27 08:53 | HMH.PHAINT1 ---
Pharmacy Intervention Comments: Verified home medications using external fill history from pharmacy and spoke with patient at bedside. Of note, she was prescribed prednisone a day ago but still has not picked it up, has not taken any.
--- NOTE | 2024-01-27 08:55 | PC.NURSE ---
pt turned down to 2L NC noted at 98% tolerating well. states baseline at home is 4-5L NC. she's been running 100% on that.
[2024-01-27 09:35] LABS: Lymphocytes % 13 % (10-50); Monocytes % 4 % (2-9); Neutrophils % 82 % (42-76); Total Cells Counted 100
[2024-01-27 09:40] LABS: Platelet Estimate Normal; RBC Morphology Normal
--- NOTE | 2024-01-27 09:46 | PC.NURSE ---
EUSEBIA WITH [facility] CALLED TO CHECK ON THE PT. 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 THEIR PHONE NUMBER IS AND THE INTACT REPORT NUMBER IS . STATES THEY WILL NEED TO KNOW WITHIN 48 HOURS OF PT RETURNING HOME. WILL PASS ALONG TO CASE MANAGEMENT.
--- NOTE | 2024-01-27 09:49 | P.CONS_ITS ---
History of Present Illness History of present illness: Ms. Jacobsen is a 53-year-old female greater than 30 PPD, last moved her September 2023, COPD on Breztri inhaler, unremarkable supplementation only with exertion presented to the hospital with worsening respiratory distress subjective fevers worsening productive cough nausea and vomiting. [facility] Disclaimer: The information contained in this section may have been updated after the patient was seen, as this information can be updated by other users. Medical History (Updated 01/27/24 @ 12:58 by Hemant Massey MD) Viral pneumonia History of asthma COPD mixed type COPD exacerbation Pre-op testing CHF (congestive heart failure) History of COPD Stopped smoking with greater than 30 pack year history Dyspnea on exertion Diabetes GERD (gastroesophageal reflux disease) CAD (coronary artery disease) HLD (hyperlipidemia) HTN (hypertension) COPD (chronic obstructive pulmonary disease) Depression Surgical History History of lung biopsy H/O esophagogastroduodenoscopy H/O colonoscopy H/O breast surgery H/O section Family History Other COPD (chronic obstructive pulmonary disease) Cancer Diabetes Heart attack Hypertension Lung cancer Stroke Social History Smoking Status: Unknown if ever smoked smoking status stop date: 07/16/2023 alcohol intake: never substance use type: denies use current occupational status: disabled and other Travel in the last 8 weeks: None Review of Systems Constitutional Constitutional: Reports anorexia, Reports body ache(s) and Reports fatigue Eyes Eyes: Denies eye discharge, Denies dry eyes, Denies irritation and Denies itchy eyes ENT Ears, Nose, Mouth, and Throat: Denies epistaxis, Denies facial pain, Denies lip swelling and Denies throat swelling *Cardiovascular Cardiovascular: Reports dyspnea and Reports dyspnea on exertion *Respiratory Respiratory: Reports chest congestion, Reports cough, Reports dyspnea, Reports dyspnea on exertion, Reports excessive phlegm production and Reports wheezing *Gastrointestinal Gastrointestinal: Denies abdominal pain, Denies belching and Denies cramping *Musculoskeletal Musculoskeletal: Reports back pain, Reports myalgias and Reports other (No small joint swelling or Pain) Psychiatric Psychiatric: Denies homicidal ideation and Denies suicidal ideation Endocrine Endocrine: Reports fatigue and Denies heat intolerance Hematologic/Lymphatic Hematologic/Lymphatic: Denies easy bleeding and Denies lymphadenopathy Allergic/Immunologic Allergic/Immunologic: Denies itchy eyes, Denies lip swelling, Denies throat swelling and Reports wheezing Pulmonology Exam Inpatient Vital signs and Labs for Last 24 Hours: Temp Pulse Resp BP Pulse Ox O2 Del Method O2 Flow Rate 97.6 F 67 15 127/44 L 94 L Nasal Cannula 2 01/27/24 07:51 01/27/24 09:47 01/27/24 06:00 01/27/24 06:00 01/27/24 09:47 01/27/24 09:47 01/27/24 09:47 Laboratory Results - last 24 hr 01/26/24 14:11: VBG pH 7.34, VBG pCO2 39.6, VBG pO2 61.6 H, VBG HCO3 21.0 L, VBG Total CO2 22.2 L, VBG O2 Saturation 90.6 H, VBG Base Excess -4.8 L, VBG Lactic Acid 3.8 H 01/26/24 14:12: WBC 20.2 H*, RBC 4.96, Hgb 15.0, Hct 45.3, MCV 91.2, MCH 30.2, MCHC 33.2, RDW 13.7, Plt Count 278, MPV 9.0, Neut % (Auto) 87.2 H, Lymph % (Auto) 6.4 L, [place] % (Auto) 5.4, Eos % (Auto) 0.8, Baso % (Auto) 0.2, Neut # (Auto) 17.6 H, Lymph # (Auto) 1.3, [place] # (Auto) 1.1 H, Eos # (Auto) 0.2, Baso # (Auto) 0.1, Total Counted 100, Neutrophils % (Manual) 90 H, Lymphocytes % (Manual) 8 L, Monocytes % (Manual) 2, Platelet Estimate Normal, RBC Morphology Normal, Sodium 137, Potassium 4.4, Chloride 103, Carbon Dioxide 24, Anion Gap 14.4, BUN 22 H, Creatinine 0.80, Estimated Creat Clear 79, Estimated GFR 75, Est GFR ( Amer) 91, Glucose 175 H, Calcium 9.9, Total Bilirubin 0.4, AST 36, ALT 42, Alkaline Phosphatase 117, Troponin I < 0.01, NT-Pro-B Natriuret Pep 661 H, Total Protein 7.6, Albumin 4.6, Globulin 3.0, Albumin/Globulin Ratio 1.5 01/26/24 16:36: Troponin I < 0.01 01/26/24 18:30: VBG Lactic Acid 4.5 H 01/26/24 20:38: POC Glucose 207 H 01/26/24 20:49: Chlamy pneumoniae PCR TNP, Adenovirus (PCR) Not detected, B. pertussis DNA (PCR) TNP, Coronavirus OC43 (PCR) Not detected, Coronavirus HKU1 (PCR) Not detected, Coronavirus 229E (PCR) Not detected, SARS-CoV-2 (PCR) Not detected, Coronavirus NL63 (PCR) Not detected, Human Metapneumovir PCR Not detected, Influenza A (H1) PCR Not detected, Influ A (H1N1/09) PCR Not detected, Influenza A (H3) PCR Not detected, Influenza Type A (PCR) Not detected, Influenza Type B (PCR) Not detected, M. pneumoniae (PCR) TNP, Parainfluenza 1 (PCR) Not detected, Parainfluenza 2 (PCR) Not detected, Parainfluenza 3 (PCR) Not detected, Parainfluenza 4 (PCR) Not detected, RSV (PCR) Not detected, E ntero/Rhino (PCR) Detected A 01/26/24 22:30: VBG Lactic Acid 4.5 H 01/27/24 05:54: WBC 15.3 H, RBC 4.07 L, Hgb 12.3 D, Hct 37.4, MCV 92.1, MCH 30.4, MCHC 33.0, RDW 14.1, Plt Count 221, MPV 9.3, Neut % (Auto) 78.7, Lymph % (Auto) 13.9, [place] % (Auto) 7.1, Eos % (Auto) 0.0 L, Baso % (Auto) 0.2, Neut # (Auto) 12.0 H, Lymph # (Auto) 2.1, [place] # (Auto) 1.1 H, Eos # (Auto) 0.0, Baso # (Auto) 0.0, Total Counted 100, Neutrophils % (Manual) 82 H, Band Neutrophils % 1.0, Lymphocytes % (Manual) 13, Monocytes % (Manual) 4, Platelet Estimate Normal, RBC Morphology Normal, Sodium 139, Potassium 4.2, Chloride 105, Carbon Dioxide 28, Anion Gap 10.2, BUN 35 H D, Creatinine 0.90, Estimated Creat Clear 68, Estimated GFR 65, Est GFR ( Amer) 79, Glucose 101 H D, Calcium 9.2 01/27/24 06:09: POC Glucose 108 I & O for Labs for Last 24 Hours: Intake & Output 01/24/24 01/25/24 01/26/24 01/27/24 23:59 23:59 23:59 23:59 Intake Total 0 / 0 Output Total 900 / 900 Balance -900 / -900 Weight 284 lb 276 lb 12.8 oz Constitutional: Present moderate distress Head: Present normocephalic and atraumatic ENT: Present normal exam, normal oropharynx and mucous membranes moist Neck: Present normal inspection and full ROM Respiratory: Present prolonged expiratory phase, respiratory distress, wheezes and able to speak in complete sentences Cardiac: Present S1/S2, Tachycardia and radial pulses present GI: Present soft and distention; Absent tenderness or guarding Rectal (female): Present deferred (female): Present deferred Skin: Present intact; Absent cyanosis or jaundice Neuro: Present alert, awake and oriented x 3 Extremities: Present normal inspection; Absent clubbing or cyanosis Psychiatric: Present normal affect and cooperative Meds Home Medications and Allergies Home Medications Medication Instructions Recorded Confirmed Type aspirin 81 mg tablet,delayed 81 mg PO DAILY 05/12/23 01/26/24 History release atorvastatin 10 mg tablet 10 mg PO DAILY 05/12/23 01/26/24 History bisacodyl 5 mg tablet,delayed 5 mg PO DAILY 05/12/23 01/26/24 History release blood sugar diagnostic (FreeStyle 05/12/23 01/26/24 History Lite Strips) bupropion HCl 300 mg 24 hr tablet, 300 mg PO DAILY 05/12/23 01/26/24 History extended release clonidine HCl 0.1 mg tablet 0.1 mg PO TID 05/12/23 01/26/24 History clopidogrel 75 mg tablet 75 mg PO DAILY 05/12/23 01/26/24 History furosemide 40 mg tablet 40 mg PO BID 05/12/23 01/26/24 History insulin aspart U-100 100 unit/mL See Protocol SQ DAILY 05/12/23 01/27/24 History subcutaneous solution (Novolog U-100 Insulin aspart) lisinopril 20 mg tablet 20 mg PO DAILY 05/12/23 01/26/24 History naloxone 4 mg/actuation nasal spray 1 spray intranasal DIRECTED 05/12/23 01/26/24 History Required for controlled substance pantoprazole 40 mg tablet,delayed 40 mg PO DAILY 05/12/23 01/26/24 History release polyethylene glycol 3350 17 17 g PO DAILY 05/12/23 01/26/24 History gram/dose oral powder potassium chloride 20 mEq 20 meq PO TID 05/12/23 01/26/24 History tablet,extended release(part/cryst) (Klor-Con M) trazodone 100 mg tablet 200 mg PO HS 05/12/23 01/26/24 History diclofenac epolamine 1.3 % 1 patch topical BID #30 ea 06/21/23 01/26/24 Rx transdermal 12 hour patch (Flector) metoprolol succinate 25 mg 25 mg PO DAILY #30 tabs 11/23/23 01/26/24 Rx tablet,extended release 24 hr guaifenesin 600 mg tablet, 600 mg PO Q12H PRN Congestion 11/25/23 01/26/24 History extended release 12 hr linaclotide 72 mcg capsule 72 mcg PO DAILY 11/25/23 01/26/24 History (Linzess) lorazepam 0.5 mg tablet 1 mg PO BID 11/25/23 01/26/24 History sertraline 100 mg tablet 100 mg PO DAILY 11/25/23 01/26/24 History albuterol sulfate 90 mcg/actuation 2 puff inhalation QID PRN 12/21/23 01/26/24 Rx aerosol inhaler (ProAir HFA) shortness of breath or wheezing 90 days #8.5 grams gabapentin 600 mg tablet 600 mg PO TID #90 tabs 12/31/23 01/26/24 Rx ondansetron 4 mg disintegrating 4 mg PO Q8H PRN nausea and 12/31/23 01/26/24 Rx tablet vomiting #30 tabs ropinirole 0.5 mg tablet 0.5 mg PO HS #30 tabs 12/31/23 01/26/24 Rx oxycodone-acetaminophen 5 mg-325 1 tab PO BID #60 tabs 01/05/24 01/26/24 Rx mg tablet (Percocet) sertraline 50 mg tablet 50 mg PO HS 01/26/24 01/26/24 History acetaminophen 500 mg tablet 1,000 mg PO Q4HP PRN Pain 01/27/24 01/27/24 History albuterol sulfate 2.5 mg/3 mL 2.5 mg continuous nebulization Q4H 01/27/24 01/27/24 History (0.083 %) solution for nebulization ascorbic acid (vitamin C) 500 mg 500 mg PO BID 01/27/24 01/27/24 History tablet (Vitamin C) azithromycin 250 mg tablet 250 mg PO DIRECTED 01/27/24 01/27/24 History diphenhydramine 25 1 tab PO HS 01/27/24 01/27/24 History mg-acetaminophen 500 mg tablet (Acetaminophen PM) insulin glargine 100 unit/mL (3 45 unit SQ HS 01/27/24 01/27/24 History mL) subcutaneous pen (Lantus Solostar U-100 Insulin) insulin glargine 100 unit/mL (3 80 unit SQ AM 01/27/24 01/27/24 History mL) subcutaneous pen (Lantus Solostar U-100 Insulin) New Prescriptions to Start Prescriptions: Allergies Allergy/AdvReac Type Severity Reaction Status Date / Time ketorolac [From Toradol] Allergy Verified 12/27/23 09:34 prochlorperazine Allergy Verified 12/27/23 09:34 [From Compazine] Results Laboratory Findings 01/27/24 05:54 01/27/24 05:54 Abnormal lab findings: Abnormal Labs 01/26/24 01/26/24 01/26/24 14:11 14:12 18:30 WBC 20.2 H* RBC Neut % (Auto) 87.2 H Lymph % (Auto) 6.4 L Eos % (Auto) Neut # (Auto) 17.6 H [place] # (Auto) 1.1 H Neutrophils % (Manual) 90 H Lymphocytes % (Manual) 8 L VBG pO2 61.6 H VBG HCO3 21.0 L VBG Total CO2 22.2 L VBG O2 Saturation 90.6 H VBG Base Excess -4.8 L VBG Lactic Acid 3.8 H 4.5 H BUN 22 H Glucose 175 H POC Glucose NT-Pro-B Natriuret Pep 661 H Entero/Rhino (PCR) 01/26/24 01/26/24 01/26/24 20:38 20:49 22:30 WBC RBC Neut % (Auto) Lymph % (Auto) Eos % (Auto) Neut # (Auto) [place] # (Auto) Neutrophils % (Manual) Lymphocytes % (Manual) VBG pO2 VBG HCO3 VBG Total CO2 VBG O2 Saturation VBG Base Excess VBG Lactic Acid 4.5 H BUN Glucose POC Glucose 207 H NT-Pro-B Natriuret Pep Entero/Rhino (PCR) Detected A 01/27/24 05:54 WBC 15.3 H RBC 4.07 L Neut % (Auto) Lymph % (Auto) Eos % (Auto) 0.0 L Neut # (Auto) 12.0 H [place] # (Auto) 1.1 H Neutrophils % (Manual) 82 H Lymphocytes % (Manual) VBG pO2 VBG HCO3 VBG Total CO2 VBG O2 Saturation VBG Base Excess VBG Lactic Acid BUN 35 H D Glucose 101 H D POC Glucose NT-Pro-B Natriuret Pep Entero/Rhino (PCR) Assessment and Plan *Assessment and plan (1) COPD exacerbation: Status: Acute Category: Medical Code(s): J44.1 - Chronic obstructive pulmonary disease with (acute) exacerbation (2) Viral pneumonia: Status: Acute Category: Medical Code(s): J12.9 - Viral pneumonia, unspecified Plan Ms. Jacobsen is a 53-year-old female greater than 30 PPD, last moved her September 2023, COPD on Breztri inhaler, unremarkable supplementation only with exertion presented to the hospital with worsening respiratory distress subjective fevers worsening productive cough nausea and vomiting. Patient presented on BiPAP. On admission was initiated on treatment for COPD exacerbation along with empiric vancomycin and Unasyn. Significant neutrophilic leukocytosis upon admission, improving. VBG upon admission did not show any evidence of hypercarbic/hypoxic respiratory failure. However patient presented on BiPAP. Chest x-ray upon presentation to the ER no dense consolidation/airspace disease noted. Complains of respiratory viral PCR panel positive for entero- /rhinovirus. Patient on admission was initiated on vancomycin and levofloxacin, nebs every 4 hours scheduled along with prednisone 40 mg daily. On examination patient in moderate respiratory distress. On 3 L nasal cannula saturating 94%. Significant wheezing noted on auscultation. Plan: Continue levofloxacin from pulmonary standpoint to complete a total of 5-day course for community-acquired pneumonia. DuoNebs every 4 hours scheduled along with Pulmicort every 12 scheduled Continue prednisone 40 mg daily x 5 days Continue trilogy noninvasive ventilator therapy at night for sleep apnea. Continue oxygen supplementation to maintain O2 saturation goal of 90 to 95% during the daytime. Recommend evaluate for other possible source of patient's x-rays given chest x- ray did not show any acute airspace disease. # Thank you for involving pulmonary in this patient care. Will continue to follow.
--- NOTE | 2024-01-27 09:52 | EXP.CARD.CON ---
History of Present Illness History of Present Illness Consult date: 01/27/24 Requesting physician: Srini King Consult reason: chest pain and shortness of breath Chief complaint: Shortness of breath and chest pain History of present illness: This is a 53-year-old white female with past medical history of idiopathic pulmonary fibrosis, heart failure with preserved ejection fraction, COPD, hypertension, hyperlipidemia, diabetes mellitus, chronic respiratory failure on BiPAP in the evening and home oxygen 4 liters presented to emergency department yesterday with complaints of worsening shortness of breath, wheezing, fever, productive cough, vomiting and left-sided chest pain after leaving [facility] for which she was being treated for sepsis and COPD exacerbation. 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 Upon arrival to emergency department her EKG showed sinus rhythm at a rate of 90 without acute ischemic changes noted. Labs were as follow: WBC 20, hemoglobin 15, sodium 137, potassium 4.4, creatinine 0.8, serial troponins were negative and proBNP was 661. Patient was positive for rhinovirus virus. Chest x-ray favored atelectasis in the lung bases. Patient did undergo an echocardiogram in November of this year which showed normal biventricular function with mild RV dilation. Patient was evaluated in cardiology clinic in December of this year in which she was complaining of left-sided chest pain and a CCTA was ordered for further evaluation which has not been performed. Patient had a left heart catheterization in 2017 which was showed normal coronaries with concern for spasming of coronaries. Patient underwent a CTA of chest on January 24 at [facility] which was negative for acute pulmonary embolism, see full report in chart. Patient was admitted for COPD exacerbation and sepsis and was started on vancomycin and Unasyn. Patient was given Lasix 40 mg IV x 1 in the emergency department and is receiving Lasix 40 mg IV twice daily. Patient was also given methylprednisone 125 mg IV in the emergency department and now is on prednisone 40 mg daily. Patient is also receiving IV antibiotics and neb treatments every 4 hours per pulmonology. This morning patient is complaining of shortness of breath, denies chest pain. Cardiology was asked to evaluate and manage exacerbation of chronic heart failure with preserved ejection fraction. Patient has diuresed over 2 L since admission [facility] Disclaimer: The information contained in this section may have been updated after the patient was seen, as this information can be updated by other users. Medical History (Updated 01/27/24 @ 12:58 by Hemant Massey MD) Viral pneumonia History of asthma COPD mixed type COPD exacerbation Pre-op testing CHF (congestive heart failure) History of COPD Stopped smoking with greater than 30 pack year history Dyspnea on exertion Diabetes GERD (gastroesophageal reflux disease) CAD (coronary artery disease) HLD (hyperlipidemia) HTN (hypertension) COPD (chronic obstructive pulmonary disease) Depression Surgical History History of lung biopsy H/O esophagogastroduodenoscopy H/O colonoscopy H/O breast surgery H/O section Family History Other COPD (chronic obstructive pulmonary disease) Cancer Diabetes Heart attack Hypertension Lung cancer Stroke Social History Smoking Status: Unknown if ever smoked smoking status stop date: 07/16/2023 alcohol intake: never substance use type: denies use current occupational status: disabled and other Travel in the last 8 weeks: None Review of Systems Review of Systems Review of systems:: pertinent systems reviewed and negative unless documented below *Cardiovascular Cardiovascular: Reports chest pain and Reports dyspnea *Respiratory Respiratory: Reports cough, Reports dyspnea, Reports excessive phlegm production and Reports wheezing *Gastrointestinal Gastrointestinal: Reports vomiting Allergic/Immunologic Allergic/Immunologic: Reports wheezing Exam Data for Last 24 hours Vital signs and Labs for Last 24 Hours: Temp Pulse Resp BP Pulse Ox O2 Del Method O2 Flow Rate 97.6 F 67 15 127/44 L 94 L Nasal Cannula 2 01/27/24 07:51 01/27/24 09:47 01/27/24 06:00 01/27/24 06:00 01/27/24 09:47 01/27/24 09:47 01/27/24 09:47 Laboratory Results - last 24 hr 01/26/24 14:11: VBG pH 7.34, VBG pCO2 39.6, VBG pO2 61.6 H, VBG HCO3 21.0 L, VBG Total CO2 22.2 L, VBG O2 Saturation 90.6 H, VBG Base Excess -4.8 L, VBG Lactic Acid 3.8 H 01/26/24 14:12: WBC 20.2 H*, RBC 4.96, Hgb 15.0, Hct 45.3, MCV 91.2, MCH 30.2, MCHC 33.2, RDW 13.7, Plt Count 278, MPV 9.0, Neut % (Auto) 87.2 H, Lymph % (Auto) 6.4 L, Bell % (Auto) 5.4, Eos % (Auto) 0.8, Baso % (Auto) 0.2, Neut # (Auto) 17.6 H, Lymph # (Auto) 1.3, Bell # (Auto) 1.1 H, Eos # (Auto) 0.2, Baso # (Auto) 0.1, Total Counted 100, Neutrophils % (Manual) 90 H, Lymphocytes % (Manual) 8 L, Monocytes % (Manual) 2, Platelet Estimate Normal, RBC Morphology Normal, Sodium 137, Potassium 4.4, Chloride 103, Carbon Dioxide 24, Anion Gap 14.4, BUN 22 H, Creatinine 0.80, Estimated Creat Clear 79, Estimated GFR 75, Est GFR ( Amer) 91, Glucose 175 H, Calcium 9.9, Total Bilirubin 0.4, AST 36, ALT 42, Alkaline Phosphatase 117, Troponin I < 0.01, NT-Pro-B Natriuret Pep 661 H, Total Protein 7.6, Albumin 4.6, Globulin 3.0, Albumin/Globulin Ratio 1.5 01/26/24 16:36: Troponin I < 0.01 01/26/24 18:30: VBG Lactic Acid 4.5 H 01/26/24 20:38: POC Glucose 207 H 01/26/24 20:49: Chlamy pneumoniae PCR TNP, Adenovirus (PCR) Not detected, B. pertussis DNA (PCR) TNP, Coronavirus OC43 (PCR) Not detected, Coronavirus HKU1 (PCR) Not detected, Coronavirus 229E (PCR) Not detected, SARS-CoV-2 (PCR) Not detected, Coronavirus NL63 (PCR) Not detected, Human Metapneumovir PCR Not detected, Influenza A (H1) PCR Not detected, Influ A (H1N1/09) PCR Not detected, Influenza A (H3) PCR Not detected, Influenza Type A (PCR) Not detected, Influenza Type B (PCR) Not detected, M. pneumoniae (PCR) TNP, Parainfluenza 1 (PCR) Not detected, Parainfluenza 2 (PCR) Not detected, Parainfluenza 3 (PCR) Not detected, Parainfluenza 4 (PCR) Not detected, RSV (PCR) Not detected, Entero/Rhino (PCR) Detected A 01/26/24 22:30: VBG Lactic Acid 4.5 H 01/27/24 05:54: WBC 15.3 H, RBC 4.07 L, Hgb 12.3 D, Hct 37.4, MCV 92.1, MCH 30.4, MCHC 33.0, RDW 14.1, Plt Count 221, MPV 9.3, Neut % (Auto) 78.7, Lymph % (Auto) 13.9, Bell % (Auto) 7.1, Eos % (Auto) 0.0 L, Baso % (Auto) 0.2, Neut # (Auto) 12.0 H, Lymph # (Auto) 2.1, Bell # (Auto) 1.1 H, Eos # (Auto) 0.0, Baso # (Auto) 0.0, Total Counted 100, Neutrophils % (Manual) 82 H, Band Neutrophils % 1.0, Lymphocytes % (Manual) 13, Monocytes % (Manual) 4, Platelet Estimate Normal, RBC Morphology Normal, Sodium 139, Potassium 4.2, Chloride 105, Carbon Dioxide 28, Anion Gap 10.2, BUN 35 H D, Creatinine 0.90, Estimated Creat Clear 68, Estimated GFR 65, Est GFR ( Amer) 79, Glucose 101 H D, Calcium 9.2 01/27/24 06:09: POC Glucose 108 I & O for Last 24 hours: Intake & Output 01/24/24 01/25/24 01/26/24 01/27/24 23:59 23:59 23:59 23:59 Intake Total 0 / 0 Output Total 900 / 900 Balance -900 / -900 Weight 284 lb 276 lb 12.8 oz Constitutional Constitutional: no acute distress and chronically ill appearing *Routine Respiratory Exam Respiratory: Present wheezes and symmetric chest movement *Routine Cardiovascular Exam Cardiovascular: Present RRR, Normal S1 and Normal S2 *Routine Abdominal Exam Abdominal: Present soft and normoactive bowel sounds; Absent tenderness *Routine Extremities Exam Extremities: Present full ROM and normal capillary refill; Absent edema *Routine Skin Exam Skin: Present intact, dry and warm Detailed Neck Exam: Thyroids Thyroid: Absent bruit Meds Home Medications and Allergies Home Medications Medication Instructions Recorded Confirmed Type aspirin 81 mg tablet,delayed 81 mg PO DAILY 05/12/23 01/26/24 History release atorvastatin 10 mg tablet 10 mg PO DAILY 05/12/23 01/26/24 History bisacodyl 5 mg tablet,delayed 5 mg PO DAILY 05/12/23 01/26/24 History release blood sugar diagnostic (FreeStyle 05/12/23 01/26/24 History Lite Strips) bupropion HCl 300 mg 24 hr tablet, 300 mg PO DAILY 05/12/23 01/26/24 History extended release clonidine HCl 0.1 mg tablet 0.1 mg PO TID 05/12/23 01/26/24 History clopidogrel 75 mg tablet 75 mg PO DAILY 05/12/23 01/26/24 History furosemide 40 mg tablet 40 mg PO BID 05/12/23 01/26/24 History insulin aspart U-100 100 unit/mL See Protocol SQ DAILY 05/12/23 01/27/24 History subcutaneous solution (Novolog U-100 Insulin aspart) lisinopril 20 mg tablet 20 mg PO DAILY 05/12/23 01/26/24 History naloxone 4 mg/actuation nasal spray 1 spray intranasal DIRECTED 05/12/23 01/26/24 History Required for controlled substance pantoprazole 40 mg tablet,delayed 40 mg PO DAILY 05/12/23 01/26/24 History release polyethylene glycol 3350 17 17 g PO DAILY 05/12/23 01/26/24 History gram/dose oral powder potassium chloride 20 mEq 20 meq PO TID 05/12/23 01/26/24 History tablet,extended release(part/cryst) (Klor-Con M) trazodone 100 mg tablet 200 mg PO HS 05/12/23 01/26/24 History diclofenac epolamine 1.3 % 1 patch topical BID #30 ea 06/21/23 01/26/24 Rx transdermal 12 hour patch (Flector) metoprolol succinate 25 mg 25 mg PO DAILY #30 tabs 11/23/23 01/26/24 Rx tablet,extended release 24 hr guaifenesin 600 mg tablet, 600 mg PO Q12H PRN Congestion 11/25/23 01/26/24 History extended release 12 hr linaclotide 72 mcg capsule 72 mcg PO DAILY 11/25/23 01/26/24 History (Linzess) lorazepam 0.5 mg tablet 1 mg PO BID 11/25/23 01/26/24 History sertraline 100 mg tablet 100 mg PO DAILY 11/25/23 01/26/24 History albuterol sulfate 90 mcg/actuation 2 puff inhalation QID PRN 12/21/23 01/26/24 Rx aerosol inhaler (ProAir HFA) shortness of breath or wheezing 90 days #8.5 grams gabapentin 600 mg tablet 600 mg PO TID #90 tabs 12/31/23 01/26/24 Rx ondansetron 4 mg disintegrating 4 mg PO Q8H PRN nausea and 12/31/23 01/26/24 Rx tablet vomiting #30 tabs ropinirole 0.5 mg tablet 0.5 mg PO HS #30 tabs 12/31/23 01/26/24 Rx oxycodone-acetaminophen 5 mg-325 1 tab PO BID #60 tabs 01/05/24 01/26/24 Rx mg tablet (Percocet) sertraline 50 mg tablet 50 mg PO HS 01/26/24 01/26/24 History acetaminophen 500 mg tablet 1,000 mg PO Q4HP PRN Pain 01/27/24 01/27/24 History albuterol sulfate 2.5 mg/3 mL 2.5 mg continuous nebulization Q4H 01/27/24 01/27/24 History (0.083 %) solution for nebulization ascorbic acid (vitamin C) 500 mg 500 mg PO BID 01/27/24 01/27/24 History tablet (Vitamin C) azithromycin 250 mg tablet 250 mg PO DIRECTED 01/27/24 01/27/24 History diphenhydramine 25 1 tab PO HS 01/27/24 01/27/24 History mg-acetaminophen 500 mg tablet (Acetaminophen PM) insulin glargine 100 unit/mL (3 45 unit SQ HS 01/27/24 01/27/24 History mL) subcutaneous pen (Lantus Solostar U-100 Insulin) insulin glargine 100 unit/mL (3 80 unit SQ AM 01/27/24 01/27/24 History mL) subcutaneous pen (Lantus Solostar U-100 Insulin) New Prescriptions to Start Prescriptions: Allergies Allergy/AdvReac Type Severity Reaction Status Date / Time ketorolac [From Toradol] Allergy Verified 12/27/23 09:34 prochlorperazine Allergy Verified 12/27/23 09:34 [From Compazine] Assessment and Plan *Assessment and plan (1) Acute on chronic respiratory failure with hypoxemia: Status: Acute Category: Medical Code(s): J96.21 - Acute and chronic respiratory failure with hypoxia (2) Sepsis: Status: Acute Category: Medical Code(s): A41.9 - Sepsis, unspecified organism (3) Acute exacerbation of chronic obstructive airways disease: Status: Acute Category: Medical Code(s): J44.1 - Chronic obstructive pulmonary disease with (acute) exacerbation (4) Heart failure with preserved ejection fraction: Status: Acute Category: Medical Code(s): I50.30 - Unspecified diastolic (congestive) heart failure (5) HTN (hypertension): Status: Acute Qualifiers: Hypertension type: unspecified Qualified Code(s): I10 - Essential (primary) hypertension Category: Medical Code(s): I10 - Essential (primary) hypertension (6) HLD (hyperlipidemia): Status: Acute Qualifiers: Hyperlipidemia type: unspecified Qualified Code(s): E78.5 - Hyperlipidemia, unspecified Category: Medical Code(s): E78.5 - Hyperlipidemia, unspecified Plan Chronic respiratory failure Acute COPD exacerbation Sepsis Rhinovirus -Will defer management of sepsis/antibiotics/acute COPD exacerbation treatment to primary service and pulmonology. Diabetes mellitus -Defer to primary service Chronic HFpEF NYHA II-III -Echocardiogram November 2023 shows normal biventricular function with mild RV dilation. -Repeat echo shows no change -Patient is receiving Lasix 40 mg IV twice daily and has diuresed over 2 L. Will transition to Lasix 40 mg p.o. twice daily. -Start Jardiance 10 mg p.o. daily -Monitor I's and O's Atypical chest pain History of's coronary vasospasm History of normal coronaries -Serial troponins negative -EKG negative for acute ischemic changes -Patient was recently scheduled for CCTA to further evaluate chest pain and patient did not show -History of normal coronaries in 2018 with vasospasm to RCA and LAD -Recommend starting patient on Imdur 60 mg p.o. daily -Further ischemic evaluation outpatient Hypertension -Blood pressure is elevated with systolic in the 150s. Continue to diurese with Lasix 40 mg p.o. twice daily -Continue lisinopril 20 mg daily -Start Imdur 60 mg p.o. daily Hyperlipidemia -LDL goal less than 55. NO LDL on file. Continue Lipitor 10 CV summary 01/27/2024: Patient stable at this time, repeat echocardiogram shows no change from previous. Serial troponins are negative. Recommend continue home dose of Lasix 40 mg p.o. twice daily and add Jardiance 10 mg p.o. daily for symptoms of heart failure with preserved ejection fraction. Cardiology will sign off. Please have patient follow-up in cardiology clinic in 1 week for reevaluation post discharge home. Patient will need outpatient ischemic evaluation to further evaluate coronaries. Please continue below listed medications and contact service as needed. Aspirin 81 mg daily Lasix 40 mg p.o. twice daily Lisinopril 20 mg daily Imdur 60 mg daily
--- NOTE | 2024-01-27 10:07 | SW/DCPLANNER ---
Addendum entered by Taina Horowitz 01/31/24 14:52: Isabel w/ [facility] stated that services resumed today for this patient. Original Note: This patient is currently established w/ [facility]. I will fax patient information and resume services once patient is medically stable for discharge.
[2024-01-27] MEDS: EMPAGLIFLOZIN 10MG TABLET 10 MG PO (11:27)
[2024-01-27] MEDS: FUROSEMIDE 40 MG TABLET PO ×2 (11:27→16:31)
[2024-01-27] MEDS: ISOSORBIDE MONO 60MG TAB.ER.24H 60 MG PO (11:27)
[2024-01-27 11:30] LABS: POC Glucose,Bedside 142 (70-110)
--- NOTE | 2024-01-27 15:14 | EXP.PAIN.PRO ---
Procedure Date: 01/27/24 Time: 13:21 Anesthesiologist:: Gianna Briseno APRN Complications:: None Pre-procedure Diagnosis:: Degenerative disc disease of lumbar spine with lumbar radiculopathy symptoms, chronic pain disorder Post-procedure Diagnosis:: Same Indications for Procedure:: Patient is a pleasant 53-year-old female who presents today for follow-up and consultation from the floor. She rates her pain today a 10 out of 10. Patient denies any new falls or injuries. She states that she was having a COPD exacerbation and more severe pain so she did go to the ER for evaluation at [facility]. Patient states that she was being treated there however she ended up going AMA in order to come to our hospital to be treated where Dr. Herrera's office is. Patient states that she is still having severe pain and does not feel like her pump is working as well. Patient did just recently have morphine added to her bupivacaine pump. Patient has been given oral opioid medications in addition to her pain pump here at the hospital. Patient is currently managed with morphine 1 mg/mL with a daily dose of 0.0999 mg/day and bupivacaine 5 mg/mL with a daily dose of 0.4997 mg/day. She denies any side effects from this medication her Maximo has been reviewed. Physical Exam: General: Alert and oriented x3, no acute distress, pleasant and cooperative Lungs: Respirations even and unlabored, symmetrical chest expansion Eyes: PERRL Musculoskeletal: Flexion and extension of lumbar [spine] somewhat guarded secondary to pain, [antalgic gait noted] Neurological: Speech clear, no gross sensory deficit Procedure Details:: Informed consent was obtained and the risk and benefits of the procedure were explained to the patient. Patient was taken to the procedure room where noninvasive monitoring was placed including noninvasive blood pressure cuff and pulse oximeter. Patient's pump was interrogated and was reprogrammed to morphine 0.12 mg/day and bupivacaine 0.6001 mg/day. The patient tolerated the procedure well with no complications. Plan and Disposition:: I have discussed at length with the patient regarding her intrathecal pump medication and prescription oral pain medications. Patient has been counseled at previous visits that we will see her more frequently to make additional adjustments and increases to get her better pain coverage. I have counseled the patient that we cannot do both oral opioids and opioids in her pump due to increased risk of side effects/overdose. Patient does have end-stage COPD and I have counseled her that this may aggravate her overall symptoms. Patient acknowledges understanding. I have also reviewed over her pain agreement with the patient to explain that if she continues to be noncompliant and get oral opioids in combination with her pump medication that we will not be able to increase her intrathecal dosage but then we will have to switch out to just bupivacaine as well as there is a chance that she can be discharged from our office for noncompliance. Patient acknowledges understanding and agrees with the current plan of care. We will follow-up with the hospitalist to go over our discussion and plan of care. We will continue to monitor her notes as there is no discharge plan currently for her due to her COPD exacerbation. We will be planning on seeing her back in our office after she is discharged from the floor for reevaluation of symptoms and plan of care. Patient did tolerate her intrathecal increase with no complications. Patient has been instructed to contact the clinic with any concerns before the next appointment. Dr. Herrera has reviewed this note and agrees with this plan of care. This note was dictated using voice recognition software and make contain errors or omissions. -- It Is medically necessary for this patient to continue to have their intrathecal pump refilled at regular intervals. This patient had an intrathecal pain pump implanted after meeting criteria of chronic intractable pain for greater than 3 months and failing conservative treatments. Patient has committed and been compliant to the treatment plan and all planned follow up care. Since implantation of the intrathecal pain pump, the patient has had decreased pain and been more functional. Oral medications have been reduced including intake of oral opioids. Patient continues to do well with intrathecal therapy with decrease in pain symptoms and increase in functional status. Stopping intrathecal medications can lead to life threatening withdrawal, seizures, cardiac arrest, severe pain, and possible . Pumps that are not refilled at regular intervals can be damages and cause and need for replacement. We continually titrate dose and concentration to optimize pain relief and function. We are limited in concentration for certain drugs to safely deliver medications through the pump and stay within the recommendations from the Polyanalges[employer] Consensus Committee Guidelines. Depending on dose and concentration these pumps may need to be refilled sooner than 3 months as we titrate.
--- NOTE | 2024-01-27 15:46 | EXP.PN ---
Subjective *Date: 01/27/24 *Time: 15:46 Interval history: patient was seen and evaluated at the bedside. No reported acute events overnight, denies chest pain, shortness of breath, nausea, vomiting, abdominal pain. Exam Data for Last 24 hours Vital signs and Labs for Last 24 Hours: Temp Pulse Resp BP Pulse Ox O2 Del Method O2 Flow Rate 98.1 F 80 15 90/39 L 87 L Nasal Cannula 3 01/27/24 12:36 01/27/24 14:12 01/27/24 12:36 01/27/24 12:36 01/27/24 14:12 01/27/24 15:05 01/27/24 15:05 Laboratory Results - last 24 hr 01/26/24 16:36: Troponin I < 0.01 01/26/24 18:30: VBG Lactic Acid 4.5 H 01/26/24 20:38: POC Glucose 207 H 01/26/24 20:49: Chlamy pneumoniae PCR TNP, Adenovirus (PCR) Not detected, B. pertussis DNA (PCR) TNP, Coronavirus OC43 (PCR) Not detected, Coronavirus HKU1 (PCR) Not detected, Coronavirus 229E (PCR) Not detected, SARS-CoV-2 (PCR) Not detected, Coronavirus NL63 (PCR) Not detected, Human Metapneumovir PCR Not detected, Influenza A (H1) PCR Not detected, Influ A (H1N1/09) PCR Not detected, Influenza A (H3) PCR Not detected, Influenza Type A (PCR) Not detected, Influenza Type B (PCR) Not detected, M. pneumoniae (PCR) TNP, Parainfluenza 1 (PCR) Not detected, Parainfluenza 2 (PCR) Not detected, Parainfluenza 3 (PCR) Not detected, Parainfluenza 4 (PCR) Not detected, RSV (PCR) Not detected, Entero/Rhino (PCR) Detected A 01/26/24 22:30: VBG Lactic Acid 4.5 H 01/27/24 05:54: WBC 15.3 H, RBC 4.07 L, Hgb 12.3 D, Hct 37.4, MCV 92.1, MCH 30.4, MCHC 33.0, RDW 14.1, Plt Count 221, MPV 9.3, Neut % (Auto) 78.7, Lymph % (Auto) 13.9, Douglas % (Auto) 7.1, Eos % (Auto) 0.0 L, Baso % (Auto) 0.2, Neut # (Auto) 12.0 H, Lymph # (Auto) 2.1, Douglas # (Auto) 1.1 H, Eos # (Auto) 0.0, Baso # (Auto) 0.0, Total Counted 100, Neutrophils % (Manual) 82 H, Band Neutrophils % 1.0, Lymphocytes % (Manual) 13, Monocytes % (Manual) 4, Platelet Estimate Normal, RBC Morphology Normal, Sodium 139, Potassium 4.2, Chloride 105, Carbon Dioxide 28, Anion Gap 10.2, BUN 35 H D, Creatinine 0.90, Estimated Creat Clear 68, Estimated GFR 65, Est GFR ( Amer) 79, Glucose 101 H D, Calcium 9.2 01/27/24 06:09: POC Glucose 108 01/27/24 11:21: POC Glucose 142 H I & O for Last 24 hours: Intake & Output 01/24/24 01/25/24 01/26/24 01/27/24 23:59 23:59 23:59 23:59 Intake Total 480 / 480 Output Total 3600 / 3600 Balance -3120 / -3120 Weight 128.82 kg 125.554 kg Constitutional Constitutional: no acute distress *Routine HEENT Exam Head: Present normocephalic Eye: Present EOMI and PERRL ENT: Present mucous membranes moist *Routine Neck Exam Neck: Present supple; Absent lymphadenopathy *Routine Respiratory Exam Respiratory: Present CTA bilaterally *Routine Cardiovascular Exam Cardiovascular: Present RRR *Routine Abdominal Exam Abdominal: Present soft and normoactive bowel sounds; Absent tenderness *Routine Extremities Exam Extremities: Absent cyanosis, clubbing or edema *Routine Skin Exam Skin: Present warm; Absent rash *Routine Neurological Exam Neurological: Present alert and oriented X3 Assessment and Plan *Assessment and plan (1) Acute on chronic respiratory failure with hypoxemia: Status: Acute Category: Medical Code(s): J96.21 - Acute and chronic respiratory failure with hypoxia (2) Acute exacerbation of chronic obstructive airways disease: Status: Acute Category: Medical Code(s): J44.1 - Chronic obstructive pulmonary disease with (acute) exacerbation (3) Sepsis: Status: Acute Category: Medical Code(s): A41.9 - Sepsis, unspecified organism (4) Chronic GERD: Status: Acute Category: Medical Code(s): K21.9 - Gastro-esophageal reflux disease without esophagitis (5) Atypical chest pain: Status: Acute Category: Medical Code(s): R07.89 - Other chest pain (6) Chronic pain disorder: Status: Acute Category: Medical Code(s): G89.4 - Chronic pain syndrome (7) COPD mixed type: Status: Acute Category: Medical Code(s): J44.9 - Chronic obstructive pulmonary disease, unspecified (8) CHF (congestive heart failure): Status: Acute Qualifiers: Heart failure type: unspecified Heart failure chronicity: chronic Qualified Code(s): I50.9 - Heart failure, unspecified Category: Medical Code(s): I50.9 - Heart failure, unspecified (9) HTN (hypertension): Status: Acute Qualifiers: Hypertension type: unspecified Qualified Code(s): I10 - Essential (primary) hypertension Category: Medical Code(s): I10 - Essential (primary) hypertension (10) HLD (hyperlipidemia): Status: Acute Qualifiers: Hyperlipidemia type: unspecified Qualified Code(s): E78.5 - Hyperlipidemia, unspecified Category: Medical Code(s): E78.5 - Hyperlipidemia, unspecified (11) Diabetes: Status: Acute Category: Medical Code(s): E11.9 - Type 2 diabetes mellitus without complications Plan 53-year-old female with multiple comorbidities who presented to the ER after leaving previous medical facility AM with respiratory distress. Workup in the ER concerning for COPD versus CHF exacerbation. Meeting sepsis criteria with tachypnea, tachycardia, leukocytosis and possible respiratory infection. Sepsis COPD exacerbation Chronic hypoxemic respiratory failure -Tachycardic, tachypneic, leukocytosis, presumed respiratory infection -Continue antibiotics, continue vancomycin but will transition to Levaquin for ease of dosing and given multiple healthcare exposures. continue prednisone, breathing treatments, pulmonary consulted Exacerbation of heart failure with preserved ejection fraction Hypertension Hyperlipidemia -Cardiology consulted -Echo from November with elevated RVSP, EF preserved -BNP elevated in the 600s. Chest imaging concerning for vascularization. - Will continue 40 mg IV twice daily -Holding aspirin and Plavix -Continue Lipitor 10 mg daily, continue lisinopril 20 mg daily, continue metoprolol 25 mg daily. Sleep disorder: Continue trazodone 200 mg hs Mood disorder: Continue Zoloft 25mg daily, continue bupropion 300 mg daily Chronic pain: Continue oxycodone/acetaminophen 5/325 4 times a day as needed for pain, continue metaxalone 800 mg nightly; continue gabapentin 600 mg 3 times daily for pain; pain management consulted to evaluate pain pump GERD: Continue pantoprazole 40 mg daily Diabetes: Sliding scale insulin and fingersticks ACHS. Okay to use CGM if in place and has monitor DNR Diabetic diet Heparin 5000units TID subcu
[2024-01-27] MEDS: humaLOG 100 UNITS/ML 3ML VIAL (SSI) SQ ×2 (16:37→22:45)
[2024-01-27 16:40] LABS: POC Glucose,Bedside 349 (70-110)
--- NOTE | 2024-01-27 18:56 | PC.NURSE ---
A&OX4. PT HAS TOLERATED 2L NC WELL THROUGHOUT SHIFT. RESPIRATIONS REGULAR AND UNLABORED. WHEEZES NOTED THROUGHOUT. PT HAS A DRY, HACKY COUGH. PT AWARE OF NEED FOR SPUTUM BUT HASN'T BEEN ABLE TO PRODUCE ONE YET. HAS REMAINED AT BEDSIDE. ACTIVE BOWEL SOUNDS HEARD IN ALL 4 QUADRANTS. SOFT AND NONTENDER ABDOMEN. MEEKS CATH IN PLACE WITH CLEAR YELLOW URINE DRAINING FREELY. NO KINKS NOTED. HAND CRISIS INTERVENTION COUNSELOR EQUAL. NONPITTING EDEMA NOTED TO BLE. PT HAS BEEN UP IN THE CHAIR MOST OF THE AFTERNOON. PT TOOK A SHOWER TODAY AND TOLERATED WELL. NO QUESTIONS OR CONCERNS VOICED THUS FAR. VANC CURRENTLY INFUSING. PT TOLERATING WELL THUS FAR. PAIN PUMP IN PLACE. SABINE WITH DR SANDY'S OFFICE CAME TO SEE THE PT TODAY. PAIN PUMP DOSAGE WAS INCREASED AND SHE STATED PT IS TO RECEIVE NO OTHER NARCOTICS PO. DR PAT AWARE. BED IN LOWEST POSITION. CALL LIGHT WITHIN REACH. VSS. +1 PULSES NOTED THROUGHOUT.
[2024-01-27] MEDS: SERTRALINE 50MG TABLET 50 MG PO (21:02)
[2024-01-27] MEDS: TRAZODONE 50MG TABLET 200 MG PO (21:02)
[2024-01-27] MEDS: ROPINIROLE 1MG TABLET 0.5 MG PO (21:03)
--- NOTE | 2024-01-27 22:05 | PC.NURSE ---
Pt request heating pad, Dr. Gallagher notified and order for heating pad and lidocaine patch obtained, not able to find working heating pad.
[2024-01-27] MEDS: LIDOCAINE 5% TRANSDERMAL PATCH 1 EACH TP (22:59)
[2024-01-28] VITALS (11 sets, daily range): BP systolic 91–118; BP diastolic 44–61; PULSE 67–82; RESP 17–20; TEMP 36.4–37.1; O2SAT 92–97; BMI 43.4
--- NOTE | 2024-01-28 01:05 | P.DS_ITS ---
General Admission date:: 01/26/24 Discharge date: 01/28/24 HPI HPI HPI: 53-year-old female with COPD, CHF, IPF, hypertension, diabetes, morbid obesity and chronic respiratory failure on 4 L at home and BiPAP at night. She presented to the ER after leaving her previous hospital ([facility]) AM where she was admitted for sepsis and COPD exacerbation. 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 On arrival to the ER, was found to be tachycardic, tachypneic, necessitating at least 4 L or more of oxygen. Complaining of some chest discomfort/pressure. Feeling short of breath and very wheezy on exam. Workup initiated showing leukocytosis, tachycardic time, tachypnea. Chest imaging obtained that showed improvement from last visit with no focal consolidation. Medicine was consulted for admission due to respiratory distress and sepsis criteria. On arrival to the floor, patient was evaluated and wearing her trilogy as she states she is very short of breath without it on. Still complaining of chest pain, troponin negative x 2. No nausea or vomiting. Alert and oriented x 4. Chronically ill-appearing. Hospital Course Hospital Course Hospital Course: 53-year-old female with multiple comorbidities who presented to the ER after leaving previous medical facility [facility] with respiratory distress. Workup in the ER concerning for COPD versus CHF exacerbation. Meeting sepsis criteria with tachypnea, tachycardia, leukocytosis and possible respiratory infection. Sepsis COPD exacerbation Chronic hypoxemic respiratory failure -Tachycardic, tachypneic, leukocytosis, presumed respiratory infection -Continue antibiotics, continue vancomycin but will transition to Levaquin for ease of dosing and given multiple healthcare exposures. continue prednisone, breathing treatments, pulmonary consulted -Will complete 5 days of Levaquin and prednisone. Exacerbation of heart failure with preserved ejection fraction Hypertension Hyperlipidemia -Cardiology consulted, Echo from November with elevated RVSP, EF preserved. BNP elevated in the 600s. Chest imaging concerning for vascularization. Responded IV Lasix 40 mg twice daily. Transitioned to Lasix 40 mg twice daily. Started on Jardiance 10 mg daily. Cardiology also recommended initiating Imdur 60 mg daily for atypical chest pain. Patient diuresed well and some improvement in oxygen requirement. Continue home aspirin and Lipitor. Continue lisinopril. Discontinue Plavix and metoprolol daily. Sleep disorder: Continue trazodone 200 mg hs Mood disorder: Continue Zoloft 25mg daily, continue bupropion 300 mg daily Chronic pain: Continue oxycodone/acetaminophen 5/325 per home regimen. Continue metaxalone 800 mg nightly; continue gabapentin 600 mg 3 times daily for pain; pain management consulted to evaluate pain pump will follow with them as an outpatient, GERD: Continue pantoprazole 40 mg daily Diabetes: Sliding scale insulin and fingersticks ACHS. Okay to use CGM if in place and has monitor Urinary retention: Patient had urinary retention during admission. Waddell catheter placed to decompress bladder. Is incontinent at home. Will leave Waddell at discharge. Started on tamsulosin for concern for overflow incontinence and retention. Referred to urology for further evaluation as an outpatient. Total time spent on discharge 32 minutes in counseling, documentation, chart review, and direct care with patient. Exam Data for Last 24 hours Vital signs and Labs for Last 24 Hours: Temp Pulse Resp BP Pulse Ox O2 Del Method O2 Flow Rate 98.4 F 118 H 20 117/53 L 97 Nasal Cannula 3 01/27/24 20:00 01/27/24 22:40 01/27/24 20:00 01/27/24 20:00 01/27/24 20:00 01/27/24 20:00 01/27/24 20:00 Laboratory Results - last 24 hr 01/27/24 05:54: WBC 15.3 H, RBC 4.07 L, Hgb 12.3 D, Hct 37.4, MCV 92.1, MCH 30.4, MCHC 33.0, RDW 14.1, Plt Count 221, MPV 9.3, Neut % (Auto) 78.7, Lymph % (Auto) 13.9, [place] % (Auto) 7.1, Eos % (Auto) 0.0 L, Baso % (Auto) 0.2, Neut # (Auto) 12.0 H, Lymph # (Auto) 2.1, [place] # (Auto) 1.1 H, Eos # (Auto) 0.0, Baso # (Auto) 0.0, Total Counted 100, Neutrophils % (Manual) 82 H, Band Neutrophils % 1.0, Lymphocytes % (Manual) 13, Monocytes % (Manual) 4, Platelet Estimate Normal, RBC Morphology Normal, Sodium 139, Potassium 4.2, Chloride 105, Carbon Dioxide 28, Anion Gap 10.2, BUN 35 H D, Creatinine 0.90, Estimated Creat Clear 68, Estimated GFR 65, Est GFR ( Amer) 79, Glucose 101 H D, Calcium 9.2 01/27/24 06:09: POC Glucose 108 01/27/24 11:21: POC Glucose 142 H 01/27/24 16:32: POC Glucose 349 H* I & O for Last 24 hours: Intake & Output 01/25/24 01/26/24 01/27/24 01/28/24 23:59 23:59 23:59 23:59 Intake Total 559 / 559 Output Total 3600 / 3600 Balance -3041 / -3041 Weight 128.82 kg 125.554 kg Constitutional Constitutional: no acute distress, obese and chronically ill appearing *Routine HEENT Exam Head: Present normocephalic Eye: Present EOMI and PERRL ENT: Present mucous membranes moist *Routine Neck Exam Neck: Present supple; Absent lymphadenopathy *Routine Respiratory Exam Respiratory: Present normal respiratory effort; Absent rhonchi, wheezes or crackles *Routine Cardiovascular Exam Cardiovascular: Present RRR *Routine Abdominal Exam Abdominal: Present soft and normoactive bowel sounds; Absent tenderness *Routine Rectal Exam Patient deferred: visual exam *Routine Exam Patient deferred: external exam Comments: Indwelling Waddell in place *Routine Extremities Exam Extremities: Absent cyanosis, clubbing or edema *Routine Skin Exam Skin: Present warm; Absent rash *Routine Neurological Exam Neurological: Present alert, oriented X3 and moving all extremities; Absent altered mental status Results Data Completed and Pending Labs on day of discharge: Labs from last 24 hours 01/27/24 01/27/24 01/27/24 16:32 11:21 06:09 WBC RBC Hgb Hct MCV MCH MCHC RDW Plt Count MPV Neut % (Auto) Lymph % (Auto) [place] % (Auto) Eos % (Auto) Baso % (Auto) Neut # (Auto) Lymph # (Auto) [place] # (Auto) Eos # (Auto) Baso # (Auto) Total Counted Neutrophils % (Manual) Band Neutrophils % Lymphocytes % (Manual) Monocytes % (Manual) Platelet Estimate RBC Morphology Sodium Potassium Chloride Carbon Dioxide Anion Gap BUN Creatinine Estimated Creat Clear Estimated GFR Est GFR ( Amer) Glucose POC Glucose 349 H* 142 H 108 Calcium 01/27/24 05:54 WBC 15.3 H RBC 4.07 L Hgb 12.3 D Hct 37.4 MCV 92.1 MCH 30.4 MCHC 33.0 RDW 14.1 Plt Count 221 MPV 9.3 Neut % (Auto) 78.7 Lymph % (Auto) 13.9 [place] % (Auto) 7.1 Eos % (Auto) 0.0 L Baso % (Auto) 0.2 Neut # (Auto) 12.0 H Lymph # (Auto) 2.1 [place] # (Auto) 1.1 H Eos # (Auto) 0.0 Baso # (Auto) 0.0 Total Counted 100 Neutrophils % (Manual) 82 H Band Neutrophils % 1.0 Lymphocytes % (Manual) 13 Monocytes % (Manual) 4 Platelet Estimate Normal RBC Morphology Normal Sodium 139 Potassium 4.2 Chloride 105 Carbon Dioxide 28 Anion Gap 10.2 BUN 35 H D Creatinine 0.90 Estimated Creat Clear 68 Estimated GFR 65 Est GFR ( Amer) 79 Glucose 101 H D POC Glucose Calcium 9.2 DS: Diagnosis Discharge Diagnosis (1) Acute on chronic respiratory failure with hypoxemia: Status: Acute Code(s): J96.21 - Acute and chronic respiratory failure with hypoxia (2) Acute exacerbation of chronic obstructive airways disease: Status: Acute Code(s): J44.1 - Chronic obstructive pulmonary disease with (acute) exacerbation (3) Sepsis: Status: Acute Code(s): A41.9 - Sepsis, unspecified organism (4) Chronic GERD: Status: Acute Code(s): K21.9 - Gastro-esophageal reflux disease without esophagitis (5) Atypical chest pain: Status: Acute Code(s): R07.89 - Other chest pain (6) Chronic pain disorder: Status: Acute Code(s): G89.4 - Chronic pain syndrome (7) COPD mixed type: Status: Acute Code(s): J44.9 - Chronic obstructive pulmonary disease, unspecified (8) CHF (congestive heart failure): Status: Acute Code(s): I50.9 - Heart failure, unspecified Qualifiers: Heart failure chronicity: chronic Heart failure type: unspecified Qualified Code(s): I50.9 - Heart failure, unspecified (9) HTN (hypertension): Status: Acute Code(s): I10 - Essential (primary) hypertension Qualifiers: Hypertension type: unspecified Qualified Code(s): I10 - Essential (primary) hypertension (10) HLD (hyperlipidemia): Status: Acute Code(s): E78.5 - Hyperlipidemia, unspecified Qualifiers: Hyperlipidemia type: unspecified Qualified Code(s): E78.5 - Hyperlipidemia, unspecified (11) Diabetes: Status: Acute Code(s): E11.9 - Type 2 diabetes mellitus without complications Meds Home Medications and Allergies Home Medications Medication Instructions Recorded Confirmed Type aspirin 81 mg tablet,delayed 81 mg PO DAILY 05/12/23 01/26/24 History release atorvastatin 10 mg tablet 10 mg PO DAILY 05/12/23 01/26/24 History bisacodyl 5 mg tablet,delayed 5 mg PO DAILY 05/12/23 01/26/24 History release blood sugar diagnostic (FreeStyle 05/12/23 01/26/24 History Lite Strips) bupropion HCl 300 mg 24 hr tablet, 300 mg PO DAILY 05/12/23 01/26/24 History extended release insulin aspart U-100 100 unit/mL See Protocol SQ DAILY 05/12/23 01/27/24 History subcutaneous solution (Novolog U-100 Insulin aspart) lisinopril 20 mg tablet 20 mg PO DAILY 05/12/23 01/26/24 History naloxone 4 mg/actuation nasal spray 1 spray intranasal DIRECTED 05/12/23 01/26/24 History Required for controlled substance pantoprazole 40 mg tablet,delayed 40 mg PO DAILY 05/12/23 01/26/24 History release polyethylene glycol 3350 17 17 g PO DAILY 05/12/23 01/26/24 History gram/dose oral powder potassium chloride 20 mEq 20 meq PO TID 05/12/23 01/26/24 History tablet,extended release(part/cryst) (Klor-Con M) trazodone 100 mg tablet 200 mg PO HS 05/12/23 01/26/24 History diclofenac epolamine 1.3 % 1 patch topical BID #30 ea 06/21/23 01/26/24 Rx transdermal 12 hour patch (Flector) metoprolol succinate 25 mg 25 mg PO DAILY #30 tabs 11/23/23 01/26/24 Rx tablet,extended release 24 hr guaifenesin 600 mg tablet, 600 mg PO Q12H PRN Congestion 11/25/23 01/26/24 History extended release 12 hr linaclotide 72 mcg capsule 72 mcg PO DAILY 11/25/23 01/26/24 History (Linzess) lorazepam 0.5 mg tablet 1 mg PO BID 11/25/23 01/26/24 History sertraline 100 mg tablet 100 mg PO DAILY 11/25/23 01/26/24 History albuterol sulfate 90 mcg/actuation 2 puff inhalation QID PRN 12/21/23 01/26/24 Rx aerosol inhaler (ProAir HFA) shortness of breath or wheezing 90 days #8.5 grams gabapentin 600 mg tablet 600 mg PO TID #90 tabs 12/31/23 01/26/24 Rx ondansetron 4 mg disintegrating 4 mg PO Q8H PRN nausea and 12/31/23 01/26/24 Rx tablet vomiting #30 tabs ropinirole 0.5 mg tablet 0.5 mg PO HS #30 tabs 12/31/23 01/26/24 Rx oxycodone-acetaminophen 5 mg-325 1 tab PO BID #60 tabs 01/05/24 01/26/24 Rx mg tablet (Percocet) sertraline 50 mg tablet 50 mg PO HS 01/26/24 01/26/24 History acetaminophen 500 mg tablet 1,000 mg PO Q4HP PRN Pain 01/27/24 01/27/24 History albuterol sulfate 2.5 mg/3 mL 2.5 mg continuous nebulization Q4H 01/27/24 01/27/24 History (0.083 %) solution for nebulization ascorbic acid (vitamin C) 500 mg 500 mg PO BID 01/27/24 01/27/24 History tablet (Vitamin C) azithromycin 250 mg tablet 250 mg PO DIRECTED 01/27/24 01/27/24 History diphenhydramine 25 1 tab PO HS 01/27/24 01/27/24 History mg-acetaminophen 500 mg tablet (Acetaminophen PM) insulin glargine 100 unit/mL (3 45 unit SQ HS 01/27/24 01/27/24 History mL) subcutaneous pen (Lantus Solostar U-100 Insulin) empagliflozin 10 mg tablet 10 mg PO DAILY 30 days #30 tabs 01/28/24 Rx (Jardiance) furosemide 40 mg tablet 40 mg PO BID 30 days #60 tabs 01/28/24 Rx isosorbide mononitrate 60 mg 60 mg PO DAILY 30 days #30 tabs 01/28/24 Rx tablet,extended release 24 hr levofloxacin 750 mg tablet 750 mg PO DAILY 3 days #3 tabs 01/28/24 Rx prednisone 20 mg tablet 40 mg (2 x 20 mg) PO DAILY 3 days 01/28/24 Rx #6 tabs tamsulosin 0.4 mg capsule 0.4 mg PO HS 30 days #30 caps 01/28/24 Rx New Prescriptions to Start Prescriptions: empagliflozin [Jardiance] Elliott,Janes furosemide Elliott,Janes levofloxacin Elliott,Janes prednisone Elliott,Janes tamsulosin Elliott,Janes Allergies Allergy/AdvReac Type Severity Reaction Status Date / Time ketorolac [From Toradol] Allergy Verified 12/27/23 09:34 prochlorperazine Allergy Verified 12/27/23 09:34 [From Compazine] Discharge Plan Disposition Patient Disposition: Home, Self-Care Condition: Fair Discharge Order Discharge Orders: Discharge Order (Routine); Ordered 01/28/24 Ordered By: Janes Gallagher Follow up Plan Follow up with: Dewayne Herrera MD [Staff Physician] - Enter time for follow up Karl Negron MD [Staff Physician] - Enter time for follow up (Urinary retention, discharged with Waddell. Follow-up as soon as possible) Hemant Massey MD [Physician] - Enter time for follow up Hakeem Blanca MD [Staff Physician] - Enter time for follow up Prescriptions/Medication Reconciliation: New Jardiance 10 mg Tablet 10 mg PO DAILY 30 Days Qty: 30 0RF isosorbide mononitrate 60 mg Tablet Extended Release 24 Hr 60 mg PO DAILY 30 Days Qty: 30 0RF tamsulosin 0.4 mg Capsule 0.4 mg PO HS 30 Days Qty: 30 0RF prednisone 20 mg Tablet 40 mg PO DAILY 3 Days Qty: 6 0RF levofloxacin 750 mg tablet 750 mg PO DAILY 3 Days Qty: 3 0RF Continued metoprolol succinate 25 mg tablet extended release 24 hr 25 mg PO DAILY Qty: 30 11RF albuterol sulfate [ProAir HFA] 90 mcg/actuation HFA aerosol inhaler 2 puff inhalation QID PRN (Reason: shortness of breath or wheezing) 90 Days Qty: 8.5 3RF atorvastatin 10 mg tablet 10 mg PO DAILY lisinopril 20 mg tablet 20 mg PO DAILY (DME) FreeStyle Lite Strips Strip MISCELLANEOUS Patient Comments: USE DIRECTED aspirin 81 mg tablet,delayed release (DR/EC) 81 mg PO DAILY potassium chloride [Klor-Con M20] 20 mEq tablet,ER particles/crystals 20 meq PO TID trazodone 100 mg tablet 200 mg PO HS insulin aspart U-100 [Novolog U-100 Insulin aspart] 100 unit/mL solution See Protocol SQ DAILY Protocol: Insulin Corrective Med-Dose Regimen Condition: Fingerstick Blood Glucose Dose/Route: Insulin Units Condition: 151-200 mg/dl Dose/Route: 2 units/SQ Condition: 201-250 mg/dl Dose/Route: 5 units/SQ Condition: 251-300 mg/dl Dose/Route: 8 units/SQ Condition: 301-350 mg/dl Dose/Route: 10 units/SQ Condition: 351-400 mg/dl Dose/Route: 12 units/SQ Condition: 401-450 mg/dl Dose/Route: 15 units/SQ Condition: > 450 mg/dl Dose/Route: CALL MD Protocol Text: Medium Intensity Sliding Scale Insulin Rx Instructions: Sliding scale with meals only pantoprazole 40 mg tablet,delayed release (DR/EC) 40 mg PO DAILY bisacodyl 5 mg tablet,delayed release (DR/EC) 5 mg PO DAILY polyethylene glycol 3350 17 gram/dose powder 17 g PO DAILY bupropion HCl 300 mg tablet extended release 24 hr 300 mg PO DAILY naloxone 4 mg/actuation spray,non-aerosol 1 spray INTRANASAL DIRECTED Rx Instructions: Use one spray in nostril if needed. May repeat every 2-3 minutes until patient is responsive. diclofenac epolamine [Flector] 1.3 % patch 12 hour 1 patch topical BID Qty: 30 0RF lorazepam 0.5 mg tablet 1 mg PO BID sertraline 100 mg tablet 100 mg PO DAILY Patient Comments: TAKE 1 TABLET BY MOUTH EVERY DAY guaifenesin 600 mg tablet extended release 12hr 600 mg PO Q12H PRN (Reason: Congestion) Linzess 72 mcg capsule 72 mcg PO DAILY ondansetron 4 mg tablet,disintegrating 4 mg PO Q8H PRN (Reason: nausea and vomiting) Qty: 30 0RF gabapentin 600 mg tablet 600 mg PO TID Qty: 90 0RF ropinirole 0.5 mg tablet 0.5 mg PO HS Qty: 30 0RF Rx Instructions: administer 1-3 hours before bedtime oxycodone-acetaminophen [Percocet] 5-325 mg tablet 1 tab PO BID Qty: 60 0RF sertraline 50 mg Tablet 50 mg PO HS albuterol sulfate 2.5 mg /3 mL (0.083 %) solution for nebulization 2.5 mg continuous nebulization Q4H Patient Comments: INHALE THREE (3) ML EVERY FOUR (4) HOURS BY NEBULIZATION ROUTE DIRECTED. azithromycin 250 mg tablet 250 mg PO DIRECTED Patient Comments: TAKE ONE TABLET ONCE ON [id number] Rx Instructions: Take 1 tablet by mouth once on Wednesday, Wednesday, and Wednesday insulin glargine [Lantus Solostar U-100 Insulin] 100 unit/mL (3 mL) insulin pen 45 unit SQ HS Patient Comments: INJECT 80 UNITS EVERY DAY BY SUBCUTANEOUS ROUTE AT BEDTIME. acetaminophen 500 mg Tablet 1,000 mg PO Q4HP PRN (Reason: Pain) ascorbic acid (vitamin C) [Vitamin C] 500 mg Tablet 500 mg PO BID diphenhydramine-acetaminophen [Acetaminophen PM] 25-500 mg Tablet 1 tab PO HS furosemide 40 mg tablet 40 mg PO BID 30 Days Qty: 60 0RF Discontinued clonidine HCl 0.1 mg tablet 0.1 mg PO TID clopidogrel 75 mg tablet 75 mg PO DAILY insulin glargine [Lantus Solostar U-100 Insulin] 100 unit/mL (3 mL) insulin pen 80 unit SQ AM Patient Comments: INJECT 80 UNITS EVERY DAY BY SUBCUTANEOUS ROUTE AT BEDTIME. Problem Reconciliation Problems Reviewed?: Yes Patient Discharge Instructions ACTIVITY: Continue current activity DIET: continue same diet Patient Instructions: Chronic Obstructive Pulmonary Disease (Alternative Therapy), Chronic Obstructive Pulmonary Disease, DI for Chronic Obstructive Pulmonary Disease, Be a Partner in Your COPD Care, Physical Activity for People with COPD Providers Primary Care Provider: Carlota Warner Admit Provider: Srini King Attending Provider: Srini King
--- NOTE | 2024-01-28 01:23 | PC.NURSE ---
PT IS WEARING 4L OF O2. PT WEARS THIS AT HOME.
[2024-01-28] MEDS: HEPARIN SODIUM 5,000 UNIT/ML VIAL 5000 UNIT SQ ×3 (02:10→18:38)
[2024-01-28 02:20] LABS: POC Glucose,Bedside 237 (70-110)
--- NOTE | 2024-01-28 04:25 | PC.NURSE ---
Pt is alert and oriented x4, and currently tolerating 4L of O2 and sating at 95%. Pt c/o pain and has been treated per MAR. Pt continues to have intermittent coughing and lungs remain diminished bilateral. Pt lyons catheter remains in place and is flowing freely with no issues noted. Pt has requested multiple ice packs and continues to c/o of lower back pain. staff has offered repositioning and comfort measures. Pt has rested intermittently with c-pap on and is tolerating it well. Pt has also tolerated antibiotic therapy well this shift. Pt denies needs at this time.
[2024-01-28] MEDS: ACETAMINOPHEN 325MG TAB 650 MG PO ×4 (04:46→22:55)
[2024-01-28] MEDS: humaLOG 100 UNITS/ML 3ML VIAL (SSI) SQ ×4 (05:24→23:26)
[2024-01-28 05:43] LABS: POC Glucose,Bedside 185 (70-110)
[2024-01-28] MEDS: IPRATROPIUM/ALBUTEROL 3 ML NEB IH ×5 (05:58→22:08)
[2024-01-28] MEDS: BUDESONIDE 0.5MG/2ML NEB 0.5 MG IH ×2 (05:58→18:29)
[2024-01-28 06:05] LABS: Basophils # 0.1 K/mm3 (0-0.2); Basophils % 0.9 % (0.1-2.0); Eosinophils # 0.1 K/mm3 (0.0-0.4); Eosinophils % 0.8 % (0.1-12.0); Hematocrit 37.2 % (37.0-47.0); Lymphocytes # 2.4 K/mm3 (0.7-4.5); Lymphocytes % 26.4 % (10-50); Mean Corpuscular HGB Conc 32.2 g/dL (31.8-35.4); Mean Corpuscular Hemoglobin 29.6 pg (27.0-31.2); Mean Corpuscular Volume 91.9 fl (81-99); Monocytes # 0.8 K/mm3 (0.1-1.0); Monocytes % 8.6 % (1.7-9.3); Neutrophils # 5.9 K/mm3 (1.8-7.8); Neutrophils % 63.3 % (37.0-80.0); Platelet Count 214 K/mm3 (142-424); Red Blood Count 4.04 M/mm3 (4.20-5.40); White Blood Count 9.2 K/mm3 (4.8-10.8)
[2024-01-28 06:13] LABS: Anion Gap 8.6 mEq/L (5-15); Blood Urea Nitrogen 32 mg/dl (7-17); Calcium 8.6 mg/dl (8.4-10.2); Carbon Dioxide 28 mmol/L (22.0-30.0); Chloride 105 mmol/L (98-107); Creatinine Clearance Estimated 61 mL/min (50-200); Estimated Glomerular Filt Rate 58 ml/min (>60); GFR (African American) 70 ML/MIN (>60); Glucose 127 mg/dl (74-100); Potassium 3.6 mmoL/L (3.5-5.1); Sodium 138 mmol/L (136-145)
[2024-01-28 06:22] LABS: Vancomycin,Trough 17.9 ug/mL (5.0-10.0)
--- NOTE | 2024-01-28 06:42 | PC.NURSE ---
Pt vancomycin trough resulted at 17.9, consulted Sonja Olivares at [facility], sonja advised to continue with ordered dose as scheduled.
[2024-01-28] MEDS: VANCOMYCIN HCL 2,000 MG in 0.9 % SODIUM CHLORIDE 250 ML 125 MG IV (07:07)
[2024-01-28] MEDS: buPROPion HCl SR 150MG TAB 150 MG PO (08:07)
[2024-01-28] MEDS: DOCUSATE SODIUM 100 MG CAPSULE PO (08:07)
[2024-01-28] MEDS: GABAPENTIN 600MG TABLET 600 MG PO ×3 (08:07→22:55)
[2024-01-28] MEDS: predniSONE 20MG TAB 40 MG PO (08:07)
[2024-01-28] MEDS: ISOSORBIDE MONO 60MG TAB.ER.24H 60 MG PO (08:08)
[2024-01-28] MEDS: FUROSEMIDE 40 MG TABLET PO ×2 (08:08→16:03)
[2024-01-28] MEDS: ATORVASTATIN 10MG TABLET 10 MG PO (08:08)
[2024-01-28] MEDS: POLYETHYLENE GLYCOL 3350 17 GM PACKET PO (08:08)
[2024-01-28] MEDS: BISACODYL 5MG TABLET 5 MG PO (08:09)
[2024-01-28] MEDS: EMPAGLIFLOZIN 10MG TABLET 10 MG PO (08:09)
[2024-01-28] MEDS: SERTRALINE 100MG TABLET 100 MG PO (08:09)
[2024-01-28] MEDS: PANTOPRAZOLE 40MG TABLET 40 MG PO (08:09)
[2024-01-28] MEDS: LORazepam 1MG TABLET 1 MG PO ×2 (08:10→22:54)
--- NOTE | 2024-01-28 09:36 | P.PN_ITS ---
Subjective *Date: 01/28/24 *Time: 12:41 Interval history: No acute respiratory events overnight. Patient denies any new respiratory complaints. Continued to have cough. Pulmonology Exam Inpatient Vital signs and Labs for Last 24 Hours: Temp Pulse Resp BP Pulse Ox O2 Del Method O2 Flow Rate 98.7 F 71 18 100/50 L 92 L Nasal Cannula 4 01/28/24 04:00 01/28/24 06:03 01/28/24 04:00 01/28/24 08:05 01/28/24 08:00 01/28/24 09:00 01/28/24 09:00 Laboratory Results - last 24 hr 01/27/24 05:54: Total Counted 100, Neutrophils % (Manual) 82 H, Band Neutrophils % 1.0, Lymphocytes % (Manual) 13, Monocytes % (Manual) 4, Platelet Estimate Normal, RBC Morphology Normal 01/27/24 11:21: POC Glucose 142 H 01/27/24 16:32: POC Glucose 349 H* 01/27/24 22:02: POC Glucose 237 H 01/28/24 05:21: POC Glucose 185 H 01/28/24 05:46: WBC 9.2 D, RBC 4.04 L, Hgb 12.0 L, Hct 37.2, MCV 91.9, MCH 29.6, MCHC 32.2, RDW 14.0, Plt Count 214, MPV 9.0, Neut % (Auto) 63.3, Lymph % (Auto) 26.4, [place] % (Auto) 8.6, Eos % (Auto) 0.8, Baso % (Auto) 0.9, Neut # (Auto) 5.9, Lymph # (Auto) 2.4, [place] # (Auto) 0.8, Eos # (Auto) 0.1, Baso # (Auto) 0.1, Sodium 138, Potassium 3.6, Chloride 105, Carbon Dioxide 28, Anion Gap 8.6, BUN 32 H, Creatinine 1.00, Estimated Creat Clear 61, Estimated GFR 58 L , Est GFR ( Amer) 70, Glucose 127 H D, Calcium 8.6, Vancomycin Trough 17.9 H I & O for Labs for Last 24 Hours: Intake & Output 01/25/24 01/26/24 01/27/24 01/28/24 23:59 23:59 23:59 23:59 Intake Total 559 / 1069 870 / 870 Output Total 3600 / 3600 750 / 750 Balance -3041 / -2531 120 / 120 Weight 284 lb 276 lb 12.8 oz 276 lb 12.469 oz Constitutional: Present moderate distress Head: Present normocephalic and atraumatic ENT: Present normal exam, normal oropharynx and mucous membranes moist Neck: Present normal inspection and full ROM Respiratory: Present prolonged expiratory phase, respiratory distress, wheezes and able to speak in complete sentences Cardiac: Present S1/S2, Tachycardia and radial pulses present GI: Present soft and distention; Absent tenderness or guarding Rectal (female): Present deferred (female): Present deferred Skin: Present intact; Absent cyanosis or jaundice Neuro: Present alert, awake and oriented x 3 Extremities: Present normal inspection; Absent clubbing or cyanosis Psychiatric: Present normal affect and cooperative Assessment and Plan *Assessment and plan (1) COPD exacerbation: Status: Acute Category: Medical Code(s): J44.1 - Chronic obstructive pulmonary disease with (acute) exacerbation (2) Viral pneumonia: Status: Acute Category: Medical Code(s): J12.9 - Viral pneumonia, unspecified Plan Ms. Jacobsen is a 53-year-old female greater than 30 PPD, last moved her September 2023, COPD on Breztri inhaler, unremarkable supplementation only with exertion presented to the hospital with worsening respiratory distress subjective fevers worsening productive cough nausea and vomiting. Patient presented on BiPAP. On admission was initiated on treatment for COPD exacerbation along with empiric vancomycin and Unasyn. Significant neutrophilic leukocytosis upon admission, improving. VBG upon admission did not show any evidence of hypercarbic/hypoxic respiratory failure. However patient presented on BiPAP. Chest x-ray upon presentation to the ER no dense consolidation/airspace disease noted. Complains of respiratory viral PCR panel positive for entero- /rhinovirus. Patient on admission was initiated on vancomycin and levofloxacin, nebs every 4 hours scheduled along with prednisone 40 mg daily. On initial examination patient in moderate respiratory distress. On 3 L nasal cannula saturating 94%. Significant wheezing noted on auscultation. Interval Update: No acute respiratory vents overnight. Improving leukocytosis. Stable/worsening consequence. Patient on 4 L this morning saturating 84%. Increased to 5 L. Closely monitor before discharging the patient. Continue to have significant wheezing on auscultation. Plan: On my examination patient saturating 84% on 4 L, increased to 5 L. Recommend continuous pulse oximetry monitoring to document stable oxygen saturations at 90-95 and current oxygen requirements prior to discharge. Continue levofloxacin from pulmonary standpoint to complete a total of 5-day course for community-acquired pneumonia. DuoNebs every 4 hours scheduled along with Pulmicort every 12 scheduled Continue prednisone 40 mg daily x 5 days Continue trilogy noninvasive ventilator therapy at night for sleep apnea. Recommend evaluate for other possible source of patient's x-rays given chest x- ray did not show any acute airspace disease. # Thank you for involving pulmonary in this patient care. Will continue to follow. If patient were to be discharged over the weekend will follow the patient in 2 weeks post discharge
--- NOTE | 2024-01-28 10:15 | EXP.PAIN.SOA ---
[facility] Pain Management SOAP Note Subjective:: Patient is a pleasant 53-year-old female who we are following up with overall in the [facility] floor. Patient did have a 20% increase of her intrathecal pump done yesterday and she states that she did notice significant improvement for about an hour. Patient does still state that her pain is upwards of 9 out of 10 today. Patient does state that they are planning on discharging her later today. Patient is managed with gabapentin, ropinirole and previously Skelaxin from our office. Patient states that she did not really seem to notice overall improvement with the Skelaxin. Her Maximo has been reviewed and is appropriate. Review of Systems: General: No recent weight changes, no fever, no sleep disturbances Respiratory: No cough, no shortness of air, no recurring pulmonary infections Cardiovascular/peripheral vascular: No chest pain, no palpitations, no edema, no shortness of breath Gastrointestinal: No new onset incontinence, normal bowel movements reported Genitourinary: No new onset incontinence Musculoskeletal: Low back pain Psychiatric: [Normal mood/affect] Neurological: [Denies weakness in extremities], [denies balance issues] Objective:: Physical Exam: General: Alert and oriented x3, no acute distress, pleasant and cooperative Lungs: Respirations even and unlabored, symmetrical chest expansion Eyes: PERRL Musculoskeletal: Flexion and extension of lumbar [spine] somewhat guarded secondary to pain, [antalgic gait noted] Neurological: Speech clear, no gross sensory deficit Assessment:: Degenerative disc disease of lumbar spine with lumbar radiculopathy symptoms, chronic pain syndrome, end-stage COPD Plan:: Patient continues to experience significant pain in her low back. I have counseled the patient that we cannot increase her pump today due to just doing a 20% increase yesterday and it has been less than 24 hours. I have discussed with the patient that it would be beneficial for her to return to our office for follow-up for additional increase of her pump in the next week or 2. Patient states that she is unable to get back to [place] due to transportation costs. I have counseled the patient that we will submit her for the at home refill program to help improve her overall symptoms and plan of care. We will submit everything to [facility] today and also allow for them to make up to 20% pump increases as needed. I have counseled the patient regarding this and explained that we do have to make sure she tolerates her increases without any side effects therefore we cannot make them any closer than 1 to 2 weeks between adjustments. Patient acknowledges understanding regarding this. Patient was also still counseled regarding oral pain medications and her opioid pump medication and that she cannot do both due to higher risk of side effects. Patient agrees. We will plan on seeing the patient back in 2 weeks if we are unable to get the [facility] home refill program started sooner than that for additional pump adjustment and reprogram. We will see the patient back in the clinic at the next intrathecal refill. Patient has been instructed to contact the clinic with any concerns before the next appointment. Dr. Herrera has reviewed this note and agrees with this plan of care. This note was dictated using voice recognition software and make contain errors or omissions. -- It Is medically necessary for this patient to continue to have their intrathecal pump refilled at regular intervals. This patient had an intrathecal pain pump implanted after meeting criteria of chronic intractable pain for greater than 3 months and failing conservative treatments. Patient has committed and been compliant to the treatment plan and all planned follow up care. Since implantation of the intrathecal pain pump, the patient has had decreased pain and been more functional. Oral medications have been reduced including intake of oral opioids. Patient continues to do well with intrathecal therapy with decrease in pain symptoms and increase in functional status. Stopping intrathecal medications can lead to life threatening withdrawal, seizures, cardiac arrest, severe pain, and possible . Pumps that are not refilled at regular intervals can be damages and cause and need for replacement. We continually titrate dose and concentration to optimize pain relief and function. We are limited in concentration for certain drugs to safely deliver medications through the pump and stay within the recommendations from the Polyanalgesic Consensus Committee Guidelines. Depending on dose and concentration these pumps may need to be refilled sooner than 3 months as we titrate. [facility] Disclaimer: The information contained in this section may have been updated after the patient was seen, as this information can be updated by other users. Medical History (Updated 01/27/24 @ 12:58 by Hemant Massey MD) Viral pneumonia History of asthma COPD mixed type COPD exacerbation Pre-op testing CHF (congestive heart failure) History of COPD Stopped smoking with greater than 30 pack year history Dyspnea on exertion Diabetes GERD (gastroesophageal reflux disease) CAD (coronary artery disease) HLD (hyperlipidemia) HTN (hypertension) COPD (chronic obstructive pulmonary disease) Depression Surgical History History of lung biopsy H/O esophagogastroduodenoscopy H/O colonoscopy H/O breast surgery H/O section Family History Other COPD (chronic obstructive pulmonary disease) Cancer Diabetes Heart attack Hypertension Lung cancer Stroke Social History Smoking Status: Unknown if ever smoked smoking status stop date: 07/16/2023 alcohol intake: never substance use type: denies use current occupational status: disabled and other Travel in the last 8 weeks: None
[2024-01-28 10:59] LABS: Vancomycin,Peak 43.2 ug/ml (11-39)
--- NOTE | 2024-01-28 11:07 | PC.NURSE ---
Spoke to Antoni[facility] in [facility] at this time to check on how much longer it would be before meds would be ready for DC. They are currently working on filling meds at this time.
[2024-01-28 11:09] LABS: POC Glucose,Bedside 158 (70-110)
[2024-01-28 15:41] LABS: POC Glucose,Bedside 270 (70-110)
--- NOTE | 2024-01-28 17:04 | EXP.PN ---
Subjective *Date: 01/28/24 *Time: 17:04 Interval history: patient was seen and evaluated at the bedside. satting 88% on 4L, denies chest pain, shortness of breath, nausea, vomiting, abdominal pain. Exam Data for Last 24 hours Vital signs and Labs for Last 24 Hours: Temp Pulse Resp BP Pulse Ox O2 Del Method O2 Flow Rate 98.0 F 77 20 116/61 94 L Nasal Cannula 5 01/28/24 16:00 01/28/24 16:00 01/28/24 16:00 01/28/24 16:00 01/28/24 16:00 01/28/24 16:00 01/28/24 16:00 Laboratory Results - last 24 hr 01/27/24 22:02: POC Glucose 237 H 01/28/24 05:21: POC Glucose 185 H 01/28/24 05:46: WBC 9.2 D, RBC 4.04 L, Hgb 12.0 L, Hct 37.2, MCV 91.9, MCH 29.6, MCHC 32.2, RDW 14.0, Plt Count 214, MPV 9.0, Neut % (Auto) 63.3, Lymph % (Auto) 26.4, Harding % (Auto) 8.6, Eos % (Auto) 0.8, Baso % (Auto) 0.9, Neut # (Auto) 5.9, Lymph # (Auto) 2.4, Harding # (Auto) 0.8, Eos # (Auto) 0.1, Baso # (Auto) 0.1, Sodium 138, Potassium 3.6, Chloride 105, Carbon Dioxide 28, Anion Gap 8.6, BUN 32 H, Creatinine 1.00, Estimated Creat Clear 61, Estimated GFR 58 L, Est GFR ( Amer) 70, Glucose 127 H D, Calcium 8.6, Vancomycin Trough 17.9 H 01/28/24 09:42: Vancomycin Peak 43.2 H* 01/28/24 10:50: POC Glucose 158 H 01/28/24 15:33: POC Glucose 270 H I & O for Last 24 hours: Intake & Output 01/25/24 01/26/24 01/27/24 01/28/24 23:59 23:59 23:59 23:59 Intake Total 559 / 1069 1350 / 1350 Output Total 3600 / 3600 2850 / 2850 Balance -3041 / -2531 -1500 / -1500 Weight 128.82 kg 125.554 kg 125.545 kg Constitutional Constitutional: no acute distress *Routine HEENT Exam Head: Present normocephalic Eye: Present EOMI and PERRL ENT: Present mucous membranes moist *Routine Neck Exam Neck: Present supple; Absent lymphadenopathy *Routine Respiratory Exam Respiratory: Present distant breath sounds *Routine Cardiovascular Exam Cardiovascular: Present RRR *Routine Abdominal Exam Abdominal: Present soft and normoactive bowel sounds; Absent tenderness *Routine Extremities Exam Extremities: Absent cyanosis, clubbing or edema *Routine Skin Exam Skin: Present warm; Absent rash *Routine Neurological Exam Neurological: Present alert and oriented X3 Assessment and Plan *Assessment and plan (1) Acute on chronic respiratory failure with hypoxemia: Status: Acute Category: Medical Code(s): J96.21 - Acute and chronic respiratory failure with hypoxia (2) Acute exacerbation of chronic obstructive airways disease: Status: Acute Category: Medical Code(s): J44.1 - Chronic obstructive pulmonary disease with (acute) exacerbation (3) Sepsis: Status: Acute Category: Medical Code(s): A41.9 - Sepsis, unspecified organism (4) Chronic GERD: Status: Acute Category: Medical Code(s): K21.9 - Gastro-esophageal reflux disease without esophagitis (5) Atypical chest pain: Status: Acute Category: Medical Code(s): R07.89 - Other chest pain (6) Chronic pain disorder: Status: Acute Category: Medical Code(s): G89.4 - Chronic pain syndrome (7) COPD mixed type: Status: Acute Category: Medical Code(s): J44.9 - Chronic obstructive pulmonary disease, unspecified (8) CHF (congestive heart failure): Status: Acute Qualifiers: Heart failure type: unspecified Heart failure chronicity: chronic Qualified Code(s): I50.9 - Heart failure, unspecified Category: Medical Code(s): I50.9 - Heart failure, unspecified (9) HTN (hypertension): Status: Acute Qualifiers: Hypertension type: unspecified Qualified Code(s): I10 - Essential (primary) hypertension Category: Medical Code(s): I10 - Essential (primary) hypertension (10) HLD (hyperlipidemia): Status: Acute Qualifiers: Hyperlipidemia type: unspecified Qualified Code(s): E78.5 - Hyperlipidemia, unspecified Category: Medical Code(s): E78.5 - Hyperlipidemia, unspecified (11) Diabetes: Status: Acute Category: Medical Code(s): E11.9 - Type 2 diabetes mellitus without complications Plan 53-year-old female with multiple comorbidities who presented to the ER after leaving previous medical facility AMA with respiratory distress. Workup in the ER concerning for COPD versus CHF exacerbation. Meeting sepsis criteria with tachypnea, tachycardia, leukocytosis and possible respiratory infection. Sepsis COPD exacerbation Chronic hypoxemic respiratory failure -Tachycardic, tachypneic, leukocytosis, presumed respiratory infection -Continue antibiotics, continue vancomycin but will transition to Levaquin - continue prednisone, breathing treatments - wean o2 as tolerated Exacerbation of heart failure with preserved ejection fraction Hypertension Hyperlipidemia -Cardiology consulted -Echo from November with elevated RVSP, EF preserved - strict Is and O2, will order 40 IV lasix once, continue PO lasix -check CXR Sleep disorder: Continue trazodone 200 mg hs Mood disorder: Continue Zoloft 25mg daily, continue bupropion 300 mg daily Chronic pain: Continue oxycodone/acetaminophen 5/325 4 times a day as needed for pain, continue metaxalone 800 mg nightly; continue gabapentin 600 mg 3 times daily for pain; pain management consulted to evaluate pain pump GERD: Continue pantoprazole 40 mg daily Diabetes: Sliding scale insulin DNR Diabetic diet Heparin 5000units TID subcu
--- NOTE | 2024-01-28 17:08 | XR_ITS ---
PROCEDURE INFORMATION: Exam: XR Chest Exam date and time: 01/28/2024 5:42 PM Age: 53 years old Clinical indication: Shortness of breath; Additional info: SOB TECHNIQUE: Imaging protocol: Radiologic exam of the chest. Views: 1 view. COMPARISON: CR XR CHEST PORTABLE 01/26/2024 2:14 PM FINDINGS: Lungs: Unremarkable. No consolidation. Pleural spaces: Unremarkable. No pleural effusion. No pneumothorax. Heart/Mediastinum: Unremarkable. No cardiomegaly. Bones/joints: Unremarkable. IMPRESSION: No acute findings.
[2024-01-28] MEDS: FUROSEMIDE 40MG/4ML VIAL 40 MG IV (18:38)
[2024-01-28] MEDS: VANCOMYCIN HCL 2,000 MG in 0.9 % SODIUM CHLORIDE 500 ML 250 MG IV (19:18)
[2024-01-28 21:45] LABS: POC Glucose,Bedside 215 (70-110)
[2024-01-28] MEDS: TRAZODONE 50MG TABLET 200 MG PO (22:54)
[2024-01-28] MEDS: TAMSULOSIN 0.4MG CAPSULE 0.400000000000000022 MG PO (22:54)
[2024-01-28] MEDS: ROPINIROLE 1MG TABLET 0.5 MG PO (22:55)
[2024-01-28] MEDS: SERTRALINE 50MG TABLET 50 MG PO (22:55)
[2024-01-28] MEDS: LEVOFLOXACIN/D5W 750 MG/150 ML 750 MG/150 ML PIGGYBACK 100 MG IV (22:57)
[2024-01-28] MEDS: ONDANSETRON 4MG/2ML VIAL 4 MG IV (23:26)
[2024-01-28] MEDS: LIDOCAINE 5% TRANSDERMAL PATCH 1 EACH TP (23:27)
[2024-01-29] VITALS: BP 107/64; PULSE 78; RESP 16; TEMP 36.6; O2SAT 97
[2024-01-29] MEDS: IPRATROPIUM/ALBUTEROL 3 ML NEB IH ×3 (02:22→09:49)
[2024-01-29] MEDS: ACETAMINOPHEN 325MG TAB 650 MG PO (03:13)
[2024-01-29] MEDS: HEPARIN SODIUM 5,000 UNIT/ML VIAL 5000 UNIT SQ (03:13)
[2024-01-29 04:00] VITALS: BP 106/59; PULSE 70; PULSE 72; RESP 16; TEMP 36.7; O2SAT 96; BMI 43.4
[2024-01-29 06:33] VITALS: PULSE 74; PULSE 79; O2SAT 94
[2024-01-29] MEDS: BUDESONIDE 0.5MG/2ML NEB 0.5 MG IH (06:33)
[2024-01-29 07:09] LABS: POC Glucose,Bedside 118 (70-110)
[2024-01-29 08:00] VITALS: BP 106/50; PULSE 80; PULSE 88; RESP 16; TEMP 36.6; O2SAT 92
[2024-01-29 08:01] LABS: Basophils # 0.1 K/mm3 (0-0.2); Eosinophils # 0.1 K/mm3 (0.0-0.4); Eosinophils % 1.5 % (0.1-12.0); Hematocrit 40.6 % (37.0-47.0); Hemoglobin 12.8 g/dL (12.2-16.2); Lymphocytes # 2.7 K/mm3 (0.7-4.5); Lymphocytes % 35.6 % (10-50); Mean Corpuscular HGB Conc 31.5 g/dL (31.8-35.4); Mean Corpuscular Hemoglobin 29.4 pg (27.0-31.2); Mean Corpuscular Volume 93.2 fl (81-99); Mean Platelet Volume 8.8 fl (7.4-10.4); Monocytes # 0.7 K/mm3 (0.1-1.0); Monocytes % 8.9 % (1.7-9.3); Neutrophils # 4.1 K/mm3 (1.8-7.8); Platelet Count 223 K/mm3 (142-424); Red Blood Count 4.35 M/mm3 (4.20-5.40); White Blood Count 7.6 K/mm3 (4.8-10.8)
[2024-01-29 08:12] LABS: Anion Gap 9.7 mEq/L (5-15); Blood Urea Nitrogen 21 mg/dl (7-17); Carbon Dioxide 32 mmol/L (22.0-30.0); Chloride 100 mmol/L (98-107); Creatinine Clearance Estimated 68 mL/min (50-200); Estimated Glomerular Filt Rate 65 ml/min (>60); GFR (African American) 79 ML/MIN (>60); Glucose 119 mg/dl (74-100); Potassium 3.7 mmoL/L (3.5-5.1); Sodium 138 mmol/L (136-145)
[2024-01-29 09:10] VITALS: O2SAT 94
[2024-01-29 09:49] VITALS: PULSE 78; O2SAT 82
--- NOTE | 2024-01-29 10:18 | EXP.DC.SUM ---
General Admission date:: 01/26/24 Discharge date: 01/29/24 HPI HPI HPI: 53-year-old female with multiple comorbidities who presented to the ER after leaving previous medical facility AMA with respiratory distress. Workup in the ER concerning for COPD versus CHF exacerbation. Meeting sepsis criteria with tachypnea, tachycardia, leukocytosis and possible respiratory infection. Discussed case with ER, request admission for antibiotics and further consultation with pulmonology and treatment for infection. Medicine agreed to admit for further management. Patient on 4 L oxygen with saturations in the low 90s. On her home [place] by the time of my evaluation. States she is very uncomfortable and continuing to have difficulty breathing. Having atypical chest pain as well, and troponins within normal range. Necessitating further inpatient management. Hospital Course Hospital Course Hospital Course: Patient was seen and evaluated at the bedside on the day of discharge. Patient wishes to be discharged. All patient questions were answered and patient was given time to ask questions. Patient was discharged in stable condition. Patient understands that she can return to ER in case of any sudden changes in health. Total time spent on DC - 38 mins 53-year-old female with multiple comorbidities who presented to the ER after leaving previous medical facility AMA with respiratory distress. Workup in the ER concerning for COPD versus CHF exacerbation. Meeting sepsis criteria with tachypnea, tachycardia, leukocytosis and possible respiratory infection. Sepsis - resolved COPD exacerbation - improved Chronic hypoxemic respiratory failure - at baseline 4L NC, patient is at 4L NC here, satting 92% on 4L at rest which is her baseline , DC on home 4L NC DC on oral Abx Exacerbation of heart failure with preserved ejection fraction - improved Hypertension Hyperlipidemia -Cardiology consulted - no plans for cardiac cath, f/u as OP Sleep disorder: Continue trazodone 200 mg hs Mood disorder: Continue Zoloft 25mg daily, continue bupropion 300 mg daily Chronic pain: Continue oxycodone/acetaminophen 5/325 4 times a day as needed for pain, continue metaxalone 800 mg nightly; continue gabapentin 600 mg 3 times daily for pain; pain management consulted to evaluate pain pump GERD: Continue pantoprazole 40 mg daily Diabetes: Sliding scale insulin Exam Data for Last 24 hours Vital signs and Labs for Last 24 Hours: Temp Pulse Resp BP Pulse Ox O2 Del Method O2 Flow Rate 97.8 F 78 16 106/50 L 82 L Room Air 4 01/29/24 08:00 01/29/24 09:49 01/29/24 08:00 01/29/24 08:00 01/29/24 09:49 01/29/24 09:49 01/29/24 08:00 Laboratory Results - last 24 hr 01/28/24 09:42: Vancomycin Peak 43.2 H* 01/28/24 10:50: POC Glucose 158 H 01/28/24 15:33: POC Glucose 270 H 01/28/24 21:21: POC Glucose 215 H 01/29/24 06:54: POC Glucose 118 H 01/29/24 07:23: WBC 7.6, RBC 4.35, Hgb 12.8, Hct 40.6, MCV 93.2, MCH 29.4, MCHC 31.5 L, RDW 14.0, Plt Count 223, MPV 8.8, Neut % (Auto) 53.0, Lymph % (Auto) 35.6, [place] % (Auto) 8.9, Eos % (Auto) 1.5, Baso % (Auto) 1.0, Neut # (Auto) 4.1, Lymph # (Auto) 2.7, [place] # (Auto) 0.7, Eos # (Auto) 0.1, Baso # (Auto) 0.1, Sodium 138, Potassium 3.7, Chloride 100, Carbon Dioxide 32 H, Anion Gap 9.7, BUN 21 H D, Creatinine 0.90, Estimated Creat Clear 68, Estimated GFR 65, Est GFR ( Amer) 79, Glucose 119 H, Calcium 9.0 I & O for Last 24 hours: Intake & Output 01/26/24 01/27/24 01/28/24 01/29/24 23:59 23:59 23:59 23:59 Intake Total 559 / 1069 1830 / 2370 540 / 540 Output Total 3600 / 3600 5050 / 6450 1400 / 1400 Balance -3041 / -2531 -3220 / -4080 -860 / -860 Weight 128.82 kg 125.554 kg 125.545 kg 125.56 kg Constitutional Constitutional: no acute distress Comments: sleeping comfortably on CPAP, per patient is not mobile and is wheelchair bound *Routine HEENT Exam Head: Present normocephalic Eye: Present EOMI and PERRL ENT: Present mucous membranes moist *Routine Neck Exam Neck: Present supple; Absent lymphadenopathy *Routine Respiratory Exam Respiratory: Present CTA bilaterally *Routine Cardiovascular Exam Cardiovascular: Present RRR *Routine Abdominal Exam Abdominal: Present soft and normoactive bowel sounds; Absent tenderness *Routine Extremities Exam Extremities: Absent cyanosis, clubbing or edema *Routine Skin Exam Skin: Present warm; Absent rash *Routine Neurological Exam Neurological: Present alert and oriented X3 Results Data Completed and Pending Labs on day of discharge: Labs from last 24 hours 01/29/24 01/29/24 01/28/24 07:23 06:54 21:21 WBC 7.6 RBC 4.35 Hgb 12.8 Hct 40.6 MCV 93.2 MCH 29.4 MCHC 31.5 L RDW 14.0 Plt Count 223 MPV 8.8 Neut % (Auto) 53.0 Lymph % (Auto) 35.6 [place] % (Auto) 8.9 Eos % (Auto) 1.5 Baso % (Auto) 1.0 Neut # (Auto) 4.1 Lymph # (Auto) 2.7 [place] # (Auto) 0.7 Eos # (Auto) 0.1 Baso # (Auto) 0.1 Sodium 138 Potassium 3.7 Chloride 100 Carbon Dioxide 32 H Anion Gap 9.7 BUN 21 H D Creatinine 0.90 Estimated Creat Clear 68 Estimated GFR 65 Est GFR ( Amer) 79 Glucose 119 H POC Glucose 118 H 215 H Calcium 9.0 Vancomycin Peak 01/28/24 01/28/24 01/28/24 15:33 10:50 09:42 WBC RBC Hgb Hct MCV MCH MCHC RDW Plt Count MPV Neut % (Auto) Lymph % (Auto) [place] % (Auto) Eos % (Auto) Baso % (Auto) Neut # (Auto) Lymph # (Auto) [place] # (Auto) Eos # (Auto) Baso # (Auto) Sodium Potassium Chloride Carbon Dioxide Anion Gap BUN Creatinine Estimated Creat Clear Estimated GFR Est GFR ( Amer) Glucose POC Glucose 270 H 158 H Calcium Vancomycin Peak 43.2 H* DS: Diagnosis Discharge Diagnosis (1) Acute on chronic respiratory failure with hypoxemia: Status: Acute Code(s): J96.21 - Acute and chronic respiratory failure with hypoxia (2) Acute exacerbation of chronic obstructive airways disease: Status: Acute Code(s): J44.1 - Chronic obstructive pulmonary disease with (acute) exacerbation (3) Sepsis: Status: Acute Code(s): A41.9 - Sepsis, unspecified organism (4) Chronic GERD: Status: Acute Code(s): K21.9 - Gastro-esophageal reflux disease without esophagitis (5) Atypical chest pain: Status: Acute Code(s): R07.89 - Other chest pain (6) Chronic pain disorder: Status: Acute Code(s): G89.4 - Chronic pain syndrome (7) COPD mixed type: Status: Acute Code(s): J44.9 - Chronic obstructive pulmonary disease, unspecified (8) CHF (congestive heart failure): Status: Acute Code(s): I50.9 - Heart failure, unspecified Qualifiers: Heart failure chronicity: chronic Heart failure type: unspecified Qualified Code(s): I50.9 - Heart failure, unspecified (9) HTN (hypertension): Status: Acute Code(s): I10 - Essential (primary) hypertension Qualifiers: Hypertension type: unspecified Qualified Code(s): I10 - Essential (primary) hypertension (10) HLD (hyperlipidemia): Status: Acute Code(s): E78.5 - Hyperlipidemia, unspecified Qualifiers: Hyperlipidemia type: unspecified Qualified Code(s): E78.5 - Hyperlipidemia, unspecified (11) Diabetes: Status: Acute Code(s): E11.9 - Type 2 diabetes mellitus without complications Meds Home Medications and Allergies Home Medications Medication Instructions Recorded Confirmed Type aspirin 81 mg tablet,delayed 81 mg PO DAILY 05/12/23 01/26/24 History release atorvastatin 10 mg tablet 10 mg PO DAILY 05/12/23 01/26/24 History bisacodyl 5 mg tablet,delayed 5 mg PO DAILY 05/12/23 01/26/24 History release blood sugar diagnostic (FreeStyle 05/12/23 01/26/24 History Lite Strips) bupropion HCl 300 mg 24 hr tablet, 300 mg PO DAILY 05/12/23 01/26/24 History extended release insulin aspart U-100 100 unit/mL See Protocol SQ DAILY 05/12/23 01/27/24 History subcutaneous solution (Novolog U-100 Insulin aspart) lisinopril 20 mg tablet 20 mg PO DAILY 05/12/23 01/26/24 History naloxone 4 mg/actuation nasal spray 1 spray intranasal DIRECTED 05/12/23 01/26/24 History Required for controlled substance pantoprazole 40 mg tablet,delayed 40 mg PO DAILY 05/12/23 01/26/24 History release polyethylene glycol 3350 17 17 g PO DAILY 05/12/23 01/26/24 History gram/dose oral powder potassium chloride 20 mEq 20 meq PO TID 05/12/23 01/26/24 History tablet,extended release(part/cryst) (Klor-Con M) trazodone 100 mg tablet 200 mg PO HS 05/12/23 01/26/24 History diclofenac epolamine 1.3 % 1 patch topical BID #30 ea 06/21/23 01/26/24 Rx transdermal 12 hour patch (Flector) metoprolol succinate 25 mg 25 mg PO DAILY #30 tabs 11/23/23 01/26/24 Rx tablet,extended release 24 hr guaifenesin 600 mg tablet, 600 mg PO Q12H PRN Congestion 11/25/23 01/26/24 History extended release 12 hr linaclotide 72 mcg capsule 72 mcg PO DAILY 11/25/23 01/26/24 History (Linzess) lorazepam 0.5 mg tablet 1 mg PO BID 11/25/23 01/26/24 History sertraline 100 mg tablet 100 mg PO DAILY 11/25/23 01/26/24 History albuterol sulfate 90 mcg/actuation 2 puff inhalation QID PRN 12/21/23 01/26/24 Rx aerosol inhaler (ProAir HFA) shortness of breath or wheezing 90 days #8.5 grams gabapentin 600 mg tablet 600 mg PO TID #90 tabs 12/31/23 01/26/24 Rx ondansetron 4 mg disintegrating 4 mg PO Q8H PRN nausea and 12/31/23 01/26/24 Rx tablet vomiting #30 tabs ropinirole 0.5 mg tablet 0.5 mg PO HS #30 tabs 12/31/23 01/26/24 Rx oxycodone-acetaminophen 5 mg-325 1 tab PO BID #60 tabs 01/05/24 01/26/24 Rx mg tablet (Percocet) sertraline 50 mg tablet 50 mg PO HS 01/26/24 01/26/24 History acetaminophen 500 mg tablet 1,000 mg PO Q4HP PRN Pain 01/27/24 01/27/24 History albuterol sulfate 2.5 mg/3 mL 2.5 mg continuous nebulization Q4H 01/27/24 01/27/24 History (0.083 %) solution for nebulization ascorbic acid (vitamin C) 500 mg 500 mg PO BID 01/27/24 01/27/24 History tablet (Vitamin C) azithromycin 250 mg tablet 250 mg PO DIRECTED 01/27/24 01/27/24 History diphenhydramine 25 1 tab PO HS 01/27/24 01/27/24 History mg-acetaminophen 500 mg tablet (Acetaminophen PM) insulin glargine 100 unit/mL (3 45 unit SQ HS 01/27/24 01/27/24 History mL) subcutaneous pen (Lantus Solostar U-100 Insulin) empagliflozin 10 mg tablet 10 mg PO DAILY 30 days #30 tabs 01/28/24 Rx (Jardiance) furosemide 40 mg tablet 40 mg PO BID 30 days #60 tabs 01/28/24 Rx isosorbide mononitrate 60 mg 60 mg PO DAILY #30 tabs 01/28/24 Rx tablet,extended release 24 hr levofloxacin 750 mg tablet 750 mg PO DAILY 3 days #3 tabs 01/28/24 Rx prednisone 20 mg tablet 40 mg (2 x 20 mg) PO DAILY 3 days 01/28/24 Rx #6 tabs tamsulosin 0.4 mg capsule 0.4 mg PO HS 30 days #30 caps 01/28/24 Rx New Prescriptions to Start Prescriptions: empagliflozin [Jardiance] Janes Gallagher furosemide Janes Gallagher isosorbide mononitrate Janes Gallagher levofloxacin Janes Gallagher prednisone Janes Gallagher tamsulosin Janes Gallagher Allergies Allergy/AdvReac Type Severity Reaction Status Date / Time ketorolac [From Toradol] Allergy Verified 12/27/23 09:34 prochlorperazine Allergy Verified 12/27/23 09:34 [From Compazine] Discharge Plan Disposition Patient Disposition: Home, Self-Care Condition: Fair Discharge Order Discharge Orders: Discharge Order (Routine); Ordered 01/29/24 Ordered By: Srini King Follow up Plan Follow up with: Dewayne Herrera MD [Staff Physician] - 02/14/24 9:45 am Karl Negron MD [Staff Physician] - 02/07/24 9:00 am (Urinary retention, discharged with [facility]. Follow-up as soon as possible) Hemant Massey MD [Physician] - 02/03/24 1:15 pm Hakeem Blanca MD [Staff Physician] - 02/08/24 1:15 pm Prescriptions/Medication Reconciliation: New Jardiance 10 mg Tablet 10 mg PO DAILY 30 Days Qty: 30 0RF tamsulosin 0.4 mg Capsule 0.4 mg PO HS 30 Days Qty: 30 0RF prednisone 20 mg Tablet 40 mg PO DAILY 3 Days Qty: 6 0RF levofloxacin 750 mg tablet 750 mg PO DAILY 3 Days Qty: 3 0RF isosorbide mononitrate 60 mg tablet extended release 24 hr 60 mg PO DAILY Qty: 30 0RF Continued metoprolol succinate 25 mg tablet extended release 24 hr 25 mg PO DAILY Qty: 30 11RF albuterol sulfate [ProAir HFA] 90 mcg/actuation HFA aerosol inhaler 2 puff inhalation QID PRN (Reason: shortness of breath or wheezing) 90 Days Qty: 8.5 3RF atorvastatin 10 mg tablet 10 mg PO DAILY lisinopril 20 mg tablet 20 mg PO DAILY (DME) FreeStyle Lite Strips Strip MISCELLANEOUS Patient Comments: USE DIRECTED aspirin 81 mg tablet,delayed release (DR/EC) 81 mg PO DAILY potassium chloride [Klor-Con M20] 20 mEq tablet,ER particles/crystals 20 meq PO TID trazodone 100 mg tablet 200 mg PO HS insulin aspart U-100 [Novolog U-100 Insulin aspart] 100 unit/mL solution See Protocol SQ DAILY Protocol: Insulin Corrective Med-Dose Regimen Condition: Fingerstick Blood Glucose Dose/Route: Insulin Units Condition: 151-200 mg/dl Dose/Route: 2 units/SQ Condition: 201-250 mg/dl Dose/Route: 5 units/SQ Condition: 251-300 mg/dl Dose/Route: 8 units/SQ Condition: 301-350 mg/dl Dose/Route: 10 units/SQ Condition: 351-400 mg/dl Dose/Route: 12 units/SQ Condition: 401-450 mg/dl Dose/Route: 15 units/SQ Condition: > 450 mg/dl Dose/Route: CALL MD Protocol Text: Medium Intensity Sliding Scale Insulin Rx Instructions: Sliding scale with meals only pantoprazole 40 mg tablet,delayed release (DR/EC) 40 mg PO DAILY bisacodyl 5 mg tablet,delayed release (DR/EC) 5 mg PO DAILY polyethylene glycol 3350 17 gram/dose powder 17 g PO DAILY bupropion HCl 300 mg tablet extended release 24 hr 300 mg PO DAILY naloxone 4 mg/actuation spray,non-aerosol 1 spray INTRANASAL DIRECTED Rx Instructions: Use one spray in nostril if needed. May repeat every 2-3 minutes until patient is responsive. diclofenac epolamine [Flector] 1.3 % patch 12 hour 1 patch topical BID Qty: 30 0RF lorazepam 0.5 mg tablet 1 mg PO BID sertraline 100 mg tablet 100 mg PO DAILY Patient Comments: TAKE 1 TABLET BY MOUTH EVERY DAY guaifenesin 600 mg tablet extended release 12hr 600 mg PO Q12H PRN (Reason: Congestion) Linzess 72 mcg capsule 72 mcg PO DAILY ondansetron 4 mg tablet,disintegrating 4 mg PO Q8H PRN (Reason: nausea and vomiting) Qty: 30 0RF gabapentin 600 mg tablet 600 mg PO TID Qty: 90 0RF ropinirole 0.5 mg tablet 0.5 mg PO HS Qty: 30 0RF Rx Instructions: administer 1-3 hours before bedtime oxycodone-acetaminophen [Percocet] 5-325 mg tablet 1 tab PO BID Qty: 60 0RF sertraline 50 mg Tablet 50 mg PO HS albuterol sulfate 2.5 mg /3 mL (0.083 %) solution for nebulization 2.5 mg continuous nebulization Q4H Patient Comments: INHALE THREE (3) ML EVERY FOUR (4) HOURS BY NEBULIZATION ROUTE DIRECTED. azithromycin 250 mg tablet 250 mg PO DIRECTED Patient Comments: TAKE ONE TABLET ONCE ON HBC-PEV-APUZCG Rx Instructions: Take 1 tablet by mouth once on Wednesday, Wednesday, and Wednesday insulin glargine [Lantus Solostar U-100 Insulin] 100 unit/mL (3 mL) insulin pen 45 unit SQ HS Patient Comments: INJECT 80 UNITS EVERY DAY BY SUBCUTANEOUS ROUTE AT BEDTIME. acetaminophen 500 mg Tablet 1,000 mg PO Q4HP PRN (Reason: Pain) ascorbic acid (vitamin C) [Vitamin C] 500 mg Tablet 500 mg PO BID diphenhydramine-acetaminophen [Acetaminophen PM] 25-500 mg Tablet 1 tab PO HS furosemide 40 mg tablet 40 mg PO BID 30 Days Qty: 60 0RF Discontinued clonidine HCl 0.1 mg tablet 0.1 mg PO TID clopidogrel 75 mg tablet 75 mg PO DAILY insulin glargine [Lantus Solostar U-100 Insulin] 100 unit/mL (3 mL) insulin pen 80 unit SQ AM Patient Comments: INJECT 80 UNITS EVERY DAY BY SUBCUTANEOUS ROUTE AT BEDTIME. Problem Reconciliation Problems Reviewed?: Yes Patient Discharge Instructions ACTIVITY: Continue current activity DIET: continue same diet Patient Instructions: Chronic Obstructive Pulmonary Disease (Alternative Therapy), Chronic Obstructive Pulmonary Disease, DI for Chronic Obstructive Pulmonary Disease, Be a Partner in Your COPD Care, Physical Activity for People with COPD Providers Primary Care Provider: Carlota Warner Provider: Srini King Attending Provider: Srini King
[2024-01-29] MEDS: VANCOMYCIN HCL 2,000 MG in 0.9 % SODIUM CHLORIDE 250 ML 250 MG IV (10:30)
[2024-01-29] MEDS: ATORVASTATIN 10MG TABLET 10 MG PO (10:32)
[2024-01-29] MEDS: DOCUSATE SODIUM 100 MG CAPSULE PO (10:33)
[2024-01-29] MEDS: buPROPion HCl SR 150MG TAB 150 MG PO (10:33)
[2024-01-29] MEDS: EMPAGLIFLOZIN 10MG TABLET 10 MG PO (10:33)
[2024-01-29] MEDS: GABAPENTIN 600MG TABLET 600 MG PO (10:33)
[2024-01-29] MEDS: FUROSEMIDE 40 MG TABLET PO (10:33)
[2024-01-29] MEDS: BISACODYL 5MG TABLET 5 MG PO (10:33)
[2024-01-29] MEDS: ISOSORBIDE MONO 60MG TAB.ER.24H 60 MG PO (10:34)
[2024-01-29] MEDS: PANTOPRAZOLE 40MG TABLET 40 MG PO (10:34)
[2024-01-29] MEDS: predniSONE 20MG TAB 40 MG PO (10:34)
[2024-01-29] MEDS: SERTRALINE 100MG TABLET 100 MG PO (10:34)
--- NOTE | 2024-01-29 11:02 | PC.NURSE ---
i stood pt up to the side of the bed, saturation @ 85% on 4lnc. unable to tolerate ambulation @ this time
--- NOTE | 2024-01-29 11:37 | PC.NURSE ---
spoke with MD regarding pt ly[facility]. he wants to leave it in upon discahrge and have pt follow up with pcp or urology
--- NOTE | 2024-01-29 12:03 | PC.NURSE ---
all discharge education completed with pt. [place]addell intact. Spouse @ bedside. iv discontinued. pt has portable oxygen tanks.
--- NOTE | 2024-01-31 16:18 | CARE MANAGER ---
Called and spoke with patient regarding recent discharge. Patient states that she is struggling with keeping her O2 up, was seen by HH this morning and told to use her trilogy breathing machine. She was able to start her new medication, and voiced no other complaints at time of call.
== END 2024-01-29 12:11 | disposition home or self-care (01) | DRG 291 ==
LOC: ER 17:52 → 2ND 17:55
PROVIDERS: Internal Medicine Adolescent Medicine; Admitting Provider Internal Medicine; Emergency Provider Emergency Medicine; PCP Nurse Practitioner Family; Visit Provider Internal Medicine
DX: I11.0 Hypertensive heart disease with heart failure (principal); A41.9 Sepsis, unspecified organism; I50.33 Acute on chronic diastolic (congestive) heart failure; J12.9 Viral pneumonia, unspecified; J44.1 Chronic obstructive pulmonary disease with (acute) exacerbation; J44.0 Chronic obstructive pulmonary disease with (acute) lower respiratory infection; K21.9 Gastro-esophageal reflux disease without esophagitis; G89.4 Chronic pain syndrome; E78.5 Hyperlipidemia, unspecified; E11.9 Type 2 diabetes mellitus without complications; Z97.8 Presence of other specified devices; Z79.4 Long term (current) use of insulin; J84.10 Pulmonary fibrosis, unspecified; G47.9 Sleep disorder, unspecified; G89.29 Other chronic pain; Z66 Do not resuscitate; B97.89 Other viral agents as the cause of diseases classified elsewhere; R07.89 Other chest pain
CPT/HCPCS: 62367; 36415; 62368; 71045; 80048; 80053; 80202; 82803; 82962; 83605; 83880; 84484; 85007; 85025; 87040; 87070; 87205; 87632; 87635; 93005; 93306; 94640; 94761; 99291; J1956; J2405; J3370

== ENCOUNTER 2024-02-03 14:11 | Emergency (ER) | payer MEDICAID, SELFPAY ==
[2024-02-03] VITALS (12 sets, daily range): BP systolic 89–195; BP diastolic 33–124; PULSE 64–78; RESP 15–20; TEMP 36.7–36.9; O2SAT 91–97; BMI 43.8
--- NOTE | 2024-02-03 14:13 | ECG_ITS ---
APPROVED REPORT Exam: Resting ECG HR:71 bpm ECG Measurements Heart Rate 71 AXES ND 156 P 55 QRSd 97 QRS -43 QT 356 T 52 QTc 379 Conclusion SINUS RHYTHM LEFT AXIS DEVIATION [QRS AXIS < -30] PATTERN CONSISTENT WITH PULMONARY DISEASE Electronically signed by : SABINE SPENCER, 02/03/2024 21:51:47
--- NOTE | 2024-02-03 14:21 | ED_ITS ---
Discharge Plan Disposition Patient Disposition: Admitted Chief Complaint: Chest Pain Prescriptions Prescriptions: No Action metoprolol succinate 25 mg tablet extended release 24 hr 25 mg PO DAILY Qty: 30 11RF albuterol sulfate [ProAir HFA] 90 mcg/actuation HFA aerosol inhaler 2 puff inhalation QID PRN (Reason: shortness of breath or wheezing) 90 Days Qty: 8.5 3RF Breztri Aerosphere 160-9-4.8 mcg/actuation HFA aerosol inhaler 2 inh inhalation BID 90 Days Qty: 10.7 3RF atorvastatin 10 mg tablet 10 mg PO DAILY lisinopril 20 mg tablet 20 mg PO DAILY (DME) FreeStyle Lite Strips Strip MISCELLANEOUS Patient Comments: USE DIRECTED aspirin 81 mg tablet,delayed release (DR/EC) 81 mg PO DAILY potassium chloride [Klor-Con M20] 20 mEq tablet,ER particles/crystals 20 meq PO TID trazodone 100 mg tablet 200 mg PO HS insulin aspart U-100 [Novolog U-100 Insulin aspart] 100 unit/mL solution See Protocol SQ DAILY Protocol: Insulin Corrective Med-Dose Regimen Condition: Fingerstick Blood Glucose Dose/Route: Insulin Units Condition: 151-200 mg/dl Dose/Route: 2 units/SQ Condition: 201-250 mg/dl Dose/Route: 5 units/SQ Condition: 251-300 mg/dl Dose/Route: 8 units/SQ Condition: 301-350 mg/dl Dose/Route: 10 units/SQ Condition: 351-400 mg/dl Dose/Route: 12 units/SQ Condition: 401-450 mg/dl Dose/Route: 15 units/SQ Condition: > 450 mg/dl Dose/Route: CALL MD Protocol Text: Medium Intensity Sliding Scale Insulin Rx Instructions: Sliding scale with meals only pantoprazole 40 mg tablet,delayed release (DR/EC) 40 mg PO DAILY bisacodyl 5 mg tablet,delayed release (DR/EC) 5 mg PO DAILY polyethylene glycol 3350 17 gram/dose powder 17 g PO DAILY bupropion HCl 300 mg tablet extended release 24 hr 300 mg PO DAILY naloxone 4 mg/actuation spray,non-aerosol 1 spray INTRANASAL DIRECTED Rx Instructions: Use one spray in nostril if needed. May repeat every 2-3 minutes until patient is responsive. diclofenac epolamine [Flector] 1.3 % patch 12 hour 1 patch topical BID Qty: 30 0RF lorazepam 0.5 mg tablet 1 mg PO BID sertraline 100 mg tablet 100 mg PO DAILY Patient Comments: TAKE 1 TABLET BY MOUTH EVERY DAY guaifenesin 600 mg tablet extended release 12hr 600 mg PO Q12H PRN (Reason: Congestion) Linzess 72 mcg capsule 72 mcg PO DAILY ondansetron 4 mg tablet,disintegrating 4 mg PO Q8H PRN (Reason: nausea and vomiting) Qty: 30 0RF gabapentin 600 mg tablet 600 mg PO TID Qty: 90 0RF ropinirole 0.5 mg tablet 0.5 mg PO HS Qty: 30 0RF Rx Instructions: administer 1-3 hours before bedtime oxycodone-acetaminophen [Percocet] 5-325 mg tablet 1 tab PO BID Qty: 60 0RF sertraline 50 mg Tablet 50 mg PO HS albuterol sulfate 2.5 mg /3 mL (0.083 %) solution for nebulization 2.5 mg continuous nebulization Q4H Patient Comments: INHALE THREE (3) ML EVERY FOUR (4) HOURS BY NEBULIZATION ROUTE DIRECTED. insulin glargine [Lantus Solostar U-100 Insulin] 100 unit/mL (3 mL) insulin pen 45 unit SQ HS Patient Comments: INJECT 80 UNITS EVERY DAY BY SUBCUTANEOUS ROUTE AT BEDTIME. acetaminophen 500 mg Tablet 1,000 mg PO Q4HP PRN (Reason: Pain) ascorbic acid (vitamin C) [Vitamin C] 500 mg Tablet 500 mg PO BID diphenhydramine-acetaminophen [Acetaminophen PM] 25-500 mg Tablet 1 tab PO HS Jardiance 10 mg Tablet 10 mg PO DAILY 30 Days Qty: 30 0RF tamsulosin 0.4 mg Capsule 0.4 mg PO HS 30 Days Qty: 30 0RF furosemide 40 mg tablet 40 mg PO BID 30 Days Qty: 60 0RF levofloxacin 750 mg tablet 750 mg PO DAILY 3 Days Qty: 3 0RF isosorbide mononitrate 60 mg tablet extended release 24 hr 60 mg PO DAILY Qty: 30 0RF Referrals Follow up/Referrals: Provider,Referral, [Referring] - See instructions Clinical Impressions Clinical Impression: Acute on chronic respiratory failure with hypoxemia Discharge ED Provider: Jermaine White HPI <JAMES Boyd - Last Filed: 02/03/24 14:21> General Chief Complaint: Chest Pain Stated Complaint: Chest Pain Time Seen by Provider: 02/03/24 14:12 Mode of Arrival: Wheelchair Source of Information: Patient Limitations: No Limitations Description of Symptoms (Recalled from ER Triage Doc. by RN): pt reports substernal chest pain that as been going on for 2 weeks, rating it 10/10 and states it radiates to her L breast and R shoulder blade, also reports shortness of breath and nonproductive cough Related Data Home Medications Medication Instructions Recorded Confirmed aspirin 81 mg tablet,delayed 81 mg PO DAILY 05/12/23 02/03/24 release atorvastatin 10 mg tablet 10 mg PO DAILY 05/12/23 02/03/24 bisacodyl 5 mg tablet,delayed 5 mg PO DAILY 05/12/23 02/03/24 release blood sugar diagnostic (FreeStyle 05/12/23 02/03/24 Lite Strips) bupropion HCl 300 mg 24 hr tablet, 300 mg PO DAILY 05/12/23 02/03/24 extended release insulin aspart U-100 100 unit/mL See Protocol SQ DAILY 05/12/23 02/03/24 subcutaneous solution (Novolog U-100 Insulin aspart) lisinopril 20 mg tablet 20 mg PO DAILY 05/12/23 02/03/24 naloxone 4 mg/actuation nasal spray 1 spray intranasal DIRECTED 05/12/23 02/03/24 Required for controlled substance pantoprazole 40 mg tablet,delayed 40 mg PO DAILY 05/12/23 02/03/24 release polyethylene glycol 3350 17 17 g PO DAILY 05/12/23 02/03/24 gram/dose oral powder potassium chloride 20 mEq 20 meq PO TID 05/12/23 02/03/24 tablet,extended release(part/cryst) (Klor-Con M) trazodone 100 mg tablet 200 mg PO HS 05/12/23 02/03/24 guaifenesin 600 mg tablet, 600 mg PO Q12H PRN Congestion 11/25/23 02/03/24 extended release 12 hr linaclotide 72 mcg capsule 72 mcg PO DAILY 11/25/23 02/03/24 (Linzess) lorazepam 0.5 mg tablet 1 mg PO BID 11/25/23 02/03/24 sertraline 100 mg tablet 100 mg PO DAILY 11/25/23 02/03/24 sertraline 50 mg tablet 50 mg PO HS 01/26/24 02/03/24 acetaminophen 500 mg tablet 1,000 mg PO Q4HP PRN Pain 01/27/24 02/03/24 albuterol sulfate 2.5 mg/3 mL 2.5 mg continuous nebulization Q4H 01/27/24 02/03/24 (0.083 %) solution for nebulization ascorbic acid (vitamin C) 500 mg 500 mg PO BID 01/27/24 02/03/24 tablet (Vitamin C) diphenhydramine 25 1 tab PO HS 01/27/24 02/03/24 mg-acetaminophen 500 mg tablet (Acetaminophen PM) insulin glargine 100 unit/mL (3 45 unit SQ HS 01/27/24 02/03/24 mL) subcutaneous pen (Lantus Solostar U-100 Insulin) Previous Rx's Medication Instructions Recorded diclofenac epolamine 1.3 % 1 patch topical BID #30 ea 06/21/23 transdermal 12 hour patch (Flector) metoprolol succinate 25 mg 25 mg PO DAILY #30 tabs 11/23/23 tablet,extended release 24 hr albuterol sulfate 90 mcg/actuation 2 puff inhalation QID PRN 12/21/23 aerosol inhaler (ProAir HFA) shortness of breath or wheezing 90 days #8.5 grams gabapentin 600 mg tablet 600 mg PO TID #90 tabs 12/31/23 ondansetron 4 mg disintegrating 4 mg PO Q8H PRN nausea and 12/31/23 tablet vomiting #30 tabs ropinirole 0.5 mg tablet 0.5 mg PO HS #30 tabs 12/31/23 oxycodone-acetaminophen 5 mg-325 1 tab PO BID #60 tabs 01/05/24 mg tablet (Percocet) empagliflozin 10 mg tablet 10 mg PO DAILY 30 days #30 tabs 01/28/24 (Jardiance) furosemide 40 mg tablet 40 mg PO BID 30 days #60 tabs 01/28/24 isosorbide mononitrate 60 mg 60 mg PO DAILY #30 tabs 01/28/24 tablet,extended release 24 hr levofloxacin 750 mg tablet 750 mg PO DAILY 3 days #3 tabs 01/28/24 tamsulosin 0.4 mg capsule 0.4 mg PO HS 30 days #30 caps 01/28/24 budesonide 160 mcg-glycopyr 9 2 inh inhalation BID 90 days #10.7 02/03/24 mcg-formot 4.8 mcg/actuation HFA grams inhaler (Breztri Aerosphere) Allergies Allergy/AdvReac Type Severity Reaction Status Date / Time ketorolac [From Toradol] Allergy Verified 02/03/24 14:22 prochlorperazine Allergy Verified 02/03/24 14:22 [From Compazine] <Jermaine White MD - Last Filed: 02/03/24 15:02> History of Present Illness HPI narrative: This is a 53-year-old female with history of idiopathic pulmonary fibrosis, CHF, COPD on 5 L nasal cannula, trilogy as needed, hypertension, hyperlipidemia presenting with chest pain. Patient states that chest pain has been getting worse since she was discharged from the hospital just recently. Substernal, radiates toward her jaw, feels like my jaw locks up. Called her nuclear control operator who told her to come to the emergency department. Patient denies fevers, chills, nausea, vomiting, sick contacts, productive cough, or any other concerns. Has been taking medication as prescribed. Has not needed increased oxygen. States that this is different pain than she usually has and more intense. Please note that above description of symptoms, in this electronic medical record under categorization of recalled from ER triage doctor by RN are reflective of an initial nursing assessment, however, is not reflective of my full history and physical exam that was personally taken and clarified. Consequentially, this preceding description of symptoms, which may include the patient's categorized chief complaint in the EMR, do not reflect my personal clinical impression, and the ultimate description of history of present illness and patient stated complaints should be deferred to this section of the note. Unless stated otherwise or congruent with this section of the note, additional signs, symptoms, or incongruence should be interpreted as inaccurate with my clinical impression. [facility] <JAMES Boyd - Last Filed: 02/03/24 14:21> [facility] Disclaimer: The information contained in this section may have been updated after the patient was seen, as this information can be updated by other users. Medical History Viral pneumonia History of asthma COPD mixed type COPD exacerbation Pre-op testing CHF (congestive heart failure) History of COPD Stopped smoking with greater than 30 pack year history Dyspnea on exertion Diabetes GERD (gastroesophageal reflux disease) CAD (coronary artery disease) HLD (hyperlipidemia) HTN (hypertension) COPD (chronic obstructive pulmonary disease) Depression Surgical History History of lung biopsy H/O esophagogastroduodenoscopy H/O colonoscopy H/O breast surgery TO REMOVE BENIGN TUMORS H/O section Family History Other COPD (chronic obstructive pulmonary disease) Cancer Diabetes Heart attack Hypertension Lung cancer Stroke Social History Smoking Status: Former smoker smoking status stop date: 07/16/2023 alcohol intake: never substance use type: denies use current occupational status: disabled and other Travel in the last 8 weeks: None <JAMES Boyd - Last Filed: 02/03/24 14:21> ROS Obtained: Yes Systems reviewed as appropriate & no additional complaints except as documented Physical Exam <JAMES Boyd - Last Filed: 02/03/24 14:21> General General appearance: alert and in no apparent distress Head Head exam: atraumatic and normal inspection Eye Eye exam: Present normal appearance, PERRL and EOMI ENT ENT exam: Present normal exam, normal oropharynx and mucous membranes moist Neck Neck exam: Present normal inspection, full ROM and trachea midline; Absent lymphadenopathy Chest Chest inspection: Present normal inspection and symmetric chest wall rise Respiratory Respiratory exam: Present normal lung sounds bilaterally; Absent accessory muscle use Cardiovascular Cardiovascular exam: Present regular rate, normal rhythm, normal heart sounds, +S1 and +S2 Abdominal Exam Abdominal exam: Present soft and normal bowel sounds; Absent tenderness, guarding or rebound Extremities Exam Extremities exam: Present normal inspection and full ROM Neurological Exam Neurological exam: Present alert, oriented X3 and CN II-XII intact Psychiatric Psychiatric exam: Present normal affect and normal mood Skin Skin exam: Present warm, dry and normal color Lymphatic Lymphatic Findings: no adenopathy <Jermaine White MD - Last Filed: 02/03/24 15:02> General General appearance: in distress (Respiratory, 3 L nasal cannula in place) and obese Respiratory Respiratory exam: Present respiratory distress, wheezes, accessory muscle use and prolonged expiratory phase; Absent stridor HEART Score <Jermaine White MD - Last Filed: 02/03/24 15:02> HEART Score HEART Score assessment performed?: Yes History (anamnesis): Moderately suspicious ECG: Normal Age: 45-65 years Risk factors: 1-2 risk factors Troponin: </= normal limit HEART Score: 3 Critical Care <Jermaine White MD - Last Filed: 02/03/24 15:02> Critical Care Time Critical Care Time: Yes (resp) Attestation: On 02/03/24, the high probability of a clinically significant, sudden or life threatening deterioration of the following system(s) required my full and direct attention, intervention and personal management. The time I documented below is in addition to time spent performing reported procedures but includes the following listed in this critical care notation. Total Time Total Critical Care Time: 45 Medical Decision Making <JAMES Boyd - Last Filed: 02/03/24 14:21> Vital Signs Vital Signs: 02/03/24 14:12 02/03/24 14:20 02/03/24 14:31 Temperature 98.1 F Temperature Source Oral Pulse Rate 75 78 Pulse Rate [Left Radial] 75 Respiratory Rate 20 15 Blood Pressure 195/90 H Blood Pressure [Right Arm] 160/77 H Blood Pressure Mean [Right Arm] 104 Blood Pressure Source [Right Arm] Automatic Cuff Blood Pressure Position [Right Arm] Sitting 02 Sat by Pulse Oximetry 95 95 Oxygen Delivery Method Nasal Cannula Oxygen Flow Rate (LPM) 3 Lab Data Labs: Lab Results 02/03/24 14:20: WBC 26.8 H*, RBC 4.70, Hgb 13.9, Hct 43.2, MCV 91.7, MCH 29.6, MCHC 32.3, RDW 13.5, Plt Count 336, MPV 7.7, Neut % (Auto) 78.2, Lymph % (Auto) 14.7, [place] % (Auto) 6.0, Eos % (Auto) 0.5, Baso % (Auto) 0.5, Neut # (Auto) 20.9 H, Lymph # (Auto) 4.0, [place] # (Auto) 1.6 H, Eos # (Auto) 0.1, Baso # (Auto) 0.1, Sodium 137, Potassium 3.8, Chloride 99, Carbon Dioxide 30, Anion Gap 11.8, BUN 22 H, Creatinine 0.80, Estimated Creat Clear 79, Estimated GFR 75, Est GFR ( Amer) 91, Glucose 153 H, Calcium 9.4, Total Bilirubin 0.3, AST 25, ALT 21, Alkaline Phosphatase 119, Troponin I < 0.01, NT-Pro-B Natriuret Pep 148 H, Total Protein 6.6, Albumin 4.1, Globulin 2.5, Albumin/Globulin Ratio 1.6 02/03/24 14:20 02/03/24 14:20 Response Orders (Tests/Meds): ED MEDICATIONS Generic Name Dose Route Start Last Admin Trade Name Freq PRN Reason Stop Dose Admin Ampicillin Sodium/Sulbactam 100 mls @ 200 mls/hr 02/03/24 14:50 Sodium 3 gm/ Sodium Chloride IV 02/03/24 14:51 ONCE ONE Miscellaneous 1 each 02/03/24 15:00 Vancomycin Consult Request NOTAPPLIC 03/04/24 14:59 CONSULT PHARM[facility]Y [facility] Discontinued Medications Generic Name Dose Route Start Last Admin Trade Name Freq PRN Reason Stop Dose Admin Albuterol/Ipratropium 9 ml 02/03/24 14:23 Ipratropium/Albuterol 3 Ml Pending sale to [facility] 02/03/24 14:24 ONCE ONE Budesonide 0.5 mg 02/03/24 14:26 Budesonide 0.5mg/2ml Pending sale to [facility] 02/03/24 14:27 ONCE ONE Dexamethasone Sodium Phosphate 10 mg 02/03/24 14:23 Dexamethasone 4mg/Ml 1ml Vial IV 02/03/24 14:24 ONCE ONE ORDERS Category Date Time Status CXR --portable [XR chest portable] Stat Exams 02/03/24 14:23 Taken Brain Natriuretic Peptide Stat Lab 02/03/24 14:20 Completed CMP [Comprehensive Metabolic Panel] Stat Lab 02/03/24 14:20 Completed Complete Blood Count Auto Diff Stat Lab 02/03/24 14:20 Results Trop I [Troponin I] Stat Lab 02/03/24 14:20 Completed Troponin I Q3H Lab 02/03/24 17:30 Ordered Troponin I Q3H Lab 02/03/24 20:30 Ordered Blood Culture Stat Micro 02/03/24 14:50 Ordered VBG [Venous Blood Gas] Stat RT 02/03/24 14:23 Ordered <Ross A Cindy, MD - Last Filed: 02/03/24 15:02> Medical Records Medical records reviewed: Yes I reviewed the patient's medical records. Maximo Inquiry Pt receiving controlled substance: No Maximo was queried for this patient: No Vital Signs Vital Signs: 02/03/24 14:12 02/03/24 14:20 02/03/24 14:31 Temperature 98.1 F Temperature Source Oral Pulse Rate 75 78 Pulse Rate [Left Radial] 75 Respiratory Rate 20 15 Blood Pressure 195/90 H Blood Pressure [Right Arm] 160/77 H Blood Pressure Mean [Right Arm] 104 Blood Pressure Source [Right Arm] Automatic Cuff Blood Pressure Position [Right Arm] Sitting 02 Sat by Pulse Oximetry 95 95 Oxygen Delivery Method Nasal Cannula Oxygen Flow Rate (LPM) 3 Lab Data Labs: Lab Results 02/03/24 14:20: WBC 26.8 H*, RBC 4.70, Hgb 13.9, Hct 43.2, MCV 91.7, MCH 29.6, MCHC 32.3, RDW 13.5, Plt Count 336, MPV 7.7, Neut % (Auto) 78.2, Lymph % (Auto) 14.7, [place] % (Auto) 6.0, Eos % (Auto) 0.5, Baso % (Auto) 0.5, Neut # (Auto) 20.9 H, Lymph # (Auto) 4.0, [place] # (Auto) 1.6 H, Eos # (Auto) 0.1, Baso # (Auto) 0.1, Sodium 137, Potassium 3.8, Chloride 99, Carbon Dioxide 30, Anion Gap 11.8, BUN 22 H, Creatinine 0.80, Estimated Creat Clear 79, Estimated GFR 75, Est GFR ( Amer) 91, Glucose 153 H, Calcium 9.4, Total Bilirubin 0.3, AST 25, ALT 21, Alkaline Phosphatase 119, Troponin I < 0.01, NT-Pro-B Natriuret Pep 148 H, Total Protein 6.6, Albumin 4.1, Globulin 2.5, Albumin/Globulin Ratio 1.6 Response Orders (Tests/Meds): ED MEDICATIONS Generic Name Dose Route Start Last Admin Trade Name Freq PRN Reason Stop Dose Admin Ampicillin Sodium/Sulbactam 100 mls @ 200 mls/hr 02/03/24 14:50 Sodium 3 gm/ Sodium Chloride IV 02/03/24 14:51 ONCE ONE Miscellaneous 1 each 02/03/24 15:00 Vancomycin Consult Request NOTAPPLIC 03/04/24 14:59 CONSULT PHARMACY [facility] Discontinued Medications Generic Name Dose Route Start Last Admin Trade Name Chris PRN Reason Stop Dose Admin Albuterol/Ipratropium 9 ml 02/03/24 14:23 Ipratropium/Albuterol 3 Ml Pending sale to [facility] 02/03/24 14:24 ONCE ONE Budesonide 0.5 mg 02/03/24 14:26 Budesonide 0.5mg/2ml Pending sale to [facility] 02/03/24 14:27 ONCE ONE Dexamethasone Sodium Phosphate 10 mg 02/03/24 14:23 Dexamethasone 4mg/Ml 1ml Vial IV 02/03/24 14:24 ONCE ONE ORDERS Category Date Time Status CXR --portable [XR chest portable] Stat Exams 02/03/24 14:23 Taken Brain Natriuretic Peptide Stat Lab 02/03/24 14:20 Completed CMP [Comprehensive Metabolic Panel] Stat Lab 02/03/24 14:20 Completed Complete Blood Count Auto Diff Stat Lab 02/03/24 14:20 Results Trop I [Troponin I] Stat Lab 02/03/24 14:20 Completed Troponin I Q3H Lab 02/03/24 17:30 Ordered Troponin I Q3H Lab 02/03/24 20:30 Ordered Blood Culture Stat Micro 02/03/24 14:50 Ordered VBG [Venous Blood Gas] Stat RT 02/03/24 14:23 Ordered MDM Narrative Medical Decision Narrative: This is a 53-year-old female with history of idiopathic pulmonary fibrosis, CHF, COPD on 5 L nasal cannula, trilogy as needed, hypertension, hyperlipidemia presenting with chest pain. Patient states that chest pain has been getting worse since she was discharged from the hospital just recently. Substernal, radiates toward her jaw, feels like my jaw locks up. Called her nuclear control operator who told her to come to the emergency department. Patient denies fevers, chills, nausea, vomiting, sick contacts, productive cough, or any other concerns. Has been taking medication as prescribed. Has not needed increased oxygen. States that this is different pain than she usually has and more intense. Should be noted that patient has progressively worsening chronic disease which is likely complicating her care. History was obtained via conversation with patient. On arrival, patient hemodynamically stable, alert, oriented x4, appropriate, GCS 15, moving all extremities spontaneously, pupils equal and reactive to light. Full physical exam performed and significant for chronically ill-appearing woman in mild acute distress. 3 L nasal cannula in place, which is her home oxygen. Lungs are diffusely wheezy and patient does have prolonged expiratory phase with increased work of breathing and accessory muscles. Cardiac exam within normal limits, no lower extremity edema. Differential includes ACS, NH, pneumonia, bronchitis, sepsis and others. Patient was given DuoNeb, Decadron for symptomatic management and correction of underlying abnormalities. Workup independently interpreted and significant for new leukocytosis 27,000 with neutrophilia. Chemistry nonactionable, BNP and troponin negative. Chest x-ray without acute cardiopulmonary or airspace disease. See radiology read for full review of final results. Independent interpretation of EKG shows EKG was sinus rhythm 71 beats a minute pulmonary disease pattern with left axis deviation. No ST or T wave changes concerning for acute ischemia. MS, QRS, QT intervals within normal limits. Patient placed on continuous cardiac monitoring and continuous pulse ox with initial blood pressure 160/77, heart rate 75, saturation 95 on room air. VBG pending at time of admission. Because patient high risk for clinical decompensation, deemed appropriate for inpatient admission. Results were relayed to patient who voiced understanding and patient was agreeable to inpatient admission and management. Patient was admitted to the hospital for further definitive management.
--- NOTE | 2024-02-03 14:23 | XR_ITS ---
FINAL REPORT CLINICAL HISTORY: SOA cp COMPARISON: 01/28/2024 FINDINGS: SINGLE-VIEW CHEST The heart size is normal. The mediastinum is normal. There is mild pulmonary vascular congestion, worse. There is no pneumothorax. IMPRESSION: Worsening pulmonary vascular congestion. Reviewed, Interpreted and Dictated by Harley Ambrocio III, MD Transcribed by Nicole Castillo Authenticated and [facility]
--- NOTE | 2024-02-03 14:30 | PC.NURSE ---
aware of p02 of 64.4
--- NOTE | 2024-02-03 14:30 | PC.NURSE ---
portable chest xray at bedside
[2024-02-03 14:35] LABS: Chloride 99 mmol/L (98-107); Potassium 3.8 mmoL/L (3.5-5.1); Sodium 137 mmol/L (136-145)
[2024-02-03 14:37] LABS: Basophils # 0.1 K/mm3 (0-0.2); Basophils % 0.5 % (0.1-2.0); Blood Urea Nitrogen 22 mg/dl (7-17); Creatinine Clearance Estimated 79 mL/min (50-200); Eosinophils # 0.1 K/mm3 (0.0-0.4); Eosinophils % 0.5 % (0.1-12.0); Estimated Glomerular Filt Rate 75 ml/min (>60); GFR (African American) 91 ML/MIN (>60); Hematocrit 43.2 % (37.0-47.0); Hemoglobin 13.9 g/dL (12.2-16.2); Lymphocytes % 14.7 % (10-50); Mean Corpuscular HGB Conc 32.3 g/dL (31.8-35.4); Mean Corpuscular Hemoglobin 29.6 pg (27.0-31.2); Mean Corpuscular Volume 91.7 fl (81-99); Mean Platelet Volume 7.7 fl (7.4-10.4); Monocytes # 1.6 K/mm3 (0.1-1.0); Neutrophils # 20.9 K/mm3 (1.8-7.8); Neutrophils % 78.2 % (37.0-80.0); Platelet Count 336 K/mm3 (142-424); Red Cell Distribution Width 13.5 % (11.5-17.5); White Blood Count 26.8 K/mm3 (4.8-10.8)
[2024-02-03 14:38] LABS: Alanine Aminotransferase 21 U/L (12-78); Albumin Level 4.1 g/dl (3.5-5.0); Albumin/Globulin Ratio 1.6 (1.1-1.8); Alkaline Phosphatase 119 U/L (38-126); Anion Gap 11.8 mEq/L (5-15); Aspartate Amino Transferase 25 U/L (14-36); Bilirubin,Total 0.3 mg/dl (0.2-1.3); Calcium 9.4 mg/dl (8.4-10.2); Carbon Dioxide 30 mmol/L (22.0-30.0); Globulin 2.5 g/dL (1.3-3.2); Glucose 153 mg/dl (74-100); Total Protein,Serum 6.6 g/dl (6.3-8.2)
[2024-02-03 14:41] LABS: MANUAL DIFFERENTIAL MANUAL DIFFERENTIAL (MANUAL DIFF)
[2024-02-03 14:47] LABS: NT Pro Brain Natriuretic Pep. 148 pg/mL (0-125)
[2024-02-03 14:53] LABS: Troponin I < 0.01 ng/ml (0.00-0.034)
[2024-02-03] MEDS: IPRATROPIUM/ALBUTEROL 3 ML NEB 9 ML IH (15:05)
[2024-02-03] MEDS: DEXAMETHASONE 4MG/ML 1ML VIAL 10 MG IV (15:05)
[2024-02-03] MEDS: AMPICILLIN/SULBACTAM 3 GM in 0.9 % SODIUM CHLORIDE 100 ML IV (15:06)
[2024-02-03 15:08] LABS: Lymphocytes % 19 % (10-50); Monocytes % 5 % (2-9); Neutrophils % 76 % (42-76); Platelet Estimate Normal; RBC Morphology Normal; Total Cells Counted 100
[2024-02-03 15:19] LABS: VBG Base Excess 3.2 mmol/L (-2.4-2.3); VBG HCO3 28.5 mmol/L (23-30); VBG Oxygen Saturation 92.7 % (50-70); VBG PH 7.37 mmol/L (7.31-7.41); VBG PO2 64.4 mmol/L (28-40)
[2024-02-03] MEDS: VANCOMYCIN HCL 2,250 MG in 0.9 % SODIUM CHLORIDE 250 ML 125 MG IV (15:19)
[2024-02-03] MEDS: BUDESONIDE 0.5MG/2ML NEB 0.5 MG IH (15:20)
[2024-02-03 15:23] LABS: Lactate Venous 2.2 mmol/L (0.4-2.0); VBG PCO2 50.2 mmol/L (35-51)
[2024-02-03 15:25] LABS: Adenovirus,PCR Not Detected (NotDetected); Coronavirus 19, PCR Not Detected (NotDetected); Coronavirus 229E Not Detected (NotDetected); Coronavirus NL63 Not Detected (NotDetected); Coronavirus OC43 Not Detected (NotDetected); Coronovirus HKU1,PCR Not Detected (NotDetected); Human Metapneumovirus Not Detected (NotDetected); Influenza A, PCR Not Detected (NotDetected); Influenza AH1, 2009 Not Detected (NotDetected); Influenza AH1, PCR Not Detected (NotDetected); Influenza AH3,PCR Not Detected (NotDetected); Influenza B, PCR Not Detected (NotDetected); Parainfluenza 1, PCR Not Detected (NotDetected); Parainfluenza 2, PCR Not Detected (NotDetected); Parainfluenza 3, PCR Not Detected (NotDetected); Parainfluenza 4, PCR Not Detected (NotDetected); Respiratory Syncytial Virus Not Detected (NotDetected); Rhinovirus/Enterovirus Not Detected (NotDetected)
--- NOTE | 2024-02-03 15:27 | PC.NURSE ---
provided pt with a warm blanket and something to drink
--- NOTE | 2024-02-03 17:10 | PC.NURSE ---
dr muro at bedside
[2024-02-03] MEDS: IPRATROPIUM/ALBUTEROL 3 ML NEB IH (17:23)
[2024-02-03 18:05] LABS: Troponin I < 0.01 ng/ml (0.00-0.034)
--- NOTE | 2024-02-03 18:13 | P.CONS_ITS ---
History of Present Illness *Admission Date: 02/03/24 *Reason for visit:: chest pain *History of present illness: pt reports substernal chest pain that as been going on for 2 weeks, rating it 10/10 and states it radiates to her L breast and R shoulder blade, also reports shortness of breath and nonproductive cough [facility] Disclaimer: The information contained in this section may have been updated after the patient was seen, as this information can be updated by other users. Medical History (Updated 02/03/24 @ 21:08 by Janes Gallagher MD) Viral pneumonia History of asthma COPD mixed type COPD exacerbation Pre-op testing CHF (congestive heart failure) History of COPD Stopped smoking with greater than 30 pack year history Dyspnea on exertion Diabetes GERD (gastroesophageal reflux disease) CAD (coronary artery disease) HLD (hyperlipidemia) HTN (hypertension) COPD (chronic obstructive pulmonary disease) Depression Surgical History History of lung biopsy H/O esophagogastroduodenoscopy H/O colonoscopy H/O breast surgery H/O section Family History Other COPD (chronic obstructive pulmonary disease) Cancer Diabetes Heart attack Hypertension Lung cancer Stroke Social History Smoking Status: Former smoker smoking status stop date: 07/16/2023 alcohol intake: never substance use type: denies use current occupational status: disabled and other Travel in the last 8 weeks: None Review of Systems Review of Systems Review of systems (narrative): 14 point review of systems performed, pertinent positives and negatives as per HPI Exam Data for Last 24 hours Vital signs and Labs for Last 24 Hours: Temp Pulse Resp BP Pulse Ox O2 Del Method O2 Flow Rate 98.1 F 78 18 89/68 L 91 L Nasal Cannula 3 02/03/24 14:12 02/03/24 18:00 02/03/24 16:30 02/03/24 18:00 02/03/24 18:00 02/03/24 16:30 02/03/24 16:30 Laboratory Results - last 24 hr 02/03/24 14:20: WBC 26.8 H*, RBC 4.70, Hgb 13.9, Hct 43.2, MCV 91.7, MCH 29.6, MCHC 32.3, RDW 13.5, Plt Count 336, MPV 7.7, Neut % (Auto) 78.2, Lymph % (Auto) 14.7, Sargent % (Auto) 6.0, Eos % (Auto) 0.5, Baso % (Auto) 0.5, Neut # (Auto) 20.9 H, Lymph # (Auto) 4.0, Sargent # (Auto) 1.6 H, Eos # (Auto) 0.1, Baso # (Auto) 0.1, Total Counted 100, Neutrophils % (Manual) 76, Lymphocytes % (Manual) 19, Monocytes % (Manual) 5, Platelet Estimate Normal, RBC Morphology Normal, Sodium 137, Potassium 3.8, Chloride 99, Carbon Dioxide 30, Anion Gap 11.8, BUN 22 H, Creatinine 0.80, Estimated Creat Clear 79, Estimated GFR 75, Est GFR ( Amer) 91, Glucose 153 H, Calcium 9.4, Total Bilirubin 0.3, AST 25, ALT 21, Alkaline Phosphatase 119, Troponin I < 0.01, NT-Pro-B Natriuret Pep 148 H, Total Protein 6.6, Albumin 4.1, Globulin 2.5, Albumin/Globulin Ratio 1.6 02/03/24 14:23: VBG pH 7.37, VBG pCO2 50.2, VBG pO2 64.4 H, VBG HCO3 28.5, VBG Total CO2 30.0 H, VBG O2 Saturation 92.7 H, VBG Base Excess 3.2 H, VBG Lactic Acid 2.2 H 02/03/24 15:25: Chlamy pneumoniae PCR TNP, Adenovirus (PCR) Not detected, B. pertussis DNA (PCR) TNP, Coronavirus OC43 (PCR) Not detected, Coronavirus HKU1 (PCR) Not detected, Coronavirus 229E (PCR) Not detected, SARS-CoV-2 (PCR) Not detected, Coronavirus NL63 (PCR) Not detected, Human Metapneumovir PCR Not detected, Influenza A (H1) PCR Not detected, Influ A (H1N1/09) PCR Not detected, Influenza A (H3) PCR Not detected, Influenza Type A (PCR) Not detected, Influenza Type B (PCR) Not detected, M. pneumoniae (PCR) TNP, Parainfluenza 1 (PCR) Not detected, Parainfluenza 2 (PCR) Not detected, Parainfluenza 3 (PCR) Not detected, Parainfluenza 4 (PCR) Not detected, RSV (PCR) Not detected, Entero/Rhino (PCR) Not detected 02/03/24 17:35: Troponin I < 0.01 I & O for Last 24 hours: Intake & Output 01/31/24 02/01/24 02/02/24 02/03/24 23:59 23:59 23:59 23:59 Weight 127.006 kg Constitutional Constitutional: no acute distress, morbidly obese, chronically ill appearing and cooperative *Routine HEENT Exam Head: Present normocephalic Eye: Present EOMI and PERRL ENT: Present mucous membranes moist *Routine Neck Exam Neck: Present supple; Absent lymphadenopathy Routine Chest/Breast/Axilla Exam Chest wall: Present tenderness (Through out pectoralis muscles bilaterally) *Routine Respiratory Exam Respiratory: Present prolonged expiratory phase and wheezes; Absent rhonchi or crackles *Routine Cardiovascular Exam Cardiovascular: Present RRR *Routine Abdominal Exam Abdominal: Present soft and normoactive bowel sounds; Absent tenderness *Routine Rectal Exam Patient deferred: visual exam *Routine Exam Patient deferred: external exam *Routine Extremities Exam Extremities: Absent cyanosis, clubbing or edema Routine Back/Spine/Pelvis Exam Back/Spine: Present paraspinal tenderness (Through musculature bilaterally); Absent CVA tenderness *Routine Skin Exam Skin: Present intact and warm; Absent rash *Routine Neurological Exam Neurological: Present alert, oriented X3 and moving all extremities; Absent altered mental status Routine Psychiatric Exam Psychiatric: Present anxious Meds Home Medications and Allergies Home Medications Medication Instructions Recorded Confirmed Type aspirin 81 mg tablet,delayed 81 mg PO DAILY 05/12/23 02/03/24 History release atorvastatin 10 mg tablet 10 mg PO DAILY 05/12/23 02/03/24 History bisacodyl 5 mg tablet,delayed 5 mg PO DAILY 05/12/23 02/03/24 History release blood sugar diagnostic (FreeStyle 05/12/23 02/03/24 History Lite Strips) bupropion HCl 300 mg 24 hr tablet, 300 mg PO DAILY 05/12/23 02/03/24 History extended release insulin aspart U-100 100 unit/mL See Protocol SQ DAILY 05/12/23 02/03/24 History subcutaneous solution (Novolog U-100 Insulin aspart) lisinopril 20 mg tablet 20 mg PO DAILY 05/12/23 02/03/24 History naloxone 4 mg/actuation nasal spray 1 spray intranasal DIRECTED 05/12/23 02/03/24 History Required for controlled substance pantoprazole 40 mg tablet,delayed 40 mg PO DAILY 05/12/23 02/03/24 History release polyethylene glycol 3350 17 17 g PO DAILY 05/12/23 02/03/24 History gram/dose oral powder potassium chloride 20 mEq 20 meq PO TID 05/12/23 02/03/24 History tablet,extended release(part/cryst) (Klor-Con M) trazodone 100 mg tablet 200 mg PO HS 05/12/23 02/03/24 History diclofenac epolamine 1.3 % 1 patch topical BID #30 ea 06/21/23 02/03/24 Rx transdermal 12 hour patch (Flector) metoprolol succinate 25 mg 25 mg PO DAILY #30 tabs 11/23/23 02/03/24 Rx tablet,extended release 24 hr guaifenesin 600 mg tablet, 600 mg PO Q12H PRN Congestion 11/25/23 02/03/24 History extended release 12 hr linaclotide 72 mcg capsule 72 mcg PO DAILY 11/25/23 02/03/24 History (Linzess) lorazepam 0.5 mg tablet 1 mg PO BID 11/25/23 02/03/24 History sertraline 100 mg tablet 100 mg PO DAILY 11/25/23 02/03/24 History albuterol sulfate 90 mcg/actuation 2 puff inhalation QID PRN 12/21/23 02/03/24 Rx aerosol inhaler (ProAir HFA) shortness of breath or wheezing 90 days #8.5 grams gabapentin 600 mg tablet 600 mg PO TID #90 tabs 12/31/23 02/03/24 Rx ondansetron 4 mg disintegrating 4 mg PO Q8H PRN nausea and 12/31/23 02/03/24 Rx tablet vomiting #30 tabs ropinirole 0.5 mg tablet 0.5 mg PO HS #30 tabs 12/31/23 02/03/24 Rx oxycodone-acetaminophen 5 mg-325 1 tab PO BID #60 tabs 01/05/24 02/03/24 Rx mg tablet (Percocet) sertraline 50 mg tablet 50 mg PO HS 01/26/24 02/03/24 History acetaminophen 500 mg tablet 1,000 mg PO Q4HP PRN Pain 01/27/24 02/03/24 History ascorbic acid (vitamin C) 500 mg 500 mg PO BID 01/27/24 02/03/24 History tablet (Vitamin C) diphenhydramine 25 1 tab PO HS 01/27/24 02/03/24 History mg-acetaminophen 500 mg tablet (Acetaminophen PM) insulin glargine 100 unit/mL (3 45 unit SQ HS 01/27/24 02/03/24 History mL) subcutaneous pen (Lantus Solostar U-100 Insulin) empagliflozin 10 mg tablet 10 mg PO DAILY 30 days #30 tabs 01/28/24 02/03/24 Rx (Jardiance) furosemide 40 mg tablet 40 mg PO BID 30 days #60 tabs 01/28/24 02/03/24 Rx isosorbide mononitrate 60 mg 60 mg PO DAILY #30 tabs 01/28/24 02/03/24 Rx tablet,extended release 24 hr levofloxacin 750 mg tablet 750 mg PO DAILY 3 days #3 tabs 01/28/24 02/03/24 Rx tamsulosin 0.4 mg capsule 0.4 mg PO HS 30 days #30 caps 01/28/24 02/03/24 Rx budesonide 160 mcg-glycopyr 9 2 inh inhalation BID 90 days #10.7 02/03/24 02/03/24 Rx mcg-formot 4.8 mcg/actuation HFA grams inhaler (Breztri Aerosphere) ipratropium 0.5 mg-albuterol 3 mg 3 ml inhalation Q4H PRN wheezing 02/03/24 Rx (2.5 mg base)/3 mL nebulization 30 days #180 mL soln New Prescriptions to Start Prescriptions: ipratropium-albuterol Janes Gallagher Allergies Allergy/AdvReac Type Severity Reaction Status Date / Time ketorolac [From Toradol] Allergy Verified 02/03/24 14:22 prochlorperazine Allergy Verified 02/03/24 14:22 [From Compazine] Results Labs 02/03/24 14:20 02/03/24 14:20 Labs: Abnormal lab results 02/03/24 02/03/24 Range/Units 14:20 14:23 WBC 26.8 H* (4.8-10.8) K/mm3 Neut # (Auto) 20.9 H (1.8-7.8) K/mm3 Sargent # (Auto) 1.6 H (0.1-1.0) K/mm3 VBG pO2 64.4 H (28-40) mmol/L VBG Total CO2 30.0 H (23-27) mmol/L VBG O2 Saturation 92.7 H (50-70) % VBG Base Excess 3.2 H (-2.4-2.3) mmol/L VBG Lactic Acid 2.2 H (0.4-2.0) mmol/L BUN 22 H (7-17) mg/dl Glucose 153 H (74-100) mg/dl NT-Pro-B Natriuret Pep 148 H (0-125) pg/mL H & H 02/03/24 Range/Units 14:20 Hgb 13.9 (12.2-16.2) g/dL Hct 43.2 (37.0-47.0) % All other labs normal. Assessment and Plan *Assessment and plan (1) Leukocytosis: Status: Acute Category: Medical Code(s): D72.829 - Elevated white blood cell count, unspecified (2) Chest wall pain: Status: Acute Category: Medical Code(s): R07.89 - Other chest pain (3) Chronic hypoxic respiratory failure: Status: Acute Category: Medical Code(s): J96.11 - Chronic respiratory failure with hypoxia (4) Heart failure with preserved ejection fraction: Status: Acute Category: Medical Code(s): I50.30 - Unspecified diastolic (congestive) heart failure (5) Adjustment disorder: Status: Acute Category: Medical Code(s): F43.20 - Adjustment disorder, unspecified (6) COPD mixed type: Status: Acute Category: Medical Code(s): J44.9 - Chronic obstructive pulmonary disease, unspecified (7) Diabetes: Status: Acute Category: Medical Code(s): E11.9 - Type 2 diabetes mellitus without complications (8) HTN (hypertension): Status: Acute Qualifiers: Hypertension type: unspecified Qualified Code(s): I10 - Essential (primary) hypertension Category: Medical Code(s): I10 - Essential (primary) hypertension (9) HLD (hyperlipidemia): Status: Acute Qualifiers: Hyperlipidemia type: unspecified Qualified Code(s): E78.5 - Hyperlipidemia, unspecified Category: Medical Code(s): E78.5 - Hyperlipidemia, unspecified
[2024-02-03 19:22] LABS: Reflex Lactic Add Lactic Reflex
== END 2024-02-03 18:44 | disposition home or self-care (01) ==
PROVIDERS: Emergency Medicine; Emergency Provider Emergency Medicine; PCP Nurse Practitioner Family
DX: J96.21 Acute and chronic respiratory failure with hypoxia; R07.9 Chest pain, unspecified; R05.9 Cough, unspecified; I11.0 Hypertensive heart disease with heart failure; I50.9 Heart failure, unspecified; J44.9 Chronic obstructive pulmonary disease, unspecified; E11.9 Type 2 diabetes mellitus without complications; K21.9 Gastro-esophageal reflux disease without esophagitis; I25.10 Atherosclerotic heart disease of native coronary artery without angina pectoris; E78.5 Hyperlipidemia, unspecified; F32.A Depression, unspecified; R68.84 Jaw pain; J84.10 Pulmonary fibrosis, unspecified; Z87.891 Personal history of nicotine dependence
CPT/HCPCS: 71045; 80053; 82803; 83880; 84484; 85007; 85025; 87040; 87632; 87635; 93005; 96374; 96375; 99291; J3370

== ENCOUNTER 2024-02-07 15:39 | Outpatient (CLI) | payer MEDICAID, SELFPAY ==
--- NOTE | 2024-02-07 15:44 | CT_ITS ---
FINAL REPORT TECHNIQUE: Axial imaging of the chest is obtained after the administration of contrast. 3-D MIP reformatted images were also obtained and reviewed per PE protocol. CLINICAL HISTORY: Shortness of breath chf, copd COMPARISON: 01/25/2024 FINDINGS: The pulmonary arteries are well filled. There is no evidence of pulmonary embolus. There is no aortic dissection or intimal flap. The heart is normal in size. There is no mediastinal, hilar, or axillary lymphadenopathy. There is bilateral lower lobe atelectasis. Groundglass opacities bilaterally are slightly improved compared to the prior study. There continues to be mild interlobular septal thickening. There is no pleural or pericardial effusion. Limited evaluation of the upper abdomen is without acute abnormality. No acute osseous abnormality. IMPRESSION: No evidence of pulmonary embolism or aortic dissection. Slightly improved groundglass opacities could be related to infectious or inflammatory process or pulmonary edema. Reviewed, Interpreted and Dictated by Jacqueline Templeton MD Transcribed by Glenda Paige Authenticated and [facility]
[2024-02-07] MEDS: SODIUM CHLORIDE 0.9% 10ML SYR (RAD ONLY) 10 ML IV (16:08)
[2024-02-07] MEDS: IOPAMIDOL-370 (76%);100ML BOTTLE 75 ML IV (16:08)
[2024-02-07] MEDS: 0.9 % SODIUM CHLORIDE 50 ML VIAL IV (16:08)
[2024-02-07 16:22] LABS: Microscopic, Urine URINE MICROSCOPIC (MICROSCOPIC)
[2024-02-07 17:04] LABS: Appearance,Urine SL CLOUDY (Clear); Bilirubin,Urine Negative (Negative); Blood, Urine 3+ (Negative); Color,Urine YELLOW (Yellow); Glucose,Urine (UA) 2+ (Negative); Ketones,Urine Negative (Negative); Leukocyte Esterase,Urine 1+ (Negative); Nitrate,Urine POSITIVE (Negative); PH,Urine 5.5 (5.0-8.5); Protein,Urine 1+ (Negative); Specific Gravity, Urine >= 1.030 (1.005-1.030); Urobilinogen,Urine 0.2 EU/dl (0.2)
[2024-02-07 17:37] LABS: Bacteria,Urine Trace /lpf; RBC,Urine Occasional #/hpf (0-3)
== END 2024-02-07 23:59 ==
LOC: RAD 15:40
PROVIDERS: Urology; PCP Nurse Practitioner Family; Visit Provider Nurse Practitioner
DX: R06.09 Other forms of dyspnea (principal); N39.0 Urinary tract infection, site not specified; B96.29 Other Escherichia coli [E. coli] as the cause of diseases classified elsewhere
CPT/HCPCS: 71275; 81001; 87086; Q9967

== ENCOUNTER 2024-02-07 16:27 | Outpatient (CLI) | payer MEDICAID, SELFPAY | END 2024-02-07 23:59 | LOC: LAB.DROPOF 16:28 | PROVIDERS: PCP Urology; Visit Provider Urology | DX: N39.0 Urinary tract infection, site not specified (principal) ==

== ENCOUNTER 2024-07-18 10:39 | Outpatient (POV) | payer MEDICAID, SELFPAY ==
[2024-07-18 11:05] VITALS: BP 115/65; PULSE 84; RESP 16; TEMP 36.8; O2SAT 92; BMI 60.9
--- NOTE | 2024-07-18 11:45 | PC.NURSE ---
Pt arrived to her appt today with her oxygen tank empty. Pt reports she wears O2 at 4L continuously. Pt reports she does not have any other portable oxygen tanks with her or at home. Pt reports approx [address] home[address] Pt states has an oxygen concentrator at her home. Spoke with Lisa in Care management who contacted pt medical supply [employer]. Sadaf stated would be approx 2 hours before they could get her to bring pt an O2 tank. Pt declining to wait that amount of time on oxygen tank. Pt then notified staff that she can put her trelegy mask on in the car, states the unit is fully charged in her car. Pt has significant other here with her at appointment who states he is driving. Relayed information to Lisa. Pt used hospital O2 while here for her appointment.
--- OUTSIDE RECORDS SUMMARY | 2024-07-18 12:10 | XMS_ITS | Continuity of Care Document ---
Author Organization [facility] Phone Care Team Providers Care Commercial Collector Name Role Phone ELOISE GONZALEZ Primary Attending ELOISE GONZALEZ Admitting [phone] ELOISE GONZALEZ Unavailable THA HENDRICKSON Primary Care Unavailable ALLERGIES AND ADVERSE REACTIONS ALLERGIES AND ADVERSE REACTIONS Code System Allergy Substance Adverse Reaction Date Reaction (Severity) Comment Status Reported By Updated By TORADOL Rash active [id number] o n March 29, 2024 8:10:16 AM [facility] 8704 RXNorm COMPAZINE Rash (Mild) active IV [id number] on March 29, 2024 8:10:16 AM [facility] FAMILY HISTORY RELATION: Father Status: LIVING SNOMED-CT Diagnosis Age At Onset Information not available RELATION: Mother Status: LIVING SNOMED-CT Diagnosis Age At Onset Information not available RESULTS Patient: SYLVIE PATEL Date of : 1970 9 LABORATORY RESULTS ORDER 200: COMP METABOLIC PA PAKO (LOINC: 37000-4) ORDER DATE: June 30, 2024 7:04:00 PM [facility] Specimen Source: PLASMA Specimen Type: Plasma specim en PERFORMING LAB: [address] [id number] Result Comment: Final Result Date: June 30, 2024 7:52:00 PM [facility] (TECH: [facility]) LOINC TEST FLAG RESULT REFERENCE RANGE UPDA GLADYS BY 2951-2 Sodium [Moles/volume ] in Serum or Plasma N 142 mmol/L 136 mmol/L - 145 mmol/L June 30, 2024 7:52:00 PM [facility] (TECH: [facility]) 2823-3 Potassium [Moles/volume] in Serum or Plasma N 3.8 mmol/L 3.6 mmol/L - 5.0 mmol/L June 30, 2024 7:52:00 PM [facility] (TECH: [facility]) 2075-0 Chloride [Moles/volume] in Serum or Plasma N 103 mmol/L 98 mmol/L - 107 mmol/L June 30, 2024 7:52:00 PM [facility] (TECH: [facility]) 2027-9 Carbon dioxide, tota l [Moles/volume] in Serum or Plasma N 29.9 mmol/L 21.0 mmol/L - 32.0 mmol/L June 30, 2024 7:52:00 PM [facility] (TECH: [place]) 14504-6 Anion gap in Blood N 12.9 A ug2023 7:52:00 PM [facility] (TECH: [place]) 2345-7 Glucose [Mass/volume ] in Serum or Plasma H 174 mg/dl 70 mg/dl - 120 mg/dl June 30, 2024 7:52:00 PM [facility] (TECH: [place]) 6299-2 Urea nitrogen [Mass/volume] in Blood N 12 mg/dL 7 mg/dL - 18 mg/dL June 30, 2024 7:52:00 PM [facility] (TECH: [place]) 10265-5 Creatinine [Moles/volume] in Blood N 0.8 mg/dL 0.6 mg/dL - 1.3 mg/dL June 30, 2024 7:52:00 PM [facility] (TECH: [place]) 78992-3 Glomerular filtratio n rate/1.73 sq M.predicted by Creatinine-based formula (MDRD) N >60 mlpermin 60 mlpermin June 30, 2024 7:52:00 PM [facility] (TECH: [place]) 2885-2 Protein [Mass/volume ] in Serum or Plasma N 6.7 g/dl 6.4 g/dl - 8.2 g/dl June 30, 2024 7:52:00 PM [facility] (TECH: [place]) 1751-7 Albumin [Mass/volume ] in Serum or Plasma N 3.8 g/dl 3.4 g/dl - 5.0 g/dl June 30, 2024 7:52:00 PM [facility] (TECH: [place]) 2336-6 Globulin [Mass/volum e] in Serum N 2.9 June 30, 2024 7:52:00 PM [facility] (TECH: [place]) 1759-0 Albumin/Globulin [Ma ss Ratio] in Serum or Plasma N 1.3 0.7 - 2 June 30, 2024 7:52:00 PM [facility] (TECH: [place]) 26479-1 Calcium [Mass/volume ] in Serum or Plasma N 8.7 mg/dl 8.5 mg/dl - 10.5 mg/dl June 30, 2024 7:52:00 PM [facility] (TECH: [place]) 1975-2 Bilirubin.total [Mass/volume] in Serum or Plasma N 0.30 mg/dL 0.10 mg/dL - 1.00 mg/dL June 30, 2024 7:52:00 PM [facility] (TECH: [place]) 1920-8 Aspartate aminotransferase [Enzymatic activity/volume] in Serum or Plasma N 16 U/L 0 U/L - 37 U/L June 30, 2024 7:52:00 PM [facility] (TECH: [place]) 1742-6 Alanine aminotransferase [Enzymatic activity/volume] in Serum or Plasma N 16 U/L 0 U/L - 65 U/L June 30, 2024 7:52:00 PM [facility] (TECH: [place]) 6768-6 Alkaline phosphatase [Enzymatic activity/volume] in Serum or Plasma H 135 U/L 46 U/L - 116 U/L June 30, 2024 7:52:00 PM [facility] (TECH: [place]) ORDER 300: CBC AUTO W DIFF ( LOINC: 34323-0) ORDER DATE: June 30, 2024 7:04:00 PM [facility] Specimen Source: EDTA Specimen Type: Blood specime n with EDTA PERFORMING LAB: [address] [id number] Result Comment: Final Result Date: June 30, 2024 7:24:00 PM [facility] (TECH: KR1) LOINC TEST FLAG RESULT REFERENCE RANGE UPDA GLADYS BY 6690-2 Leukocytes [#/volume ] in Blood by Automated count N 7.8 K/ul 4.0 K/ul - 10.5 K/ul June 30, 2024 7:24:00 PM [facility] (TECH: KR1) 789-8 Erythrocytes [#/volu me] in Blood by Automated count N 4.8 M/mm3 4.2 M/mm3 - 6.4 M/mm3 June 30, 2024 7:24:00 PM [facility] (TECH: KR[facility]) 718-7 Hemoglobin [Mass/volume] in Blood N 12.9 gm/dl 12.5 gm/dl - 16.0 gm/dl June 30, 2024 7:24:00 PM UTC (TECH: KR1) 78731-1 Hematocrit [Volume Fraction] of Blood N 40.6 % 37.0 % - 47.0 % June 30 7:24:00 PM UTC (TECH: KR1) 787-2 Erythrocyte mean corpuscular volume [Entitic volume] by Automated count N 83.9 fl 78 fl - 100 fl June 30, 2024 7:24:00 PM UTC (TECH: KR1) 785-6 Erythrocyte mean corpuscular hemoglobin [Entitic mass] by Automated count L 26.7 pg 27 pg - 31 pg June 30, 2024 7:24:00 PM UTC (TECH: KR1) 786-4 Erythrocyte mean corpuscular hemoglobin concentration [Mass/volume] by Automated count L 31.8 g/dl 32 g/dl - 36 g/dl June 30 7:24:00 PM UTC (TECH: KR1) 33301-5 Erythrocyte distribution width [Ratio] N 13.6 % 11.5 % - 14.0 % June 30, 2024 7:24:00 PM UTC (TECH: KR1) 777-3 Platelets [#/volume] in Blood by Automated count N 300 K/ul 150 K/ul - 450 K/ul June 30 7:24:00 PM UTC (TECH: KR1) 73567-2 Platelet mean volume [Entitic volume] in Blood by Automated count H 10.5 fl 6 fl - 9.5 fl June 30, 2024 7:24:00 PM UTC (TECH: KR1) 58822-5 Neutrophils/100 leukocytes in Blood H 77.1 % 43 % - 65 % June 30 024 7:24:00 PM UTC (TECH: KR1) 736-9 Lymphocytes/100 leukocytes in Blood by Automated count L 17.6 % 20.5 % - 45.5 % June 30, 2024 7:24:00 PM UTC (TECH: KR1) 5905-5 Monocytes/100 leukocytes in Blood by Automated count L 4.1 % 5.5 % - 11.7 % June 30, 2024 7:24:00 PM UTC (TECH: KR1) 713-8 Eosinophils/100 leukocytes in Blood by Automated count L 0.3 % 0.9 % - 2.9 % June 30, 2024 7:24:00 PM UTC (TECH: KR1) 706-2 Basophils/100 leukocytes in Blood by Automated count N 0.5 % 0.2 % - 1.0 % June 30, 2024 7:24:00 PM UTC (TECH: KR1) 97570-0 Immature granulocytes/100 leukocytes in Blood by Automated count N 0.4 % 0.0 % - 0.8 % June 30, 2024 7:24:00 PM UTC (TECH: KR1) 02166-0 Nucleated cells [#/volume] in Blood N 0.0 % June 30 7:24:00 PM UTC (TECH: KR1) 13750-1 Neutrophils [#/volum e] in Blood H 6.0 K/uL 2.2 K/uL - 4.8 K/uL June 30 7:24:00 PM UTC (TECH: KR1) 731-0 Lymphocytes [#/volum e] in Blood by Automated count N 1.4 CELL/MCL 1.3 CELL/MCL - 2.9 CELL/MCL June 30, 2024 7:24:00 PM UTC (TECH: KR1) 742-7 Monocytes [#/volume] in Blood by Automated count N 0.3 CELL/MCL 0.3 CELL/MCL - 0.8 CELL/MCL June 30, 2024 7:24:00 PM UTC (TECH: KR1) 711-2 Eosinophils [#/volum e] in Blood by Automated count N 0.0 CELL/MCL 0 CELL/MCL - 0.2 CELL/MCL June 30, 2024 7:24:00 PM UTC (TECH: KR1) 704-7 Basophils [#/volume] in Blood by Automated count N 0.0 CELL/MCL 0.0 CELL/MCL - 1.0 CELL/MCL June 30, 2024 7:24:00 PM UTC (TECH: KR1) 20475-1 Immature granulocyte s [#/volume] in Blood N 0.03 K/ul June 30 7:24:00 PM UTC (TECH: KR1) 38923-3 Nucleated cells [#/volume] in Blood N 0.00 K/uL June 30 7:24:00 PM [facility] (TECH: KR1 21588-7 Manual Differential panel - Blood N NO June 30, 2024 7:24:00 PM [facility] (TECH: KR1) LABORATORY NARRATIVE RESULTS Information is not available RADIOLOGY RESULTS Information is not available PATHOLOGY NARRATIVE RESULTS Information is not available MICROBIOLOGY RESULTS No Micro Labs/Results Exist for Patient BLOOD ADMIN RESULTS Information is not available MEDICATIONS HOME MEDICATIONS Status RXNORM NDC Medication Dose Route Frequency Dates Comments Reported By Updated By Drug Treatment Unknown DISCHARGE MEDICATIONS Status RXNORM NDC Medication Dose Route Frequency Dates Comments Physician Updated By No Discharge Medication Info rmation Available INPATIENT MEDICATIONS Status RXNORM NDC Medication Dose Route Frequency Rat e Quantity Dates Comments Physician Updated By No Inpatient Medication Info rmation Available SOCIAL HISTORY SOCIAL HISTORY SNOMED-CT Social History Element Description Effective Dates Offered Cessation Comment UpdatedBy [id number] Historical Tobacco smoking status Former Smoker Not Applicable [id number] on March 29, 2024 8:11:08 AM [facility] SOCIAL HISTORY - Gender Sex: Female SOCIAL HISTORY - Status : status i nformation is not available Intention in Next Year: intention information is not available SOCIAL HISTORY - Sexual Behavior Sexual Orientation Gender Identity SNOMED-CT Description SNO MED -CT Description Activity Level No of Partners Partner Type UpdatedBy Information is not available HEALTH CONCERNS Problems Concern Status Health Concern problem infor mation not available. Smoking Status Status Years Used Consumed packs p er day Health Concern smoking histo ry information not available. Family History Concern Status Health Concern family histor y information not available. ENCOUNTERS ENCOUNTER INFORMATION Reason for Visit Not Specified Admission June 30, 2024 6:56:00 PM [facility] [address] [facility] [id number] Discharge June 30, 2024 6:56:00 PM [facility] D ISCHARGED TO HOME OR SELF CARE ENCOUNTER DIAGNOSES Notes information is not melida ilable. Code System Diagnosis Onset Date Diagnosis information is not available. ABSTRACT DIAGNOSES Code System Diagnosis Updated By N39.0 ICD10 URINARY TRACT IN FECTION, SITE NOT SPECIFIED [id number] on July 04, 2024 7:13:52 AM [facility] N39.0 ICD10 URINARY TRACT IN FECTION, SITE NOT SPECIFIED [id number] on July 04, 2024 7:13:52 AM UTC CARE TEAM Care Commercial Collector Role ELOISE GONZALEZ Primary Attending ELOISE GONZALEZ Admitting ELOISE GONZALEZ Referring THA HENDRICKSON Primary Care CARE TEAM CARE creative coordinator Role on Team Status Start Date End Date Update d By MADHAVI ALMAZAN PCP normal June 30 4:00:00 AM UTC June 30, 2024 6:56:00 PM UTC [id number] on June 30, 2024 6:57:44 PM [facility] CARLOS NAVAS APRN Referring normal June 30, 2024 4:00:00 AM UTC June 30, 2024 6:56:00 PM UTC [id number] on June 30, 2024 6:57:44 PM [facility] CARLOS NAVAS APRN Attending normal June 30, 2024 4:00:00 AM UTC June 30, 2024 6:56:00 PM UTC [id number] on June 30, 2024 6:57:44 PM [facility] CARLOS NAVAS APRN Admitting normal June 30, 2024 4:00:00 AM UTC June 30, 2024 6:56:00 PM UTC [id number] on June 30, 2024 6:57:44 PM UTC
--- OUTSIDE RECORDS SUMMARY | 2024-07-18 12:10 | XMS_ITS | Continuity of Care Document ---
Author Organization [facility] Phone Care Team Providers Care Coin Machine Collector Name Role Phone ELOISE GONZALEZ Primary Attending ELOISE GONZALEZ Admitting ELOISE GONZALEZ Unavailable THA HENDRICKSON Primary Care Unavailable ALLERGIES AND ADVERSE REACTIONS ALLERGIES AND ADVERSE REACTIONS Code System Allergy Substance Adverse Reaction Date Reaction (Severity) Comment Status Reported By Updated By TORADOL Rash active [id number] o n March 29, 2024 8:10:16 AM [facility] [id number] RXNorm COMPAZINE Rash (Mild) active IV [id number] on March 29, 2024 8:10:16 AM [facility] FAMILY HISTORY RELATION: Father Status: LIVING SNOMED-CT Diagnosis Age At Onset Information not available RELATION: Mother Status: LIVING SNOMED-CT Diagnosis Age At Onset Information not available RESULTS Patient: SYLVIE PATEL Date of : 1970 9 LABORATORY RESULTS ORDER 200: COMP METABOLIC PA PAKO (LOINC: 76442-5) ORDER DATE: June 30, 2024 7:04:00 PM [place] Specimen Source: PLASMA Specimen Type: Plasma specim en PERFORMING LAB: [address] [id number] Result Comment: Final Result Date: June 30, [...] June 30, 2024 7:52:00 PM [facility] (TECH: [employer] [facility]) 2027-9 Carbon dioxide, tota l [Moles/volume] in Serum or Plasma N 29.9 mmol/L 21.0 mmol/L - 32.0 mmol/L June 30, 2024 7:52:00 PM [facility] (TECH: [employer] [facility]) 16345-0 Anion gap in Blood N 12.9 A ug2023 7:52:00 PM [facility] (TECH: [employer] [facility]) 2345-7 Glucose [Mass/volume ] in Serum or Plasma H 174 mg/dl 70 mg/dl - 120 mg/dl June 30, 2024 7:52:00 PM [facility] (TECH: [employer]) 6299-2 Urea nitrogen [Mass/volume] in Blood N 12 mg/dL 7 mg/dL - 18 mg/dL June 30, 2024 7:52:00 PM [facility] (TECH: [employer] [facility]) 32143-8 Creatinine [Moles/volume] in Blood N 0.8 mg/dL 0.6 mg/dL - 1.3 mg/dL June 30, 2024 7:52:00 PM [facility] (TECH: [employer]) 44884-9 Glomerular filtratio n rate/1.73 sq M.predicted by Creatinine-based formula (MDRD) N >60 mlpermin 60 mlpermin June 30, 2024 7:52:00 PM [facility] (TECH: [employer] [facility]) 2885-2 Protein [Mass/volume ] in Serum or Plasma N 6.7 g/dl 6.4 g/dl - 8.2 g/dl June 30, 2024 7:52:00 PM [facility] (TECH: [employer] [facility]) 1751-7 Albumin [Mass/volume ] in Serum or Plasma N 3.8 g/dl 3.4 g/dl - 5.0 g/dl June 30, 2024 7:52:00 PM [facility] (TECH: [employer] [facility]) 2336-6 Globulin [Mass/volum e] in Serum N 2.9 June 30, 2024 7:52:00 PM [facility] (TECH: [employer] [facility]) 1759-0 Albumin/Globulin [Ma ss Ratio] in Serum or Plasma N 1.3 0.7 - 2 June 30, 2024 7:52:00 PM [facility] (TECH: [employer] [facility]) 37228-4 Calcium [Mass/volume ] in Serum or Plasma N 8.7 mg/dl 8.5 mg/dl - 10.5 mg/dl June 30, 2024 7:52:00 PM [facility] (TECH: [employer] [facility]) 1975-2 Bilirubin.total [Mass/volume] in Serum or Plasma N 0.30 mg/dL 0.10 mg/dL - 1.00 mg/dL June 30, 2024 7:52:00 PM [facility] (TECH: [employer] [facility]) 1920-8 Aspartate aminotransferase [Enzymatic activity/volume] in Serum or Plasma N 16 U/L 0 U/L - 37 U/L June 30, 2024 7:52:00 PM [facility] (TECH: [employer] [facility]) 1742-6 Alanine aminotransferase [Enzymatic activity/volume] in Serum or Plasma N 16 U/L 0 U/L - 65 U/L June 30, 2024 7:52:00 PM [facility] (TECH: [employer] [facility]) 6768-6 Alkaline phosphatase [Enzymatic activity/volume] in Serum or Plasma H 135 U/L 46 U/L - 116 U/L June 30, 2024 7:52:00 PM [facility] (TECH: [employer]) ORDER 300: CBC AUTO W DIFF ( LOINC: [id number]) ORDER DATE: June 30, 2024 7:04:00 PM [facility] Specimen Source: EDTA Specimen Type: Blood specime n with EDTA PERFORMING LAB: [address] [id number] Result Comment: Final Result Date: June 30, 2024 7:24:00 PM [facility] (TECH: [facility]) LOINC TEST FLAG RESULT REFERENCE [...] 30, 2024 7:24:00 PM [facility] (TECH: [facility]) 06961-3 Hematocrit [Volume Fraction] of Blood N 40.6 [...] June 30 7:24:00 PM [facility] (TECH: [facility]) 13814-6 Erythrocyte distribution width [Ratio] N 13.6 % 11.5 % - 14.0 % June 30, 2024 7:24:00 PM [facility] (TECH: [facility]) 777-3 Platelets [#/volume] in Blood by Automated count N 300 K/ul 150 K/ul - 450 K/ul June 30 7:24:00 PM [facility] (TECH: [facility]) 59583-4 Platelet mean volume [Entitic volume] in Blood by Automated count H 10.5 fl 6 fl - 9.5 fl June 30, 2024 7:24:00 PM [facility] (TECH: [facility]) 57626-3 Neutrophils/100 leukocytes in Blood H 77.1 % [...] 30, 2024 7:24:00 PM [facility] (TECH: [facility]) 29852-2 Immature granulocytes/100 leukocytes in Blood by Automated count N 0.4 % 0.0 % - 0.8 % June 30, 2024 7:24:00 PM [facility] (TECH: [facility]) 11315-7 Nucleated cells [#/volume] in Blood N 0.0 % June 30 7:24:00 PM [facility] (TECH: [facility]) 99935-5 Neutrophils [#/volum e] in Blood H 6.0 [...] 30, 2024 7:24:00 PM [facility] (TECH: [facility]) 22110-2 Immature granulocyte s [#/volume] in Blood N 0.03 K/ul June 30 7:24:00 PM [facility] (TECH: [facility]) 38711-7 Nucleated cells [#/volume] in Blood N 0.00 K/uL June 30 7:24:00 PM [facility] (TECH: [facility] 20171-8 Manual Differential panel - Blood N NO June 30, 2024 7:24:00 PM [facility] (TECH: [facility]) LABORATORY NARRATIVE RESULTS Information is [...] Description Effective Dates Offered Cessation Comment UpdatedBy [id number] Historical Tobacco smoking status Former Smoker Not Applicable [id number] on March 29, 2024 8:11:08 AM [facility] SOCIAL HISTORY - Gender Sex: Female SOCIAL [...] Specified Admission June 30, 2024 6:56:00 PM [facility] [address] [facility] [id number] Discharge June 30, 2024 6:56:00 PM [facility] D ISCHARGED TO HOME OR SELF CARE ENCOUNTER DIAGNOSES Notes information is not melida ilable. Code System Diagnosis Onset Date Diagnosis information is not available. ABSTRACT DIAGNOSES Code System Diagnosis Updated By Abstract Diagnosis informati on is not available. CARE TEAM Care Coin Machine Collector Role ELOISE GONZALEZ Primary Attending ELOISE GONZALEZ Admitting ELOISE GONZALEZ Referring THA HENDRICKSON Primary Care CARE TEAM CARE county director Role on Team Status Start Date End Date Update d By MADHAVI ALMAZAN PCP normal June 30 4:00:00 AM [facility] June 30, 2024 6:56:00 PM [facility] [id number] on June 30, 2024 6:57:44 PM [facility] CARLOS NAVAS APRN Referring normal June 30, 2024 4:00:00 AM [facility] June 30, 2024 6:56:00 PM [facility] [id number] on June 30, 2024 6:57:44 PM [facility] CARLOS NAVAS APRN Attending normal June 30, 2024 4:00:00 AM [facility] June 30, 2024 6:56:00 PM [facility] [id number] on June 30, 2024 6:57:44 PM [facility] CARLOS NAVAS APRN Admitting normal June 30, 2024 4:00:00 AM [facility] June 30, 2024 6:56:00 PM [facility] [id number] on June 30, 2024 6:57:44 PM [facility]
--- NOTE | 2024-07-18 12:16 | EXP.PAIN.SOA ---
[facility] Disclaimer: The information contained in this section may have been updated after the patient was seen, as this information can be updated by other users. Medical History Hx pulmonary embolism Stroke Typical angina Viral pneumonia History of asthma COPD mixed type COPD exacerbation Pre-op testing CHF (congestive heart failure) History of COPD Stopped smoking with greater than 30 pack year history Dyspnea on exertion Diabetes GERD (gastroesophageal reflux disease) CAD (coronary artery disease) HLD (hyperlipidemia) HTN (hypertension) COPD (chronic obstructive pulmonary disease) Depression Surgical History History of lung biopsy H/O esophagogastroduodenoscopy H/O colonoscopy H/O breast surgery TO REMOVE BENIGN TUMORS H/O section Family History Other COPD (chronic obstructive pulmonary disease) Cancer Diabetes Heart attack Hypertension Lung cancer Stroke Social History Smoking Status: Former smoker smoking status stop date: 07/16/2023 alcohol intake: never substance use type: denies use current occupational status: disabled Travel in the last 8 weeks: None PM Subjective & Objective Subjective Subjective:: Patient is a pleasant 54-year-old female comes our clinic today for follow-up visit regarding increase in low back pain over the weekend. Patient has intrathecal pain pump for about a year that is currently managed with morphine sulfate 5 mg/mL at a rate of 0.9994 mg/day. Also bupivacaine 10 mg/mL at a rate of 1.999 mg/day. She describes the low back pain as constant, dull, sharp, stabbing. She is concerned the pump was not functioning. However, I reassured her the pump was in good position and according to the readout her pump is functioning normally. I recommend a 30% increase in the pump rate today. Patient had a rate increase on 01/26/2024. It was a 20% increase. Patient reports minimal relief after that increase. Pain at rest (0-10 scale): 8 Objective Objective:: Patient is morbidly obese. Patient is awake alert [place] x 3. In no acute distress. Flexion-extension lumbar and cervical spine somewhat guarded secondary to pain. Deep tendon reflexes upper lower extremities normal. Motor strength upper and lower extremities normal. There is no gross sensory deficit. Gait is normal. Has patient had previous pain injection?: No Conservative treatment options previously tried: NSAIDS Length of treatment: 1 year, Home exercise plan Length of treatment: 1 year, Physical Therapy Length of treatment: 1 year, Chiropractor Length of treatment: 1 year, Acupuncture therapy Length of treatment: 1 year, Prescription medications (Intrathecal pain pump) Length of treatment: 1 year and None Meds Home Medications and Allergies Home Medications ?Medication ?Instructions ?Recorded ?Confirmed ?Type aspirin 81 mg tablet,delayed 81 mg PO DAILY 05/12/23 07/18/24 History release atorvastatin 10 mg tablet 10 mg PO DAILY 05/12/23 07/18/24 History bisacodyl 5 mg tablet,delayed 5 mg PO DAILY 05/12/23 07/18/24 History release blood sugar diagnostic (FreeStyle 05/12/23 07/18/24 History Lite Strips) bupropion HCl 300 mg 24 hr tablet, 300 mg PO DAILY 05/12/23 07/18/24 History extended release insulin aspart U-100 100 unit/mL See Protocol SQ DAILY 05/12/23 07/18/24 History subcutaneous solution (Novolog U-100 Insulin aspart) lisinopril 20 mg tablet 20 mg PO DAILY 05/12/23 07/18/24 History naloxone 4 mg/actuation nasal spray 1 spray intranasal DIRECTED 05/12/23 07/18/24 History Required for controlled substance pantoprazole 40 mg tablet,delayed 40 mg PO DAILY 05/12/23 07/18/24 History release polyethylene glycol 3350 17 17 g PO DAILY 05/12/23 07/18/24 History gram/dose oral powder potassium chloride 20 mEq 20 meq PO TID 05/12/23 07/18/24 History tablet,extended release(part/cryst) (Klor-Con M) trazodone 100 mg tablet 200 mg PO HS 05/12/23 07/18/24 History diclofenac epolamine 1.3 % 1 patch topical BID #30 ea 06/21/23 07/18/24 Rx transdermal 12 hour patch (Flector) metoprolol succinate 25 mg 25 mg PO DAILY #30 tabs 11/23/23 07/18/24 Rx tablet,extended release 24 hr guaifenesin 600 mg tablet, 600 mg PO Q12H PRN Congestion 11/25/23 07/18/24 History extended release 12 hr linaclotide 72 mcg capsule 72 mcg PO DAILY 11/25/23 07/18/24 History (Linzess) lorazepam 0.5 mg tablet 1 mg PO BID 11/25/23 07/18/24 History sertraline 100 mg tablet 100 mg PO DAILY 11/25/23 07/18/24 History albuterol sulfate 90 mcg/actuation 2 puff inhalation QID PRN 12/21/23 07/18/24 Rx aerosol inhaler (ProAir HFA) shortness of breath or wheezing 90 days #8.5 grams ondansetron 4 mg disintegrating 4 mg PO Q8H PRN nausea and 12/31/23 07/18/24 Rx tablet vomiting #30 tabs ropinirole 0.5 mg tablet 0.5 mg PO HS #30 tabs 12/31/23 07/18/24 Rx oxycodone-acetaminophen 5 mg-325 1 tab PO BID #60 tabs 01/05/24 07/18/24 Rx mg tablet (Percocet) sertraline 50 mg tablet 50 mg PO HS 01/26/24 07/18/24 History acetaminophen 500 mg tablet 1,000 mg PO Q4HP PRN Pain 01/27/24 07/18/24 History diphenhydramine 25 1 tab PO HS 01/27/24 07/18/24 History mg-acetaminophen 500 mg tablet (Acetaminophen PM) insulin glargine 100 unit/mL (3 45 unit SQ HS 01/27/24 07/18/24 History mL) subcutaneous pen (Lantus Solostar U-100 Insulin) empagliflozin 10 mg tablet 10 mg PO DAILY 30 days #30 tabs 01/28/24 07/18/24 Rx (Jardiance) furosemide 40 mg tablet 40 mg PO BID 30 days #60 tabs 01/28/24 07/18/24 Rx isosorbide mononitrate 60 mg 60 mg PO DAILY #30 tabs 01/28/24 07/18/24 Rx tablet,extended release 24 hr budesonide 160 mcg-glycopyr 9 2 inh inhalation BID 90 days #10.7 02/03/24 07/18/24 Rx mcg-formot 4.8 mcg/actuation HFA grams inhaler (Breztri Aerosphere) ipratropium 0.5 mg-albuterol 3 mg 3 ml inhalation Q4H PRN wheezing 02/03/24 07/18/24 Rx (2.5 mg base)/3 mL nebulization 30 days #180 mL soln amlodipine 5 mg tablet 5 mg PO DAILY #90 tabs 02/07/24 07/18/24 Rx ascorbic acid (vitamin C) 500 mg 1 g (2 x 500 mg) PO BID #180 tabs 02/13/24 07/18/24 Rx tablet (Vitamin C) methenamine hippurate 1 gram tablet 1 g PO BID 90 days #180 tabs 02/13/24 07/18/24 Rx oxybutynin chloride 10 mg 10 mg PO DAILY #90 tabs 03/13/24 07/18/24 Rx tablet,extended release 24 hr gabapentin 600 mg tablet 600 mg PO TID #90 tabs 03/16/24 07/18/24 Rx New Prescriptions to Start Prescriptions: Allergies Allergy/AdvReac Type Severity Reaction Status Date / Time penicillin G Allergy Unknown Verified 07/18/24 11:04 ketorolac [From Toradol] Allergy Verified 07/18/24 11:04 prochlorperazine Allergy Verified 07/18/24 11:04 [From Compazine] Assessment and Plan *Assessment and plan (1) Lumbar back pain: Status: Acute Category: Medical Code(s): M54.50 - Low back pain, unspecified Plan I will increase the patient's intrathecal pump rate by 30% today. Patient is new rate of morphine is 1.3 mg/day. Bupivacaine 2.6 mg/day. Patient will follow-up in the office in 2 weeks.
== END 2024-07-18 23:59 ==
LOC: SC.PAIN 10:41
PROVIDERS: PCP Nurse Practitioner Family; Visit Provider Nurse Anesthetist, Certified Registered
DX: M54.50 Low back pain, unspecified (principal); Z87.891 Personal history of nicotine dependence; Z97.8 Presence of other specified devices; E66.01 Morbid (severe) obesity due to excess calories; Z68.44 Body mass index [BMI] 60.0-69.9, adult; Z79.899 Other long term (current) drug therapy
CPT/HCPCS: 99212; G0463

== ENCOUNTER 2024-08-11 09:07 | Day surgery (SDC) | payer MEDICAID, SELFPAY ==
[2024-08-11 09:33] VITALS: BP 107/54; PULSE 76; RESP 20; O2SAT 97; BMI 45.2
[2024-08-11 09:54] VITALS: BP 104/40; PULSE 80; RESP 22; O2SAT 93
[2024-08-11 09:57] VITALS: BP 104/40; PULSE 80; RESP 22; O2SAT 93
--- NOTE | 2024-08-11 10:08 | P.PCN_ITS ---
Procedure Date: 08/11/24 Time: 10:09 Anesthesiologist:: Gianna Briseno APRN Complications:: None Pre-procedure Diagnosis:: Degenerative disc disease of lumbar spine with lumbar radiculopathy symptoms Post-procedure Diagnosis:: Same Indications for Procedure:: Patient is a pleasant 54-year-old female who presents today for intrathecal refill and reprogram. Today she rates her pain a 5 out of 10. Patient is currently managed with morphine 5 mg/mL with a daily dose of 1.3 mg/day and bupivacaine 10 mg/mL at a rate of 2.6 mg/day. She denies any side effects from this medication. She states it is working well. And declines any adjustment today. Patient does state that her health is still in rough shape and they are stating they do not know how much longer she will be here. Patient is currently seen in infectious disease provider out of [place] due to continuous kidney infection and is having a central line put in soon. Patient is also managed with gabapentin 600 mg 3 times daily and ropinirole 0.5 mg at bedtime from our office. She denies any side effects from this medication. She is requesting refills on these. Her Maximo has been reviewed and is appropriate. Physical Exam: General: Alert and oriented x3, no acute distress, pleasant and cooperative Lungs: Respirations even and unlabored, symmetrical chest expansion Eyes: PERRL Musculoskeletal: Flexion and extension of lumbar [spine] somewhat guarded secondary to pain, [antalgic gait noted] Neurological: Speech clear, no gross sensory deficit Procedure Details:: Informed consent was obtained and the risk and benefits of the procedure were explained to the patient. The patient was taken to the procedure room where noninvasive monitoring was placed including noninvasive blood pressure cuff and pulse oximeter. Patient's pump was interrogated. The area over the pump was cleansed with chlorhexidine as a cleansing solution. In sterile fashion the pump was accessed with a 22-gauge needle. Approximately 2.5 mls of the pump solution was removed and discarded appropriately. The pump was then refilled with 20 mL's of morphine 5 mg/mL and bupivacaine 10 mg/mL. The needle was withdrawn and a bandage was placed over the puncture site. The infusion rate was reprogrammed and continued at morphine 1.3 mg/day and bupivacaine 2.6 mg/day. The patient tolerated well with no complication. Plan and Disposition:: Patient tolerated her intrathecal refill and reprogram with no complications and was discharged neurologically intact. I will refill the patient's gabapentin and ropinirole and provide a 3-month supply of this medication. Patient will return to clinic on or before her next intrathecal refill date patient agrees with this plan of care. We will see the patient back in the clinic at the next intrathecal refill. Patient has been instructed to contact the clinic with any concerns before the next appointment. Dr. Herrera has reviewed this note and agrees with this plan of care. This note was dictated using voice recognition software and make contain errors or omissions. -- It Is medically necessary for this patient to continue to have their intrathecal pump refilled at regular intervals. This patient had an intrathecal pain pump implanted after meeting criteria of chronic intractable pain for greater than 3 months and failing conservative treatments. Patient has committed and been compliant to the treatment plan and all planned follow up care. Since implantation of the intrathecal pain pump, the patient has had decreased pain and been more functional. Oral medications have been reduced including intake of oral opioids. Patient continues to do well with intrathecal therapy with decrease in pain symptoms and increase in functional status. Stopping intrathecal medications can lead to life threatening withdrawal, seizures, cardiac arrest, severe pain, and possible . Pumps that are not refilled at regular intervals can be damages and cause and need for replacement. We continually titrate dose and concentration to optimize pain relief and function. We are limited in concentration for certain drugs to safely deliver medications through the pump and stay within the recommendations from the Polyanalgesic Consensus Committee Guidelines. Depending on dose and concentration these pumps may need to be refilled sooner than 3 months as we titrate.
[2024-08-11 10:17] VITALS: BP 104/50; PULSE 74; RESP 18; O2SAT 91
== END 2024-08-11 10:18 | disposition home or self-care (01) ==
PROVIDERS: PCP Nurse Practitioner Family; Visit Provider Nurse Practitioner Family
DX: M51.16 Intervertebral disc disorders with radiculopathy, lumbar region (principal)
CPT/HCPCS: 62370

== ENCOUNTER 2024-09-26 11:26 | Day surgery (SDC) | payer MEDICAID, SELFPAY ==
[2024-09-26 12:51] VITALS: BP 164/84; PULSE 78; RESP 16; TEMP 36.8; O2SAT 97; BMI 45.2
[2024-09-26 13:13] VITALS: BP 153/93; PULSE 79; RESP 20; O2SAT 95
[2024-09-26 13:15] VITALS: BP 153/93; PULSE 79; RESP 20; O2SAT 95
[2024-09-26 13:27] VITALS: BP 145/87; PULSE 77; RESP 16; O2SAT 95
--- NOTE | 2024-09-26 13:35 | P.PCN_ITS ---
Procedure Date: 09/26/24 Time: 13:15 Anesthesiologist:: Carlos Fulton CRNA Complications:: None Pre-procedure Diagnosis:: Degenerative disc lumbar spine multilevels. Lumbar radiculopathy Post-procedure Diagnosis:: Same. Indications for Procedure:: Patient is a very pleasant 54-year-old female who comes our clinic today for intrathecal pain pump interrogation refill. Patient currently being managed with morphine sulfate 5 mg/mL and bupivacaine 10 mg/mL. Morphine rate is 1.3 mg/day. Bupivacaine 2.6 mg/day. Patient requesting increase in pump rate. She is having some increased low back pain with activity. I will increase her by 10%. She rates her pain 7/10. Procedure Details:: Details of the procedure explained to the patient. The patient taken procedure room placed in sitting position. The area of the pump was cleansed chl orhexidine as a cleansing solution. The pump was interrogated. The pump was accessed with ease using a 22-gauge inch and half needle. 4 mL of solution was withdrawn discarded appropriate. The pump was then filled with 20 cc of solution containing morphine sulfate 5 mg/mL and bupivacaine 10 mg/mL. Pump rate will increase to morphine 1.4293 mg/day. Bupivacaine 2.859 mg today. Patient tolerated procedure without difficulty. No complications. Plan and Disposition:: Patient was discharged without incident.
== END 2024-09-26 13:27 | disposition home or self-care (01) ==
LOC: SC.PAINP 11:32
PROVIDERS: Visit Provider Nurse Anesthetist, Certified Registered
DX: M51.16 Intervertebral disc disorders with radiculopathy, lumbar region (principal)
CPT/HCPCS: 62370

== ENCOUNTER 2024-11-03 08:45 | Day surgery (SDC) | payer MEDICAID, SELFPAY ==
--- NOTE | 2024-11-03 09:02 | EXP.PAIN.PRO ---
Procedure Date: 11/03/24 Time: 09:32 Anesthesiologist:: Gianna Briseno APRN Complications:: None Pre-procedure Diagnosis:: Chronic pain syndrome, degenerative disc disease of lumbar spine with lumbar radiculopathy symptoms Post-procedure Diagnosis:: Same Indications for Procedure:: Patient is a pleasant 54-year-old female who presents today for intrathecal refill and reprogram. She rates her pain today a 8 out of 10. Patient denies any new falls or injuries. She does state that she just continues to have chronic pain and that the pump does help however she feels like her bolus device does not really do much of anything. Patient is requesting if we can increase her pump today. Patient is currently managed with morphine 5 mg/mL with a daily dose of 1.4293 mg/day and bupivacaine 10 mg/mL. She denies any side effects from this medication. She is also managed with gabapentin 600 mg 3 times daily from our office. Patient does have significant congestive heart failure as well as COPD. Patient is on continuous O2 and is currently ranging from 3 to 5 L. Her Maximo has been reviewed and is appropriate. Physical Exam: General: Alert and oriented x3, no acute distress, pleasant and cooperative Lungs: Respirations even and unlabored, symmetrical chest expansion Eyes: PERRL Musculoskeletal: Flexion and extension of lumbar [spine] somewhat guarded secondary to pain, [antalgic gait noted] Neurological: Speech clear, no gross sensory deficit Procedure Details:: Informed consent was obtained and the risk and benefits of the procedure were explained to the patient. The patient had noninvasive monitoring placed including noninvasive blood pressure cuff and pulse oximeter. Patient's pump was interrogated. The area over the pump was cleansed with chlorhexidine as a cleansing solution. In sterile fashion the pump was accessed with a 22-gauge needle. Approximately 5.5 mls of the pump solution was removed and discarded appropriately. The pump was then refilled with 20 mL's of morphine 5 mg/mL and bupivacaine 10 mg per. The needle was withdrawn and a bandage was placed over the puncture site. The infusion rate was reprogrammed and increased to morphine 1.5731 mg/day. The patient tolerated well with no complication. Plan and Disposition:: Patient tolerated her intrathecal refill and reprogram with no complications and was discharged neurologically intact. Will make sure that the patient does have 6-month refills on her gabapentin. Patient was asking whether or not we deal with palliative care. I did certified addiction counselor her that I will discuss with Dr. Herrera and let her know. Patient will return to clinic on or before her next intrathecal refill date. We will see the patient back in the clinic at the next intrathecal refill. Patient has been instructed to contact the clinic with any concerns before the next appointment. Dr. Herrera has reviewed this note and agrees with this plan of care. This note was dictated using voice recognition software and make contain errors or omissions. -- It Is medically necessary for this patient to continue to have their intrathecal pump refilled at regular intervals. This patient had an intrathecal pain pump implanted after meeting criteria of chronic intractable pain for greater than 3 months and failing conservative treatments. Patient has committed and been compliant to the treatment plan and all planned follow up care. Since implantation of the intrathecal pain pump, the patient has had decreased pain and been more functional. Oral medications have been reduced including intake of oral opioids. Patient continues to do well with intrathecal therapy with decrease in pain symptoms and increase in functional status. Stopping intrathecal medications can lead to life threatening withdrawal, seizures, cardiac arrest, severe pain, and possible . Pumps that are not refilled at regular intervals can be damages and cause and need for replacement. We continually titrate dose and concentration to optimize pain relief and function. We are limited in concentration for certain drugs to safely deliver medications through the pump and stay within the recommendations from the Polyanalgesic Consensus Committee Guidelines. Depending on dose and concentration these pumps may need to be refilled sooner than 3 months as we titrate. A UDS is needed to verify patient's compliance with our office pain contract. This is ordered based off specific treatments related to chronic pain with the potential to abuse certain medications.
[2024-11-03 09:20] VITALS: BP 171/86; PULSE 71; RESP 16; TEMP 36.4; O2SAT 93; BMI 43.8
[2024-11-03 09:21] VITALS: BP 154/86; PULSE 87; RESP 20; O2SAT 85
[2024-11-03 09:28] VITALS: BP 154/86; PULSE 87; RESP 20; O2SAT 95
[2024-11-03 09:40] VITALS: BP 164/84; PULSE 76; RESP 16; O2SAT 94
== END 2024-11-03 09:40 | disposition home or self-care (01) ==
PROVIDERS: Visit Provider Nurse Practitioner Family
DX: G89.4 Chronic pain syndrome (principal); M51.16 Intervertebral disc disorders with radiculopathy, lumbar region
CPT/HCPCS: 62370

== ENCOUNTER 2024-12-08 07:42 | Day surgery (SDC) | payer MEDICAID, SELFPAY ==
--- NOTE | 2024-12-08 08:52 | P.PCN_ITS ---
Procedure Date: 12/08/24 Time: 09:15 Anesthesiologist:: Gianna Briseno APRN Complications:: None Pre-procedure Diagnosis:: Degenerative disc disease of lumbar spine with lumbar radiculopathy symptoms, chronic pain syndrome Post-procedure Diagnosis:: Same Indications for Procedure:: Patient is a pleasant 54-year-old female who presents today for intrathecal refill and reprogram. She rates her pain today a out of 10. Patient denies any new falls or injuries. She does state that she has had a lot more lung related issues that have came up from her last appointment. She states that they have been having trouble keeping her oxygen right up. Patient states that she does have a monitor while she is sleeping and there has been times where it is gone off stating her oxygen was in the 40s and 50s. She states during those times she has even had confusion with her . Patient is currently on 6 L O2. She states that she did see her doctor and they did add additional inhalers however she does not feel like they have really done a big difference. She does have a follow-up with this office on Wednesday. Patient is currently managed with morphine 5 mg/mL with a daily dose of 1.5731 mg/day and bupivacaine 10 mg/mL. She denies any side effects from this medication. She is also managed with gabapentin 600 mg 3 times daily and ropinirole 0.5 mg at bedtime from our office. She denies any side effects. Patient does have significant comorbidities including congestive heart failure as well as COPD. Patient is on continuous O2 and is currently ranging from 3 to 5 L. Her Maximo has been reviewed and is appropriate. Physical Exam: General: Alert and oriented x3, no acute distress, pleasant and cooperative Lungs: Respirations even and unlabored, symmetrical chest expansion Eyes: PERRL Musculoskeletal: Flexion and extension of lumbar [spine] somewhat guarded secondary to pain, [antalgic gait noted] Neurological: Speech clear, no gross sensory deficit Procedure Details:: Informed consent was obtained and the risk and benefits of the procedure were explained to the patient. The patient had noninvasive monitoring placed including noninvasive blood pressure cuff and pulse oximeter. Patient's pump was interrogated. The area over the pump was cleansed with chlorhexidine as a cleansing solution. In sterile fashion the pump was accessed with a 22-gauge needle. Approximately 5.5 mls of the pump solution was removed and discarded appropriately. The pump was then refilled with 20 mL's of morphine 7.5 mg/mL and bupivacaine 10 mg/mL. The needle was withdrawn and a bandage was placed over the puncture site. The infusion rate was reprogrammed and increased 10%. The patient tolerated well with no complication. Plan and Disposition:: Patient tolerated her procedure well with no complications and was discharged neurologically intact. Patient is having a concentration change today and was notified that she would not be able to use her bolus device during this time. Patient acknowledges understanding. I will refill her ropinirole and make sure she has refills on her gabapentin. Patient at her last visit had talked about hospice at the insistence of her doctor however she states she is going to not choose that at this time. Patient states that she really does not want to have strangers come into her home. I did counselor camp her that if anything changes to feel free to call our office and that we will be happy to assist with anything she needs. Patient will return to clinic on or before her next intrathecal refill date. We will see the patient back in the clinic at the next intrathecal refill. Patient has been instructed to contact the clinic with any concerns before the next appointment. Dr. Herrera has reviewed this note and agrees with this plan of care. This note was dictated using voice recognition software and make contain errors or omissions. -- It Is medically necessary for this patient to continue to have their intrathecal pump refilled at regular intervals. This patient had an intrathecal pain pump implanted after meeting criteria of chronic intractable pain for greater than 3 months and failing conservative treatments. Patient has committed and been compliant to the treatment plan and all planned follow up care. Since implantation of the intrathecal pain pump, the patient has had decreased pain and been more functional. Oral medications have been reduced including intake of oral opioids. Patient continues to do well with intrathecal therapy with decrease in pain symptoms and increase in functional status. Stopping i ntrathecal medications can lead to life threatening withdrawal, seizures, cardiac arrest, severe pain, and possible . Pumps that are not refilled at regular intervals can be damages and cause and need for replacement. We continually titrate dose and concentration to optimize pain relief and function. We are limited in concentration for certain drugs to safely deliver medications through the pump and stay within the recommendations from the Polyanal[employer] Consensus Committee Guidelines. Depending on dose and concentration these pumps may need to be refilled sooner than 3 months as we titrate. A UDS is needed to verify patient's compliance with our office pain contract. This is ordered based off specific treatments related to chronic pain with the potential to abuse certain medications.
[2024-12-08 08:57] VITALS: BP 140/65; PULSE 71; RESP 16; TEMP 36.6; O2SAT 100; BMI 44.9
[2024-12-08 09:03] VITALS: BP 131/50; PULSE 74; RESP 18; O2SAT 98
[2024-12-08 09:04] VITALS: BP 131/50; PULSE 74; RESP 18; O2SAT 98
[2024-12-08 09:30] VITALS: BP 117/77; PULSE 71; RESP 16; O2SAT 96
== END 2024-12-08 09:30 | disposition home or self-care (01) ==
PROVIDERS: Visit Provider Nurse Practitioner Family
DX: M51.16 Intervertebral disc disorders with radiculopathy, lumbar region (principal); G89.4 Chronic pain syndrome
CPT/HCPCS: 62370

== ENCOUNTER 2025-01-26 08:37 | Day surgery (SDC) | payer MEDICAID, SELFPAY ==
[2025-01-26 08:39] VITALS: BP 113/68; PULSE 65; RESP 16; TEMP 36.8; O2SAT 99; BMI 45.2
--- NOTE | 2025-01-26 08:46 | EXP.PAIN.PRO ---
Procedure Date: 01/26/25 Time: 09:08 Anesthesiologist:: Gianna Briseno APRN Complications:: None Pre-procedure Diagnosis:: Degenerative disc disease of lumbar spine with lumbar radiculopathy symptoms, chronic pain syndrome Post-procedure Diagnosis:: Same Indications for Procedure:: Patient is a pleasant 54-year-old female who presents today for intrathecal refill and reprogram. Today she rates her pain 8 out of 10. She denies any new injury or fall from our last visit. Patient does state that she still is having a lot of pain that is more prominent through the day. She does state that the pain that she had a lot of times at night does seem like that is improved. Patient does still feel like the pump is not quite where it needs to be because she does not notice as significant relief. She is asking for an adjustment. Patient is now set up for at home adjustments of her pump with [facility].Patient is managed with lorazepam and gabapentin from an outside provider. Her Maximo has been reviewed and is appropriate. Physical Exam: General: Alert and oriented x3, no acute distress, pleasant and cooperative Lungs: Respirations even and unlabored, symmetrical chest expansion Eyes: PERRL Musculoskeletal: Flexion and extension of lumbar [spine] somewhat guarded secondary to pain, [antalgic gait noted] Neurological: Speech clear, no gross sensory deficit Procedure Details:: Informed consent was obtained and the risk and benefits of the procedure were explained to the patient. The patient had noninvasive monitoring placed including noninvasive blood pressure cuff and pulse oximeter. Patient's pump was interrogated. The area over the pump was cleansed with chlorhexidine as a cleansing solution. In sterile fashion the pump was accessed with a 22-gauge needle. Approximately 5 mls of the pump solution was removed and discarded appropriately. The pump was then refilled with 20 mL's of morphine 7.5 mg/ml and bupivacaine 10 mg/mL. The needle was withdrawn and a bandage was placed over the puncture site. The infusion rate was reprogrammed and increased morphine 2.5159 mg/day and bupivacaine 3.355 mg/day. The patient tolerated well with no complication. Plan and Disposition:: Patient tolerated the procedure well with no complications and was discharged neurologically intact. I will order the patient a compounded cream. Patient's was also counseled that we will send a physical therapy order with her for her to give to what ever facility that works for her to help work on some low back and bilateral leg pain and weakness. Patient agrees with this plan of care. Patient will return to clinic on or before their next intrathecal refill date. We will see the patient back in the clinic at the next intrathecal refill. Patient has been instructed to contact the clinic with any concerns before the next appointment. Dr. Herrera has reviewed this note and agrees with this plan of care. This note was dictated using voice recognition software and make contain errors or omissions. -- It Is medically necessary for this patient to continue to have their intrathecal pump refilled at regular intervals. This patient had an intrathecal pain pump implanted after meeting criteria of chronic intractable pain for greater than 3 months and failing conservative treatments. Patient has committed and been compliant to the treatment plan and all planned follow up care. Since implantation of the intrathecal pain pump, the patient has had decreased pain and been more functional. Oral medications have been reduced including intake of oral opioids. Patient continues to do well with intrathecal therapy with decrease in pain symptoms and increase in functional status. Stopping intrathecal medications can lead to life threatening withdrawal, seizures, cardiac arrest, severe pain, and possible . Pumps that are not refilled at regular intervals can be damages and cause and need for replacement. We continually titrate dose and concentration to optimize pain relief and function. We are limited in concentration for certain drugs to safely deliver medications through the pump and stay within the recommendations from the Polyanalgesic Consensus Committee Guidelines. Depending on dose and concentration these pumps may need to be refilled sooner than 3 months as we titrate. A UDS is needed to verify patient's compliance with our office pain contract. This is ordered based off specific treatments related to chronic pain with the potential to abuse certain medications.
[2025-01-26 09:10] VITALS: BP 119/60; PULSE 63; RESP 20; O2SAT 99
[2025-01-26 09:13] VITALS: BP 119/60; PULSE 62; RESP 18; O2SAT 99
[2025-01-26 09:25] VITALS: BP 128/63; PULSE 63; RESP 16; O2SAT 97
== END 2025-01-26 09:25 | disposition home or self-care (01) ==
PROVIDERS: Visit Provider Nurse Practitioner Family
DX: M51.16 Intervertebral disc disorders with radiculopathy, lumbar region (principal); G89.4 Chronic pain syndrome
CPT/HCPCS: 62370

== ENCOUNTER → 2025-03-01 13:06 | Day surgery (SDC) | payer MEDICAID, SELFPAY ==
[2025-03-01 13:15] VITALS: BP 116/72; PULSE 66; RESP 20; TEMP 36.6; O2SAT 97; BMI 46.6
--- NOTE | 2025-03-01 13:15 | P.PCN_ITS ---
Procedure Date: 03/01/25 Time: 13:50 Anesthesiologist:: Gianna Briseno APRN Complications:: None Pre-procedure Diagnosis:: Degenerative disc disease of lumbar spine with lumbar radiculopathy symptoms, chronic pain syndrome Post-procedure Diagnosis:: Same Indications for Procedure:: Patient is a pleasant 54-year-old female who presents today for intrathecal refill and reprogram. Today she rates her pain a 5 out of 10. Patient does state from her last visit she ended up falling a couple of weeks ago. She states she was sitting on the side of her bed and her sugar bottomed out causing her to pass out. She states she ended up having to go to the hospital there around [place] and ended up getting stitches. Patient denies any other falls. Patient is still on continuous O2 related to her chronic COPD. Patient is currently managed with morphine 7.5 mg/mL with a daily dose of 3.0 to 1 mg/day bupivacaine 10 mg/mL with a daily dose of 4.028 mg/day. She does state that she continues to still have the leg weakness and feels like here lately it has been worse with her intrathecal increase is that [facility] has been doing at home.Patient is prescribed compounded cream from our office and lorazepam and gabapentin from an outside provider. Patient does also make mention that she is currently having some cellulitis in her right lower leg. She states that her primary care is treating her for this and is currently on antibiotics. Her Maximo has been reviewed and is appropriate. Physical Exam: General: Alert and oriented x3, no acute distress, pleasant and cooperative Lungs: Respirations even and unlabored, symmetrical chest expansion Eyes: PERRL Musculoskeletal: Flexion and extension of patient will be submitted for a lumbar[spine] somewhat guarded secondary to pain, [antalgic gait noted] Neurological: Speech clear, no gross sensory deficit Procedure Details:: Informed consent was obtained and the risk and benefits of the procedure were explained to the patient. The patient had noninvasive monitoring placed including noninvasive blood pressure cuff and pulse oximeter. Patient's pump was interrogated. The area over the pump was cleansed with chlorhexidine as a cleansing solution. In sterile fashion the pump was accessed with a 22-gauge needle. Approximately 4.6 mls of the pump solution was removed and discarded appropriately. The pump was then refilled with 20 mL's of morphine 10 mg/mL and bupivacaine 15 mg/mL. The needle was withdrawn and a bandage was placed over the puncture site. The infusion rate was reprogrammed and decreased down to morphine 2.179 mg/day and bupivacaine 3.269 mg/day. The patient tolerated well with no complication. Plan and Disposition:: Patient tolerated the procedure well with no complications and was discharged neurologically intact. I did discuss with the patient due to her continued leg weakness we will decrease down her pump today. Patient is having a concentration change and was counseled that she will not be able to use her bolus device while there is the bridge bolus to the new concentration. Patient acknowledges understanding. Patient at our last visit did send a physical therapy order however she states she does not know where she would take it to. We had discussed even previously about home health however at that time she did not want anybody to come to her home. Patient does state today that she is willing to proceed forward with this option. I will send in a new order to do home health for her low back pain and bilateral leg weakness. Patient was also requesting refills on her gabapentin and stated that the previous provider has been doing it the last several months wanted our office to go back to writing this prescription. Patient is doing well with the compounded cream we prescrib ed and does state that really does help. Patient did also request today if we could write an order for a wheelchair due to her limited mobility. Patient does have very limited mobility and has been experiencing much more increased instability when she is up ambulating. Patient is unable to use a walker due to this fact and could very much benefit from the addition of a wheelchair. We will continue to monitor this. I will send a written order for the wheelchair with the patient today for this. Patient will return to clinic on or before their next intrathecal refill date. We will see the patient back in the clinic at the next intrathecal refill. Patient has been instructed to contact the clinic with any concerns before the next appointment. Dr. Herrera has reviewed this note and agrees with this plan of care. This note was dictated using voice recognition software and make contain errors or omissions. -- It Is medically necessary for this patient to continue to have their intrathecal pump refilled at regular intervals. This patient had an intrathecal pain pump implanted after meeting criteria of chronic intractable pain for greater than 3 months and failing conservative treatments. Patient has committed and been compliant to the treatment plan and all planned follow up care. Since implantation of the intrathecal pain pump, the patient has had decreased pain and been more functional. Oral medications have been reduced including intake of oral opioids. Patient continues to do well with intrathecal therapy with decrease in pain symptoms and increase in functional status. Stopping intrathecal medications can lead to life threatening withdrawal, seizures, cardiac arrest, severe pain, and possible . Pumps that are not refilled at regular intervals can be damages and cause and need for replacement. We continually titrate dose and concentration to optimize pain relief and function. We are limited in concentration for certain drugs to safely deliver medications through the pump and stay within the recommendations from the Polyanalgesic Consensus Committee Guidelines. Depending on dose and concentration these pumps may need to be refilled sooner than 3 months as we titrate. A UDS is needed to verify patient's compliance with our office pain contract. This is ordered based off specific treatments related to chronic pain with the potential to abuse certain medications.
[2025-03-01 13:34] VITALS: BP 122/63; PULSE 64; RESP 20; O2SAT 96
[2025-03-01 14:05] VITALS: BP 94/52; PULSE 62; RESP 20; O2SAT 96
== END | disposition home or self-care (01) ==
PROVIDERS: Visit Provider Nurse Practitioner Family
DX: M51.16 Intervertebral disc disorders with radiculopathy, lumbar region (principal); G89.4 Chronic pain syndrome
CPT/HCPCS: 62370; 99212; G0463

== ENCOUNTER 2025-04-20 11:12 | Day surgery (SDC) | payer MEDICAID, SELFPAY ==
--- NOTE | 2025-04-20 11:32 | EXP.HP ---
History of Present Illness *Admission Date: 04/20/25 *Reason for visit:: Intrathecal refill; DDD *History of present illness: Same [facility] Disclaimer: The information contained in this section may have been updated after the patient was seen, as this information can be updated by other users. Medical History Hx pulmonary embolism Stroke Typical angina Viral pneumonia History of asthma COPD mixed type COPD exacerbation Pre-op testing CHF (congestive heart failure) History of COPD Stopped smoking with greater than 30 pack year history Dyspnea on exertion Diabetes GERD (gastroesophageal reflux disease) CAD (coronary artery disease) HLD (hyperlipidemia) HTN (hypertension) COPD (chronic obstructive pulmonary disease) Depression Surgical History History of lung biopsy H/O esophagogastroduodenoscopy H/O colonoscopy H/O breast surgery TO REMOVE BENIGN TUMORS H/O section Family History Other COPD (chronic obstructive pulmonary disease) Cancer Diabetes Heart attack Hypertension Lung cancer Stroke Social History Smoking Status: Former smoker smoking status stop date: 07/16/2023 alcohol intake: never substance use type: denies use current occupational status: disabled Travel in the last 8 weeks?: None Have you lived/traveled outside [place] in past 30 days?: No Contact w/someone who lives/traveled outside US past 30 days?: No Exposure to someone with infectious disease in past 14 days?: No Do you have a fever (greater than 100.4 F or 38 C)?: No Have you tested positive for COVID-19?: No Exposed to someone with COVID-19 in past 14 days?: No Do you have a sore throat?: No Do you have a cough?: No Do you have any weakness?: No Do you have any diarrhea?: No Are you experiencing any unusual bleeding?: No Do you have any muscle aches/pain?: No Do you have any abdominal pain?: No Are you experiencing loss of taste or smell?: No Other Medical History Have you received the Flu Vaccine for this season: No Have you received the Pneumonia Vaccine: No Review of Systems Review of Systems Review of systems:: pertinent systems reviewed and negative unless documented below Review of systems (narrative): Review of Systems: General: No recent weight changes, no fever, no sleep disturbances Respiratory: No cough, no shortness of air, no recurring pulmonary infections Cardiovascular/peripheral vascular: No chest pain, no palpitations, no edema, no shortness of breath Gastrointestinal: No new onset incontinence, normal bowel movements reported Genitourinary: No new onset incontinence Musculoskeletal: Chronic back pain Psychiatric: [Normal mood/affect] Neurological: [Denies weakness in extremities], [denies balance issues] Meds Home Medications and Allergies Home Medications ?Medication ?Instructions ?Recorded ?Confirmed ?Type aspirin 81 mg tablet,delayed 81 mg PO DAILY 05/12/23 01/26/25 History release atorvastatin 10 mg tablet 10 mg PO DAILY 05/12/23 01/26/25 History bisacodyl 5 mg tablet,delayed 5 mg PO DAILY 05/12/23 01/26/25 History release blood sugar diagnostic (FreeStyle 05/12/23 01/26/25 History Lite Strips) bupropion HCl 300 mg 24 hr tablet, 150 mg PO DAILY 05/12/23 01/26/25 History extended release insulin aspart U-100 100 unit/mL See Protocol SQ DAILY 05/12/23 01/26/25 History subcutaneous solution (Novolog U-100 Insulin aspart) naloxone 4 mg/actuation nasal spray 1 spray intranasal DIRECTED 05/12/23 01/26/25 History Required for controlled substance pantoprazole 40 mg tablet,delayed 40 mg PO DAILY 05/12/23 01/26/25 History release polyethylene glycol 3350 17 17 g PO DAILY 05/12/23 01/26/25 History gram/dose oral powder potassium chloride 20 mEq 10 meq PO BID 05/12/23 01/26/25 History tablet,extended release(part/cryst) (Klor-Con M) trazodone 100 mg tablet 200 mg PO HS 05/12/23 01/26/25 History diclofenac epolamine 1.3 % 1 patch topical BID #30 ea 06/21/23 01/26/25 Rx transdermal 12 hour patch (Flector) guaifenesin 600 mg tablet, 600 mg PO TID PRN Congestion 11/25/23 01/26/25 History extended release 12 hr sertraline 100 mg tablet 100 mg PO DAILY 11/25/23 01/26/25 History albuterol sulfate 90 mcg/actuation 2 puff inhalation QID PRN 12/21/23 01/26/25 Rx aerosol inhaler (ProAir HFA) shortness of breath or wheezing 90 days #8.5 grams acetaminophen 500 mg tablet 1,000 mg PO Q4HP PRN Pain 01/27/24 01/26/25 History insulin glargine 100 unit/mL (3 45 unit SQ HS 01/27/24 01/26/25 History mL) subcutaneous pen (Lantus Solostar U-100 Insulin) budesonide 160 mcg-glycopyr 9 2 inh inhalation BID 90 days #10.7 02/03/24 01/26/25 Rx mcg-formot 4.8 mcg/actuation HFA grams inhaler (Breztri Aerosphere) ipratropium 0.5 mg-albuterol 3 mg 3 ml inhalation Q4H PRN wheezing 02/03/24 01/26/25 Rx (2.5 mg base)/3 mL nebulization 30 days #180 mL soln ascorbic acid (vitamin C) 500 mg 1 g (2 x 500 mg) PO BID #180 tabs 02/13/24 01/26/25 Rx tablet (Vitamin C) ropinirole 0.5 mg tablet 0.5 mg PO HS #30 tabs 12/08/24 01/26/25 Rx carvedilol 25 mg tablet 25 mg PO BID 01/26/25 01/26/25 History clopidogrel 75 mg tablet (Plavix) 75 mg PO DAILY 01/26/25 01/26/25 History furosemide 40 mg tablet 80 mg PO BID 01/26/25 01/26/25 History losartan 50 mg tablet 50 mg PO DAILY 01/26/25 01/26/25 History lurasidone 20 mg tablet 20 mg PO DAILY 01/26/25 01/26/25 History oxybutynin chloride 10 mg 5 mg PO BID 01/26/25 01/26/25 History tablet,extended release 24 hr pantoprazole 40 mg tablet,delayed 40 mg PO DAILY 01/26/25 01/26/25 History release ranolazine 500 mg tablet,extended 500 mg PO BID 01/26/25 01/26/25 History release,12 hr ondansetron 4 mg disintegrating 4 mg PO Q8H PRN nausea and 02/02/25 Rx tablet vomiting #30 tabs gabapentin 600 mg tablet 600 mg PO TID #90 tabs 03/01/25 Rx New Prescriptions to Start Prescriptions: Allergies Allergy/AdvReac Type Severity Reaction Status Date / Time penicillin G Allergy Unknown Verified 07/18/24 11:04 ketorolac (From Toradol) Allergy Verified 07/18/24 11:04 prochlorperazine (From Allergy Verified 07/18/24 11:04 Compazine) Exam Constitutional Constitutional: no acute distress, obese and cooperative *Routine HEENT Exam Head: Present normocephalic, atraumatic and other (Severe ecchymosis noted to the patient's face related to a recent fall) Eye: Present PERRL ENT: Present mucous membranes moist *Routine Neck Exam Neck: Present supple *Routine Respiratory Exam Respiratory: Present decreased breath sounds *Routine Cardiovascular Exam Cardiovascular: Present RRR *Routine Abdominal Exam Abdominal: Present soft *Routine Rectal Exam Rectal:: deferred *Routine Genitalia Exam Genitalia:: normal female Routine Back/Spine/Pelvis Exam Back/Spine: Present pain with flexion *Routine Skin Exam Skin: Present intact and dry *Routine Neurological Exam Neurological: Present alert and oriented X3 Routine Psychiatric Exam Psychiatric: Present normal affect and normal thought process Assessment and Plan *Assessment and plan (1) Lumbar back pain: Status: Acute Category: Medical Code(s): M54.50 - Low back pain, unspecified Plan Patient has been instructed to contact the clinic with any concerns before the next appointment. Dr. Herrera has reviewed this note and agrees with this plan of care. This note was dictated using voice recognition software and make contain errors or omissions. All injections are used with Lidocaine, Bupivacaine and dexamethasone. Occasionally urine drug screen is needed to verify patient's compliance with our office pain contract. This is ordered based off specific treatments related to chronic pain with the potential to abuse certain medications.
--- NOTE | 2025-04-20 11:34 | P.PCN_ITS ---
Procedure Date: 04/20/25 Time: 11:45 Anesthesiologist:: Gianna Briseno APRN Complications:: None Pre-procedure Diagnosis:: Degenerative disc disease of lumbar spine, chronic pain syndrome Post-procedure Diagnosis:: same Indications for Procedure:: Patient is a pleasant 54-year-old female who presents today for intrathecal refill and reprogram. Today she rates her pain a 7 out of 10. Patient has had a significant fall about 3 weeks ago while she was in the restroom and ended up falling and doing a face plant into her tub. Patient does present today with significant bruising all across her face and a hematoma present. Patient states that she did go to for evaluation and that there was no fractures. Patient states that she is still having headaches related to this injury. Patient is currently managed with morphine 10 mg/mL with a daily dose of 3.03 mg/day with bupivacaine 15 mg/mL with a daily dose of 4.544 mg/day. She denies any side effects. She is requesting an increase if possible. Patient does also make mention that she is experiencing issues with yeast under her breast as well as vaginal. She does state that she is seeing her primary care on Wednesday. Her Maximo has been reviewed and is appropriate. Physical Exam: General: Alert and oriented x3, no acute distress, pleasant and cooperative Lungs: Respirations even and unlabored, symmetrical chest expansion Eyes: PERRL Musculoskeletal: Flexion and extension of lumbar [spine] somewhat guarded secondary to pain, [antalgic gait noted] Neurological: Speech clear, no gross sensory deficit Procedure Details:: Informed consent was obtained and the risk and benefits of the procedure were explained to the patient. The patient had noninvasive monitoring placed including noninvasive blood pressure cuff and pulse oximeter. Patient's pump was interrogated. The area over the pump was cleansed with chlorhexidine as a cleansing solution. In sterile fashion the pump was accessed with a 22-gauge needle. Approximately 4 mls of the pump solution was removed and discarded appropriately. The pump was then refilled with 20 mL's of morphine 10 mg/mL and bupivacaine 15 mg/mL. The needle was withdrawn and a bandage was placed over the puncture site. The infusion rate was reprogrammed and continued at its current dosage. The patient tolerated well with no complication. Plan and Disposition:: Patient tolerated the procedure well with no complications and was discharged neurologically intact. I did discuss with the patient due to her recent fall and the at home [facility] nurse just recently giving her an increase that I would not make any additional adjustments on her pump today. Patient was counseled to watch for any increased side effects with the pump. Patient has been ordered physical therapy however she states she is still having difficulty getting this order. We will write out another order to send her with today as well as I had a motorized wheelchair to be ordered. Patient was counseled to check with her insurance to see if there is certain documentation that they would need and that we are happy to help with this. I will send in some nystatin topical until she can get to her primary care on Wednesday for additional evaluation related to the yeast infection. Patient agrees with this plan of care. Patient will return to clinic on or before their next intrathecal refill date. We will see the patient back in the clinic at the next intrathecal refill. Patient has been instructed to contact the clinic with any concerns before the next appointment. Dr. Herrera has reviewed this note and agrees with this plan of care. This note was dictated using voice recognition software and make contain errors or omissions. -- It Is medically necessary for this patient to continue to have their intrathecal pump refilled at regular intervals. This patient had an intrathecal pain pump implanted after meeting criteria of chronic intractable pain for greater than 3 months and failing conservative treatments. Patient has committed and been compliant to the treatment plan and all planned follow up care. Since implantation of the intrathecal pain pump, the patient has had decreased pain an d been more functional. Oral medications have been reduced including intake of oral opioids. Patient continues to do well with intrathecal therapy with decrease in pain symptoms and increase in functional status. Stopping intrathecal medications can lead to life threatening withdrawal, seizures, cardiac arrest, severe pain, and possible . Pumps that are not refilled at regular intervals can be damages and cause and need for replacement. We continually titrate dose and concentration to optimize pain relief and function. We are limited in concentration for certain drugs to safely deliver medications through the pump and stay within the recommendations from the Polyanalgesic Consensus Committee Guidelines. Depending on dose and concentration these pumps may need to be refilled sooner than 3 months as we titrate. A UDS is needed to verify patient's compliance with our office pain contract. This is ordered based off specific treatments related to chronic pain with the potential to abuse certain medications.
[2025-04-20 11:38] VITALS: BP 144/84; PULSE 68; RESP 16; O2SAT 96; BMI 60.9
[2025-04-20 11:40] VITALS: BP 143/78; PULSE 72; RESP 18; O2SAT 97
[2025-04-20 12:00] VITALS: BP 122/63; PULSE 78; RESP 16; O2SAT 97
--- NOTE | 2025-05-03 10:04 | PC.NURSE ---
Pt called reporting increasing headaches, pt reports she is waiting on surgery to call her for an appt to have the clot removed behind her eye r/t her last fall. Stated to pt if her headaches are worsening she needs to go and be reevaluated. Pt states she has been seen for the headaches and they tell her to contact her pain doctor for medication. Pt states she is waiting on a surgery date. Asked pt if she has talked to her primary doctor about the headaches, pt reports she is out right now . Pt states I just want a solution for these headaches . Placed pt on hold, notified provider of conversation with pt, asked provider if she would to speak with her. Provider danisha Garg states to notify pt she can not write her oral pain medication r/t severe fall risk and pts COPD. Virginia Briseno aprn states she would also recommend for pt to be reevaluated, states she can not write medication for headaches r/t that is not her specialty, states pt should probably be seen by neurology. Stated to tell pt she could try excedrin migraine for short term help with headaches Relayed all of information from provider danisha garg to pt via phone. Pt states she understood about the pain medication she just wants her headaches to get better. Pt reports she will try excedrin migraine, stated to pt this should be short term usage, if headaches are not improving or worsen she needs to be seen by a provider for evaluation. Pt verbalized understanding.
== END 2025-04-20 12:00 | disposition home or self-care (01) ==
PROVIDERS: Visit Provider Nurse Practitioner Family
DX: M51.369 Other intervertebral disc degeneration, lumbar region without mention of lumbar back pain or lower extremity pain (principal); M54.50 Low back pain, unspecified; J44.89 Other specified chronic obstructive pulmonary disease; I11.0 Hypertensive heart disease with heart failure; I50.9 Heart failure, unspecified; E11.9 Type 2 diabetes mellitus without complications; K21.9 Gastro-esophageal reflux disease without esophagitis; I25.10 Atherosclerotic heart disease of native coronary artery without angina pectoris; E78.5 Hyperlipidemia, unspecified; F32.A Depression, unspecified; Z79.82 Long term (current) use of aspirin; Z79.899 Other long term (current) drug therapy; Z79.891 Long term (current) use of opiate analgesic; Z87.891 Personal history of nicotine dependence; Z86.73 Personal history of transient ischemic attack (TIA), and cerebral infarction without residual deficits; Z79.4 Long term (current) use of insulin; Z88.0 Allergy status to penicillin; Z88.8 Allergy status to other drugs, medicaments and biological substances; Z88.5 Allergy status to narcotic agent; Z85.118 Personal history of other malignant neoplasm of bronchus and lung
CPT/HCPCS: 62370

== ENCOUNTER 2025-05-31 08:33 | Day surgery (SDC) | payer MEDICAID, SELFPAY ==
[2025-05-31 08:52] VITALS: BP 143/69; PULSE 67; RESP 18; O2SAT 98; BMI 45.2
--- NOTE | 2025-05-31 08:52 | EXP.PM.HP ---
History of Present Illness *Admission Date: 05/31/25 *Reason for visit:: Intrathecal refill; DDD *History of present illness: Same [facility] Disclaimer: The information contained in this section may have been updated after the patient was seen, as this information can be updated by other users. Medical History Hx pulmonary embolism Stroke Typical angina Viral pneumonia History of asthma COPD mixed type COPD exacerbation Pre-op testing CHF (congestive heart failure) History of COPD Stopped smoking with greater than 30 pack year history Dyspnea on exertion Diabetes GERD (gastroesophageal reflux disease) CAD (coronary artery disease) HLD (hyperlipidemia) HTN (hypertension) COPD (chronic obstructive pulmonary disease) Depression Surgical History History of lung biopsy H/O esophagogastroduodenoscopy H/O colonoscopy H/O breast surgery TO REMOVE BENIGN TUMORS H/O section Family History Other COPD (chronic obstructive pulmonary disease) Cancer Diabetes Heart attack Hypertension Lung cancer Stroke Social History Smoking Status: Former smoker smoking status stop date: 07/16/2023 alcohol intake: never substance use type: denies use current occupational status: disabled Travel in the last 8 weeks?: None Have you lived/traveled outside [place] in past 30 days?: No Contact w/someone who lives/traveled outside [place] past 30 days?: No Exposure to someone with infectious disease in past 14 days?: No Do you have a fever (greater than 100.4 F or 38 C)?: No Have you tested positive for COVID-19?: No Exposed to someone with COVID-19 in past 14 days?: No Do you have a sore throat?: No Do you have a cough?: No Do you have any weakness?: No Do you have any diarrhea?: No Are you experiencing any unusual bleeding?: No Do you have any muscle aches/pain?: No Do you have any abdominal pain?: No Are you experiencing loss of taste or smell?: No Other Medical History Have you received the Flu Vaccine for this season: No Have you received the Pneumonia Vaccine: No Review of Systems Review of Systems Review of systems:: pertinent systems reviewed and negative unless documented below Review of systems (narrative): Review of Systems: General: No recent weight changes, no fever, no sleep disturbances Respiratory: No cough, no shortness of air, no recurring pulmonary infections Cardiovascular/peripheral vascular: No chest pain, no palpitations, no edema, no shortness of breath Gastrointestinal: No new onset incontinence, normal bowel movements reported Genitourinary: No new onset incontinence Musculoskeletal: Chronic back pain Psychiatric: [Normal mood/affect] Neurological: [Denies weakness in extremities], [denies balance issues] Meds Home Medications and Allergies Home Medications ?Medication ?Instructions ?Recorded ?Confirmed ?Type aspirin 81 mg tablet,delayed 81 mg PO DAILY 05/12/23 05/31/25 History release atorvastatin 10 mg tablet 10 mg PO DAILY 05/12/23 05/31/25 History bisacodyl 5 mg tablet,delayed 5 mg PO DAILY 05/12/23 05/31/25 History release blood sugar diagnostic (FreeStyle 05/12/23 05/31/25 History Lite Strips) bupropion HCl 300 mg 24 hr tablet, 150 mg PO DAILY 05/12/23 05/31/25 History extended release insulin aspart U-100 100 unit/mL See Protocol SQ DAILY 05/12/23 05/31/25 History subcutaneous solution (Novolog U-100 Insulin aspart) naloxone 4 mg/actuation nasal spray 1 spray intranasal DIRECTED 05/12/23 05/31/25 History Required for controlled substance pantoprazole 40 mg tablet,delayed 40 mg PO DAILY 05/12/23 05/31/25 History release polyethylene glycol 3350 17 17 g PO DAILY 05/12/23 05/31/25 History gram/dose oral powder potassium chloride 20 mEq 10 meq PO BID 05/12/23 05/31/25 History tablet,extended release(part/cryst) (Klor-Con M) trazodone 100 mg tablet 200 mg PO HS 05/12/23 05/31/25 History diclofenac epolamine 1.3 % 1 patch topical BID #30 ea 06/21/23 05/31/25 Rx transdermal 12 hour patch (Flector) guaifenesin 600 mg tablet, 600 mg PO TID PRN Congestion 11/25/23 05/31/25 History extended release 12 hr sertraline 100 mg tablet 100 mg PO DAILY 11/25/23 05/31/25 History albuterol sulfate 90 mcg/actuation 2 puff inhalation QID PRN 12/21/23 05/31/25 Rx aerosol inhaler (ProAir HFA) shortness of breath or wheezing 90 days #8.5 grams acetaminophen 500 mg tablet 1,000 mg PO Q4HP PRN Pain 01/27/24 05/31/25 History insulin glargine 100 unit/mL (3 45 unit SQ HS 01/27/24 05/31/25 History mL) subcutaneous pen (Lantus Solostar U-100 Insulin) budesonide 160 mcg-glycopyr 9 2 inh inhalation BID 90 days #10.7 02/03/24 05/31/25 Rx mcg-formot 4.8 mcg/actuation HFA grams inhaler (Breztri Aerosphere) ipratropium 0.5 mg-albuterol 3 mg 3 ml inhalation Q4H PRN wheezing 02/03/24 05/31/25 Rx (2.5 mg base)/3 mL nebulization 30 days #180 mL soln ascorbic acid (vitamin C) 500 mg 1 g (2 x 500 mg) PO BID #180 tabs 02/13/24 05/31/25 Rx tablet (Vitamin C) ropinirole 0.5 mg tablet 0.5 mg PO HS #30 tabs 12/08/24 05/31/25 Rx carvedilol 25 mg tablet 25 mg PO BID 01/26/25 05/31/25 History clopidogrel 75 mg tablet (Plavix) 75 mg PO DAILY 01/26/25 05/31/25 History furosemide 40 mg tablet 80 mg PO BID 01/26/25 05/31/25 History losartan 50 mg tablet 50 mg PO DAILY 01/26/25 05/31/25 History lurasidone 20 mg tablet 20 mg PO DAILY 01/26/25 05/31/25 History oxybutynin chloride 10 mg 5 mg PO BID 01/26/25 05/31/25 History tablet,extended release 24 hr pantoprazole 40 mg tablet,delayed 40 mg PO DAILY 01/26/25 05/31/25 History release ranolazine 500 mg tablet,extended 500 mg PO BID 01/26/25 05/31/25 History release,12 hr ondansetron 4 mg disintegrating 4 mg PO Q8H PRN nausea and 02/02/25 05/31/25 Rx tablet vomiting #30 tabs nystatin 100,000 unit/gram topical 1 applic topical BID #30 grams 04/20/25 05/31/25 Rx cream gabapentin 600 mg tablet See Rx Instructions .Route 05/09/25 05/31/25 Rx .COMPLEX #90 tabs New Prescriptions to Start Prescriptions: Allergies Allergy/AdvReac Type Severity Reaction Status Date / Time penicillin G Allergy Unknown Verified 07/18/24 11:04 ketorolac (From Toradol) Allergy Verified 07/18/24 11:04 prochlorperazine (From Allergy Verified 07/18/24 11:04 Compazine) Exam Constitutional Constitutional: no acute distress and cooperative *Routine HEENT Exam Head: Present normocephalic, atraumatic, hematoma, scalp tenderness and other (Small bruising still noted at site of previous injury related to her hematoma) Eye: Present PERRL ENT: Present mucous membranes moist *Routine Neck Exam Neck: Present supple *Routine Respiratory Exam Respiratory: Present CTA bilaterally *Routine Cardiovascular Exam Cardiovascular: Present RRR *Routine Abdominal Exam Abdominal: Present soft *Routine Rectal Exam Rectal:: deferred *Routine Genitalia Exam Genitalia:: deferred Routine Back/Spine/Pelvis Exam Back/Spine: Present pain with flexion *Routine Skin Exam Skin: Present intact, dry and warm *Routine Neurological Exam Neurological: Present alert and oriented X3 Routine Psychiatric Exam Psychiatric: Present normal affect and normal thought process Assessment and Plan *Assessment and plan (1) Lumbar back pain: Status: Acute Category: Medical Code(s): M54.50 - Low back pain, unspecified (2) Chronic pain disorder: Status: Acute Category: Medical Code(s): G89.4 - Chronic pain syndrome (3) Lumbar radiculopathy: Status: Acute Category: Medical Code(s): M54.16 - Radiculopathy, lumbar region (4) Degenerative disc disease, lumbar: Status: Acute Category: Medical Code(s): M51.369 - Other intervertebral disc degeneration, lumbar region without mention of lumbar back pain or lower extremity pain Plan Patient has been instructed to contact the clinic with any concerns before the next appointment. Dr. Herrera has reviewed this note and agrees with this plan of care. This note was dictated using voice recognition software and make contain errors or omissions. All injections are used with Lidocaine, Bupivacaine and dexamethasone. Occasionally urine drug screen is needed to verify patient's compliance with our office pain contract. This is ordered based off specific treatments related to chronic pain with the potential to abuse certain medications.
--- NOTE | 2025-05-31 08:54 | EXP.PAIN.PRO ---
Procedure Date: 05/31/25 Time: 09:07 Anesthesiologist:: Gianna Briseno APRN Complications:: None Pre-procedure Diagnosis:: Degenerative disc disease of lumbar spine with lumbar radiculopathy symptoms, chronic pain syndrome Post-procedure Diagnosis:: Same Indications for Procedure:: Patient is a pleasant 55-year-old female who presents today for intrathecal refill and reprogram. Patient is still trying to recover from her previous fall. She rates her pain today as 7 out of 10. She states overall her back is done pretty good with the pump but is asking for a small increase. Patient is still experiencing headaches related to her fall but denies any new injury or falls. She does state that they did end up taking her off of her blood pressure medications and do believe that that was related to her fall. Patient states she is very slow to get up from a seated or laying down position and up because she still feels a little lightheaded during that time. She states that she makes sure that she sits on the side of her bed or chair for a while before she goes to stand up. Patient is currently managed with morphine 10 mg/mL with a daily dose of 3.03 mg/day and bupivacaine 15 mg/mL with a daily dose of 4.544 mg/day. She is also prescribed gabapentin from our office. She denies any side effects. Her Maximo has been reviewed and is appropriate. Physical Exam: General: Alert and oriented x3, no acute distress, pleasant and cooperative Lungs: Respirations even and unlabored, symmetrical chest expansion Eyes: PERRL Musculoskeletal: Flexion and extension of lumbar [spine] somewhat guarded secondary to pain, [antalgic gait noted] Neurological: Speech clear, no gross sensory deficit Procedure Details:: Informed consent was obtained and the risk and benefits of the procedure were explained to the patient. The patient had noninvasive monitoring placed including noninvasive blood pressure cuff and pulse oximeter. Patient's pump was interrogated. The area over the pump was cleansed with chlorhexidine as a cleansing solution. In sterile fashion the pump was accessed with a 22-gauge needle. Approximately 4.8 mls of the pump solution was removed and discarded appropriately. The pump was then refilled with 20 mL's of morphine 10 mg/mL and bupivacaine 15 mg/mL. The needle was withdrawn and a bandage was placed over the puncture site. The infusion rate was reprogrammed and increased 5% to morphine 3.184 mg/day and bupivacaine 4.776 mg/day. The patient tolerated well with no complication. Plan and Disposition:: Patient tolerated the procedure well with no complications and was discharged neurologically intact. I will review it and make sure that she does have refills on her gabapentin. Patient's refills are good until July. Patient will return to clinic on or before their next intrathecal refill date. We will see the patient back in the clinic at the next intrathecal refill. Patient has been instructed to contact the clinic with any concerns before the next appointment. Dr. Herrera has reviewed this note and agrees with this plan of care. This note was dictated using voice recognition software and make contain errors or omissions. -- It Is medically necessary for this patient to continue to have their intrathecal pump refilled at regular intervals. This patient had an intrathecal pain pump implanted after meeting criteria of chronic intractable pain for greater than 3 months and failing conservative treatments. Patient has committed and been compliant to the treatment plan and all planned follow up care. Since implantation of the intrathecal pain pump, the patient has had decreased pain and been more functional. Oral medications have been reduced including intake of oral opioids. Patient continues to do well with intrathecal therapy with decrease in pain symptoms and increase in functional status. Stopping intrathecal medications can lead to life threatening withdrawal, seizures, cardiac arrest, severe pain, and possible . Pumps that are not refilled at regular intervals can be damages and cause and need for replacement. We continually titrate dose and concentration to optimize pain relief and function. We are limited in concentration for certain drugs to safely deliver medications through the pump and stay within the recommendations from the Polyanalgesic Consensus Committee Guidelines. Depending on dose and concentration these pumps may need to be refilled sooner than 3 months as we titrate. A UDS is needed to verify patient's compliance with our office pain contract. This is ordered based off specific treatments related to chronic pain with the potential to abuse certain medications.
[2025-05-31 09:01] VITALS: BP 144/82; PULSE 71; RESP 18; O2SAT 96
[2025-05-31 09:16] VITALS: BP 106/59; PULSE 73; RESP 18; O2SAT 98
== END 2025-05-31 09:16 | disposition home or self-care (01) ==
PROVIDERS: Visit Provider Nurse Practitioner Family
DX: Z45.1 Encounter for adjustment and management of infusion pump (principal); M51.16 Intervertebral disc disorders with radiculopathy, lumbar region; G89.4 Chronic pain syndrome; I11.0 Hypertensive heart disease with heart failure; I50.9 Heart failure, unspecified; J41.8 Mixed simple and mucopurulent chronic bronchitis; K21.9 Gastro-esophageal reflux disease without esophagitis; E78.5 Hyperlipidemia, unspecified; F32.A Depression, unspecified; E11.9 Type 2 diabetes mellitus without complications; Z91.81 History of falling; Z87.891 Personal history of nicotine dependence; Z86.711 Personal history of pulmonary embolism; Z88.6 Allergy status to analgesic agent; Z88.0 Allergy status to penicillin; Z88.8 Allergy status to other drugs, medicaments and biological substances; Z79.02 Long term (current) use of antithrombotics/antiplatelets; Z79.899 Other long term (current) drug therapy; Z79.51 Long term (current) use of inhaled steroids; Z79.4 Long term (current) use of insulin; Z79.82 Long term (current) use of aspirin
CPT/HCPCS: 62370

== ENCOUNTER 2025-07-06 09:27 | Day surgery (SDC) | payer MEDICAID, SELFPAY ==
--- NOTE | 2025-07-06 09:46 | EXP.PM.HP ---
History of Present Illness *Admission Date: 07/06/25 *Reason for visit:: Intrathecal refill; DDD *History of present illness: Same [facility] Disclaimer: The information contained in this section may have been updated after the patient was seen, as this information can be updated by other users. Medical History Hx pulmonary embolism Stroke Typical angina Viral pneumonia History of asthma COPD mixed type COPD exacerbation Pre-op testing CHF (congestive heart failure) History of COPD Stopped smoking with greater than 30 pack year history Dyspnea on exertion Diabetes GERD (gastroesophageal reflux disease) CAD (coronary artery disease) HLD (hyperlipidemia) HTN (hypertension) COPD (chronic obstructive pulmonary disease) Depression Surgical History History of lung biopsy H/O esophagogastroduodenoscopy H/O colonoscopy H/O breast surgery TO REMOVE BENIGN TUMORS H/O section Family History Other COPD (chronic obstructive pulmonary disease) Cancer Diabetes Heart attack Hypertension Lung cancer Stroke Social History Smoking Status: Former smoker smoking status stop date: 07/16/2023 alcohol intake: never substance use type: denies use current occupational status: disabled Travel in the last 8 weeks?: None Have you lived/traveled outside [place] in past 30 days?: No Contact w/someone who lives/traveled outside [place] past 30 days?: No Exposure to someone with infectious disease in past 14 days?: No Do you have a fever (greater than 100.4 F or 38 C)?: No Have you tested positive for COVID-19?: No Exposed to someone with COVID-19 in past 14 days?: No Do you have a sore throat?: No Do you have a cough?: No Do you have any weakness?: No Do you have any diarrhea?: No Are you experiencing any unusual bleeding?: No Do you have any muscle aches/pain?: No Do you have any abdominal pain?: No Are you experiencing loss of taste or smell?: No Other Medical History Have you received the Flu Vaccine for this season: No Have you received the Pneumonia Vaccine: No Meds Home Medications and Allergies Home Medications ?Medication ?Instructions ?Recorded ?Confirmed ?Type aspirin 81 mg tablet,delayed 81 mg PO DAILY 05/12/23 07/06/25 History release atorvastatin 10 mg tablet 10 mg PO DAILY 05/12/23 07/06/25 History bisacodyl 5 mg tablet,delayed 5 mg PO DAILY 05/12/23 07/06/25 History release blood sugar diagnostic (FreeStyle 05/12/23 07/06/25 History Lite Strips) bupropion HCl 300 mg 24 hr tablet, 150 mg PO DAILY 05/12/23 07/06/25 History extended release insulin aspart U-100 100 unit/mL See Protocol SQ DAILY 05/12/23 07/06/25 History subcutaneous solution (Novolog U-100 Insulin aspart) naloxone 4 mg/actuation nasal spray 1 spray intranasal DIRECTED 05/12/23 07/06/25 History Required for controlled substance pantoprazole 40 mg tablet,delayed 40 mg PO DAILY 05/12/23 07/06/25 History release polyethylene glycol 3350 17 17 g PO DAILY 05/12/23 07/06/25 History gram/dose oral powder potassium chloride 20 mEq 10 meq PO BID 05/12/23 07/06/25 History tablet,extended release(part/cryst) (Klor-Con M) trazodone 100 mg tablet 200 mg PO HS 05/12/23 07/06/25 History diclofenac epolamine 1.3 % 1 patch topical BID #30 ea 06/21/23 07/06/25 Rx transdermal 12 hour patch (Flector) guaifenesin 600 mg tablet, 600 mg PO TID PRN Congestion 11/25/23 07/06/25 History extended release 12 hr sertraline 100 mg tablet 100 mg PO DAILY 11/25/23 07/06/25 History albuterol sulfate 90 mcg/actuation 2 puff inhalation QID PRN 12/21/23 07/06/25 Rx aerosol inhaler (ProAir HFA) shortness of breath or wheezing 90 days #8.5 grams acetaminophen 500 mg tablet 1,000 mg PO Q4HP PRN Pain 01/27/24 07/06/25 History insulin glargine 100 unit/mL (3 45 unit SQ HS 01/27/24 07/06/25 History mL) subcutaneous pen (Lantus Solostar U-100 Insulin) budesonide 160 mcg-glycopyr 9 2 inh inhalation BID 90 days #10.7 02/03/24 07/06/25 Rx mcg-formot 4.8 mcg/actuation HFA grams inhaler (Breztri Aerosphere) ipratropium 0.5 mg-albuterol 3 mg 3 ml inhalation Q4H PRN wheezing 02/03/24 07/06/25 Rx (2.5 mg base)/3 mL nebulization 30 days #180 mL soln ascorbic acid (vitamin C) 500 mg 1 g (2 x 500 mg) PO BID #180 tabs 02/13/24 07/06/25 Rx tablet (Vitamin C) ropinirole 0.5 mg tablet 0.5 mg PO HS #30 tabs 12/08/24 07/06/25 Rx carvedilol 25 mg tablet 25 mg PO BID 01/26/25 07/06/25 History clopidogrel 75 mg tablet (Plavix) 75 mg PO DAILY 01/26/25 07/06/25 History furosemide 40 mg tablet 80 mg PO BID 01/26/25 07/06/25 History losartan 50 mg tablet 50 mg PO DAILY 01/26/25 07/06/25 History lurasidone 20 mg tablet 20 mg PO DAILY 01/26/25 07/06/25 History oxybutynin chloride 10 mg 5 mg PO BID 01/26/25 07/06/25 History tablet,extended release 24 hr pantoprazole 40 mg tablet,delayed 40 mg PO DAILY 01/26/25 07/06/25 History release ranolazine 500 mg tablet,extended 500 mg PO BID 01/26/25 07/06/25 History release,12 hr ondansetron 4 mg disintegrating 4 mg PO Q8H PRN nausea and 02/02/25 07/06/25 Rx tablet vomiting #30 tabs nystatin 100,000 unit/gram topical 1 applic topical BID #30 grams 04/20/25 07/06/25 Rx cream gabapentin 600 mg tablet See Rx Instructions .Route 05/09/25 07/06/25 Rx .COMPLEX #90 tabs New Prescriptions to Start Prescriptions: Allergies Allergy/AdvReac Type Severity Reaction Status Date / Time penicillin G Allergy Unknown Verified 07/18/24 11:04 ketorolac (From Toradol) Allergy Verified 07/18/24 11:04 prochlorperazine (From Allergy Verified 07/18/24 11:04 Compazine) Exam Constitutional Constitutional: no acute distress *Routine HEENT Exam Head: Present normocephalic and atraumatic Eye: Present PERRL ENT: Present mucous membranes moist *Routine Neck Exam Neck: Present supple *Routine Respiratory Exam Respiratory: Present normal respiratory effort *Routine Cardiovascular Exam Cardiovascular: Present RRR *Routine Abdominal Exam Abdominal: Present soft *Routine Rectal Exam Rectal:: deferred *Routine Genitalia Exam Genitalia:: deferred Routine Back/Spine/Pelvis Exam Back/Spine: Present pain with flexion *Routine Skin Exam Skin: Present intact and warm *Routine Neurological Exam Neurological: Present alert and oriented X3 Routine Psychiatric Exam Psychiatric: Present normal affect and normal thought process
--- NOTE | 2025-07-06 09:47 | EXP.PAIN.PRO ---
Procedure Date: 07/06/25 Time: 10:25 Anesthesiologist:: Gianna Briseno APRN Complications:: None Pre-procedure Diagnosis:: Degenerative disc disease of lumbar spine with lumbar radiculopathy symptoms, chronic pain syndrome Post-procedure Diagnosis:: Same Indications for Procedure:: Patient is a pleasant 55-year-old female who presents today for intrathecal refill and reprogram. Today she rates her pain an 8 out of 10. Patient does state that she still has been having some falls however denies any significant injury as she did previously a few months ago. Patient does state that she was just recently hospitalized for additional respiratory issues and that her lung doctor stated that she only has 16% function. Patient is asking whether or not if there is any way that we can get her filled at home due to her worsening condition.patient is currently managed with morphine 10 mg/mL and bupivacaine 15 mg/mL. She denies any side effects. She is asking if we could do a small increase. Patient is prescribed compounded cream and gabapentin 600 mg 3 times a day from our office. She denies any side effects. Her Maximo has been reviewed and is appropriate. Physical Exam: General: Alert and oriented x3, no acute distress, pleasant and cooperative Lungs: Respirations even and unlabored, symmetrical chest expansion Eyes: PERRL Musculoskeletal: Flexion and extension of lumbar [spine] somewhat guarded secondary to pain, [antalgic gait noted] Neurological: Speech clear, no gross sensory deficit Procedure Details:: Informed consent was obtained and the risk and benefits of the procedure were explained to the patient. The patient had noninvasive monitoring placed including noninvasive blood pressure cuff and pulse oximeter. Patient's pump was interrogated. The area over the pump was cleansed with chlorhexidine as a cleansing solution. In sterile fashion the pump was accessed with a 22-gauge needle. Approximately 5.8 mls of the pump solution was removed and discarded appropriately. The pump was then refilled with 20 mL's of morphine 10 mg/mL and bupivacaine 15 mg/mL. The needle was withdrawn and a bandage was placed over the puncture site. The infusion rate was reprogrammed and increased 5% to morphine 3.51 milligrams per day and bupivacaine 5.264 mg/day. The patient tolerated well with no complication. Plan and Disposition:: Patient tolerated the procedure well with no complications and was discharged neurologically intact. I did discuss with the patient due to her significant comorbidities and worsening lung function I do believe she would be a very beneficial candidate of the at home refill program. Patient has a significant fall history with continuing weakness in her legs. Patient has very limited mobility. Today for her intrathecal refill we did have to keep her seated in her wheelchair and had her turn laterally due to limited mobility. I do believe it would be in her best interest to be filled at home as this is very hard on her to drive about an hour and a half one-way and with her significant comorbidities. We will reach out to [facility] and see if they can also help us get her on the schedule to be refilled at home. Patient did also make mention that she has gotten a motorized wheelchair however does not have a ramp in her home in order to use it. I did recommend to her to try and reach out to some local churches they are in her location and see if they possibly would come and install a ramp. Patient does state that she will give this a try. Patient will return to clinic on or before their next intrathecal refill date. We will see the patient back in the clinic at the next intrathecal refill. Patient has been instructed to contact the clinic with any concerns before the next appointment. Dr. Herrera has reviewed this note and agrees with this plan of care. This note was dictated using voice recognition software and make contain errors or omissions. -- It Is medically necessary for this patient to continue to have their intrathecal pump refilled at regular intervals. This patient had an intrathecal pain pump implanted after meeting criteria of chronic intractable pain for greater than 3 months and failing conservative treatments. Patient has committed and been compliant to the treatment plan and all planned follow up care. Since implantation of the intrathecal pain pump, the patient has had decreased pain and been more functional. Oral medications have been reduced including intake of oral opioids. Patient continues to do well with intrathecal therapy with decrease in pain symptoms and increase in functional status. Stopping intrathecal medications can lead to life threatening withdrawal, seizures, cardiac arrest, severe pain, and possible . Pumps that are not refilled at regular intervals can be damages and cause and need for replacement. We continually titrate dose and concentration to optimize pain relief and function. We are limited in concentration for certain drugs to safely deliver medications through the pump and stay within the recommendations from the [employer] Consensus [employer] Guidelines. Depending on dose and concentration these pumps may need to be refilled sooner than 3 months as we titrate. A UDS is needed to verify patient's compliance with our office pain contract. This is ordered based off specific treatments related to chronic pain with the potential to abuse certain medications.
[2025-07-06 10:01] VITALS: BP 125/54; PULSE 78; RESP 18; O2SAT 96; BMI 60.9
[2025-07-06 10:22] VITALS: BP 125/54; PULSE 78; RESP 18; O2SAT 96
[2025-07-06 10:31] VITALS: BP 116/73; PULSE 70; RESP 18; O2SAT 96
== END 2025-07-06 10:31 | disposition home or self-care (01) ==
PROVIDERS: Visit Provider Nurse Practitioner Family
DX: Z45.1 Encounter for adjustment and management of infusion pump (principal); M51.16 Intervertebral disc disorders with radiculopathy, lumbar region; G89.4 Chronic pain syndrome; I25.10 Atherosclerotic heart disease of native coronary artery without angina pectoris; I11.0 Hypertensive heart disease with heart failure; I50.9 Heart failure, unspecified; F32.A Depression, unspecified; E11.9 Type 2 diabetes mellitus without complications; K21.9 Gastro-esophageal reflux disease without esophagitis; J44.89 Other specified chronic obstructive pulmonary disease; E78.5 Hyperlipidemia, unspecified; Z86.711 Personal history of pulmonary embolism; Z87.891 Personal history of nicotine dependence; Z88.6 Allergy status to analgesic agent; Z88.0 Allergy status to penicillin; Z88.8 Allergy status to other drugs, medicaments and biological substances; Z79.82 Long term (current) use of aspirin; Z79.01 Long term (current) use of anticoagulants; Z79.4 Long term (current) use of insulin; Z79.899 Other long term (current) drug therapy
CPT/HCPCS: 62370